=== PATIENT | female | born 1965 | race African-American/Black ===

== ENCOUNTER → 2016-11-07 | Outpatient (CLI) | payer MEDICARE, MEDICAID ==
--- NOTE | 2016-11-11 10:19 | WOMENS IMAGING REPORT ---
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 Left breast tomosynthesis was performed. Bilateral breast ultrasound was also performed. LIMITATIONS: None. FINDINGS: RIGHT BREAST MASSES: No suspicious masses. CALCIFICATIONS: No new or suspicious calcifications. ARCHITECTURAL DISTORTION: None. DEVELOPING DENSITY: None. ASYMMETRY: None noted. OTHER: There is a stereotactic clip in the lower inner quadrant right breast. I have no pathology re port for correlation. LEFT BREAST MASSES: No suspicious masses. CALCIFICATIONS: No new or suspicious calcifications. ARCHITECTURAL DISTORTION: None. DEVELOPING DENSITY: None. ASYMMETRY: None noted. OTHER: No other significant finding. Read with the assistance of CAD: .[facility] - R2 It Audit Manager Version 9.2 Patient presents today with bilateral nipple discharge. Bilateral breast ultrasound was performed. No worrisome findings. No cysts. No solid nodules. No dilated retroareolar ducts. No focal findin gs. BREAST DENSITY: c. The breasts are heterogeneously dense, which may obscure small masses. BIRAD: 2 Benign findings. RECOMMENDATION: RECOMMENDED FOLLOW UP: Clinical follow-up for nipple discharge. Please correlate wi th the patient's medication list for medications which could cause elevated prolactin. If there is b loody nipple discharge, consider follow up ductogram or MRI. Findings discussed with Dr Palomares SPECIFIC INTERVENTION/IMAGING/CONSULTATION RECOMMENDED:No additional intervention/ imaging/consultati on needed at this time. COMMUNICATION:Patient notified by letter. COMMENT: PATIENT NOTIFIED BY LETTER. The [employer] (ACR) has developed recommendations for screening MRI of the breast s in certain patient populations, to be used in conjunction with mammography. Breast MRI surveillanc e may be appropriate for women with more than 20% lifetime risk of developing breast cancer as deter mined by genetic testing, significant family history of the disease, or history of mantle radiation f or Hodgkins Disease. ACR Practice Guidelines 2008. TECHNICAL DOCUMENTATION: FINDING NUMBER: (1) ASSESSMENT: (1) JOB ID: [id number] [employer]- All Rights Reserved
--- NOTE | 2016-11-11 10:20 | WOMENS IMAGING REPORT ---
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 Left breast tomosynthesis was performed. Bilateral breast ultrasound was also performed. LIMITATIONS: None. FINDINGS: RIGHT BREAST MASSES: No suspicious masses. CALCIFICATIONS: No new or suspicious calcifications. ARCHITECTURAL DISTORTION: None. DEVELOPING DENSITY: None. ASYMMETRY: None noted. OTHER: There is a stereotactic clip in the lower inner quadrant right breast. I have no pathology re port for correlation. LEFT BREAST MASSES: No suspicious masses. CALCIFICATIONS: No new or suspicious calcifications. ARCHITECTURAL DISTORTION: None. DEVELOPING DENSITY: None. ASYMMETRY: None noted. OTHER: No other significant finding. Read with the assistance of CAD: .[facility] - R2 Lens Inspector Version 9.2 Patient presents today with bilateral nipple discharge. Bilateral breast ultrasound was performed. No worrisome findings. No cysts. No solid nodules. No dilated retroareolar ducts. No focal findin gs. BREAST DENSITY: c. The breasts are heterogeneously dense, which may obscure small masses. BIRAD: 2 Benign findings. RECOMMENDATION: RECOMMENDED FOLLOW UP: Clinical follow-up for nipple discharge. Please correlate wi th the patient's medication list for medications which could cause elevated prolactin. If there is b loody nipple discharge, consider follow up ductogram or MRI. Findings discussed with Dr Palomares SPECIFIC INTERVENTION/IMAGING/CONSULTATION RECOMMENDED:No additional intervention/ imaging/consultati on needed at this time. COMMUNICATION:Patient notified by letter. COMMENT: PATIENT NOTIFIED BY LETTER. The [employer] (ACR) has developed recommendations for screening MRI of the breast s in certain patient populations, to be used in conjunction with mammography. Breast MRI surveillanc e may be appropriate for women with more than 20% lifetime risk of developing breast cancer as deter mined by genetic testing, significant family history of the disease, or history of mantle radiation f or Hodgkins Disease. ACR Practice Guidelines 2008. TECHNICAL DOCUMENTATION: FINDING NUMBER: (1) ASSESSMENT: (1) JOB ID: [id number] [employer]- All Rights Reserved
--- NOTE | 2016-11-11 10:20 | WOMENS IMAGING REPORT ---
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 Left breast tomosynthesis was performed. Bilateral breast ultrasound was also performed. LIMITATIONS: None. FINDINGS: RIGHT BREAST MASSES: No suspicious masses. CALCIFICATIONS: No new or suspicious calcifications. ARCHITECTURAL DISTORTION: None. DEVELOPING DENSITY: None. ASYMMETRY: None noted. OTHER: There is a stereotactic clip in the lower inner quadrant right breast. I have no pathology re port for correlation. LEFT BREAST MASSES: No suspicious masses. CALCIFICATIONS: No new or suspicious calcifications. ARCHITECTURAL DISTORTION: None. DEVELOPING DENSITY: None. ASYMMETRY: None noted. OTHER: No other significant finding. Read with the assistance of CAD: .[facility] - R2 Hybrid Tester Version 9.2 Patient presents today with bilateral nipple discharge. Bilateral breast ultrasound was performed. No worrisome findings. No cysts. No solid nodules. No dilated retroareolar ducts. No focal findin gs. BREAST DENSITY: c. The breasts are heterogeneously dense, which may obscure small masses. BIRAD: 2 Benign findings. RECOMMENDATION: RECOMMENDED FOLLOW UP: Clinical follow-up for nipple discharge. Please correlate wi th the patient's medication list for medications which could cause elevated prolactin. If there is b loody nipple discharge, consider follow up ductogram or MRI. Findings discussed with Dr Palomares SPECIFIC INTERVENTION/IMAGING/CONSULTATION RECOMMENDED:No additional intervention/ imaging/consultati on needed at this time. COMMUNICATION:Patient notified by letter. COMMENT: PATIENT NOTIFIED BY LETTER. The [employer] (ACR) has developed recommendations for screening MRI of the breast s in certain patient populations, to be used in conjunction with mammography. Breast MRI surveillanc e may be appropriate for women with more than 20% lifetime risk of developing breast cancer as deter mined by genetic testing, significant family history of the disease, or history of mantle radiation f or Hodgkins Disease. ACR Practice Guidelines 2008. TECHNICAL DOCUMENTATION: FINDING NUMBER: (1) ASSESSMENT: (1) JOB ID: [id number] [employer]- All Rights Reserved
== END ==
LOC: WI 10:44
PROVIDERS: ATTEND Specialist
DX: C50.411 Malignant neoplasm of upper-outer quadrant of right female breast (principal); N64.52 Nipple discharge
CPT/HCPCS: 76642; G0204; 77066

== ENCOUNTER → 2016-11-13 | Outpatient (CLI) | payer MEDICARE, MEDICAID | LOC: RAD 10:06 | PROVIDERS: ATTEND Specialist | DX: C50.411 Malignant neoplasm of upper-outer quadrant of right female breast (principal) | CPT/HCPCS: 70460; 72132; 82565 ==

== ENCOUNTER 2017-01-18 18:53 | Emergency (ER) | payer MEDICARE ==
[2017-01-18] MEDS ORDERED: ONDANSETRON HCL INJ/PF 4 MG/2 ML SDV IV ONE (19:29)
[2017-01-18] MEDS ORDERED: PROCHLORPERAZINE EDISYLATE INJ 10 MG/2 ML VIAL IV ONE (19:29)
[2017-01-18] MEDS ORDERED: NORMAL SALINE 1000 ML 1,000 ML IV ONE (19:30)
[2017-01-18] MEDS ORDERED: LIDOCAINE 5% (700 MG) TRANSDERMAL ADH..PATCH TP ONE (19:30)
--- NOTE | 2017-01-18 19:31 | ER Document Report ---
ED Medical Screen (RME) - General Chief Complaint: Headache Stated Complaint: VOMITING/HEADACHE TRAVEL OUTSIDE OF THE [place] IN LAST 30 DAYS: No - HPI Notes: 01/18/17 19:30 Patient with a migraine headache similar to migraine headaches in the past. No history of head trauma. Patient also has a insect bite marc on her abdomen - Related Data Allergies/Adverse Reactions: aspirin [Aspirin] Allergy (Verified 01/18/17 19:00) ciprofloxacin [From Cipro] Allergy (Verified 01/18/17 19:00) ciprofloxacin HCl [From Cipro] Allergy (Verified 01/18/17 19:00) NSAIDS (Non-Steroidal Anti-Inflamma [Nsaids] Allergy (Verified 01/18/17 19:00) Past Medical History - Past Medical History Cardiac Medical History: Reports: Hx Heart Murmur Pulmonary Medical History: Reports: Hx Asthma, Hx Pneumonia Neurological Medical History: Reports: Hx Seizures Renal/ Medical History: Denies: Hx Peritoneal Dialysis Malignancy Medical History: 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 GI Medical History: Reports: Hx Gastroesophageal Reflux Disease, Hx Irritable Bowel Musculoskeltal Medical History: Reports Hx Fibromyalgia, Reports Hx Musculoskeletal Deformity, Reports Hx Musculoskeletal Trauma Psychiatric Medical History: Reports: Hx Depression Traumatic Medical History: Reports: Hx Fractures - left arm wrist hand, Hx Traumatic Brain Injury Past Surgical History: Reports: Hx Hysterectomy, Hx Neurologic Surgery - tbi, spinal fusion in 2005, spinal nerve stimulator early 2015, Hx Orthopedic Surgery - left arm ulnar nerve, wrist and left knee - Immunizations Immunizations up to date: Yes Hx Diphtheria, Pertussis, Tetanus Vaccination: Yes Review of Systems - Review of Systems Constitutional: Other - Headache insect bite Physical Exam - Vital signs Vitals: Temp Pulse Resp BP Pulse Ox 98.2 F 85 20 183/86 H 99 01/18/17 19:00 01/18/17 19:00 01/18/17 19:00 01/18/17 19:00 01/18/17 19:00 - General General appearance: Appears well In distress: None Course - Vital Signs Vital signs: Temp Pulse Resp BP Pulse Ox 98.2 F 85 20 183/86 H 99 01/18/17 19:00 01/18/17 19:00 01/18/17 19:00 01/18/17 19:00 01/18/17 19:00
--- NOTE | 2017-01-18 20:11 | ER Document Report ---
ED General - General Chief Complaint: Headache Stated Complaint: VOMITING/HEADACHE Mode of Arrival: Ambulatory Information source: Patient Notes: She presents to the emergency department with complaints of a migraine headache typical of her usual migraine headaches for the past 2 days with vomiting. She reports the left side of her head and behind her left eye aches. Patient also reports an insect bite on her stomach that occurred two days ago. Reports a brown spider bit her. She has been taking benadryl because the area itches and also placed some cream on it.. Patient reports 102. fever this AM and yesterday. Took tylenol at 1700 this afternoon but vomited up. Denies diarrhea. Reports history of migraines but this is only her second migraine in 2017. Reports light and smells bother her. She reports she took Zofran without relief of the vomiting. TRAVEL OUTSIDE OF THE [place] IN LAST 30 DAYS: No - HPI Onset: Other - 2 days Quality of pain: Achy, Pressure Severity: Severe Pain Level: 4 Associated symptoms: Fever, Vomiting Exacerbated by: Denies Relieved by: Denies Similar symptoms previously: Yes Recently seen / treated by doctor: No - Related Data Allergies/Adverse Reactions: aspirin [Aspirin] Allergy (Verified 01/18/17 19:00) ciprofloxacin [From Cipro] Allergy (Verified 01/18/17 19:00) ciprofloxacin HCl [From Cipro] Allergy (Verified 01/18/17 19:00) NSAIDS (Non-Steroidal Anti-Inflamma [Nsaids] Allergy (Verified 01/18/17 19:00) Past Medical History - General Information source: Patient Last Menstrual Period: hyst - Social History Smoking Status: Unknown if Ever Smoked Cigarette use (# per day): No Chew tobacco use (# tins/day): No Frequency of alcohol use: None Drug Abuse: None Family History: Arthritis, DM, Hypertension, Malignancy, Thyroid Disfunction Patient has suicidal ideation: No Patient has homicidal ideation: No - Past Medical History Cardiac Medical History: Reports: Hx Heart Murmur Pulmonary Medical History: Reports: Hx Asthma, Hx Pneumonia Neurological Medical History: Reports: Hx Migraine, Hx Seizures - last seizure 4 years ago Renal/ Medical History: Denies: Hx Peritoneal Dialysis Malignancy Medical History: 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 GI Medical History: Reports: Hx Gastroesophageal Reflux Disease, Hx Irritable Bowel Musculoskeltal Medical History: Reports Hx Fibromyalgia, Reports Hx Musculoskeletal Deformity, Reports Hx Musculoskeletal Trauma Psychiatric Medical History: Reports: Hx Depression Traumatic Medical History: Reports: Hx Fractures - left arm wrist hand, Hx Traumatic Brain Injury Past Surgical History: Reports: Hx Hysterectomy, Hx Neurologic Surgery - tbi, spinal fusion in 2005, spinal nerve stimulator early 2015, Hx Orthopedic Surgery - left arm ulnar nerve, wrist and left knee - Immunizations Immunizations up to date: Yes Hx Diphtheria, Pertussis, Tetanus Vaccination: Yes Review of Systems - Review of Systems Notes: Review HPI for review of systems., All other systems negative Physical Exam - Vital signs Vitals: Temp Pulse Resp BP Pulse Ox 98.2 F 85 20 183/86 H 99 01/18/17 19:00 01/18/17 19:00 01/18/17 19:00 01/18/17 19:00 01/18/17 19:00 - Notes Notes: PHYSICAL EXAMINATION: GENERAL: sunglasses on, looks uncomfortable HEAD: Atraumatic, normocephalic. EYES: Pupils equal round and reactive to light, extraocular movements intact, sclera anicteric, conjunctiva are normal. ENT: nares patent, oropharynx clear without exudates. Moist mucous membranes. NECK: Normal range of motion, supple without lymphadenopathy LUNGS: CTAB and equal. No wheezes rales or rhonchi. HEART: Regular rate and rhythm without murmurs ABDOMEN: Soft, no tenderness. No guarding, no rebound EXTREMITIES: Normal range of motion, no pitting edema. No cyanosis. NEUROLOGICAL: Cranial nerves grossly intact. Normal sensory/motor exams. no obvious neuro deficits, speaks in a clear voice, no weakness. PSYCH: Normal mood, normal affect. SKIN: Warm, Dry, normal turgor,small area of erythema to the right mid right quad, no induration, no warmth/drainage or pustule. Course - Re-evaluation Re-evalutation: 01/18/17 20:27 Patient was instructed on pending medication. She verbalized understanding. 01/18/17 21:34 She reports her headache is completely gone. She denies nausea, is eating crackers and water - Vital Signs Vital signs: Temp Pulse Resp BP Pulse Ox 98.0 F 78 16 151/88 H 98 01/18/17 22:24 01/18/17 22:24 01/18/17 22:24 01/18/17 22:24 01/18/17 22:24 Discharge - Discharge Clinical Impression: Elevated blood pressure reading Headache Qualifiers: Headache type: unspecified Headache chronicity pattern: acute headache Insect bite Qualifiers: Encounter type: initial encounter Qualified Code(s): W57.XXXA - Bitten or stung by nonvenomous insect and other nonvenomous arthropods, initial encounter Condition: Stable Disposition: HOME, SELF-CARE Instructions: Intravenous Compazine for Headaches ([facility]), Headache ([facility]), Use of Diphenhydramine Additional Instructions: *You have been evaluated for headache, insect bite, elevated blood pressure reading *Take your medication as prescribed *Take benadryl as indicated *Follow up with your primary care provider within one week for recheck *Monitor the insect bite for signs of infection such as redness swelling and warmth increased pain *Return to ED for worsening condition, changes, needs, concerns Forms: Elevated Blood Pressure Referrals: AMIRAH ESCALANTE MD [Primary Care Provider] - Follow up in 3-5 days
[2017-01-18 22:26] VITALS: BP 151/88
== END 2017-01-18 22:25 | disposition home or self-care (01) ==
LOC: ER 18:53
DX: S30.861A Insect bite (nonvenomous) of abdominal wall, initial encounter (principal); R03.0 Elevated blood-pressure reading, without diagnosis of hypertension; R51 Headache; R11.10 Vomiting, unspecified; W57.XXXA Bitten or stung by nonvenomous insect and other nonvenomous arthropods, initial encounter
CPT/HCPCS: 99283; 96361; 96374; 96375; J0780; J2405; J7030

== ENCOUNTER → 2017-03-24 | Outpatient (CLI) | payer MEDICARE, MEDICAID ==
--- NOTE | 2017-03-24 09:38 | RADIOLOGY REPORT (SQ) ---
EXAM DESCRIPTION: CT HEAD WITHOUT COMPLETED DATE/TIME: 03/24/2017 8:33 am REASON FOR STUDY: HEADACHE R51 HEADACHE COMPARISON: November 2016 TECHNIQUE: Axial images acquired through the brain without intravenous contrast. Images reviewed wi th bone, brain and subdural windows. Images stored on PACS. All CT scanners at this facility use dose modulation, iterative reconstruction, and/or weight based d osing when appropriate to reduce radiation dose to as low as reasonably achievable (ALARA). [facility]: Dose Right [facility]: CareDose [facility]: Dose Right [facility]: Teradose 4D [facility]: [employer] RADIATION DOSE: 48.95 mGy. LIMITATIONS: None. FINDINGS: VENTRICLES: Normal size and contour. CEREBRUM: No masses. No hemorrhage. No midline shift. Normal hodge/white matter differentiation. N o evidence for acute infarction. CEREBELLUM: No masses. No hemorrhage. No alteration of density. No evidence for acute infarction. EXTRAAXIAL SPACES: No fluid collections. No masses. ORBITS AND GLOBE: No intra- or extraconal masses. Normal contour of globe without masses. CALVARIUM: No fracture. PARANASAL SINUSES: No fluid or mucosal thickening. SOFT TISSUES: No mass or hematoma. OTHER: No other significant finding. IMPRESSION: NORMAL BRAIN CT WITHOUT CONTRAST. TECHNICAL DOCUMENTATION: JOB ID: [id number] Quality ID # [id number]: Final reports with documentation of one or more dose reduction techniques (e.g., Au tomated exposure control, adjustment of the mA and/or kV according to patient size, use of iterative reconstruction technique) 2010 [employer]- All Rights Reserved
== END ==
LOC: RAD 08:22
PROVIDERS: ATTEND Physician Assistant
DX: R51 Headache (principal)
CPT/HCPCS: 70450

== ENCOUNTER → 2017-06-20 | Outpatient (CLI) | payer MEDICARE, MEDICAID ==
--- NOTE | 2017-06-20 10:29 | RADIOLOGY REPORT (SQ) ---
EXAM DESCRIPTION: LUMBAR SPINE COMPLETE COMPLETED DATE/TIME: 06/20/2017 8:41 am REASON FOR STUDY: PAIN IN THORACIC SPINE,LOW BACK PAIN M54.6 PAIN IN THORACIC SPINE M54.5 LOW BACK PAIN COMPARISON: CT 11/13/2016 NUMBER OF VIEWS: Five views including obliques. TECHNIQUE: AP, lateral, oblique, and sacral radiographic images acquired of the lumbar spine. LIMITATIONS: None. FINDINGS: MINERALIZATION: Normal. SEGMENTATION: Normal. No transitional anatomy. ALIGNMENT: Normal. VERTEBRAE: Maintained height. No fracture or worrisome bone lesion. DISCS: Preserved height. No significant osteophytes or end plate irregularity. POSTERIOR ELEMENTS: Pedicles and facets are intact. No pars defect or posterior arch defects. HARDWARE: A neural stimulator overlies lumbar spine on the lateral views. PARASPINAL SOFT TISSUES: Normal. PELVIS: Intact as visualized. No fractures or worrisome bone lesions. SI joints intact. OTHER: No other significant finding. IMPRESSION: NORMAL 5 VIEW LUMBAR SPINE. TECHNICAL DOCUMENTATION: JOB ID: [id number] [employer]- All Rights Reserved
--- NOTE | 2017-06-20 10:31 | RADIOLOGY REPORT (SQ) ---
EXAM DESCRIPTION: T SPINE AP/LAT COMPLETED DATE/TIME: 06/20/2017 8:42 am REASON FOR STUDY: PAIN IN THORACIC SPINE,LOW BACK PAIN M54.6 PAIN IN THORACIC SPINE M54.5 LOW BACK PAIN COMPARISON: CT 07/04/2016 NUMBER OF VIEWS: Two views. TECHNIQUE: AP and lateral radiographic images acquired of the thoracic spine. LIMITATIONS: None. FINDINGS: MINERALIZATION: Normal. ALIGNMENT: Normal. No scoliosis. VERTEBRAE: No fracture or bone lesion. Maintained height, normal segmentation. DISCS: No significant loss of height or significant narrowing. No large osteophytes. HARDWARE: The neurostimulator electrodes extend from T7-T9. MEDIASTINUM AND SOFT TISSUES: Normal heart size and aortic contour. No soft tissue abnormality. VISUALIZED LUNG DENTON: Clear. OTHER: No other significant finding. IMPRESSION: NO SIGNIFICANT RADIOGRAPHIC FINDING IN THE THORACIC SPINE. TECHNICAL DOCUMENTATION: JOB ID: [id number] [employer]- All Rights Reserved
== END ==
LOC: OD 08:19
PROVIDERS: ATTEND Physician Assistant
DX: M54.6 Pain in thoracic spine (principal); M54.5 Low back pain
CPT/HCPCS: 72070; 72110

== ENCOUNTER → 2017-06-20 | Outpatient (CLI) | payer MEDICARE, MEDICAID ==
--- NOTE | 2017-06-20 12:08 | RADIOLOGY REPORT (SQ) ---
EXAM DESCRIPTION: CT HEAD WITHOUT COMPLETED DATE/TIME: 06/20/2017 11:08 am REASON FOR STUDY: OTHER VISUAL DISTURBANCES (H53.8), FALL (W19.XXXA), DIZZINESS AND GIDDINESS W19.XX XA UNSPECIFIED FALL, INITIAL ENCOUNTER H53.8 OTHER VISUAL DISTURBANCES R42 DIZZINESS AND GIDDINESS COMPARISON: CT brain 03/24/2017, 11/13/2016 TECHNIQUE: Axial images acquired through the brain without intravenous contrast. Images reviewed wi th bone, brain and subdural windows. Images stored on PACS. All CT scanners at this facility use dose modulation, iterative reconstruction, and/or weight based d osing when appropriate to reduce radiation dose to as low as reasonably achievable (ALARA). [facility]: Dose Right [facility]: CareDose [facility]: Dose Right [facility]: Teradose 4D [facility]: [employer] RADIATION DOSE: Up-to-date CT equipment and radiation dose reduction techniques were employed. CTDIv ol: 48.2 mGy. DLP: 783 mGy-cm. mGy. LIMITATIONS: None. FINDINGS: VENTRICLES: Normal size and contour. CEREBRUM: No masses. No hemorrhage. No midline shift. No evidence for acute infarction. Normal gra y/white matter differentiation. No areas of low density in the white matter. CEREBELLUM: No masses. No hemorrhage. No alteration of density. No evidence for acute infarction. EXTRAAXIAL SPACES: No fluid collections. No masses. ORBITS AND GLOBE: No intra- or extraconal masses. Normal contour of globe without masses. CALVARIUM: No fracture. PARANASAL SINUSES: No fluid or mucosal thickening. SOFT TISSUES: No mass or hematoma. OTHER: No other significant finding. IMPRESSION: NORMAL BRAIN CT WITHOUT CONTRAST. COMMENT: Quality ID # 436: Final reports with documentation of one or more dose reduction techniques (e.g., Automated exposure control, adjustment of the mA and/or kV according to patient size, use of iterative reconstruction technique) TECHNICAL DOCUMENTATION: JOB ID: [id number] [employer]- All Rights Reserved
== END ==
LOC: RAD 10:57
PROVIDERS: ATTEND Physician Assistant
DX: H53.8 Other visual disturbances (principal); R42 Dizziness and giddiness; W19.XXXA Unspecified fall, initial encounter
CPT/HCPCS: 70450

== ENCOUNTER 2017-07-15 15:18 | Emergency (ER) | payer MEDICARE, MEDICAID ==
[2017-07-15] MEDS ORDERED: IPRATROPIUM/ALBUTEROL 0.5-2.5 MG/3 ML AMPUL NEB ONE (15:33)
[2017-07-15] MEDS ORDERED: PREDNISONE 20 MG TABLET PO ONE (15:34)
--- NOTE | 2017-07-15 15:57 | ER Document Report ---
ED General - General Chief Complaint: Nonproductive Cough Stated Complaint: COUGH Time Seen by Provider: 07/15/17 15:25 Mode of Arrival: Ambulatory Information source: Patient Notes: 55-year-old female history of asthma presents with complaints of shortness of breath. Patient notes she has had nonproductive cough denies any fevers or chills notes she has had shortness of breath. Patient took 2 breathing treatments at home and noted continued difficulty breathing presented to the ED for evaluation and care TRAVEL OUTSIDE OF THE [place] IN LAST 30 DAYS: No - HPI Onset: Just prior to arrival Onset/Duration: Sudden Quality of pain: Achy Severity: Mild Pain Level: 1 Associated symptoms: Nonproductive cough, Headache, Shortness of breath Exacerbated by: Coughing Relieved by: Denies Similar symptoms previously: Yes Recently seen / treated by doctor: No - Related Data Allergies/Adverse Reactions: aspirin [Aspirin] Allergy (Verified 01/18/17 19:00) ciprofloxacin [From Cipro] Allergy (Verified 01/18/17 19:00) ciprofloxacin HCl [From Cipro] Allergy (Verified 01/18/17 19:00) NSAIDS (Non-Steroidal Anti-Inflamma [Nsaids] Allergy (Verified 01/18/17 19:00) Past Medical History - Social History Smoking Status: Never Smoker Cigarette use (# per day): No Chew tobacco use (# tins/day): No Smoking Education Provided: No Family History: Arthritis, DM, Hypertension, Malignancy, Thyroid Disfunction Patient has suicidal ideation: No Patient has homicidal ideation: No - Past Medical History Cardiac Medical History: Reports: Hx Heart Murmur Pulmonary Medical History: Reports: Hx Asthma, Hx Pneumonia Neurological Medical History: Reports: Hx Migraine, Hx Seizures - last seizure 4 years ago Endocrine Medical History: Reports: 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 Renal/ Medical History: Denies: Hx Peritoneal Dialysis Malignancy Medical History: 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 GI Medical History: Reports: Hx Gastroesophageal Reflux Disease, Hx Irritable Bowel Musculoskeltal Medical History: Reports Hx Fibromyalgia, Reports Hx Musculoskeletal Deformity, Reports Hx Musculoskeletal Trauma Psychiatric Medical History: Reports: Hx Depression Traumatic Medical History: Reports: Hx Fractures - left arm wrist hand, Hx Traumatic Brain Injury Past Surgical History: Reports: Hx Breast Surgery - lumpectomy R breast; ducts removed from bilateral breasts, Hx Hysterectomy, Hx Neurologic Surgery - tbi, spinal fusion in 2005, spinal nerve stimulator early 2016, Hx Orthopedic Surgery - left arm ulnar nerve, wrist and left knee - Immunizations Immunizations up to date: Yes Hx Diphtheria, Pertussis, Tetanus Vaccination: Yes Review of Systems - Review of Systems Notes: REVIEW OF SYSTEMS: CONSTITUTIONAL : Denies fever, chills, or sweats. Denies recent illness. EENT: Denies eye, ear, throat, or mouth pain or symptoms. Denies nasal or sinus congestion or discharge. Denies throat, tongue, or mouth swelling or difficulty swallowing. CARDIOVASCULAR: Denies chest pain. Denies palpitations or racing or irregular heart beat. Denies ankle edema. RESPIRATORY: Admits to shortness of breath difficulty breathing GASTROINTESTINAL: Denies abdominal pain or distention. Denies nausea, vomiting , or diarrhea. Denies blood in vomitus, stools, or per rectum. Denies black, tarry stools. Denies constipation. GENITOURINARY: Denies difficulty urinating, painful urination, burning, frequency, blood in urine, or discharge. FEMALE GENITOURINARY: Denies vaginal bleeding, heavy or abnormal periods, irregular periods. Denies vaginal discharge or odor. MUSCULOSKELETAL: Denies back or neck pain or stiffness. Denies joint pain or swelling. SKIN: Denies rash, lesions or sores. HEMATOLOGIC : Denies easy bruising or bleeding. LYMPHATIC: Denies swollen, enlarged glands. NEUROLOGICAL: Admits to headache with the cough PSYCHIATRIC: Denies anxiety or stress. Denies depression, suicidal ideation, or homicidal ideation. ALL OTHER SYSTEMS REVIEWED AND NEGATIVE. PHYSICAL EXAMINATION: GENERAL: Well-appearing, well-nourished and in no acute distress. HEAD: Atraumatic, normocephalic. EYES: Pupils equal round and reactive to light, extraocular movements intact, conjunctiva are normal. ENT: Nares patent, oropharynx clear without exudates. Moist mucous membranes. NECK: Normal range of motion, supple without lymphadenopathy LUNGS: Coarse inspiratory expiratory wheezing all throughout HEART: Regular rate and rhythm without murmurs ABDOMEN: Soft, nontender, nondistended abdomen. No guarding, no rebound. No masses appreciated. Female : deferred Musculoskeletal: Normal range of motion, no pitting or edema. No cyanosis. NEUROLOGICAL: Cranial nerves grossly intact. Normal speech, normal gait. Normal sensory, motor exams PSYCH: Normal mood, normal affect. SKIN: Warm, Dry, normal turgor, no rashes or lesions noted. Dictation was performed using [employer] voice recognition software Physical Exam - Vital signs Vitals: Temp Pulse Resp BP Pulse Ox 98.7 F 92 20 158/104 H 97 07/15/17 15:29 07/15/17 15:29 07/15/17 15:29 07/15/17 15:29 07/15/17 15:29 Course - Re-evaluation Re-evalutation: 07/15/17 15:58 Bharath'south prednisone will be given chest x-rays pending overall she looks well Patient denies any DVT PE risk factors 07/15/17 17:05 Patient notes breathing has improved significantly 07/15/17 17:10 After performing a Medical Screening Examination, I estimate there is LOW risk for ACUTE CORONARY SYNDROME, RESPIRATORY FAILURE, SEPSIS OR MENINGITIS, thus I consider the discharge disposition reasonable. I have reevaluated this patient multiple times and no significant life threatening changes are noted. The patient and I have discussed the diagnosis and risks, and we agree with discharging home with close follow-up. We also discussed returning to the Emergency Department immediately if new or worsening symptoms occur. We have discussed the symptoms which are most concerning (e.g., changing or worsening pain, trouble swallowing or breathing, neck stiffness, fever) that necessitate immediate return. - Vital Signs Vital signs: Temp Pulse Resp BP Pulse Ox 98.7 F 92 20 158/104 H 97 07/15/17 15:29 07/15/17 15:29 07/15/17 15:29 07/15/17 15:29 07/15/17 15:29 - Diagnostic Test Radiology reviewed: Image reviewed, Reports reviewed Discharge - Discharge Clinical Impression: Migraine Qualifiers: Migraine type: unspecified Status migrainosus presence: without status migrainosus Intractability: not intractable Qualified Code(s): G43.909 - Migraine, unspecified, not intractable, without status migrainosus Asthma exacerbation Qualifiers: Asthma severity: mild Asthma persistence: intermittent Qualified Code(s): J45.21 - Mild intermittent asthma with (acute) exacerbation Condition: Stable Disposition: HOME, SELF-CARE Instructions: Asthma ([facility]) Prescriptions: Prednisone [Deltasone 20 mg Tablet] 3 tab PO DAILY 5 Days tablet Referrals: DENYS MCGRAW PA [Primary Care Provider] - Follow up as needed
--- NOTE | 2017-07-15 16:34 | RADIOLOGY REPORT (SQ) ---
EXAM DESCRIPTION: CHEST PA/LAT COMPLETED DATE/TIME: 07/15/2017 4:24 pm REASON FOR STUDY: asthma exacerbation COMPARISON: 01/15/2015 EXAM PARAMETERS: NUMBER OF VIEWS: two views TECHNIQUE: Digital Frontal and Lateral radiographic views of the chest acquired. RADIATION DOSE: NA LIMITATIONS: none FINDINGS: LUNGS AND PLEURA: No opacities, masses or pneumothorax. No pleural effusion. MEDIASTINUM AND HILAR STRUCTURES: No masses or contour abnormalities. HEART AND VASCULAR STRUCTURES: Heart normal size. No evidence for failure. BONES: No acute findings. HARDWARE: Neurostimulator electrodes are present. OTHER: No other significant finding. IMPRESSION: NO SIGNIFICANT RADIOGRAPHIC FINDING IN THE CHEST. TECHNICAL DOCUMENTATION: JOB ID: [id number] [employer]- All Rights Reserved
[2017-07-15] MEDS ORDERED: DIPHENHYDRAMINE HCL 50 MG CAPSULE PO ONE (17:04)
[2017-07-15] MEDS ORDERED: PROMETHAZINE HCL 25 MG TABLET PO ONE (17:04)
[2017-07-15 17:27] VITALS: BP 127/80
== END 2017-07-15 17:27 | disposition home or self-care (01) ==
LOC: ER 15:18
DX: J45.21 Mild intermittent asthma with (acute) exacerbation (principal); G43.909 Migraine, unspecified, not intractable, without status migrainosus; R05 Cough; R06.02 Shortness of breath; Z88.6 Allergy status to analgesic agent; Z88.1 Allergy status to other antibiotic agents; Z88.8 Allergy status to other drugs, medicaments and biological substances; Z85.3 Personal history of malignant neoplasm of breast
CPT/HCPCS: 94640; 99283; 71020; A9270 ×4; J7512; J7620

== ENCOUNTER → 2017-07-21 | Outpatient (CLI) | payer MEDICARE, MEDICAID ==
--- NOTE | 2017-07-21 14:56 | RADIOLOGY REPORT (SQ) ---
EXAM DESCRIPTION: CHEST PA/LATERAL COMPLETED DATE/TIME: 07/21/2017 1:07 pm REASON FOR STUDY: COUGH COMPARISON: Two-view chest 07/15/2017, 01/15/2015 EXAM PARAMETERS: NUMBER OF VIEWS: two views TECHNIQUE: Digital Frontal and Lateral radiographic views of the chest acquired. RADIATION DOSE: NA LIMITATIONS: none FINDINGS: LUNGS AND PLEURA: No opacities, masses or pneumothorax. No pleural effusion. MEDIASTINUM AND HILAR STRUCTURES: No masses or contour abnormalities. HEART AND VASCULAR STRUCTURES: Heart normal size. No evidence for failure. BONES: No acute findings. HARDWARE: Neurostimulator electrodes over the mid thoracic spine. Clips right upper quadrant post ch olecystectomy OTHER: No other significant finding. IMPRESSION: NO SIGNIFICANT RADIOGRAPHIC FINDING IN THE CHEST. TECHNICAL DOCUMENTATION: JOB ID: [id number] [employer]- All Rights Reserved
== END ==
LOC: OD 12:55
PROVIDERS: ATTEND Physician Assistant
DX: R05 Cough (principal)
CPT/HCPCS: 71020

== ENCOUNTER → 2017-07-31 | Outpatient (CLI) | payer MEDICARE, MEDICAID ==
--- NOTE | 2017-07-31 11:58 | RADIOLOGY REPORT (SQ) ---
EXAM DESCRIPTION: CAROTID DOPPLER COMPLETED DATE/TIME: 07/31/2017 11:20 am REASON FOR STUDY: DIZZINESS AND GIDDINESS R42 DIZZINESS AND GIDDINESS COMPARISON: CT brain 11/13/2016, 03/24/2017, 06/20/2017 TECHNIQUE: Grayscale ultrasound, Doppler velocity and spectra, and color Doppler images acquired of the extra-cranial carotid and vertebral arteries. Images stored on PACS. LIMITATIONS: None. FINDINGS: RIGHT CAROTID CCA Velocities: Within normal limits. ICA Velocities Peak systolic 0.51 m/s. End diastolic 0.19 m/s. Proximal ICA/CCA peak systolic ratio 0.8. Spectra normal. No significant plaque. LEFT CAROTID CCA Velocities: Within normal limits. ICA Velocities Peak systolic 0.79 m/s. End diastolic 0.26 m/s. Proximal ICA/CCA peak systolic ratio 0.8. Spectra normal. No significant plaque. VERTEBRAL ARTERIES: Antegrade flow. Normal waveforms. SUBCLAVIAN ARTERIES: Not evaluated OTHER: No other significant finding. IMPRESSION: NO HEMODYNAMICALLY SIGNIFICANT STENOSIS. COMMENT: Quality ID #[id number]: Velocity criteria are extrapolated from the diameter data as defined by t he Society of Radiologists in Ultrasound Consensus Conference. Radiology 2003: 229; 340-346. TECHNICAL DOCUMENTATION: JOB ID: [id number] [employer]- All Rights Reserved
== END ==
LOC: SP 10:13
PROVIDERS: ATTEND Physician Assistant
DX: R42 Dizziness and giddiness (principal)
CPT/HCPCS: 93880

== ENCOUNTER → 2017-11-03 | Outpatient (CLI) | payer MEDICARE, MEDICAID ==
--- NOTE | 2017-11-04 19:35 | WOMENS IMAGING REPORT ---
EXAM DESCRIPTION: 3D SCREENING MAMMO BILAT COMPLETED DATE/TIME: 11/03/2017 8:55 am REASON FOR STUDY: ROUTINE SCREENING; Z12.31 Z12.31 ENCNTR SCREEN MAMMOGRAM FOR MALIGNANT NEOPLASM O F BEN COMPARISON: 2015, 2016 TECHNIQUE: Standard craniocaudal and mediolateral oblique views of each breast recorded using digita l acquisition and breast tomosynthesis. LIMITATIONS: None. FINDINGS: Findings present which are benign by mammographic criteria. No suspicious masses, calcifi cations or architectural distortion. Pertinent benign findings: Right breast biopsy clip. Benign bilateral breast parenchymal calcificati ons Read with the assistance of CAD. .[facility] - R2 [employer]ova Version 1.3 .[facility] - R2 Cenova Version 1.3 .[facility] - R2 Cenova Version 2.4 [place] [place] Cenova Version 2.4 .[facility] - R2 [employer] Version 9.2 Benign mammographic findings may include one or more of the following: Smooth masses, popcorn/rim/co arse calcifications, asymmetries, post-procedure changes, and lesions with long-standing stability. IMPRESSION: BENIGN MAMMOGRAPHIC FINDINGS. BIRADS 2 BREAST DENSITY: c. The breasts are heterogeneously dense, which may obscure small masses. BIRAD: 2 BENIGN FINDING(S) RECOMMENDATION: RECOMMENDATION: ROUTINE SCREENING PLEASE CONTINUE YEARLY BILATERAL SCREENING TOMOSYNTHESIS IN OCTOBER 2018 COMMENT: The patient has been notified of the results by letter per SA requirements. Additional no tification policies are in place for contacting patient with suspicious or incomplete findings. Quality ID #225: The [employer] recommends an annual screening mammogram for women aged 40 years or over. This facility utilizes a reminder system to ensure that all patients receive reminder letters, and/or direct phone calls for appointments. This includes reminders for routine scr eening mammograms, diagnostic mammograms, or other Breast Imaging Interventions when appropriate. Th is patient will be placed in the appropriate reminder system. The [employer] (ACR) has developed recommendations for screening MRI of the breast s in certain patient populations, to be used in conjunction with mammography. Breast MRI surveillanc e may be appropriate for women with more than 20% lifetime risk of developing breast cancer as deter mined by genetic testing, significant family history of the disease, or history of mantle radiation f or Hodgkins Disease. ACR Practice Guidelines 2008. DBT Technology DBT is a type of tomographic mammography. With conventional mammography, overlapping breast tissue ma y make lesions difficult to detect, even with good compression. DBT uses an x-ray tube that rotates a round the breast, taking images at different angles. These images are then combined to create thin sl ices of the breast that the radiologist can view as a 3D reconstruction. The Hologic unit can perform full-field digital mammograms (2D imaging); or DBT (3D imaging); or both, in a combination mode that quickly performs both the mammogram and the tomosynthesis scan while the breast is still compressed. PQRS 6045F: Fluoroscopic imaging is not utilized for breast tomosynthesis. TECHNICAL DOCUMENTATION: FINDING NUMBER: (1) ASSESSMENT: (1) JOB ID: [id number] [employer]- All Rights Reserved
== END ==
LOC: WI 08:13
PROVIDERS: ATTEND Internal Medicine Hematology & Oncology
DX: Z12.31 Encounter for screening mammogram for malignant neoplasm of breast (principal)
CPT/HCPCS: 77063; 77067

== ENCOUNTER → 2017-11-03 | Outpatient (CLI) | payer MEDICARE, MEDICAID ==
[2017-11-03 15:51] LABS: HEMOGLOBIN 11.4 g/dL (12.0-15.5); MEAN CORPUSCULAR HEMOGLOBIN 28.5 pg (27.0-33.4); MEAN CORPUSCULAR HGB CONC 33.5 g/dL (32.0-36.0); MEAN CORPUSCULAR VOLUME 85 fl (80-97); PLATELET COUNT 336 10^3/uL (150-450); RED BLOOD COUNT 3.99 10^6/uL (3.72-5.28); RED CELL DISTRIBUTION WIDTH 13.8 % (11.5-14.0); WHITE BLOOD COUNT 7.2 10^3/uL (4.0-10.5)
[2017-11-03 16:22] LABS: ALANINE AMINOTRANSFERASE 90 U/L (9-52); ALBUMIN 4.5 g/dL (3.5-5.0); ALKALINE PHOSPHATASE 92 U/L (38-126); AMYLASE 112 U/L (30-110); ANION GAP 11 (5-19); ASPARTATE AMINO TRANSFERASE 59 U/L (14-36); BILIRUBIN,DIRECT 0.2 mg/dL (0.0-0.4); BILIRUBIN,TOTAL 0.2 mg/dL (0.2-1.3); BLOOD UREA NITROGEN 12 mg/dL (7-20); CALCIUM 10.4 mg/dL (8.4-10.2); CARBON DIOXIDE 29 mmol/L (22-30); CHLORIDE 100 mmol/L (98-107); GLUCOSE 93 mg/dL (75-110); POTASSIUM 4.6 mmol/L (3.6-5.0); SODIUM 140.1 mmol/L (137-145); TOTAL PROTEIN 7.8 g/dL (6.3-8.2)
== END ==
LOC: LAB 15:18
PROVIDERS: ATTEND Physician Assistant Surgical
DX: K92.0 Hematemesis (principal); R11.2 Nausea with vomiting, unspecified; R10.13 Epigastric pain; R10.11 Right upper quadrant pain
CPT/HCPCS: 36415; 80053; 82150; 83690; 85027

== ENCOUNTER → 2017-11-07 | Outpatient (CLI) | payer MEDICARE, MEDICAID ==
--- NOTE | 2017-11-07 14:26 | RADIOLOGY REPORT (SQ) ---
EXAM DESCRIPTION: UPPER GI/SM BOWEL COMPLETED DATE/TIME: 11/07/2017 12:53 pm REASON FOR STUDY: N/V (R11.2), EPIGASTRIC PAIN (R10.13) R11.2 NAUSEA WITH VOMITING, UNSPECIFIED R10 .13 EPIGASTRIC PAIN COMPARISON: Recent upper endoscopy report was reviewed. TECHNIQUE: Under fluoroscopic guidance, patient ingested effervescent granules followed by thick an d thin barium. Fluoroscopic spot images and routine radiographic images acquired and stored on PACS . Following evaluation of esophagus and stomach, additional barium administered with serial delayed ab dominal radiographs until colonic identification. Fluoroscopic images recorded of the terminal ileu m. 12 MM BARIUM TABLET GIVEN: Yes. No significant delay in passage. FLUOROSCOPY TIME: 2.5 minutes 21 fluoroscopy images saved to PACS. LIMITATIONS: None. FINDINGS: NEUROMUSCULAR COORDINATION OF SWALLOW: Normal. No aspiration. ESOPHAGEAL MOTILITY: Normal primary peristalsis. Mild tertiary contractions are noted throughout the mid and distal esophagus suggesting mild dysmotility. No esophageal spasm. ESOPHAGEAL MUCOSA: Normal mucosa without masses or ulceration. GASTRO-ESOPHAGEAL JUNCTION: No hiatal hernia. Mild gastroesophageal reflux is noted extending into t he distal 1/3 esophagus. STOMACH: Normal without masses or ulcerations. GASTRIC OUTLET: There is narrowing of the pylorus without significant delay in gastric emptying. DUODENAL BULB: Surgery DUODENUM: There is mild delay in transit of contrast through the duodenum with prominent mucosal fold s and moderate dilatation. Surgical clips are identified in the region of the duodenum which is cons istent with the patient's history of prior surgery. PROXIMAL SMALL BOWEL: The remainder of the small bowel is normal as visualized. JEJUNUM: Normal mucosal pattern. No dilatation, segmentation, strictures or masses. ILEUM: Normal mucosal pattern. No dilatation, segmentation, strictures or masses. TERMINAL ILEUM AND ILEO-CECAL VALVE: Normal mucosal pattern without cobble-stoning or stricture. Nor mal compression. TRANSIT TIME: Within normal limits. 2 hours and 30 minutes. PROXIMAL COLON: Incompletely imaged. No abnormality. NON-GI TRACT STRUCTURES: No significant finding. OTHER: No other significant finding. IMPRESSION: 1. MILD ESOPHAGEAL DYSMOTILITY. NO DELAY IN PASSAGE OF TABLET. 2. MODERATE GASTROESOPHAGEAL REFLUX. 3. SURGICAL CHANGES RELATED TO THE DUODENUM WITH MILD DELAY IN PASSAGE OF CONTRAST, PROMINENT MUCOSA L FOLDS, AND MODERATE DILATATION. 4. THE REMAINDER OF THE SMALL BOWEL IS UNREMARKABLE. COMMENT: Quality ID 145: Final reports for procedures using fluoroscopy that document radiation exp osure indices, or exposure time and number of fluorographic images (if radiation exposure indices are not available) TECHNICAL DOCUMENTATION: JOB ID: [id number] [employer]- All Rights Reserved
== END ==
LOC: RAD 08:16
PROVIDERS: ATTEND Internal Medicine Gastroenterology
DX: R11.2 Nausea with vomiting, unspecified (principal); R10.13 Epigastric pain
CPT/HCPCS: 74249

== ENCOUNTER → 2017-11-11 | Outpatient (CLI) | payer MEDICARE, MEDICAID ==
--- NOTE | 2017-11-11 12:11 | RADIOLOGY REPORT (SQ) ---
EXAM DESCRIPTION: KNEE LEFT 2 VIEWS COMPLETED DATE/TIME: 11/11/2017 10:42 am REASON FOR STUDY: PAIN IN LEFT KNEE M25.562 PAIN IN LEFT KNEE COMPARISON: None. NUMBER OF VIEWS: Two views. TECHNIQUE: AP and lateral radiographic images acquired of the left knee. LIMITATIONS: None. FINDINGS: MINERALIZATION: Normal. BONES: No acute fracture or dislocation. No worrisome bone lesions. JOINT: No effusion. SOFT TISSUES: No soft tissue swelling. No radio-opaque foreign body. OTHER: No other significant finding. IMPRESSION: NEGATIVE STUDY OF THE LEFT KNEE. NO RADIOGRAPHIC EVIDENCE OF ACUTE INJURY. TECHNICAL DOCUMENTATION: JOB ID: [id number] [employer]- All Rights Reserved
== END ==
LOC: RAD 10:23
PROVIDERS: ATTEND Physician Assistant
DX: M25.562 Pain in left knee (principal)

== ENCOUNTER → 2017-11-12 | Outpatient (CLI) | payer MEDICARE, MEDICAID ==
--- NOTE | 2017-11-12 12:49 | RADIOLOGY REPORT (SQ) ---
EXAM DESCRIPTION: VENOUS UNILATERAL LOWER COMPLETED DATE/TIME: 11/12/2017 12:36 pm REASON FOR STUDY: LLE EDEMA R60.0 LOCALIZED EDEMA COMPARISON: None. TECHNIQUE: Dynamic and static hodge scale and color images acquired of the left leg venous system. Se lected spectral images acquired with additional compression and augmentation maneuvers. The contralat eral common femoral vein and saphenofemoral junction were also imaged. Images stored on PACS. LIMITATIONS: None. FINDINGS: COMMON FEMORAL: Normal phasicity, compression and augmentation. No visualized echogenic ma terial on hodge scale. No defects on color images. FEMORAL: Normal compression and augmentation. No visualized echogenic material on hodge scale. No defe cts on color images. POPLITEAL: Normal compression, augmentation. No visualized echogenic material on hodge scale. No defec ts on color images. CALF VESSELS: Normal compression, augmentation. No visualized echogenic material on hodge scale. No de fects on color images. GSV and SSV: Normal compression, augmentation. No visualized echogenic material on hodge scale. No def ects on color images. ANY DEEP VENOUS INSUFFICIENCY: Not evaluated. ANY EVIDENCE OF POPLITEAL CYST: No. OTHER: No other significant finding. CONTRALATERAL COMMON FEMORAL VEIN AND SAPHENOFEMORAL JUNCTION: Normal phasicity, compression and augmentation. No visualized echogenic material on hodge scale. No de fects on color images. IMPRESSION: NO EVIDENCE DVT OR SVT IN THE LEFT LEG. TECHNICAL DOCUMENTATION: JOB ID: [id number] [employer]- All Rights Reserved
== END ==
LOC: SP 12:07
PROVIDERS: ATTEND Physician Assistant
DX: R60.0 Localized edema (principal)
CPT/HCPCS: 93971

== ENCOUNTER 2017-11-17 17:49 | Emergency (ER) | payer MEDICARE, MEDICAID ==
[2017-11-17] MEDS ORDERED: ACETAMINOPHEN 325 MG TABLET PO ONE (19:19)
--- NOTE | 2017-11-17 19:25 | ER Document Report ---
ED Fall - General Chief Complaint: Fall, Leg pain Stated Complaint: FALL/LEG PAIN Time Seen by Provider: 11/17/17 19:18 Mode of Arrival: Wheelchair Information source: Patient Notes: 52 yo female presents to ed for fall landing on knee and pain to left knee and lower leg.a TRAVEL OUTSIDE OF THE [place] IN LAST 30 DAYS: No - HPI Occurred: This afternoon Where: Home Context: Tripped Associated symptoms: None Location of injury/pain: Knee, Lower extremity Quality of pain: Burning, Sharp, Stabbing Severity: Severe Pain Level: 5 - Related data Allergies/Adverse Reactions: aspirin [Aspirin] Allergy (Verified 01/18/17 19:00) ciprofloxacin [From Cipro] Allergy (Verified 01/18/17 19:00) ciprofloxacin HCl [From Cipro] Allergy (Verified 01/18/17 19:00) NSAIDS (Non-Steroidal Anti-Inflamma [Nsaids] Allergy (Verified 01/18/17 19:00) Past Medical History - General Information source: Patient - Social History Smoking Status: Never Smoker Chew tobacco use (# tins/day): No Frequency of alcohol use: None Drug Abuse: None Lives with: Family Family History: Arthritis, DM, Hypertension, Malignancy, Thyroid Disfunction Patient has suicidal ideation: No Patient has homicidal ideation: No - Past Medical History Cardiac Medical History: Reports: Hx Heart Murmur Pulmonary Medical History: Reports: Hx Asthma, Hx Pneumonia EENT Medical History: Reports: None Neurological Medical History: Reports: Hx Migraine, Hx Seizures - last seizure 4 years ago Endocrine Medical History: Reports: 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 Renal/ Medical History: Reports: None Malignancy Medical History: 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 GI Medical History: Reports: Hx Gastroesophageal Reflux Disease, Hx Irritable Bowel Musculoskeltal Medical History: Reports Hx Fibromyalgia, Reports Hx Musculoskeletal Deformity, Reports Hx Musculoskeletal Trauma Skin Medical History: Reports None Psychiatric Medical History: Reports: Hx Depression Traumatic Medical History: Reports: Hx Fractures - left arm wrist hand, Hx Traumatic Brain Injury Infectious Medical History: Reports: None Past Surgical History: Reports: Hx Breast Surgery - lumpectomy R breast; ducts removed from bilateral breasts, Hx Hysterectomy, Hx Neurologic Surgery - tbi, spinal fusion in 2005, spinal nerve stimulator early 2015, Hx Orthopedic Surgery - left arm ulnar nerve, wrist and left knee - Immunizations Immunizations up to date: Yes Hx Diphtheria, Pertussis, Tetanus Vaccination: Yes Review of Systems - Review of Systems Constitutional: No symptoms reported EENT: No symptoms reported Cardiovascular: No symptoms reported Respiratory: No symptoms reported Gastrointestinal: No symptoms reported Genitourinary: No symptoms reported Female Genitourinary: No symptoms reported Musculoskeletal: Joint pain, Muscle pain, Muscle stiffness Skin: No symptoms reported Hematologic/Lymphatic: No symptoms reported Neurological/Psychological: No symptoms reported -: Yes All other systems reviewed and negative Physical Exam - Vital signs Vitals: Temp Pulse Resp BP Pulse Ox 99 F 111 H 18 177/93 H 99 11/17/17 19:25 11/17/17 19:25 11/17/17 19:25 11/17/17 19:25 11/17/17 19:25 Interpretation: Normal - General General appearance: Appears well, Alert - HEENT Head: Normocephalic, Atraumatic Eyes: Normal Pupils: PERRL - Respiratory Respiratory status: No respiratory distress Chest status: Nontender Breath sounds: Normal Chest palpation: Normal - Cardiovascular Rhythm: Regular Heart sounds: Normal auscultation Murmur: No - Abdominal Inspection: Normal Distension: No distension Bowel sounds: Normal Tenderness: Nontender Organomegaly: No organomegaly - Back Back: Normal, Nontender - Extremities General upper extremity: Normal inspection, Nontender, Normal color, Normal ROM , Normal temperature General lower extremity: Normal color, Normal temperature. No: Los's sign - Neurological Neuro grossly intact: Yes Cognition: Normal Orientation: AAOx4 [place] Coma Scale Eye Opening: Spontaneous [place] Coma Scale Verbal: Oriented [place] Coma Scale Motor: Obeys Commands Madison Coma Scale Total: 15 Speech: Normal Motor strength normal: LUE, RUE, LLE, RLE Sensory: Normal - Psychological Associated symptoms: Normal affect, Normal mood - Skin Skin Temperature: Warm Skin Moisture: Dry Skin Color: Normal Course - Re-evaluation Re-evalutation: 11/18/17 07:36 X-rays discussed with patient report given to patient to follow-up with her primary doctor. Patient was treated with her knee immobilizer and crutches for her pain to her knee and leg. Patient was instructed to follow-up with her primary doctor. She was also given the name and number of orthopedic doctor. - Vital Signs Vital signs: Temp Pulse Resp BP Pulse Ox 97.6 F 101 H 18 146/101 H 97 11/17/17 20:51 11/17/17 20:51 11/17/17 20:51 11/17/17 20:51 11/17/17 20:51 - Diagnostic Test Radiology reviewed: Image reviewed, Reports reviewed Procedures - Immobilization Left Knee Time completed: 21:00 Immobilizer type: Crutches, Knee immobilizer Performed by: SHORTY Post-Proc Neuro Vasc Exam: Normal Alignment checked and good: Yes Discharge - Discharge Clinical Impression: Fall Qualifiers: Encounter type: initial encounter Qualified Code(s): W19.XXXA - Unspecified fall, initial encounter Knee contusion Qualifiers: Encounter type: initial encounter Laterality: left Qualified Code(s): S80.02XA - Contusion of left knee, initial encounter Condition: Stable Disposition: HOME, SELF-CARE Instructions: Family Physicians / Practices Additional Instructions: CONTUSION: Your injury has resulted in a contusion -- a crushing of the deep tissues. No injury to important structures was detected during the physician's exam. Contusions vary in the amount of pain they cause, and in the length of time required for healing. Typically, the area will become bruised, and will remain painful to touch for two or three weeks. However, most patients are back to working and playing within a few days. After the initial period of rest and cold-packs, your symptoms (together with the doctor's recommendations) will determine how rapidly you can get back to full activity. Usually this means "do what feels okay, but don't do things that hurt." If re-examination was recommended, it's important to follow up as instructed. Call the doctor or return any time if pain increases, if swelling becomes severe, if you develop numbness or weakness in an injured extremity, or if any other alarming symptoms occur. USE OF TYLENOL (ACETAMINOPHEN): Acetaminophen may be taken for pain relief or fever control. It's much safer than aspirin, offering a wider range of "safe" dosages. It is safe during . Some brand names are Tylenol, Panadol, Datril, Anacin 3, Tempra, and Liquiprin. Acetaminophen can be repeated every four hours. The following are maximum recommended dosages: WEIGHT Dose Drops Elixir Chewable( 80mg) (LBS.) drprs=droppers tsp=teaspoon 6 40 mg 0.4 ml (1/2) 6-11 80 mg 0.8 ml (full) tsp 1 tab 12-16 120 mg 1 1/2 drprs 3/4 tsp 1 1/2 tabs 17-23 160 mg 2 drprs 1 tsp 2 tabs 24-30 240 mg 3 drprs 1 1/2 tsp 3 tabs 30-35 320 mg 2 tsp 4 tabs 36-41 360 mg 2 1/4 tsp 4 1/2 tabs 42-47 400 mg 2 1/2 tsp 5 tabs 48-53 480 mg 3 tsp 6 tabs 54-59 520 mg 3 1/4 tsp 6 1/2 tabs 60-64 560 mg 3 1/2 tsp 7 tabs 65-70 600 mg 3 3/4 tsp 7 1/2 tabs 71-76 640 mg 4 tsp 8 tabs 77-82 720 mg 4 1/2 tsp 9 tabs 83-88 800 mg 5 tsp 10 tabs >89 pounds or adults 650 mg to 900 mg Acetaminophen can be repeated every four hours. Maximum dose not to exceed 4000 mg a day. These maximum recommended dosages are slightly higher than the dosages written on the product container, but these dosages are very safe and below the toxic dosage for acetaminophen. KNEE IMMOBILIZING SPLINT: The knee immobilizing splint will protect the injury while healing begins. This type of splint does not allow the knee to bend at all. No running or sports will be possible. If the splint allows painfree walking, it's giving adequate protection. If there is still significant pain, crutches may be needed as well. Don't do anything that hurts. Adjusted the splint, if necessary. The stiffeners on the sides are attached with Velcro, so they can be easily moved to adjust for thigh and calf size. If you need help with these adjustments, come back. You will lose muscle strength in the thigh while using this splint. The doctor will advise you if it's safe to do isometric knee exercises while you use it. USE OF CRUTCHES: The doctor has recommended that you not bear weight at this time. You will need to use crutches. Adjust the crutches so the tops come to about two inches under the armpit while you are standing upright. Use your hands -- not your armpits -- to support your weight. To get into a chair, support yourself with one crutch on the injured side. Hold the chair with the other hand, then lower yourself while putting all your weight on the good leg. Going up stairs is `good leg up, step up, then bring up crutches and bad leg.' Down stairs is `bad leg and crutches down, then bring good leg down.' If you develop numbness or swelling in an arm or hand, you are using the crutches incorrectly. Return if you are having any problems with the crutches. ICE & ELEVATION: Apply ice packs frequently against the painful area. Many different schedules are recommended, such as "20 minutes on, 20 minutes off" or "one hour ice, two hours rest." If you need to work, you may need to go longer between ice treatments. You should plan to have the area ice packed AT LEAST one- fourth of the time. The ice should be applied over the wrap, tape, or splint, or over a layer of cloth -- not directly against the skin. Some ice bags have a built-in cloth and can be put directly on the skin. Your injured part should be elevated as much as possible over the next 48 hours. Try to keep the injury above the level of the heart. Avoid use of the injured area. Elevation and rest will decrease the swelling. USE OF YNIE-ZBG-WFRMEDZ IBUPROFEN: Ibuprofen (Advil, Nuprin, Medipren, Motrin IB) is a medication for fever and pain control. In addition, it has anti- inflammatory effects which may be beneficial, especially in the treatment of injuries. It's best to take ibuprofen with food. Persons with ulcer disease or allergy to aspirin should notify their physician of this before taking ibuprofen. Ibuprofen can be given every four to six hours, for a total of four doses daily. Age Pain or fever dose Antiinflammatory dose 6-8 yr 200 mg (1 tab) 200 mg (1 tab) 9-11 yr 200 mg (1 tab) 200-400 mg (1-2 tab) 11-14 yr 200-400 mg (1-2 tab) 400 mg (2 tab) 15-adult 400 mg (2 tab) 600 mg (3 tab) FOLLOW-UP CARE: If you have been referred to a physician for follow-up care, call the physician s office for an appointment as you were instructed or within the next two days. If you experience worsening or a significant change in your symptoms, notify the physician immediately or return to the Emergency Department at any time for re-evaluation. Forms: Elevated Blood Pressure Referrals: STUART ALAN MD [ACTIVE STAFF] - Follow up as needed
--- NOTE | 2017-11-17 19:56 | RADIOLOGY REPORT (SQ) ---
EXAM DESCRIPTION: TIBIA FIBULA LEFT COMPLETED DATE/TIME: 11/17/2017 7:37 pm REASON FOR STUDY: fall and pain COMPARISON: None. NUMBER OF VIEWS: Two views left tibia and fibula. LIMITATIONS: None. FINDINGS: There is no acute or significant bone, joint or soft tissue abnormality. OTHER: No other significant finding. IMPRESSION: NORMAL STUDY. TECHNICAL DOCUMENTATION: JOB ID: [id number]
--- NOTE | 2017-11-17 19:56 | RADIOLOGY REPORT (SQ) ---
EXAM DESCRIPTION: KNEE LEFT 4 VIEW COMPLETED DATE/TIME: 11/17/2017 7:37 pm REASON FOR STUDY: fall and pain COMPARISON: None. NUMBER OF VIEWS: Four views left knee. LIMITATIONS: None. FINDINGS: There is no acute or significant bone, joint or soft tissue abnormality. OTHER: No other significant finding. IMPRESSION: NORMAL STUDY. TECHNICAL DOCUMENTATION: JOB ID: [id number]
[2017-11-17 20:52] VITALS: BP 146/101
== END 2017-11-17 21:03 | disposition home or self-care (01) ==
LOC: ER 17:49
DX: S80.02XA Contusion of left knee, initial encounter (principal); W19.XXXA Unspecified fall, initial encounter; Z88.3 Allergy status to other anti-infective agents; Z88.6 Allergy status to analgesic agent; Z90.710 Acquired absence of both cervix and uterus; Z98.1 Arthrodesis status
CPT/HCPCS: 99283; 73562; 73590; L1830; A9270

== ENCOUNTER 2017-11-30 13:08 | Emergency (ER) | payer MEDICARE, MEDICAID ==
[2017-11-30] MEDS ORDERED: HYDROCODONE/ACETAMINOPHEN 5-325 MG TABLET PO ONE (13:53)
--- NOTE | 2017-11-30 13:54 | ER Document Report ---
ED General - General Chief Complaint: Knee Pain Stated Complaint: KNEE PAIN Time Seen by Provider: 11/30/17 13:47 Mode of Arrival: Ambulatory Information source: Patient Notes: 52-year-old female who has had a knee immobilizer for knee injury and possible ligamentous injury for the past 3 weeks presents with complaints of left foot swelling. Patient notes she has had 2 DVTs and was on Coumadin, she notes that it is painful in her calf now and swelling in her foot. She denies any chest pain shortness of breath difficulty breathing Patient does note bruising just medial to her knee TRAVEL OUTSIDE OF THE [place] IN LAST 30 DAYS: No - HPI Onset: Other Onset/Duration: Persistent Quality of pain: Achy Severity: Mild Pain Level: 1 Associated symptoms: Leg swelling Exacerbated by: Movement, Walking Relieved by: Denies Similar symptoms previously: No Recently seen / treated by doctor: Yes - Related Data Allergies/Adverse Reactions: aspirin [Aspirin] Allergy (Verified 01/18/17 19:00) ciprofloxacin [From Cipro] Allergy (Verified 01/18/17 19:00) ciprofloxacin HCl [From Cipro] Allergy (Verified 01/18/17 19:00) doxycycline Allergy (Verified 11/30/17 13:10) NSAIDS (Non-Steroidal Anti-Inflamma [Nsaids] Allergy (Verified 01/18/17 19:00) Past Medical History - Social History Smoking Status: Never Smoker Cigarette use (# per day): No Chew tobacco use (# tins/day): No Smoking Education Provided: No Frequency of alcohol use: None Drug Abuse: None Family History: Arthritis, DM, Hypertension, Malignancy, Thyroid Disfunction Patient has suicidal ideation: No Patient has homicidal ideation: No - Past Medical History Cardiac Medical History: Reports: Hx Heart Murmur Pulmonary Medical History: Reports: Hx Asthma, Hx Pneumonia Neurological Medical History: Reports: Hx Migraine, Hx Seizures - last seizure 4 years ago Endocrine Medical History: Reports: 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 Renal/ Medical History: Denies: Hx Peritoneal Dialysis Malignancy Medical History: 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 GI Medical History: Reports: Hx Gastroesophageal Reflux Disease, Hx Irritable Bowel Musculoskeltal Medical History: Reports Hx Fibromyalgia, Reports Hx Musculoskeletal Deformity, Reports Hx Musculoskeletal Trauma Psychiatric Medical History: Reports: Hx Depression Traumatic Medical History: Reports: Hx Fractures - left arm wrist hand, Hx Traumatic Brain Injury Past Surgical History: Reports: Hx Breast Surgery - lumpectomy R breast; ducts removed from bilateral breasts, Hx Hysterectomy, Hx Neurologic Surgery - tbi, spinal fusion in 2005, spinal nerve stimulator early 2015, Hx Orthopedic Surgery - left arm ulnar nerve, wrist and left knee - Immunizations Immunizations up to date: Yes Hx Diphtheria, Pertussis, Tetanus Vaccination: Yes Review of Systems - Review of Systems Notes: REVIEW OF SYSTEMS: CONSTITUTIONAL : Denies fever, chills, or sweats. Denies recent illness. EENT: Denies eye, ear, throat, or mouth pain or symptoms. Denies nasal or sinus congestion or discharge. Denies throat, tongue, or mouth swelling or difficulty swallowing. CARDIOVASCULAR: Denies chest pain. Denies palpitations or racing or irregular heart beat. Denies ankle edema. RESPIRATORY: Denies cough, cold, or chest congestion. Denies shortness of breath, difficulty breathing, or wheezing. GASTROINTESTINAL: Denies abdominal pain or distention. Denies nausea, vomiting , or diarrhea. Denies blood in vomitus, stools, or per rectum. Denies black, tarry stools. Denies constipation. GENITOURINARY: Denies difficulty urinating, painful urination, burning, frequency, blood in urine, or discharge. FEMALE GENITOURINARY: Denies vaginal bleeding, heavy or abnormal periods, irregular periods. Denies vaginal discharge or odor. MUSCULOSKELETAL: Admits to left leg swelling left foot swelling SKIN: Denies rash, lesions or sores. HEMATOLOGIC : Denies easy bruising or bleeding. LYMPHATIC: Denies swollen, enlarged glands. NEUROLOGICAL: Denies confusion or altered mental status. Denies passing out or loss of consciousness. Denies dizziness or lightheadedness. Denies headache. Denies weakness or paralysis or loss of use of either side. Denies problems with gait or speech. Denies sensory loss, numbness, or tingling. Denies seizures. PSYCHIATRIC: Denies anxiety or stress. Denies depression, suicidal ideation, or homicidal ideation. ALL OTHER SYSTEMS REVIEWED AND NEGATIVE. PHYSICAL EXAMINATION: GENERAL: Well-appearing, well-nourished and in no acute distress. HEAD: Atraumatic, normocephalic. EYES: Pupils equal round and reactive to light, extraocular movements intact, conjunctiva are normal. ENT: Nares patent, oropharynx clear without exudates. Moist mucous membranes. NECK: Normal range of motion, supple without lymphadenopathy LUNGS: Breath sounds clear to auscultation bilaterally and equal. No wheezes rales or rhonchi. HEART: Regular rate and rhythm without murmurs ABDOMEN: Soft, nontender, nondistended abdomen. No guarding, no rebound. No masses appreciated. Female : deferred Musculoskeletal: left leg in knee immobilzer , left foot swollen NEUROLOGICAL: Cranial nerves grossly intact. Normal speech, normal gait. Normal sensory, motor exams PSYCH: Normal mood, normal affect. SKIN: Warm, Dry, normal turgor, no rashes or lesions noted. Dictation was performed using [email or web address] voice recognition software Physical Exam - Vital signs Vitals: Temp Pulse Resp BP Pulse Ox 98.6 F 104 H 18 168/85 H 96 11/30/17 13:15 11/30/17 13:15 11/30/17 13:15 11/30/17 13:15 11/30/17 13:15 Course - Re-evaluation Re-evalutation: 11/30/17 13:54 doppler has been called 11/30/17 15:02 doppler negative , pt otherwise stable for dc with follow up. After performing a Medical Screening Examination, I estimate there is LOW risk for CENTRAL CORD SYNDROME, CAUDA EQUINA, THORACIC AORTIC DISSECTION, PNEUMOTHORAX, DVT, ACUTE TENDON RUPTURE, COMPARTMENT SYNDROME, or OPEN FRACTURE , thus I consider the discharge disposition reasonable. Also, there is no evidence or peritonitis, sepsis, or toxicity. I have reevaluated this patient multiple times and no significant life threatening changes are noted. The patient and I have discussed the diagnosis and risks, and we agree with discharging home to follow-up with their primary doctor with the understanding that symptoms and presentations can change. We also discussed returning to the Emergency Department immediately if new or worsening symptoms occur. We have discussed the symptoms which are most concerning (e.g., bloody stool, fever, changing or worsening pain, vomiting) that necessitate immediate return. - Vital Signs Vital signs: Temp Pulse Resp BP Pulse Ox 98.6 F 104 H 20 168/85 H 96 11/30/17 13:15 11/30/17 13:15 11/30/17 13:33 11/30/17 13:15 11/30/17 13:15 - Diagnostic Test Radiology reviewed: Image reviewed, Reports reviewed Discharge - Discharge Clinical Impression: Left leg pain, Left leg swelling Condition: Stable Disposition: HOME, SELF-CARE Instructions: Leg Pain Nonspecific ([facility]) Additional Instructions: Follow up with your physician tomorrow for further care or return to the ED IMMEDIATELY if symptoms worsen or new concerns occur. If you cannot afford to follow up with your primary care physician a list of low cost clinics have been provided at the end of your discharge papers as well.
[2017-11-30 15:20] VITALS: BP 142/76
--- NOTE | 2017-12-01 08:14 | XCELERA REPORT ---
[address] [address] Lower Extremity Venous Evaluation Name: NATHAN BOJORQUEZ Age: 52 yrs Gender: Female : 1965 Patient Status: Preadmit Patient Location: ER Study Date: 11/30/2017 02:45 PM Procedure: Color flow and duplex imaging of the veins of the left lower extremity as well as the right Common Femoral vein. Reason For Study: left leg pain swelling Ordering Physician: ANA ROWLAND Performed By: Amrita Brower Right Sided Venous Evaluation The right common femoral vein is fully compressible. Spontaneous and phasic flow is present in the right common femoral vein. Left Sided Venous Evaluation Normal vessel filling wall to wall, compression and augmentation as well as Colour flow down to the infrageniculate veins. Interpretation Summary No duplex evidence of DVT or obstruction in the left lower extremity nor in the right Common Femoral vein. : ANA ROWLAND > Filippo Shook
== END 2017-11-30 15:20 | disposition home or self-care (01) ==
LOC: ER 13:08
DX: S80.10XA Contusion of unspecified lower leg, initial encounter (principal); X58.XXXA Exposure to other specified factors, initial encounter; M79.662 Pain in left lower leg; M79.89 Other specified soft tissue disorders; J45.909 Unspecified asthma, uncomplicated; Z86.718 Personal history of other venous thrombosis and embolism; Z88.6 Allergy status to analgesic agent; Z88.1 Allergy status to other antibiotic agents; Z88.8 Allergy status to other drugs, medicaments and biological substances; Z85.3 Personal history of malignant neoplasm of breast
CPT/HCPCS: 99283; 93971 ×2; A9270

== ENCOUNTER 2017-12-11 10:09 | Emergency (ER) | payer MEDICARE, MEDICAID ==
[2017-12-11] MEDS ORDERED: OXYCODONE-ACETAMINOPHEN 5-325 MG TABLET PO ONE (10:41)
--- NOTE | 2017-12-11 12:35 | RADIOLOGY REPORT (SQ) ---
EXAM DESCRIPTION: KNEE LEFT 3 VIEWS COMPLETED DATE/TIME: 12/11/2017 11:56 am REASON FOR STUDY: knee pain COMPARISON: None. NUMBER OF VIEWS: Four views. TECHNIQUE: AP, lateral, and both oblique radiographic images acquired of the left knee. LIMITATIONS: None. FINDINGS: MINERALIZATION: Normal. BONES: No acute fracture or dislocation. No worrisome bone lesions. JOINT: Joint spaces well-maintained. SOFT TISSUES: No obvious joint fluid. OTHER: No other significant finding. IMPRESSION: NEGATIVE STUDY OF THE LEFT KNEE. NO RADIOGRAPHIC EVIDENCE OF ACUTE INJURY. TECHNICAL DOCUMENTATION: JOB ID: [id number] [employer]- All Rights Reserved Reading location - IP[facility]workstation name: [email or web address]
[2017-12-11 12:45] VITALS: BP 137/98
--- NOTE | 2017-12-11 12:46 | ER Document Report ---
ED General - General Chief Complaint: Knee Injury Stated Complaint: NECK/KNEE PAIN Time Seen by Provider: 12/11/17 10:33 Mode of Arrival: Ambulatory Information source: Patient Notes: 52-year-old female presents with complaints of left knee injury, patient notes she fell struck the side. She was recently seen by myself Doppler was performed and was negative. Patient overall looks well, patient denies any fevers or chills denies any chest pain shortness of breath TRAVEL OUTSIDE OF THE [place] IN LAST 30 DAYS: No - HPI Onset: Just prior to arrival Onset/Duration: Sudden Quality of pain: Achy Severity: Mild Pain Level: 1 Associated symptoms: Body/muscle aches Exacerbated by: Movement, Walking Relieved by: Denies Similar symptoms previously: Yes Recently seen / treated by doctor: Yes - Related Data Allergies/Adverse Reactions: aspirin [Aspirin] Allergy (Verified 12/11/17 10:29) ciprofloxacin [From Cipro] Allergy (Verified 12/11/17 10:29) ciprofloxacin HCl [From Cipro] Allergy (Verified 12/11/17 10:29) doxycycline Allergy (Verified 12/11/17 10:29) NSAIDS (Non-Steroidal Anti-Inflamma [Nsaids] Allergy (Verified 12/11/17 10:29) Past Medical History - Social History Smoking Status: Never Smoker Cigarette use (# per day): No Chew tobacco use (# tins/day): No Smoking Education Provided: No Frequency of alcohol use: None Drug Abuse: None Family History: Arthritis, DM, Hypertension, Malignancy, Thyroid Disfunction Patient has suicidal ideation: No Patient has homicidal ideation: No - Past Medical History Cardiac Medical History: Reports: Hx Heart Murmur Pulmonary Medical History: Reports: Hx Asthma, Hx Pneumonia Neurological Medical History: Reports: Hx Migraine, Hx Seizures - last seizure 4 years ago Endocrine Medical History: Reports: 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 Renal/ Medical History: Denies: Hx Peritoneal Dialysis Malignancy Medical History: 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 GI Medical History: Reports: Hx Gastroesophageal Reflux Disease, Hx Irritable Bowel Musculoskeltal Medical History: Reports Hx Fibromyalgia, Reports Hx Musculoskeletal Deformity, Reports Hx Musculoskeletal Trauma Psychiatric Medical History: Reports: Hx Depression Traumatic Medical History: Reports: Hx Fractures - left arm wrist hand, Hx Traumatic Brain Injury Past Surgical History: Reports: Hx Breast Surgery - lumpectomy R breast; ducts removed from bilateral breasts, Hx Hysterectomy, Hx Neurologic Surgery - tbi, spinal fusion in 2005, spinal nerve stimulator early 2016, Hx Orthopedic Surgery - left arm ulnar nerve, wrist and left knee - Immunizations Immunizations up to date: Yes Hx Diphtheria, Pertussis, Tetanus Vaccination: Yes Review of Systems - Review of Systems Notes: REVIEW OF SYSTEMS: CONSTITUTIONAL : Denies fever, chills, or sweats. Denies recent illness. EENT: Denies eye, ear, throat, or mouth pain or symptoms. Denies nasal or sinus congestion or discharge. Denies throat, tongue, or mouth swelling or difficulty swallowing. CARDIOVASCULAR: Denies chest pain. Denies palpitations or racing or irregular heart beat. Denies ankle edema. RESPIRATORY: Denies cough, cold, or chest congestion. Denies shortness of breath, difficulty breathing, or wheezing. GASTROINTESTINAL: Denies abdominal pain or distention. Denies nausea, vomiting , or diarrhea. Denies blood in vomitus, stools, or per rectum. Denies black, tarry stools. Denies constipation. GENITOURINARY: Denies difficulty urinating, painful urination, burning, frequency, blood in urine, or discharge. FEMALE GENITOURINARY: Denies vaginal bleeding, heavy or abnormal periods, irregular periods. Denies vaginal discharge or odor. MUSCULOSKELETAL: Admits to left knee pain SKIN: Denies rash, lesions or sores. HEMATOLOGIC : Denies easy bruising or bleeding. LYMPHATIC: Denies swollen, enlarged glands. NEUROLOGICAL: Denies confusion or altered mental status. Denies passing out or loss of consciousness. Denies dizziness or lightheadedness. Denies headache. Denies weakness or paralysis or loss of use of either side. Denies problems with gait or speech. Denies sensory loss, numbness, or tingling. Denies seizures. PSYCHIATRIC: Denies anxiety or stress. Denies depression, suicidal ideation, or homicidal ideation. ALL OTHER SYSTEMS REVIEWED AND NEGATIVE. PHYSICAL EXAMINATION: GENERAL: Well-appearing, well-nourished and in no acute distress. HEAD: Atraumatic, normocephalic. EYES: Pupils equal round and reactive to light, extraocular movements intact, conjunctiva are normal. ENT: Nares patent, oropharynx clear without exudates. Moist mucous membranes. NECK: Normal range of motion, supple without lymphadenopathy LUNGS: Breath sounds clear to auscultation bilaterally and equal. No wheezes rales or rhonchi. HEART: Regular rate and rhythm without murmurs ABDOMEN: Soft, nontender, nondistended abdomen. No guarding, no rebound. No masses appreciated. Female : deferred Musculoskeletal: Limited range of motion of the left knee secondary to pain, there is mild erythema on the medial aspect of the leg NEUROLOGICAL: Cranial nerves grossly intact. Normal speech, normal gait. Normal sensory, motor exams PSYCH: Normal mood, normal affect. SKIN: Warm, Dry, normal turgor, no rashes or lesions noted. Dictation was performed using [email or web address] voice recognition software Physical Exam - Vital signs Vitals: Temp Pulse Resp BP Pulse Ox 99.0 F 131 H 18 144/81 H 96 12/11/17 10:17 12/11/17 10:17 12/11/17 10:17 12/11/17 10:17 12/11/17 10:17 Course - Re-evaluation Re-evalutation: 12/11/17 12:42 Patient already had an MRI planned for tomorrow, I attempted to order it today but patient has nerve stimulator and is unable to turn it off or have the information for it, therefore x-ray was performed no acute abnormality was needed patient will be discharged home with pain medication and close follow-up I have very low suspicion for a blood clot 12/11/17 12:45 After performing a Medical Screening Examination, I estimate there is LOW risk for INTRACRANIAL HEMORRHAGE, UNSTABLE SPINE FRACTURE, CENTRAL CORD SYNDROME, CAUDA EQUINA, THORACIC AORTIC DISSECTION, PNEUMOTHORAX, PERFORATED BOWEL, RUPTURED ABDOMINAL AORTIC ANEURYSM, ACUTE TENDON RUPTURE, COMPARTMENT SYNDROME, or OPEN FRACTURE, thus I consider the discharge disposition reasonable. Also, there is no evidence or peritonitis, sepsis, or toxicity. I have reevaluated this patient multiple times and no significant life threatening changes are noted. The patient and I have discussed the diagnosis and risks, and we agree with discharging home to follow-up with their primary doctor with the understanding that symptoms and presentations can change. We also discussed returning to the Emergency Department immediately if new or worsening symptoms occur. We have discussed the symptoms which are most concerning (e.g., bloody stool, fever, changing or worsening pain, vomiting) that necessitate immediate return. 12/11/17 12:47 Patient was noted to be tachycardic upon arrival secondary to pain after pain control heart rate is improved significantly - Vital Signs Vital signs: Temp Pulse Resp BP Pulse Ox 99.0 F 131 H 18 144/81 H 96 12/11/17 10:17 12/11/17 10:17 12/11/17 10:17 12/11/17 10:17 12/11/17 10:17 - Diagnostic Test Radiology reviewed: Image reviewed, Reports reviewed - No acute abnormality Discharge - Discharge Clinical Impression: Left knee pain Qualifiers: Chronicity: acute Qualified Code(s): M25.562 - Pain in left knee Condition: Stable Disposition: HOME, SELF-CARE Instructions: Knee Effusion ([facility]), Sprained Knee ([facility]), Suspected Internal Knee Injury ([facility]) Additional Instructions: Please follow-up with your primary care physician for the MRI, return immediately if there are any other concerns Prescriptions: Oxycodone HCl/Acetaminophen [Percocet 5-325 mg Tablet] 1 - 2 tab PO Q4H PRN #15 tablet PRN Reason:
== END 2017-12-11 12:54 | disposition home or self-care (01) ==
LOC: ER 10:09
DX: M25.562 Pain in left knee (principal); M54.2 Cervicalgia; M79.1 Myalgia; Z88.3 Allergy status to other anti-infective agents; Z88.6 Allergy status to analgesic agent; Z90.710 Acquired absence of both cervix and uterus; Z98.1 Arthrodesis status
CPT/HCPCS: 99283; 73562; A9270

== ENCOUNTER 2017-12-13 03:56 | Emergency (ER) | payer MEDICARE, MEDICAID ==
[2017-12-13] MEDS ORDERED: OXYCODONE-ACETAMINOPHEN 5-325 MG TABLET PO ONE (04:27)
--- NOTE | 2017-12-13 04:31 | ER Document Report ---
ED General - General Chief Complaint: Knee Pain Stated Complaint: ABSCESS ON KNEE/SWELLING Time Seen by Provider: 12/13/17 04:12 Notes: Patient is a 52-year-old female presents with complaints of pain to the medial aspect of left knee. Patient says she has an area of swelling over this. She hurt her knee a few weeks ago. She was seen here and then referred to orthopedist. Orthopedist has arranged for an MRI to be performed a week from this Friday. She says that she reinjured her knee when she fell. She says felt a pop in her knee. She now has some swelling to the medial aspect of her knee. She also mentions that she had a fever of 102 today. She says she took Tylenol for the pain and fever. She does have Percocet at home but says she is not taking the Percocet for home despite being a lot of pain tonight. She denies any injuries to her ankle or foot. She denies any other sources of fever she denies any cough, congestion, vomiting, or any other complaints at this time. TRAVEL OUTSIDE OF THE [place] IN LAST 30 DAYS: No - Related Data Allergies/Adverse Reactions: aspirin [Aspirin] Allergy (Verified 12/11/17 10:29) ciprofloxacin [From Cipro] Allergy (Verified 12/11/17 10:29) ciprofloxacin HCl [From Cipro] Allergy (Verified 12/11/17 10:29) doxycycline Allergy (Verified 12/11/17 10:29) NSAIDS (Non-Steroidal Anti-Inflamma [Nsaids] Allergy (Verified 12/11/17 10:29) Past Medical History - Social History Smoking Status: Unknown if Ever Smoked Frequency of alcohol use: None Drug Abuse: None Family History: Arthritis, DM, Hypertension, Malignancy, Thyroid Disfunction Patient has suicidal ideation: No Patient has homicidal ideation: No - Past Medical History Cardiac Medical History: Reports: Hx Heart Murmur Pulmonary Medical History: Reports: Hx Asthma, Hx Pneumonia Neurological Medical History: Reports: Hx Migraine, Hx Seizures - last seizure 4 years ago Endocrine Medical History: Reports: 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 Renal/ Medical History: Denies: Hx Peritoneal Dialysis Malignancy Medical History: 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 GI Medical History: Reports: Hx Gastroesophageal Reflux Disease, Hx Irritable Bowel Musculoskeltal Medical History: Reports Hx Fibromyalgia, Reports Hx Musculoskeletal Deformity, Reports Hx Musculoskeletal Trauma Psychiatric Medical History: Reports: Hx Depression Traumatic Medical History: Reports: Hx Fractures - left arm wrist hand, Hx Traumatic Brain Injury Past Surgical History: Reports: Hx Breast Surgery - lumpectomy R breast; ducts removed from bilateral breasts, Hx Hysterectomy, Hx Neurologic Surgery - tbi, spinal fusion in 2005, spinal nerve stimulator early 2016, Hx Orthopedic Surgery - left arm ulnar nerve, wrist and left knee - Immunizations Immunizations up to date: Yes Hx Diphtheria, Pertussis, Tetanus Vaccination: Yes Review of Systems - Review of Systems Notes: My Normal Review Basic REVIEW OF SYSTEMS: CONSTITUTIONAL : Fever EENT: Denies eye, ear, throat, or mouth pain or symptoms. Denies nasal or sinus congestion. CARDIOVASCULAR: Denies chest pain. RESPIRATORY: Denies cough, cold, or chest congestion. Denies shortness of breath, difficulty breathing, or wheezing. GASTROINTESTINAL: Denies abdominal pain. Denies nausea, vomiting, or diarrhea MUSCULOSKELETAL: Knee pain SKIN: Denies rash or skin lesions. NEUROLOGICAL: Denies sensory or motor loss. ALL OTHER SYSTEMS REVIEWED AND NEGATIVE. Physical Exam - Vital signs Vitals: Temp Pulse Resp BP Pulse Ox 98.7 F 120 H 18 163/95 H 98 12/13/17 04:02 12/13/17 04:02 12/13/17 04:02 12/13/17 04:02 12/13/17 04:02 - Notes Notes: General Appearance: Well nourished, alert, cooperative, no acute distress, mild obvious discomfort. Vitals: reviewed, See vital signs table. Eyes: PERRL, EOMI, Conjuctiva clear Extremities: good pulses in all extremities, patient has a area of what appears to be induration of the subcutaneous tissue overlying the medial aspect of the knee. It appears to be very superficial only in the subcutaneous tissue and is about 2-3 cm in diameter. The remainder of the knee is not swollen and not red and not hot to touch. The knee is not stiff. She does have some pain with movement of the knee, but is bale to move the knee without much difficulty. Skin: warm, dry, appropriate color, no rash Neuro: speech clear, oriented x 3, normal affect, responds appropriately to questions. Course - Re-evaluation Re-evalutation: 12/13/17 04:30 Performed a quick bedside ultrasound which showed may be just a very very small amount of subcutaneous fluid or edema. I did use an 18-gauge needle with 5 cc syringe to aspirate this area. Also cleaned the area initially with chlorhexidine to help sterilize area. I did not have any purulent discharge or fluid upon aspiration. Needle only went into the subcutaneous area where the where the induration was. I did not push the needle past the subcutaneous area of the tissues. We will send the patient for x-ray being she does have the recent reinjury. We will treat the patient's pain. 12/13/17 05:55 She denies any evidence of acute fracture. There is possibility of a previous avulsion fracture of the fibula. Patient's pains on medial aspect of the knee and nowhere near the area indicated on x-ray. Patient does not have evidence of septic joint. She has full range of motion of knee. She does have some pain with movement of the knee as expected however is not stiff. She does not have large amount of swelling. No area concerning for infection as a small area of induration on the medial aspect of the knee. There is no pus in this area on aspiration. The area seems very localized just the superficial subcutaneous tissues is only about 2-3 cm in diameter. She does say that she has had a recent fever 102. I therefore placed on antibiotics. Initially patient continued to deny any trauma to the area such as abrasions or scratches however when I was re-discussing the case the patient she does now mention that she needs a new knee immobilizer because the wires in her old knee immobilizer work coming out of the knee immobilizer and scratching her knee over the area that is now indurated. Therefore place her on antibiotics. I talked her about the signs and symptoms of worsening infection such as spreading redness and swelling, stiffness of the knee, recurrent fevers. Informed to return to ER immediately if she has any signs or symptoms. I will have her follow-up with her primary care doctor on Friday for reevaluation. Patient agrees with plan will be discharged home. Dictation of this chart was performed using voice recognition software; therefore, there may be some unintended grammatical errors. - Vital Signs Vital signs: Temp Pulse Resp BP Pulse Ox 98.7 F 120 H 18 163/95 H 98 12/13/17 04:02 12/13/17 04:02 12/13/17 04:02 12/13/17 04:02 12/13/17 04:02 Discharge - Discharge Clinical Impression: Knee pain, left Qualifiers: Chronicity: unspecified Qualified Code(s): M25.562 - Pain in left knee Cellulitis Qualifiers: Site of cellulitis: extremity Site of cellulitis of extremity: lower extremity Laterality: left Qualified Code(s): L03.116 - Cellulitis of left lower limb Condition: Good Disposition: HOME, SELF-CARE Instructions: Oral Narcotic Medication ([facility]) Additional Instructions: Please take the antibiotics as prescribed. please return to the ER if you have spreading redness around the knee, knee stiffness, recurrent fevers, or if you feel unwell. Please follow up with your doctor this friday for reevaluation and continue with the plan to obtain the MRI. Please wear the immobilizer when up and moving around. Please keep the knee covered with a sterile dressing Prescriptions: Clindamycin HCl 300 mg PO ASDIR #56 capsule Oxycodone HCl/Acetaminophen [Percocet 5-325 mg Tablet] 1 tab PO Q4H PRN #15 tablet PRN Reason: Referrals: DENYS MCGRAW PA [Primary Care Provider] - 12/15/17
--- NOTE | 2017-12-13 04:59 | RADIOLOGY REPORT (SQ) ---
EXAM DESCRIPTION: KNEE LEFT 4 VIEW CLINICAL HISTORY: 52 years, Female, trauma COMPARISON: 3.1.18 NUMBER OF VIEWS: 4 Findings: 0.7 cm ossicular calcification associated with the left fibular head may indicate prior avulsive injury. Bones, joints, and soft tissues of the left knee appear otherwise intact. IMPRESSION: No acute findings.
[2017-12-13] MEDS ORDERED: HYDROMORPHONE HCL INJ/PF 2 MG/ML AMPULE IM ONE (05:46)
[2017-12-13] MEDS ORDERED: CLINDAMYCIN HCL 150 MG CAPSULE PO ONE (05:47)
[2017-12-13 06:37] VITALS: BP 144/81
== END 2017-12-13 06:54 | disposition home or self-care (01) ==
LOC: ER 03:56
DX: L03.116 Cellulitis of left lower limb (principal); M25.562 Pain in left knee; R50.9 Fever, unspecified; J45.909 Unspecified asthma, uncomplicated; Z88.6 Allergy status to analgesic agent; Z88.1 Allergy status to other antibiotic agents; Z88.8 Allergy status to other drugs, medicaments and biological substances
CPT/HCPCS: 99283; 96372; 73562; L1830; A9270 ×2; J1170

== ENCOUNTER 2018-09-23 09:05 | Emergency (ER) | payer MEDICARE, MEDICAID ==
[2018-09-23] MEDS ORDERED: NORMAL SALINE 1000 ML 1,000 ML IV ONE (09:44)
--- NOTE | 2018-09-23 09:46 | ER Document Report ---
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 The pain is been constant and worse with inspiration, she did have an episode of vomiting as well. ROS: Other than noted above, the 12 point review of systems was reviewed with the patient and were negative, all pertinent findings are included in the HPI. PHYSICAL EXAMINATION: Vital signs reviewed. GENERAL: Patient appears uncomfortable, but no acute respiratory distress HEAD: Atraumatic, normocephalic. EYES: Pupils equal round extraocular movements intact, conjunctiva are normal. ENT: Nares patent NECK: Normal range of motion CV: Heart rate tachycardic, regular rhythm LUNGS: No respiratory distress Musculoskeletal: Normal range of motion NEUROLOGICAL: Normal speech PSYCH: Normal mood, normal affect. MDM: Patient seen and examined for rapid initial assessment. Vital signs reviewed. A comprehensive ED assessment and evaluation of the patient, analysis of test results and completion of the medical decision making process will be conducted by additional ED providers. *Note is created using voice recognition software and may contain spelling, syntax or grammatical errors. TRAVEL OUTSIDE OF THE [place] IN LAST 30 DAYS: No - Related Data Allergies/Adverse Reactions: aspirin [Aspirin] Allergy (Verified 12/11/17 10:29) ciprofloxacin [From Cipro] Allergy (Verified 12/11/17 10:29) ciprofloxacin HCl [From Cipro] Allergy (Verified 12/11/17 10:29) doxycycline Allergy (Verified 12/11/17 10:29) NSAIDS (Non-Steroidal Anti-Inflamma [Nsaids] Allergy (Verified 12/11/17 10:29) Past Medical History - Social History Chew tobacco use (# tins/day): No Frequency of alcohol use: None Drug Abuse: None - Past Medical History Cardiac Medical History: Reports: Hx Heart Murmur Pulmonary Medical History: Reports: Hx Asthma, Hx Pneumonia Neurological Medical History: Reports: Hx Migraine, Hx Seizures - last seizure 4 years ago Endocrine Medical History: Reports: 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 Renal/ Medical History: Denies: Hx Peritoneal Dialysis Malignancy Medical History: 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 GI Medical History: Reports: Hx Gastroesophageal Reflux Disease, Hx Irritable Bowel Musculoskeltal Medical History: Reports Hx Fibromyalgia, Reports Hx Musculoskeletal Deformity, Reports Hx Musculoskeletal Trauma Psychiatric Medical History: Reports: Hx Depression Traumatic Medical History: Reports: Hx Fractures - left arm wrist hand, Hx Traumatic Brain Injury Past Surgical History: Reports: Hx Breast Surgery - lumpectomy R breast; ducts removed from bilateral breasts, Hx Hysterectomy, Hx Neurologic Surgery - tbi, spinal fusion in 2005, spinal nerve stimulator early 2015, Hx Orthopedic Surgery - left arm ulnar nerve, wrist and left knee - Immunizations Immunizations up to date: Yes Hx Diphtheria, Pertussis, Tetanus Vaccination: Yes Physical Exam - Vital signs Vitals: Temp Pulse Resp BP Pulse Ox 98.3 F 104 H 20 148/64 H 97 09/23/18 09:26 09/23/18 09:26 09/23/18 09:26 09/23/18 09:26 09/23/18 09:26 Course - Vital Signs Vital signs: Temp Pulse Resp BP Pulse Ox 98.3 F 104 H 20 148/64 H 97 09/23/18 09:26 09/23/18 09:26 09/23/18 09:26 09/23/18 09:26 09/23/18 09:26 Doctor's Discharge - Discharge Referrals: DENYS MCGRAW PA [Primary Care Provider] - Follow up as needed
[2018-09-23 10:21] LABS: ABSOLUTE BASOPHILS # (AUTO) 0.1 10^3/uL (0.0-0.2); ABSOLUTE EOSINOPHILS # (AUTO) 0.2 10^3/uL (0.0-0.6); ABSOLUTE LYMPHOCYTES (AUTO) 2.8 10^3/uL (0.5-4.7); ABSOLUTE MONOCYTES (AUTO) 0.5 10^3/uL (0.1-1.4); ABSOLUTE NEUT (AUTO) 1.7 10^3/uL (1.7-8.2); BASOPHILS % (AUTO) 1.4 % (0-2); EOSINOPHILS % (AUTO) 3.9 % (0-6); HEMATOCRIT 34.6 % (36.0-47.0); HEMOGLOBIN 11.5 g/dL (12.0-15.5); LYMPHOCYTES % (AUTO) 52.8 % (13-45); MEAN CORPUSCULAR HEMOGLOBIN 27.9 pg (27.0-33.4); MEAN CORPUSCULAR HGB CONC 33.1 g/dL (32.0-36.0); MEAN CORPUSCULAR VOLUME 84 fl (80-97); MONOCYTES % (AUTO) 10.1 % (3-13); PLATELET COUNT 375 10^3/uL (150-450); RED BLOOD COUNT 4.11 10^6/uL (3.72-5.28); RED CELL DISTRIBUTION WIDTH 13.2 % (11.5-14.0); SEGMENTED NEUTROPHILS % (AUTO) 31.8 % (42-78); TOTAL CELLS COUNTED % (AUTO) 100 %; WHITE BLOOD COUNT 5.3 10^3/uL (4.0-10.5)
[2018-09-23] MEDS ORDERED: ONDANSETRON HCL INJ/PF 4 MG/2 ML SDV IV ONE (10:40)
[2018-09-23] MEDS ORDERED: OXYCODONE-ACETAMINOPHEN 5-325 MG TABLET PO ONE ×2 (10:46→12:47)
--- NOTE | 2018-09-23 10:59 | ER Document Report ---
ED General - General Chief Complaint: Chest Pain Stated Complaint: CHEST PAIN Time Seen by Provider: 09/23/18 09:39 Notes: Patient says that she drove her child to school and got out of the car and was standing there and about 8 AM, she suddenly had a sharp pain in her left lower chest, under the left breast. Pain has been there ever since, worsened by movement and goes into the left back region. Has never had a pain like this before. She is nauseated but has not vomited. Patient has fibromyalgia and suffers from whole body pain from that condition. Patient has no history of heart disease other than a heart murmur. Has fibro-, IBS, and restless leg syndrome. She was started on metformin a couple of weeks ago for borderline diabetes. Has a history of breast cancer for which she had a lumpectomy. TRAVEL OUTSIDE OF THE [place] IN LAST 30 DAYS: No - Related Data Allergies/Adverse Reactions: aspirin [Aspirin] Allergy (Verified 12/11/17 10:29) ciprofloxacin [From Cipro] Allergy (Verified 12/11/17 10:29) ciprofloxacin HCl [From Cipro] Allergy (Verified 12/11/17 10:29) doxycycline Allergy (Verified 12/11/17 10:29) NSAIDS (Non-Steroidal Anti-Inflamma [Nsaids] Allergy (Verified 12/11/17 10:29) Past Medical History - Social History Smoking Status: Never Smoker Chew tobacco use (# tins/day): No Frequency of alcohol use: None Drug Abuse: None Family History: Reviewed & Not Pertinent, Arthritis, DM, Hypertension, Malignancy, Thyroid Disfunction Patient has suicidal ideation: No Patient has homicidal ideation: No - Past Medical History Cardiac Medical History: Reports: Hx Heart Murmur Pulmonary Medical History: Reports: Hx Asthma, Hx Pneumonia Neurological Medical History: Reports: Hx Migraine, Hx Seizures - last seizure 4 years ago Endocrine Medical History: Reports: 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 Malignancy Medical History: 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, lumpectomy GI Medical History: Reports: Hx Gastroesophageal Reflux Disease, Hx Irritable Bowel Musculoskeletal Medical History: Reports Hx Fibromyalgia, Reports Hx Musculoskeletal Deformity, Reports Hx Musculoskeletal Trauma, Reports Hx Restless Leg Syndrome Psychiatric Medical History: Reports: Hx Depression Traumatic Medical History: Reports: Hx Fractures - left arm wrist hand, Hx Traumatic Brain Injury Past Surgical History: Reports: Hx Breast Surgery - lumpectomy R breast; ducts removed from bilateral breasts, Hx Hysterectomy, Hx Neurologic Surgery - tbi, spinal fusion in 2005, spinal nerve stimulator early 2015, Hx Orthopedic Surgery - left arm ulnar nerve, wrist and left knee - Immunizations Immunizations up to date: Yes Hx Diphtheria, Pertussis, Tetanus Vaccination: Yes Review of Systems - Review of Systems Notes: REVIEW OF SYSTEMS: CONSTITUTIONAL : Denies fever. EENT: Denies eye, ear, nose or mouth or throat pain or other symptoms. CARDIOVASCULAR: See HPI. RESPIRATORY: Denies cough, chest congestion, or shortness of breath. GASTROINTESTINAL: Has chronic nausea. No vomiting today and no diarrhea. GENITOURINARY: Denies difficulty or painful urinating, urinary frequency, blood in urine. MUSCULOSKELETAL: Denies back or neck pain. Denies joint pain or swelling. SKIN: Denies rash or skin lesions. NEUROLOGICAL: Denies LOC or altered mental status. Denies headache. Denies sensory loss or motor deficits. ALL OTHER SYSTEMS REVIEWED AND NEGATIVE. Physical Exam - Vital signs Vitals: Temp Pulse Resp BP Pulse Ox 98.3 F 104 H 20 148/64 H 97 09/23/18 09:26 09/23/18 09:26 09/23/18 09:26 09/23/18 09:26 09/23/18 09:26 Interpretation: Normal Notes: PHYSICAL EXAMINATION: GENERAL: Well-appearing, in no acute distress. Frowns frequently as if uncomfortable. HEAD: Atraumatic, normocephalic. EYES: Pupils equal round and reactive to light, extraocular movements intact. ENT: oropharynx clear without exudates. Moist mucous membranes. NECK: Normal range of motion, supple. Tender right-side of neck. LUNGS: Breath sounds clear and equal bilaterally. Tender to press the lower left anterior ribs, under the breast. HEART: Regular rate and rhythm without murmurs. ABDOMEN: Soft, nontender exception of some very mild tenderness in the epigastrium. No guarding or rebound. No masses. BACK: No tenderness throughout entire back. EXTREMITIES: Normal range of motion without pain. NEUROLOGICAL: Normal speech, normal gait. Normal sensory, motor, and reflex exams. Awake, alert, and oriented x3. Cranial nerves normal. PSYCH: Normal mood, normal affect. SKIN: Warm, dry, no rashes. Course - Vital Signs Vital signs: Temp Pulse Resp BP Pulse Ox 98 F 104 H 18 142/93 H 97 09/23/18 13:58 09/23/18 09:26 09/23/18 13:58 09/23/18 13:58 09/23/18 13:58 - Laboratory Result Diagrams: 09/23/18 09:53 09/23/18 11:26 Laboratory results interpreted by me: 09/23/18 09/23/18 09:53 11:26 Hgb 11.5 L Hct 34.6 L Seg Neutrophils % 31.8 L Lymphocytes % 52.8 H Sodium 145.2 H Chloride 109 H - Diagnostic Test Radiology reviewed: Image reviewed, Reports reviewed - CTA of the chest was negative. - EKG Interpretation by Me EKG shows normal: Sinus rhythm Rate: Normal Rhythm: NSR Additional EKG results interpreted by me: 09/23/18 20:28 EKG was normal. Discharge - Discharge Clinical Impression: Chest pain, non-cardiac, Fibromyalgia Condition: Stable Disposition: HOME, SELF-CARE Additional Instructions: CHEST PAIN OF UNCLEAR CAUSE: The exact cause of your chest pain isn't clear. Fortunately, there is no evidence of a dangerous medical condition. Further testing may be required to find the source of the pain. Most often, we find that this pain is coming from the chest wall -- the muscles or rib joints in the chest. But chest pain can come from the lung and lung lining, the esophagus, the heart valves or heart lining, and even the stomach or gallbladder. Rest. Eat lightly until the pain is gone. We may prescribe medicine for pain and inflammation. You should call the physician immediately if the pain radiates to the shoulder, jaw or arms; if you start to run a fever or develop a cough; or if you develop shortness of breath, or other new or alarming symptoms. NORMAL EXAM AND WORKUP: At this time, your examination and workup show no significant abnormality. No significant abnormal physical findings were noted. All laboratory, EKG, and imaging (x-ray, CT scans, ultrasound) studies that were ordered show no significant abnormality. Although your examination and all studies that were ordered showed no significant abnormal finding, there are no examinations and no studies that are 100% accurate. There is always the possibility that some abnormality could exist and not be detected with physical examination or within the limits and capabilities of laboratory and other studies. You should return or follow up as you were instructed on your visit today for further evaluation if your symptoms do not resolve. CHEST WALL PAIN: Your chest pain may be coming from the chest wall. This is often caused by straining the muscles or joints in the chest during physical activity, direct trauma, coughing, or vigorous vomiting. Persons with arthritis are especially prone to this type of pain, due to inflammation of the cartilage joints near the breast bone. Occasionally, no cause can be found. Rest from strenuous physical activity. This kind of chest pain is usually made worse by movement of the chest. Depending on the symptoms, we may prescribe medicine for pain, muscle relaxation, and antiinflammatory effects. If the pain is new, and seems to be due to muscle strain, cold packs can help. Otherwise, apply gentle warmth to the painful area for 15 minutes every hour or two. You should call contact the doctor immediately if things change. Further evaluation is needed if you develop a fever or cough, if the nature of the pain changes, or if you become short of breath. Follow-up with your pain management providers at [facility] for further evaluation if you develop new or worsening symptoms. FOLLOW-UP CARE: If you have been referred to a physician for follow-up care, call the physician s office for an appointment as you were instructed or within the next two days. If you experience worsening or a significant change in your symptoms, notify the physician immediately or return to the Emergency Department at any time for re-evaluation. Referrals: DENYS MCGRAW PA [Primary Care Provider] - Follow up as needed
[2018-09-23 12:00] LABS: ALANINE AMINOTRANSFERASE 32 U/L (9-52); ALBUMIN 4.1 g/dL (3.5-5.0); ALKALINE PHOSPHATASE 73 U/L (38-126); ANION GAP 10 (5-19); ASPARTATE AMINO TRANSFERASE 29 U/L (14-36); BILIRUBIN,DIRECT 0.3 mg/dL (0.0-0.4); BILIRUBIN,TOTAL 0.3 mg/dL (0.2-1.3); BLOOD UREA NITROGEN 9 mg/dL (7-20); CALCIUM 8.7 mg/dL (8.4-10.2); CARBON DIOXIDE 26 mmol/L (22-30); CHLORIDE 109 mmol/L (98-107); GLUCOSE 92 mg/dL (75-110); POTASSIUM 4.2 mmol/L (3.6-5.0); SODIUM 145.2 mmol/L (137-145); TOTAL PROTEIN 7.3 g/dL (6.3-8.2)
--- NOTE | 2018-09-23 13:12 | RADIOLOGY REPORT (SQ) ---
EXAM DESCRIPTION: CTA CHEST COMPLETED DATE/TIME: 09/23/2018 12:53 pm REASON FOR STUDY: left sided pleuritic pain, hx dvt COMPARISON: None. TECHNIQUE: CT scan of the chest performed using helical scanning technique with dynamic intravenous contrast injection. Images reviewed with lung, soft tissue and bone windows. Reconstructed coronal and sagittal MPR images reviewed. Additional 3 dimensional post-processing performed to develop Maximal Intensity Projection images (NM P). All images stored on PACS. All CT scanners at this facility use dose modulation, iterative reconstruction, and/or weight based d osing when appropriate to reduce radiation dose to as low as reasonably achievable (ALARA). [facility]: Dose Right [facility]: CareDose [facility]: Dose Right [facility]: Teradose 4D [facility]: [email or web address] CONTRAST TYPE AND DOSE: contrast/concentration: Isovue 350.00 mg/ml; Total Contrast Delivered: 65.0 ml; Total Saline Delivered: 90.0 ml Contrast bolus optimized for the pulmonary arteries. Not diagnostic for the aorta. RENAL FUNCTION: Creatinine 0.73 RADIATION DOSE: CT Rad equipment meets quality standard of care and radiation dose reduction techniq ues were employed. CTDIvol: 11.2 - 11.3 mGy. DLP: 368 mGy-cm. . LIMITATIONS: None. FINDINGS: LUNGS AND PLEURA: No masses, infiltrates, or pneumothorax. No pleural effusions or pleura l calcifications. AORTA AND GREAT VESSELS: No aneurysm. Contrast bolus not optimized for the aorta. HEART: No pericardial effusion. No significant coronary artery calcifications. PULMONARY ARTERIES: No emboli visualized in the main pulmonary arteries or the segmental branches. HILAR AND MEDIASTINAL STRUCTURES: No identified masses or abnormal nodes. HARDWARE: Stimulator device is identified at the level of midthoracic spine UPPER ABDOMEN: No significant findings. Limited exam. THYROID AND OTHER SOFT TISSUES: No masses. No adenopathy. BONES: No acute or significant finding. 3D MIPS: Confirm above findings. OTHER: No other significant finding. IMPRESSION: NORMAL CTA OF THE CHEST. NO PULMONARY EMBOLI. COMMENT: Quality ID # [id number]: Final reports with documentation of one or more dose reduction techniques (e.g., Automated exposure control, adjustment of the mA and/or kV according to patient size, use of iterative reconstruction technique) TECHNICAL DOCUMENTATION: JOB ID: [id number] [employer]- All Rights Reserved Reading location - IP/workstation name: [facility]
[2018-09-23 14:06] VITALS: BP 142/93
--- NOTE | 2018-09-23 21:03 | EKG REPORT ---
SEVERITY:- ABNORMAL ECG - SINUS TACHYCARDIA PROBABLE LEFT VENTRICULAR HYPERTROPHY : Confirmed by: Dona Weber MD 23-Sep-2018 21:01:49
--- NOTE | 2018-09-23 21:03 | EKG REPORT ---
SEVERITY:- ABNORMAL ECG - SINUS RHYTHM CONSIDER LEFT VENTRICULAR HYPERTROPHY PROLONGED QT INTERVAL : Confirmed by: Dona Weber MD 23-Sep-2018 21:01:43
== END 2018-09-23 14:14 | disposition home or self-care (01) ==
LOC: ER 09:05
DX: R07.89 Other chest pain (principal); M79.7 Fibromyalgia; R11.0 Nausea; R73.03 Prediabetes; J45.909 Unspecified asthma, uncomplicated
CPT/HCPCS: 93005; 99285; 96361; 96374; 36415; 85025; 80053; 84484; 71275; 93010; A9270; J2405; J7030

== ENCOUNTER → 2018-09-25 | Outpatient (CLI) | payer MEDICARE, MEDICAID ==
--- NOTE | 2018-09-25 12:39 | RADIOLOGY REPORT (SQ) ---
EXAM DESCRIPTION: ANKLE LEFT COMPLETE; FOOT LEFT COMPLETE COMPLETED DATE/TIME: 09/25/2018 12:30 pm REASON FOR STUDY: PAIN IN LEFT ANKLE AND JOINTS OF LEFT FOOT COMPARISON: None. NUMBER OF VIEWS: Three views left foot. Three views left ankle. LIMITATIONS: None. FINDINGS: There is no acute or significant bone, joint or soft tissue abnormality. OTHER: No other significant finding. IMPRESSION: 1 normal radiographs of the left foot. 2. Normal radiographs of the left ankle. TECHNICAL DOCUMENTATION: JOB ID: [id number] Reading location - IP/workstation name: [email or web address]
--- NOTE | 2018-09-25 12:39 | RADIOLOGY REPORT (SQ) ---
EXAM DESCRIPTION: ANKLE LEFT COMPLETE; FOOT LEFT COMPLETE COMPLETED DATE/TIME: 09/25/2018 12:30 pm REASON FOR STUDY: PAIN IN LEFT ANKLE AND JOINTS OF LEFT FOOT COMPARISON: None. NUMBER OF VIEWS: Three views left foot. Three views left ankle. LIMITATIONS: None. FINDINGS: There is no acute or significant bone, joint or soft tissue abnormality. OTHER: No other significant finding. IMPRESSION: 1 normal radiographs of the left foot. 2. Normal radiographs of the left ankle. TECHNICAL DOCUMENTATION: JOB ID: [id number] Reading location - IP/workstation name: [email or web address]
== END ==
LOC: RAD 11:55
PROVIDERS: ATTEND Physician Assistant
DX: M25.572 Pain in left ankle and joints of left foot (principal)

== ENCOUNTER 2018-12-13 13:48 | Inpatient (IN) | payer MEDICARE, MEDICAID ==
[2018-12-13] MEDS ORDERED: LORAZEPAM INJ 2 MG/1 ML VIAL IV ONE ×2 (14:46→18:54)
[2018-12-13] MEDS ORDERED: DIPHENHYDRAMINE HCL 50 MG/ML VIAL IV ONE ×2 (16:29→19:00)
[2018-12-13] MEDS ORDERED: FAMOTIDINE INJ/PF 20 MG/2 ML SDV IV ONE (16:29)
[2018-12-13] MEDS ORDERED: METHYLPREDNISOLONE INJ 125 MG/2 ML SDV IV ONE (16:39)
[2018-12-13] MEDS ORDERED: ALBUTEROL SULFATE 0.083% NEB 2.5 MG/3 ML AMPUL NEB ONE (16:40)
[2018-12-13] MEDS ORDERED: DEXAMETHASONE SOD PHOS INJ 10 MG/1 ML VIAL IV ONE (16:52)
--- NOTE | 2018-12-13 17:14 | RADIOLOGY REPORT (SQ) ---
EXAM DESCRIPTION: SOFT TISSUE NECK COMPLETED DATE/TIME: 12/13/2018 5:03 pm REASON FOR STUDY: Allergic reaction to wasp sting,? Laryngospasm COMPARISON: None. NUMBER OF VIEWS: Two views. TECHNIQUE: AP and lateral radiographic image of the soft tissues of the neck. LIMITATIONS: None. FINDINGS: EPIGLOTTIS: Normal. Contour normal. Aryepiglottic folds normal. PREVERTEBRAL SOFT TISSUES: Normal. No soft tissue swelling. SUBGLOTTIC AREA: Normal. No narrowing. RETROPHARYNGEAL SPACE: Normal. No soft tissue masses. BONES: No significant findings. LUNG APICES: Normal. OTHER: No radiopaque foreign body. No other significant finding. IMPRESSION: NEGATIVE STUDY OF THE SOFT TISSUES OF THE NECK. TECHNICAL DOCUMENTATION: JOB ID: [id number] [employer]- All Rights Reserved Reading location - IP/workstation name: [email or web address]
--- NOTE | 2018-12-13 17:53 | RADIOLOGY REPORT (SQ) ---
EXAM DESCRIPTION: CT SOFT TISSUE NECK WITHOUT COMPLETED DATE/TIME: 12/13/2018 5:37 pm REASON FOR STUDY: Allergic reaction to wasp sting., Croup-like coug COMPARISON: None. TECHNIQUE: Noncontrast scanning from skull base through lung apices with review of bone, soft tissue and lung windows. Reconstructed coronal and sagittal MPR images reviewed. All images stored on PAC S. All CT scanners at this facility use dose modulation, iterative reconstruction, and/or weight based d osing when appropriate to reduce radiation dose to as low as reasonably achievable (ALARA). [facility]: Dose Right [facility]: CareDose [facility]: Dose Right [facility]: Teradose 4D [facility]: Smart [employer] RADIATION DOSE: CT Rad equipment meets quality standard of care and radiation dose reduction techniq ues were employed. CTDIvol: 15.4 mGy. DLP: 473 mGy-cm. mGy. LIMITATIONS: None. FINDINGS: SKULL BASE: Intact. MAJOR SALIVARY GLANDS: No solid or cystic masses. No inflammatory changes. LYMPHADENOPATHY: No adenopathy. MUCOSAL MASSES OR ASYMMETRY: Mild mucosal thickening in the hypopharynx and laryngeal soft tissues, l eft greater than right. Epiglottis is normal. Airway is preserved. LARYNX/CORDS: No abnormal findings. LUNG APICES: Clear. BONES: Intact. THYROID: Normal size. No masses. PARANASAL SINUSES: Clear. OTHER: No other significant finding. IMPRESSION: Mild mucosal thickening in the hypopharynx and laryngeal soft tissues, left greater than right. Epiglottis is normal. Airway is preserved. TECHNICAL DOCUMENTATION: JOB ID: [id number] [place]-72 Quality ID # [id number]: Final reports with documentation of one or more dose reduction techniques (e.g., Au tomated exposure control, adjustment of the mA and/or kV according to patient size, use of iterative reconstruction technique) 2010 [employer]- All Rights Reserved Reading location - IP/workstation name: [email or web address]
[2018-12-13] MEDS ORDERED: LIDOCAINE 1% INJ-PF (10 MG/ML) 30 ML SDV ONE (17:55)
[2018-12-13] MEDS: MAGNESIUM SULFATE/D5W 1 GM/100 ML RTUPB IV SCH ×2 (18:02→18:03)
[2018-12-13] MEDS ORDERED: LIDOCAINE 1% INJ-PF (10 MG/ML) 30 ML SDV NEB ONE (18:07)
--- NOTE | 2018-12-13 18:13 | ER Document Report ---
ED Allergic Reaction - General Chief Complaint: Allergic Reaction Stated Complaint: POSSIBLE ALLERGIC REACTION Time Seen by Provider: 12/13/18 14:46 Notes: Patient was stung this afternoon by a wasp. The sting occurred on the medial aspect of the right breast. May have been to stings. Patient used her own EpiPen while EMS was in transit. Transported to the emergency department, receiving 2 albuterol Atrovent nebulizers in route. She also got 2 doses of epinephrine 0.3 mg IM and 25 mg of Benadryl IV. Finally, the patient received 125 mg of Solu-Medrol IV by EMS before arrival here. Patient says she feels short of breath and some itching but it is better. Very anxious and shivering. History of asthma. Patient says that she has been intubated for her asthma in the past. She is never had a cough like this from her asthma. TRAVEL OUTSIDE OF THE [place] IN LAST 30 DAYS: No - Related Data Allergies/Adverse Reactions: bee venom protein (honey bee) Allergy (Severe, Verified 12/13/18 20:03) Anaphylaxis cephalexin Allergy (Severe, Verified 12/14/18 00:39) aspirin [Aspirin] Allergy (Verified 12/13/18 14:01) ciprofloxacin [From Cipro] Allergy (Verified 12/13/18 14:01) diclofenac Allergy (Verified 12/14/18 00:39) doxycycline Allergy (Verified 12/13/18 14:01) fluoxetine Allergy (Verified 12/14/18 00:39) meloxicam [From Mobic] Allergy (Verified 12/13/18 16:39) NSAIDS (Non-Steroidal Anti-Inflamma [Nsaids] Allergy (Verified 12/13/18 14:01) Penicillins Allergy (Verified 12/14/18 00:39) Sulfa (Sulfonamide Antibiotics) Allergy (Verified 12/14/18 00:39) tramadol Adverse Reaction (Unverified 12/14/18 09:35) wasp Allergy (Severe, Uncoded 12/13/18 20:03) Anaphylaxis Past Medical History - Social History Smoking Status: Never Smoker Family History: Reviewed & Not Pertinent, Arthritis, DM, Hypertension, Malignancy, Thyroid Disfunction Patient has suicidal ideation: No Patient has homicidal ideation: No - Past Medical History Cardiac Medical History: Reports: Hx Heart Murmur Pulmonary Medical History: Reports: Hx Asthma, Hx Pneumonia Neurological Medical History: Reports: Hx Migraine, Hx Seizures - last seizure 4 years ago Endocrine Medical History: Reports: 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 Malignancy Medical History: 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, lumpectomy GI Medical History: Reports: Hx Gastroesophageal Reflux Disease, Hx Irritable Bowel Musculoskeletal Medical History: Reports Hx Fibromyalgia, Reports Hx Musculoskeletal Deformity, Reports Hx Musculoskeletal Trauma Psychiatric Medical History: Reports: Hx Depression Traumatic Medical History: Reports: Hx Fractures - left arm wrist hand, Hx Traumatic Brain Injury Past Surgical History: Reports: Hx Breast Surgery - lumpectomy R breast; ducts removed from bilateral breasts, Hx Hysterectomy, Hx Neurologic Surgery - tbi, spinal fusion in 2005, spinal nerve stimulator early 2015, Hx Orthopedic Surgery - left arm ulnar nerve, wrist and left knee - Immunizations Immunizations up to date: Yes Hx Diphtheria, Pertussis, Tetanus Vaccination: Yes Review of Systems - Review of Systems Notes: REVIEW OF SYSTEMS: CONSTITUTIONAL : Denies fever. EENT: Denies eye, ear, nose or mouth or throat pain or other symptoms. CARDIOVASCULAR: Denies chest pain, but feels some tightness in the front of her chest. RESPIRATORY: Has a very deep cough that sounds somewhat like the croup. GASTROINTESTINAL: Denies abdominal pain or nausea, vomiting, or diarrhea. GENITOURINARY: Denies difficulty or painful urinating, urinary frequency, blood in urine. MUSCULOSKELETAL: Denies back or neck pain. Denies joint pain or swelling. SKIN: Denies rash or skin lesions. A few hives are noted on the anterior chest. NEUROLOGICAL: Denies LOC or altered mental status. Denies headache. Denies sensory loss or motor deficits. ALL OTHER SYSTEMS REVIEWED AND NEGATIVE. Physical Exam - Vital signs Vitals: Resp BP Pulse Ox 19 183/101 H 100 12/13/18 13:53 12/13/18 13:53 12/13/18 13:53 Interpretation: Hypertensive, Tachycardic Notes: PHYSICAL EXAMINATION: GENERAL: Very anxious, shaky and shivering. Coughing frequently, sounds like croup. HEAD: Atraumatic, normocephalic. EYES: Pupils equal round and reactive to light, extraocular movements intact. ENT: oropharynx clear without exudates. Moist mucous membranes. Patient does not feel any swelling in the neck or throat irritation. I attempted to visualize the posterior oropharynx and seems as if I have exacerbated her coughi ng. Unable to actually see the posterior oropharynx.Voice sounds normal except when she is coughing and it sounds like croup. NECK: Normal range of motion, supple. LUNGS: Breath sounds clear and equal bilaterally. No wheezes. Good airflow and exchange. HEART: Regular rate and rhythm without murmurs. Tachycardic at 130 by the bedside by me. ABDOMEN: Soft, nontender. No guarding or rebound. No masses. BACK: No tenderness throughout entire back. EXTREMITIES: Normal range of motion without pain. NEUROLOGICAL: Normal speech, normal gait. Normal sensory, motor, and reflex exams. Awake, alert, and oriented x3. Cranial nerves normal. PSYCH: Normal mood, normal affect. SKIN: Warm, dry, no rashes. Course - Re-evaluation Re-evalutation: 12/13/18 18:22 Patient's condition improved with exception of the cough which persisted. After I attempted to visualize the posterior oropharynx, there seem to be some worsening of her coughing. Altogether, after the patient arrived by EMS, in the emergency department, she received nebulized Decadron, nebulized Xylocaine, nebulized racemic epinephrine and nebulized albuterol. She also got a second dose of Solu-Medrol 125 mg IV. Patient had a soft tissue neck x-ray and the epiglottis looked normal. Some narrowing of the upper airway possibly. Patient was sent back for a noncontrasted CT scan of the soft tissue of the neck and it showed some very mild swelling but no impingement on the airway. - Vital Signs Vital signs: Temp Pulse Resp BP Pulse Ox 98.7 F 117 H 18 138/59 H 97 12/14/18 11:28 12/14/18 11:57 12/14/18 11:57 12/14/18 11:28 12/14/18 11:57 - Laboratory Result Diagrams: 12/13/18 18:10 12/13/18 18:10 Laboratory results interpreted by me: 12/13/18 12/13/18 18:10 18:10 WBC 10.9 H Hgb 11.9 L Hct 35.8 L RDW 15.7 H Seg Neutrophils % 82.1 H Monocytes % 1.5 L Absolute Neutrophils 9.0 H Est GFR (Non-Af Amer) 53 L Glucose 212 H Calcium 10.8 H Total Protein 9.3 H Albumin 5.2 H Critical Care Note - Critical Care Note Total time excluding time spent on procedures (mins): 60 Discharge - Discharge Clinical Impression: Allergic reaction to bee sting, Laryngospasm, Anaphylaxis Condition: Serious Disposition: ADMITTED INPATIENT Admitting Provider: Hospitalist Unit Admitted: ICU
[2018-12-13 18:19] LABS: ABSOLUTE BASOPHILS # (AUTO) 0.1 10^3/uL (0.0-0.2); ABSOLUTE LYMPHOCYTES (AUTO) 1.7 10^3/uL (0.5-4.7); ABSOLUTE MONOCYTES (AUTO) 0.2 10^3/uL (0.1-1.4); BASOPHILS % (AUTO) 0.7 % (0-2); HEMATOCRIT 35.8 % (36.0-47.0); HEMOGLOBIN 11.9 g/dL (12.0-15.5); LYMPHOCYTES % (AUTO) 15.7 % (13-45); MEAN CORPUSCULAR HEMOGLOBIN 28.3 pg (27.0-33.4); MEAN CORPUSCULAR HGB CONC 33.2 g/dL (32.0-36.0); MEAN CORPUSCULAR VOLUME 85 fl (80-97); MONOCYTES % (AUTO) 1.5 % (3-13); PLATELET COUNT 387 10^3/uL (150-450); RED CELL DISTRIBUTION WIDTH 15.7 % (11.5-14.0); SEGMENTED NEUTROPHILS % (AUTO) 82.1 % (42-78); TOTAL CELLS COUNTED % (AUTO) 100 %; WHITE BLOOD COUNT 10.9 10^3/uL (4.0-10.5)
[2018-12-13] MEDS ORDERED: RACEPINEPHRINE HCL 2.25% NEB 0.5 ML AMPUL NEB ONE ×2 (18:34→18:49)
[2018-12-13 18:35] LABS: ALANINE AMINOTRANSFERASE 19 U/L (9-52); ALBUMIN 5.2 g/dL (3.5-5.0); ALKALINE PHOSPHATASE 109 U/L (38-126); ANION GAP 19 (5-19); ASPARTATE AMINO TRANSFERASE 36 U/L (14-36); BILIRUBIN,DIRECT 0.3 mg/dL (0.0-0.4); BILIRUBIN,TOTAL 0.4 mg/dL (0.2-1.3); BLOOD UREA NITROGEN 15 mg/dL (7-20); CALCIUM 10.8 mg/dL (8.4-10.2); CARBON DIOXIDE 23 mmol/L (22-30); CHLORIDE 98 mmol/L (98-107); GLUCOSE 212 mg/dL (75-110); TOTAL PROTEIN 9.3 g/dL (6.3-8.2)
[2018-12-13] MEDS ORDERED: DEXTROSE 5%-WATER 250 ML with EPINEPHRINE/PF 1 MG IV PRN ×2 (18:53)
[2018-12-13] MEDS ORDERED: METHYLPREDNISOLONE INJ 40 MG/1 ML SDV IV ONE (19:00)
--- NOTE | 2018-12-13 19:03 | RADIOLOGY REPORT (SQ) ---
EXAM DESCRIPTION: CHEST SINGLE VIEW COMPLETED DATE/TIME: 12/13/2018 6:50 pm REASON FOR STUDY: cough, sob COMPARISON: 07/15/2017 TECHNIQUE: Single frontal radiographic view of the chest acquired. NUMBER OF VIEWS: One view. LIMITATIONS: None. FINDINGS: LUNGS AND PLEURA: No pneumothorax. No consolidation or pleural effusion. MEDIASTINUM AND HILAR STRUCTURES: Stable. HEART AND VASCULAR STRUCTURES: Stable. BONES: No acute findings. HARDWARE: Intraspinal thoracic stimulator device. OTHER: No other significant finding. IMPRESSION: NO ACUTE FINDINGS. TECHNICAL DOCUMENTATION: JOB ID: [id number] [place]-72 2010 [employer]- All Rights Reserved Reading location - IP/workstation name: [email or web address]
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
[2018-12-13] MEDS: ALBUTEROL SULFATE 0.083% NEB 2.5 MG/3 ML AMPUL NEB SCH (21:35)
[2018-12-13] MEDS ORDERED: EPINEPHRINE INJ/PF 1 MG/1 ML AMPULE ONE (21:55)
[2018-12-13] MEDS: FENTANYL CITRATE INJ/PF 100 MCG/2 ML AMPUL IV PRN (22:08)
[2018-12-13] MEDS ORDERED: FENTANYL CITRATE INJ/PF 100 MCG/2 ML AMPUL IV PRN (22:33)
--- NOTE | 2018-12-13 22:54 | EKG REPORT ---
SEVERITY:- ABNORMAL ECG - SINUS TACHYCARDIA LEFT VENTRICULAR HYPERTROPHY : Confirmed by: Felix La 13-Dec-2018 22:52:45
[2018-12-14] MEDS: DIPHENHYDRAMINE HCL 50 MG/ML VIAL IV SCH ×4 (02:11→22:02)
[2018-12-14] MEDS: METHYLPREDNISOLONE INJ 40 MG/1 ML SDV IV SCH ×4 (02:11→22:02)
[2018-12-14] MEDS: ALBUTEROL SULFATE 0.083% NEB 2.5 MG/3 ML AMPUL NEB SCH ×6 (02:13→19:31)
[2018-12-14] MEDS: FONDAPARINUX SODIUM INJ 2.5 MG/0.5 ML DISP.SYRIN SUBCUT SCH (08:04)
[2018-12-14] MEDS: FENTANYL CITRATE INJ/PF 100 MCG/2 ML AMPUL IV PRN ×4 (08:34→22:10)
[2018-12-14] MEDS: LIDOCAINE 5% (700 MG) TRANSDERMAL ADH..PATCH TP SCH (09:38)
[2018-12-14] MEDS ORDERED: DEXTROSE 50%-WATER 25 GM/50 ML DISP.SYRIN IV PRN ×2 (10:46)
[2018-12-14] MEDS ORDERED: GLUCAGON,HUMAN RECOMB 1 MG INJ SUBCUT PRN (10:46)
[2018-12-14] MEDS ORDERED: DEXTROSE 40% GEL 15 GM TUBE PO PRN ×2 (10:46)
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
[2018-12-14] MEDS ORDERED: EPINEPHRINE INJ/PF 1 MG/1 ML AMPULE ONE (18:38)
[2018-12-14] MEDS ORDERED: RACEPINEPHRINE HCL 2.25% NEB 0.5 ML AMPUL NEB ONE ×2 (18:39→18:50)
[2018-12-14] MEDS ORDERED: ALBUTEROL SULFATE 0.083% NEB 2.5 MG/3 ML AMPUL NEB PRN (18:50)
[2018-12-15] MEDS: ALBUTEROL SULFATE 0.083% NEB 2.5 MG/3 ML AMPUL NEB SCH ×7 (00:27→23:58)
[2018-12-15] MEDS: DIPHENHYDRAMINE HCL 50 MG/ML VIAL IV SCH ×4 (02:14→21:53)
[2018-12-15] MEDS: METHYLPREDNISOLONE INJ 40 MG/1 ML SDV IV SCH ×4 (02:14→21:53)
[2018-12-15] MEDS: FONDAPARINUX SODIUM INJ 2.5 MG/0.5 ML DISP.SYRIN SUBCUT SCH (08:23)
[2018-12-15] MEDS: FENTANYL CITRATE INJ/PF 100 MCG/2 ML AMPUL IV PRN ×3 (08:24→21:52)
[2018-12-15] MEDS: LIDOCAINE 5% (700 MG) TRANSDERMAL ADH..PATCH TP SCH (09:07)
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
[2018-12-15] MEDS: CLONAZEPAM 1 MG TABLET PO PRN ×2 (14:09→23:10)
[2018-12-15] MEDS: BUDESONIDE/FORMOTEROL 160-4.5 MCG 60 PUFF/6 GM MDI IH SCH (23:10)
[2018-12-16] MEDS: FENTANYL CITRATE INJ/PF 100 MCG/2 ML AMPUL IV PRN ×3 (02:00→16:05)
[2018-12-16] MEDS: METHYLPREDNISOLONE INJ 40 MG/1 ML SDV IV SCH ×4 (04:00→22:43)
[2018-12-16] MEDS: DIPHENHYDRAMINE HCL 50 MG/ML VIAL IV SCH ×4 (04:00→22:42)
[2018-12-16] MEDS: ALBUTEROL SULFATE 0.083% NEB 2.5 MG/3 ML AMPUL NEB SCH ×5 (05:09→20:43)
[2018-12-16] MEDS: BUDESONIDE/FORMOTEROL 160-4.5 MCG 60 PUFF/6 GM MDI IH SCH ×2 (09:43→22:58)
[2018-12-16] MEDS: LIDOCAINE 5% (700 MG) TRANSDERMAL ADH..PATCH TP SCH (09:43)
[2018-12-16] MEDS: HYDROCHLOROTHIAZIDE 25 MG TABLET PO SCH (09:43)
[2018-12-16] MEDS: FONDAPARINUX SODIUM INJ 2.5 MG/0.5 ML DISP.SYRIN SUBCUT SCH (09:44)
[2018-12-16] MEDS: CLONAZEPAM 1 MG TABLET PO PRN (09:50)
[2018-12-16 11:19] LABS: BLOOD UREA NITROGEN 24 mg/dL (7-20); CALCIUM 10.7 mg/dL (8.4-10.2); CARBON DIOXIDE 27 mmol/L (22-30); CHLORIDE 91 mmol/L (98-107); CREATINE KINASE 175 U/L (30-135); GLUCOSE 297 mg/dL (75-110); POTASSIUM 4.5 mmol/L (3.6-5.0)
[2018-12-16 11:25] LABS: ANION GAP 19 (5-19); SODIUM 137.4 mmol/L (137-145)
[2018-12-16 11:31] LABS: CREATINE KINASE MB 2.32 ng/mL (<4.55)
[2018-12-16 11:33] LABS: TROPONIN I < 0.012 ng/mL
[2018-12-16] MEDS ORDERED: NITROGLYCERIN 0.4 MG/TAB 25 TAB/BOTTLE SL PRN (11:46)
[2018-12-16] MEDS ORDERED: LORAZEPAM 0.5 MG TABLET PO PRN (11:47)
[2018-12-16] MEDS ORDERED: GUAIFENESIN/D-METHORPHAN (200-20 MG) SYRUP 10 ML PO PRN (11:49)
[2018-12-16] MEDS ORDERED: FAMOTIDINE 20 MG TABLET PO ONE (13:00)
[2018-12-16] MEDS ORDERED: GUAIFENESIN/D-METHORPHAN (200-20 MG) SYRUP 10 ML PO ONE (13:00)
[2018-12-16] MEDS ORDERED: LORAZEPAM INJ 2 MG/1 ML VIAL IV ONE (13:00)
[2018-12-16] MEDS ORDERED: MORPHINE SULFATE 10 MG/ML INJ IV ONE (13:30)
--- NOTE | 2018-12-16 14:24 | RADIOLOGY REPORT (SQ) ---
EXAM DESCRIPTION: CHEST SINGLE VIEW COMPLETED DATE/TIME: 12/16/2018 2:16 pm REASON FOR STUDY: Cough with shortness of breath COMPARISON: AP chest 12/13/2018 CT angio chest 09/23/2018 EXAM PARAMETERS: NUMBER OF VIEWS: One view. TECHNIQUE: Single frontal radiographic view of the chest acquired. RADIATION DOSE: NA LIMITATIONS: None. FINDINGS: LUNGS AND PLEURA: Bandlike airspace disease at the left lung base atelectasis versus pneum onia. Lungs are otherwise well inflated and clear. No pleural effusions. No pneumothorax. MEDIASTINUM AND HILAR STRUCTURES: No masses. Contour normal. HEART AND VASCULAR STRUCTURES: Heart normal in size. Normal vasculature. BONES: No acute findings. HARDWARE: Neurostimulator electrodes over the midthoracic spine OTHER: No other significant finding. IMPRESSION: Bandlike airspace disease left lateral costophrenic sulcus, atelectasis versus pneumonia TECHNICAL DOCUMENTATION: JOB ID: [id number] [email or web address]- All Rights Reserved Reading location - IP/workstation name: [email or web address]
[2018-12-16] MEDS ORDERED: METOPROLOL TARTRATE PF/INJ 5 MG/5 ML SDV IV ONE (15:30)
[2018-12-16] MEDS ORDERED: METOCLOPRAMIDE HCL ORAL SOLN 10 MG/10 ML UDCUP PO ONE (15:30)
[2018-12-16] MEDS ORDERED: MAG HYDROX/AL HYDROX/SIMETH SUSP 30 ML UDCUP PO ONE (15:30)
[2018-12-16] MEDS ORDERED: LIDOCAINE 2% VISCOUS SOLN 20 ML UDCUP PO ONE (15:30)
[2018-12-16] MEDS ORDERED: DEXTROSE 50%-WATER SYRINGE 12.5 GM/25 ML DOSE IV PRN (17:30)
[2018-12-16] MEDS ORDERED: DEXTROSE 40% GEL 15 GM TUBE X 2 PO PRN (17:30)
[2018-12-16] MEDS ORDERED: GLUCAGON,HUMAN RECOMB 1 MG INJ IM PRN (17:30)
[2018-12-16] MEDS ORDERED: DEXTROSE 50%-WATER SYRINGE 25 GM/50 ML DOSE IV PRN (17:30)
[2018-12-16] MEDS ORDERED: DEXTROSE 40% GEL 15 GM TUBE PO PRN (17:30)
[2018-12-16] MEDS ORDERED: INSULIN LISPRO 100 UNIT/ML 3 ML VIAL ONE (17:47)
[2018-12-16] MEDS ORDERED: LURASIDONE HCL 60 MG TABLET PO SCH (18:00)
[2018-12-16] MEDS ORDERED: ACETAMINOPHEN 325 MG TABLET PO PRN (18:25)
--- NOTE | 2018-12-16 18:32 | PDOC PROGRESS REPORT ---
Subjective Progress Note for:: 12/16/18 Subjective:: Patient admitted with allergic reaction to wasp stings. Patient tells me that she was recently evaluated in my office and was diagnosed to have sleep apnea syndrome. She was also scheduled to have a stress test. Patient currently having some chest pain. The chest pain is worse with coughing and taking a deep breath. So far EKGs and cardiac enzymes have been negative. Reason For Visit: SEVERE ALLERGIC REACTION TO WASP STING Physical Exam Vital Signs: Temp Pulse Resp BP Pulse Ox 98.3 F 114 H 16 149/76 H 92 12/16/18 15:02 12/16/18 15:51 12/16/18 15:51 12/16/18 15:02 12/16/18 15:51 Intake & Output 12/15/18 12/16/18 12/17/18 06:59 06:59 06:59 Intake Total 236 1162 350 Output Total 1000 600 0 Balance -764 562 350 Weight 73.5 kg 69.2 kg Exam: GENERAL: well-nourished and in no acute distress. Alert and oriented x3 HEAD: Atraumatic, normocephalic. EYES: AGA, sclera anicteric, conjunctiva are normal. ENT: Moist mucous membranes. No oral ulcerations or bleeding gums noted. No obvious ear, nose or throat abnormalities noted. NECK: supple without lymphadenopathy. Trachea is central. No cervical or axillary lymphadenopathy noted. Carotids are 2+, JVD WNL LUNGS: Breath sounds clear bilaterally. No wheezes rales or rhonchi noted. No significant dullness noted on percussion. CHEST: Palpation of the chest wall shows positive for significant chest wall tenderness. 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 ABDOMEN: Soft, no significant tenderness appreciated, normoactive bowel sounds. No guarding, no rebound. No rigidity noted . No masses appreciated. EXTREMITIES: Pedal pulses are 1-2+, no calf tenderness noted. No clubbing or cyanosis. negative pedal edema noted NEUROLOGICAL: Focused neurological exam showed no significant neurologic deficit. Normal speech, no focal weakness appreciated. PSYCH: Normal mood, normal affect. Judgment and insight within normal limits. SKIN: No significant ecchymosis, skin is noted to be warm. MUSCULOSKELETAL EXAM: No significant acute joint swelling noted. Results Laboratory Results: 12/13/18 18:10 12/16/18 10:53 12/16/18 10:53 Sodium 137.4 Potassium 4.5 Chloride 91 L Carbon Dioxide 27 Anion Gap 19 BUN 24 H Creatinine 1.11 Est GFR ( Amer) > 60 Est GFR (Non-Af Amer) 51 L Glucose 297 H Calcium 10.7 H Magnesium 2.7 H 12/16/18 12/16/18 10:53 10:53 Creatine Kinase 175 H CK-MB (CK-2) 2.32 Troponin I < 0.012 EKG Comments: Sinus rhythm, no acute ST-T wave changes are noted. Impressions: Soft Tissue Neck X-Ray 12/13/18 16:42 IMPRESSION: NEGATIVE STUDY OF THE SOFT TISSUES OF THE NECK. Soft Tissue Neck CT 12/13/18 17:24 IMPRESSION: Mild mucosal thickening in the hypopharynx and laryngeal soft tissues, left greater than right. Epiglottis is normal. Airway is preserved. Chest X-Ray 12/16/18 00:00 IMPRESSION: Bandlike airspace disease left lateral costophrenic sulcus, atelectasis versus pneumonia Assessment & Plan - Diagnosis (1) Chest pain Qualifiers: Chest pain type: unspecified Qualified Code(s): R07.9 - Chest pain, unspecified Is this a current diagnosis for this admission?: Yes (2) Allergic reaction to bee sting Is this a current diagnosis for this admission?: Yes (3) Hypertension Qualifiers: Hypertension type: essential hypertension Qualified Code(s): I10 - Essential (primary) hypertension Is this a current diagnosis for this admission?: Yes (4) Diabetes Qualifiers: Diabetes mellitus type: type 2 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 Patient was scheduled to have a stress test as an outpatient. However she now prefers to done have it done as an inpatient. Therefore will schedule patient for a nuclear stress test. Have also scheduled patient for a 2D echocardiogram. Allergic reaction to bee sting: Patient currently improved. Continue current management plans. Hypertension: Patient has fluctuating blood pressure. We will be happy to handle this as an outpatient. Diabetes: Currently stable. Blood sugars are somewhat elevated. Being managed expertly by hospitalist. Dyslipidemia: Continue atorvastatin therapy. - Time Time with patient: Greater than 35 minutes - More than 50% of the time spent coordinating care, discussing management plans with involved caregivers. Management plans discussed with involved personnels. Medical decision making was of moderate to high complexity, patient's has multiple comorbidities. Medications reviewed and adjusted accordingly: Yes
--- NOTE | 2018-12-16 19:16 | EKG REPORT ---
SEVERITY:- ABNORMAL ECG - SINUS TACHYCARDIA PROBABLE LEFT ATRIAL ABNORMALITY LEFT VENTRICULAR HYPERTROPHY : Confirmed by: Dona Weber MD 16-Dec-2018 19:15:54
--- NOTE | 2018-12-16 22:15 | PDOC PROGRESS REPORT ---
Subjective Progress Note for:: 12/16/18 Subjective:: Called to see patient for chest pain. The patient appears quite uncomfortable and is clutching her chest. The patient states that she has sharp epigastric pain and a sensation of someone squeezing her chest. It radiates to her left arm. She reports diaphoresis and nausea. She feels palpitations as well. Reason For Visit: Chest pain Diabetes mellitus type 2 Physical Exam Vital Signs: Temp Pulse Resp BP Pulse Ox 98.1 F 117 H 16 132/85 H 97 12/16/18 07:35 12/16/18 09:24 12/16/18 09:24 12/16/18 07:35 12/16/18 09:24 Intake & Output 12/15/18 12/16/18 12/17/18 06:59 06:59 06:59 Intake Total 236 1162 Output Total 1000 600 Balance -764 562 Weight 73.5 kg 69.2 kg General appearance: PRESENT: cooperative, well-developed, other - Moderate distress Head exam: PRESENT: normocephalic Eye exam: PRESENT: conjunctiva pink. ABSENT: scleral icterus Mouth exam: PRESENT: moist, neck supple, tongue midline Respiratory exam: PRESENT: clear to auscultation gail, symmetrical, other - Extremely congested cough. ABSENT: accessory muscle use, rales, rhonchi, wheezes Cardiovascular exam: PRESENT: +S1, +S2, tachycardia GI/Abdominal exam: PRESENT: normal bowel sounds, soft. ABSENT: distended, tenderness Rectal exam: PRESENT: deferred Extremities exam: ABSENT: calf tenderness, joint swelling, pedal edema Musculoskeletal exam: PRESENT: normal inspection Neurological exam: PRESENT: alert, awake, oriented to person, oriented to place, oriented to situation, CN II-XII grossly intact Psychiatric exam: PRESENT: anxious. ABSENT: agitated, depressed Focused psych exam: ABSENT: delusional, restlessness Results Laboratory Results: 12/13/18 18:10 12/16/18 10:53 12/16/18 10:53 Sodium 137.4 Potassium 4.5 Chloride 91 L Carbon Dioxide 27 Anion Gap 19 BUN 24 H Creatinine 1.11 Est GFR ( Amer) > 60 Est GFR (Non-Af Amer) 51 L Glucose 297 H Calcium 10.7 H Magnesium 2.7 H 03/06/19 03/06/19 10:53 10:53 Creatine Kinase 175 H CK-MB (CK-2) 2.32 Troponin I < 0.012 Impressions: Chest X-Ray 12/13/18 00:00 IMPRESSION: NO ACUTE FINDINGS. Soft Tissue Neck X-Ray 12/13/18 16:42 IMPRESSION: NEGATIVE STUDY OF THE SOFT TISSUES OF THE NECK. Soft Tissue Neck CT 12/13/18 17:24 IMPRESSION: Mild mucosal thickening in the hypopharynx and laryngeal soft tissues, left greater than right. Epiglottis is normal. Airway is preserved. Assessment & Plan - Diagnosis (1) Chest pain Qualifiers: Chest pain type: unspecified Qualified Code(s): R07.9 - Chest pain, unspecified Is this a current diagnosis for this admission?: Yes Plan: The patient did get some relief with sublingual nitroglycerin. She was also given morphine and lorazepam. I have asked her ep tech, Dr. La, to see the patient as well. Troponin studies were ordered. (2) Allergic reaction to bee sting Is this a current diagnosis for this admission?: Yes Plan: Weaning her steroids. (3) Diabetes Qualifiers: Diabetes mellitus type: type 2 Diabetes mellitus half-way insulin use: unspecified half-way insulin use status Diabetes mellitus complication status: without complication Qualified Code(s): E11.9 - Type 2 diabetes mellitus without complications Is this a current diagnosis for this admission?: Yes Plan: Exacerbated by the steroids. We will add a sliding scale and check fingersticks. (4) Gastroesophageal reflux disease Qualifiers: Esophagitis presence: esophagitis presence not specified Qualified Code(s): K21.9 - Gastro-esophageal reflux disease without esophagitis Is this a current diagnosis for this admission?: Yes Plan: It is certainly possible that the patient has reflux. This would contribute to her cough as well as epigastric and substernal chest discomfort. She was given a GI cocktail and started on H2 lenny therapy. (5) Hypertension Qualifiers: Hypertension type: essential hypertension Qualified Code(s): I10 - Essential (primary) hypertension Is this a current diagnosis for this admission?: Yes Plan: She was started on metoprolol for her tachycardia. She is also on hydrochlorothiazide. Continue to monitor pulse and pressure. (6) PTSD (post-traumatic stress disorder) Is this a current diagnosis for this admission?: Yes Plan: Continue current medication regimen. I did add lorazepam for anxiety. - Time Time Spent with patient: 35 or more minutes Medications reviewed and adjusted accordingly: Yes Anticipated discharge: Home
[2018-12-16] MEDS: FAMOTIDINE 20 MG TABLET PO SCH (22:43)
[2018-12-16] MEDS: METOPROLOL TARTRATE 25 MG TABLET PO SCH (22:43)
[2018-12-16] MEDS: INSULIN LISPRO 100 UNIT/ML 3 ML VIAL SUBCUT SCH (22:44)
[2018-12-17] MEDS: ALBUTEROL SULFATE 0.083% NEB 2.5 MG/3 ML AMPUL NEB SCH ×4 (00:22→12:22)
[2018-12-17] MEDS: DIPHENHYDRAMINE HCL 50 MG/ML VIAL IV SCH ×2 (03:53→08:56)
[2018-12-17] MEDS: METHYLPREDNISOLONE INJ 40 MG/1 ML SDV IV SCH ×2 (03:53→08:56)
[2018-12-17] MEDS: HYDROCHLOROTHIAZIDE 25 MG TABLET PO SCH (08:56)
[2018-12-17] MEDS: FONDAPARINUX SODIUM INJ 2.5 MG/0.5 ML DISP.SYRIN SUBCUT SCH (08:56)
[2018-12-17] MEDS: INSULIN LISPRO 100 UNIT/ML 3 ML VIAL SUBCUT SCH ×2 (08:56→12:18)
[2018-12-17] MEDS: METOPROLOL TARTRATE 25 MG TABLET PO SCH (10:15)
[2018-12-17] MEDS: LIDOCAINE 5% (700 MG) TRANSDERMAL ADH..PATCH TP SCH (10:15)
[2018-12-17] MEDS: BUDESONIDE/FORMOTEROL 160-4.5 MCG 60 PUFF/6 GM MDI IH SCH (10:15)
[2018-12-17] MEDS: FAMOTIDINE 20 MG TABLET PO SCH (10:15)
[2018-12-17] MEDS: FENTANYL CITRATE INJ/PF 100 MCG/2 ML AMPUL IV PRN (10:31)
[2018-12-17 13:44] VITALS: BP 150/78
--- NOTE | 2018-12-17 22:32 | PDOC DISCHARGE SUMMARY ---
General - Admit/Disc Date/PCP Admission Date/Primary Care Provider: 12/13/18 19:12 RILEY MENDEZ Discharge Date: 12/17/18 - Discharge Diagnosis (1) Chest pain Is this a current diagnosis for this admission?: Yes Summary: Yesterday the patient developed significant chest discomfort. Her cardiac enzymes are negative. She has a history of gastroesophageal reflux disease and has been on steroids for her anaphylactic reaction. Her serial troponins were negative. She was seen by Dr. La. She will have a stress test as an outpatient. It was more likely anxiety and reflux. (2) Allergic reaction to bee sting Is this a current diagnosis for this admission?: Yes Summary: Complete steroid taper as an outpatient. Prescription for replacement EpiPen was given. (3) Diabetes Is this a current diagnosis for this admission?: Yes Summary: Return to metformin therapy (4) Gastroesophageal reflux disease Is this a current diagnosis for this admission?: Yes Summary: Continue proton pump inhibitor and follow-up with gastroenterology. She may benefit from a swallow study and/or gastroscopy. (5) Hypertension Is this a current diagnosis for this admission?: Yes Summary: Metoprolol added to the hydrochlorothiazide. (6) PTSD (post-traumatic stress disorder) Is this a current diagnosis for this admission?: Yes Summary: Continue previous medications. - Additional Information Resuscitation Status: Full Code Discharge Diet: Cardiac Discharge Activity: Activity As Tolerated Prescriptions: Epinephrine 0.3 mg IJ ONCE PRN 30 Days #2 auto.injct PRN Reason: For Wheezing Lidocaine [Lidoderm 5% (700 mg) Transdermal Patch] 1 patch TP DAILY 30 Days #30 adh..patch Methylprednisolone [Medrol Dosepack (4 mg/Tab) 21 Tab/Dosepak] 4 mg PO ASDIR PRN #21 tab.ds.pk PRN Reason: Metoprolol Tartrate [Lopressor 25 mg Tablet] 25 mg PO Q12 30 Days #60 tablet Nitroglycerin [Nitrostat 0.4 mg (1/150 Gr) Tabs 25/Bottle] 1 tab SL Q5MP PRN 30 Days #1 bottle PRN Reason: Home Medications: Fluticasone Propionate [Flonase Nasal [place] 50 Mcg/[place] 16 gm] 1 spray NASL Q12 01/15/15 Albuterol Sulfate [Proair Respiclick] 1 puff IH Q6HP PRN 12/14/18 Amitriptyline HCl [Elavil 150 mg Tablet] 150 mg PO QHS 12/14/18 Atorvastatin Calcium [Lipitor 10 mg Tablet] 10 mg PO QHS 12/14/18 Budesonide/Formoterol Fumarate [Symbicort HFA 160-4.5 mcg Inhaler 6 gm] 1 puff IH Q12 12/14/18 Bupropion HCl [Bupropion Xl] 450 mg PO QAM 12/14/18 Buspirone HCl [Buspar 15 mg Tablet] 15 mg PO TID 12/14/18 Cetirizine HCl [Zyrtec] 10 mg PO DAILYP PRN 12/14/18 Clonazepam [Klonopin 1 mg Tablet] 0.5 mg PO TIDP PRN 12/14/18 Fremanezumab-Vfrm [Ajovy] 225 mg SQ [id number] 12/14/18 Gabapentin [Neurontin] 600 mg PO TID 12/14/18 Hydrochlorothiazide [Hydrodiuril 25 mg Tablet] 25 mg PO QAM 12/14/18 Hydroxyzine Pamoate [Vistaril 25 mg Capsule] 50 mg PO HSP PRN 12/14/18 Ipratropium/Albuterol Sulfate [Duoneb 3 ml Ampul] 3 ml NEB RTQ6HP PRN 12/14/18 Lurasidone HCl [Latuda 60 mg Tablet] 60 mg PO QPM 12/14/18 Metformin HCl [Metformin HCl ER] 500 mg PO DAILY 12/14/18 [place]-3/Dha/Epa/Fish Oil [Fish Oil 1,000 mg Softgel] 1 each PO DAILY 12/14/18 Pantoprazole Sodium [Protonix] 20 mg PO BID 12/14/18 Polyethylene Glycol 3350 [Miralax Powder 17 gm/Packet] 1 packet PO BID 12/14/18 Pramipexole Di-HCl [Pramipexole Dihydrochloride] 0.375 mg PO QHS 12/14/18 Promethazine HCl 10 ml PO Q12HP PRN 12/14/18 Sucralfate [Carafate Susp 1 gm/10 ml Udcup] 1 gm PO ACHS 12/14/18 Acetaminophen [Tylenol 325 mg Tablet] 975 mg PO Q8HP PRN tablet 12/17/18 Epinephrine 0.3 mg IJ ONCE PRN 30 Days #2 auto.injct 12/17/18 Lidocaine [Lidoderm 5% (700 mg) Transdermal Patch] 1 patch TP DAILY 30 Days #30 adh..patch 12/17/18 Methylprednisolone [Medrol Dosepack (4 mg/Tab) 21 Tab/Dosepak] 4 mg PO ASDIR PRN #21 tab.ds.pk 12/17/18 Metoprolol Tartrate [Lopressor 25 mg Tablet] 25 mg PO Q12 30 Days #60 tablet 12/17/18 Nitroglycerin [Nitrostat 0.4 mg (1/150 Gr) Tabs 25/Bottle] 1 tab SL Q5MP PRN 30 Days #1 bottle 12/17/18 History of Present Illness Patient complains of: Acute onset difficulty breathing after multiple bee stings History of Present Illness: NATHAN BOJORQUEZ is a 53 year old female who received several bee stings on the chest. She immediately began to have shortness of breath and stridor. Her 8-year-old son called 911. She injected herself with the EpiPen. She presented to the hospital for ongoing treatment her breathing was still not normal but there was wheezing. Hospital Course Hospital Course: The patient was given high-dose steroids. It was hoped that with high-dose steroids as well as antihistamines or anaphylaxis would reverse. She still had some wheezing. There was enough concern to transfer her to the ICU for closer monitoring she in fact was stable enough to transfer back up to the floor. Yesterday she reported significant chest pain and a workup was initiated. She had negative troponins. She actually improved with a GI cocktail and benzodiazepines. She has a history of PTSD with anxiety in addition to severe reflux. Her sales and customer relations rep is Dr. La. We did ask him to consult. He reviewed the patient (please see his note) and ordered a stress test. This morning the patient was still having chest discomfort and so the stress test was abandoned. Being that the patient is low risk for acute cardiac issues she will follow-up with Dr. La in the office for a stress test and assessment. Physical Exam Vital Signs: Temp Pulse Resp BP Pulse Ox 97.8 F 84 14 143/75 H 94 12/17/18 11:31 12/17/18 12:22 12/17/18 12:22 12/17/18 11:31 12/17/18 12:22 Intake & Output 12/16/18 12/17/18 12/18/18 06:59 06:59 06:59 Intake Total 1162 350 336 Output Total 600 0 Balance 562 350 336 Weight 69.2 kg 69.6 kg General appearance: PRESENT: no acute distress, cooperative, well-developed Head exam: PRESENT: normocephalic Eye exam: PRESENT: conjunctiva pink. ABSENT: scleral icterus Ear exam: PRESENT: normal external ear exam Mouth exam: PRESENT: moist, tongue midline Neck exam: PRESENT: full ROM. ABSENT: carotid bruit, lymphadenopathy Respiratory exam: PRESENT: clear to auscultation gail, symmetrical, unlabored. ABSENT: accessory muscle use, rales, stridor, wheezes Cardiovascular exam: PRESENT: RRR, +S1, +S2 GI/Abdominal exam: PRESENT: normal bowel sounds, soft. ABSENT: distended, tenderness Rectal exam: PRESENT: deferred Gentrourinary exam: ABSENT: indwelling catheter Extremities exam: ABSENT: pedal edema Musculoskeletal exam: PRESENT: ambulatory Neurological exam: PRESENT: alert, awake, oriented to person, oriented to place, oriented to time, oriented to situation, CN II-XII grossly intact Psychiatric exam: PRESENT: appropriate affect, normal mood. ABSENT: agitated, anxious Focused psych exam: ABSENT: delusional, restlessness Results Laboratory Results: 12/13/18 18:10 12/16/18 10:53 12/16/18 12/16/18 10:53 10:53 Creatine Kinase 175 H CK-MB (CK-2) 2.32 Troponin I < 0.012 Impressions: Soft Tissue Neck X-Ray 12/13/18 16:42 IMPRESSION: NEGATIVE STUDY OF THE SOFT TISSUES OF THE NECK. Soft Tissue Neck CT 12/13/18 17:24 IMPRESSION: Mild mucosal thickening in the hypopharynx and laryngeal soft tissues, left greater than right. Epiglottis is normal. Airway is preserved. Chest X-Ray 12/16/18 00:00 IMPRESSION: Bandlike airspace disease left lateral costophrenic sulcus, atelectasis versus pneumonia Qualifiers - * PATIENT BEING DISCHARGED WITH ANY OF THE FOLLOWING DIAGNOSIS: No Plan Time Spent: Greater than 30 Minutes
== END 2018-12-17 14:11 | disposition home or self-care (01) | DRG 917 ==
LOC: ER 13:48 → EH 19:12 → ICU 21:15 → 3N 12-14 10:07 → ICU 12-14 21:00 → 3W 12-15 19:46
PROVIDERS: ADMIT Internal Medicine; ATTEND Internal Medicine
PROC: 5A09357 Assistance with Respiratory Ventilation, Less than 24 Consecutive Hours, Continuous Positive Airway Pressure (ICD-10-PCS; principal; 2018-12-13)
PROC: 3E0F3GC Introduction of Other Therapeutic Substance into Respiratory Tract, Percutaneous Approach (ICD-10-PCS; 2018-12-13)
PROC: 3E02340 Introduction of Influenza Vaccine into Muscle, Percutaneous Approach (ICD-10-PCS; 2018-12-17)
DX: T63.461A Toxic effect of venom of wasps, accidental (unintentional), initial encounter (principal); J96.01 Acute respiratory failure with hypoxia; T78.2XXA Anaphylactic shock, unspecified, initial encounter; X58.XXXA Exposure to other specified factors, initial encounter; J45.909 Unspecified asthma, uncomplicated; F43.10 Post-traumatic stress disorder, unspecified; F41.9 Anxiety disorder, unspecified; M79.7 Fibromyalgia; E66.9 Obesity, unspecified; J38.5 Laryngeal spasm; R07.89 Other chest pain; I10 Essential (primary) hypertension; E11.9 Type 2 diabetes mellitus without complications; E78.5 Hyperlipidemia, unspecified; F32.9 Major depressive disorder, single episode, unspecified; K21.9 Gastro-esophageal reflux disease without esophagitis; K58.9 Irritable bowel syndrome, unspecified; Z68.29 Body mass index [BMI] 29.0-29.9, adult; Z91.030 Bee allergy status; Z23 Encounter for immunization; Z88.6 Allergy status to analgesic agent; Z88.1 Allergy status to other antibiotic agents; Z88.3 Allergy status to other anti-infective agents; Z88.8 Allergy status to other drugs, medicaments and biological substances; Z88.0 Allergy status to penicillin; Z88.2 Allergy status to sulfonamides; Z85.3 Personal history of malignant neoplasm of breast; Z83.3 Family history of diabetes mellitus; Z82.49 Family history of ischemic heart disease and other diseases of the circulatory system; Z80.9 Family history of malignant neoplasm, unspecified; Z87.820 Personal history of traumatic brain injury; Z98.1 Arthrodesis status; Z79.51 Long term (current) use of inhaled steroids
CPT/HCPCS: 36415; 70360; 70490; 71045; 80048; 80053; 82550; 82553; 82962; 83735; 84484; 85025; 90686; 93005; 93010; 93306; 94640; 94660; 96365; 96375; 99291; J0171; J1100; J1200; J1652; J1815; J2060; J2270; J2920; J2930; J3010; J3475; J3490; J7060; S0028

== ENCOUNTER 2019-04-05 22:40 | Emergency (ER) | payer MEDICARE, MEDICAID ==
[2019-04-05 23:12] LABS: APPEARANCE,URINE CLEAR; BILIRUBIN,URINE NEGATIVE (NEGATIVE); COLOR,URINE YELLOW; GLUCOSE, URINE NEGATIVE (NEGATIVE); KETONES,URINE NEGATIVE (NEGATIVE); LEUKOCYTE ESTERASE,URINE NEGATIVE (NEGATIVE); NITRITE,URINE NEGATIVE (NEGATIVE); PROTEIN,URINE NEGATIVE (NEGATIVE); URINE SPECIFIC GRAVITY 1.015; UROBILINOGEN,URINE NEGATIVE mg/dL (<2.0)
[2019-04-05] MEDS ORDERED: FAMOTIDINE INJ/PF 20 MG/2 ML SDV IV ONE (23:18)
[2019-04-05] MEDS ORDERED: EPINEPHRINE INJ/PF 1 MG/1 ML AMPULE IM ONE (23:18)
[2019-04-05] MEDS ORDERED: DIPHENHYDRAMINE HCL 50 MG/ML VIAL IV ONE (23:18)
[2019-04-05] MEDS ORDERED: METHYLPREDNISOLONE INJ 125 MG/2 ML SDV IV ONE (23:18)
--- NOTE | 2019-04-05 23:19 | ER Document Report ---
ED General - General Stated Complaint: SHORTNESS OF BREATH Time Seen by Provider: 04/05/19 22:56 Primary Care Provider: DENYS MCGRAW PA [Primary Care Provider] - Follow up in 3-5 days Notes: Patient is a 53-year-old female with asthma that presents to the emergency department for chief complaint of shortness of breath and possible allergic reaction. Patient states she had a dental procedure earlier today, and had a tooth extraction, she states that she was sent home on Tylenol with codeine to take for pain, she states she took a dose of it, feel worse later, felt more short of breath, was coughing incessantly, and felt like she could not catch her breath. She felt she was wheezing more as well, denies rash, but does complain of some abdominal discomfort, and has sore throat. She has had codeine in the past without any issue. She does state she was recently treated for "bronchitis" with azithromycin, and placed on a quick steroid taper which she finished on Friday. She is typically on Symbicort, and uses pro-air. She describes the pain she is having in her throat, as a 3 out of 10 describes as more uncomfortable with coughing. Past Medical History: Ductal carcinoma, asthma Past Surgical History: Spinal cord stimulator Social History: Denies current tobacco, alcohol or drug use. Family History: Reviewed and noncontributory for presenting illness Allergies: Reviewed, see documented allergy list. REVIEW OF SYSTEMS: Other than noted above, the 12 point review of systems was reviewed with the patient and were negative, all pertinent findings are included in the HPI. PHYSICAL EXAMINATION: Vital signs reviewed, nursing noted reviewed. GENERAL: Patient appears somewhat uncomfortable, but in no acute or immediate distress. HEAD: Atraumatic, normocephalic. EYES: Eyes appear normal, extraocular movements intact, sclera anicteric, conjunctiva are normal. ENT: nares patent, oropharynx clear without exudates. Moist mucous membranes. Uvula midline, and nonedematous NECK: Normal range of motion, supple without lymphadenopathy LUNGS: Coarse lung sounds, with inspiratory and expiratory wheezing noted, dry cough noted on exam as well. But no acute respiratory distress. HEART: Heart rate tachycardic, regular rhythm, no audible murmur. ABDOMEN: Soft, nontender, normoactive bowel sounds. No rebound, guarding, or rigidity. No masses appreciated. EXTREMITIES: Nontender, good range of motion, no pitting or edema. NEUROLOGICAL: No focal neurological deficits. Moves all extremities spontaneous ly Motor and sensory grossly intact on exam. PSYCH: Normal mood, normal affect. SKIN: Warm, Dry, normal turgor, no rashes or lesions noted on exposed skin TRAVEL OUTSIDE OF THE [place] IN LAST 30 DAYS: No - Related Data Allergies/Adverse Reactions: bee venom protein (honey bee) Allergy (Severe, Verified 12/14/18 16:23) Anaphylaxis cephalexin Allergy (Severe, Verified 12/14/18 16:23) codeine Allergy (Severe, Verified 04/05/19 23:49) Bronchospasm aspirin [Aspirin] Allergy (Verified 12/14/18 16:23) ciprofloxacin [From Cipro] Allergy (Verified 12/14/18 16:23) diclofenac Allergy (Verified 12/14/18 16:23) doxycycline Allergy (Verified 12/14/18 16:23) fluoxetine Allergy (Verified 12/14/18 16:23) meloxicam [From Mobic] Allergy (Verified 12/14/18 16:23) NSAIDS (Non-Steroidal Anti-Inflamma [Nsaids] Allergy (Verified 12/14/18 16:23) Penicillins Allergy (Verified 12/14/18 16:23) Sulfa (Sulfonamide Antibiotics) Allergy (Verified 12/14/18 16:23) tramadol Adverse Reaction (Unverified 12/14/18 16:23) wasp Allergy (Severe, Uncoded 12/14/18 16:23) Anaphylaxis Past Medical History - Social History Smoking Status: Never Smoker Family History: Reviewed & Not Pertinent, Arthritis, DM, Hypertension, Malignancy, Thyroid Disfunction - Past Medical History Cardiac Medical History: Reports: Hx Heart Murmur Pulmonary Medical History: Reports: Hx Asthma, Hx Pneumonia Neurological Medical History: Reports: Hx Migraine, Hx Seizures - last seizure 4 years ago Endocrine Medical History: Reports: 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 Renal/ Medical History: Denies: Hx Peritoneal Dialysis Malignancy Medical History: 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, lumpectomy GI Medical History: Reports: Hx Gastroesophageal Reflux Disease, Hx Irritable Bowel Musculoskeletal Medical History: Reports Hx Fibromyalgia, Reports Hx Musculoskeletal Deformity, Reports Hx Musculoskeletal Trauma Psychiatric Medical History: Reports: Hx Depression Traumatic Medical History: Reports: Hx Fractures - left arm wrist hand, Hx Traumatic Brain Injury Past Surgical History: Reports: Hx Breast Surgery - lumpectomy R breast; ducts removed from bilateral breasts, Hx Hysterectomy, Hx Neurologic Surgery - tbi, spinal fusion in 2005, spinal nerve stimulator early 2015, Hx Orthopedic Surgery - left arm ulnar nerve, wrist and left knee - Immunizations Immunizations up to date: Yes Hx Diphtheria, Pertussis, Tetanus Vaccination: Yes Physical Exam - Vital signs Vitals: Temp BP 99.2 F 143/110 H 04/05/19 22:43 04/05/19 22:43 Course - Re-evaluation Re-evalutation: Patient seen and examined vital signs reviewed. Laboratory data and/or imaging were ordered as appropriate for the patient's presenting symptoms and complaint, with consideration of any critical or life threatening conditions that may be associated with their obtained history and exam as noted above. Patient was treated with IM epinephrine 0.3 mg, IV Solu-Medrol, Pepcid, and Benadryl, as initially this did seem to be a possible allergic reaction to codeine, however after monitoring the patient, and re-examining, she was improved after the epinephrine, but continued to have wheezing, she was given DuoNeb breathing treatments, which did seem to help, she is also given IV magnesium. Results were reviewed when available and demonstrated mild leukocytosis, likely due to recent steroid use, chest x-ray was negative for evidence of pneumonia The patient was re-evaluated and was improved, lung sounds much improved after treatments, I do believe this is more of an acute asthma exacerbation as opposed to allergic reaction, and we will treat the patient with a longer steroid taper, advised using her albuterol inhaler and dispensed a spacer for the patient to have at home to help better deliver her medications.. Evaluation was most consistent with acute exacerbation of asthma. Results were discussed with the patient at this point, after careful considerati on I feel that that patient can be discharged from the emergency department, the patient was educated treatments and reasons to return to the emergency department based on their presumed diagnosis as noted above, they were advised to followup with a primary care physician in 2-3 days. Patient was agreeable to plan of care. *Note is created using voice recognition software and may contain spelling, syntax or grammatical errors. Laboratory 04/05/19 04/05/19 04/05/19 22:45 22:45 22:45 WBC 12.5 H RBC 4.08 Hgb 11.7 L Hct 35.6 L MCV 87 MCH 28.6 MCHC 32.8 RDW 13.4 Plt Count 383 Seg Neutrophils % 56.3 Lymphocytes % 33.5 Monocytes % 7.0 Eosinophils % 2.3 Basophils % 0.9 Absolute Neutrophils 7.1 Absolute Lymphocytes 4.2 Absolute Monocytes 0.9 Absolute Eosinophils 0.3 Absolute Basophils 0.1 Sodium 137.5 Potassium 4.1 Chloride 95 L Carbon Dioxide 26 Anion Gap 17 BUN 12 Creatinine 0.94 Est GFR ( Amer) > 60 Est GFR (Non-Af Amer) > 60 Glucose 185 H Calcium 10.1 Total Bilirubin 0.4 Direct Bilirubin 0.2 Neonat Total Bilirubin Not Reportable Neonat Direct Bilirubin Not Reportable Neonat Indirect Bili Not Reportable AST 36 ALT 32 Alkaline Phosphatase 77 NT-Pro-B Natriuret Pep 20 Total Protein 8.3 H Albumin 4.8 Urine Color Urine Appearance Urine pH Ur Specific [place] Urine Protein Urine Glucose (UA) Urine Ketones Urine Blood Urine Nitrite Urine Bilirubin Urine Urobilinogen Ur Leukocyte Esterase Urine WBC (Auto) Urine RBC (Auto) Urine Bacteria (Auto) Squamous Epi Cells Auto Urine Mucus (Auto) Urine Ascorbic Acid 04/05/19 23:00 WBC RBC Hgb Hct MCV MCH MCHC RDW Plt Count Seg Neutrophils % Lymphocytes % Monocytes % Eosinophils % Basophils % Absolute Neutrophils Absolute Lymphocytes Absolute Monocytes Absolute Eosinophils Absolute Basophils Sodium Potassium Chloride Carbon Dioxide Anion Gap BUN Creatinine Est GFR ( Amer) Est GFR (Non-Af Amer) Glucose Calcium Total Bilirubin Direct Bilirubin Neonat Total Bilirubin Neonat Direct Bilirubin Neonat Indirect Bili AST ALT Alkaline Phosphatase NT-Pro-B Natriuret Pep Total Protein Albumin Urine Color YELLOW Urine Appearance CLEAR Urine pH 5.0 Ur Specific [place] 1.015 Urine Protein NEGATIVE Urine Glucose (UA) NEGATIVE Urine Ketones NEGATIVE Urine Blood NEGATIVE Urine Nitrite NEGATIVE Urine Bilirubin NEGATIVE Urine Urobilinogen NEGATIVE Ur Leukocyte Esterase NEGATIVE Urine WBC (Auto) 1 Urine RBC (Auto) 0 Urine Bacteria (Auto) 2+ Squamous Epi Cells Auto 2 Urine Mucus (Auto) RARE Urine Ascorbic Acid 40 H Chest X-Ray 04/05/19 22:44 IMPRESSION: Cardiomegaly. Postsurgical change. copyright 2011 [employer] All Rights Reserved - Vital Signs Vital signs: Temp Pulse Resp BP Pulse Ox 99.2 F 21 H 122/70 96 04/05/19 22:43 04/06/19 02:03 04/06/19 02:03 04/06/19 02:03 - Laboratory Result Diagrams: 04/05/19 22:45 04/05/19 22:45 Laboratory results interpreted by me: 04/05/19 04/05/19 04/05/19 22:45 22:45 23:00 WBC 12.5 H Hgb 11.7 L Hct 35.6 L Chloride 95 L Glucose 185 H Total Protein 8.3 H Urine Ascorbic Acid 40 H - EKG Interpretation by Me Additional EKG results interpreted by me: EKG demonstrates sinus tachycardia with a ventricular rate of 119 bpm, normal axis, QTC 460 ms, no evidence of acute ischemia in this EKG, there is baseline artifact noted, no prior for comparison. Discharge - Discharge Clinical Impression: Acute asthma exacerbation Qualifiers: Asthma severity: unspecified severity Asthma persistence: unspecified Qualified Code(s): J45.901 - Unspecified asthma with (acute) exacerbation Condition: Stable Disposition: HOME, SELF-CARE Instructions: Asthma ([facility]) Additional Instructions: Please use your albuterol/pro-air inhaler, 2 puffs 4 times daily and use the spacer with it, please pickle maker the prescription for the prednisone and take it as directed, continue all of your other home medications as directed. Please follow-up with your primary care physician, call for an appointment tomorrow. Prescriptions: Prednisone [Deltasone 10 mg Tablet] 10 mg PO ASDIR #45 tablet Referrals: DENYS MCGRAW PA [Primary Care Provider] - Follow up in 3-5 days
[2019-04-05 23:21] LABS: ALANINE AMINOTRANSFERASE 32 U/L (9-52); ALBUMIN 4.8 g/dL (3.5-5.0); ALKALINE PHOSPHATASE 77 U/L (38-126); ASPARTATE AMINO TRANSFERASE 36 U/L (14-36); BILIRUBIN,DIRECT 0.2 mg/dL (0.0-0.4); BILIRUBIN,TOTAL 0.4 mg/dL (0.2-1.3); BLOOD UREA NITROGEN 12 mg/dL (7-20); CALCIUM 10.1 mg/dL (8.4-10.2); CARBON DIOXIDE 26 mmol/L (22-30); CHLORIDE 95 mmol/L (98-107); GLUCOSE 185 mg/dL (75-110); POTASSIUM 4.1 mmol/L (3.6-5.0); TOTAL PROTEIN 8.3 g/dL (6.3-8.2)
[2019-04-05 23:22] LABS: ABSOLUTE BASOPHILS # (AUTO) 0.1 10^3/uL (0.0-0.2); ABSOLUTE EOSINOPHILS # (AUTO) 0.3 10^3/uL (0.0-0.6); ABSOLUTE LYMPHOCYTES (AUTO) 4.2 10^3/uL (0.5-4.7); ABSOLUTE MONOCYTES (AUTO) 0.9 10^3/uL (0.1-1.4); ABSOLUTE NEUT (AUTO) 7.1 10^3/uL (1.7-8.2); BASOPHILS % (AUTO) 0.9 % (0-2); EOSINOPHILS % (AUTO) 2.3 % (0-6); HEMATOCRIT 35.6 % (36.0-47.0); HEMOGLOBIN 11.7 g/dL (12.0-15.5); LYMPHOCYTES % (AUTO) 33.5 % (13-45); MEAN CORPUSCULAR HEMOGLOBIN 28.6 pg (27.0-33.4); MEAN CORPUSCULAR HGB CONC 32.8 g/dL (32.0-36.0); MEAN CORPUSCULAR VOLUME 87 fl (80-97); PLATELET COUNT 383 10^3/uL (150-450); RED BLOOD COUNT 4.08 10^6/uL (3.72-5.28); RED CELL DISTRIBUTION WIDTH 13.4 % (11.5-14.0); SEGMENTED NEUTROPHILS % (AUTO) 56.3 % (42-78); TOTAL CELLS COUNTED % (AUTO) 100 %; WHITE BLOOD COUNT 12.5 10^3/uL (4.0-10.5)
[2019-04-05 23:23] LABS: ANION GAP 17 (5-19); SODIUM 137.5 mmol/L (137-145)
[2019-04-06] MEDS ORDERED: FENTANYL CITRATE INJ/PF 100 MCG/2 ML AMPUL IV ONE (01:12)
[2019-04-06] MEDS ORDERED: IPRATROPIUM/ALBUTEROL 0.5-2.5 MG/3 ML AMPUL NEB ONE (01:50)
[2019-04-06] MEDS ORDERED: MAGNESIUM SULFATE/D5W 1 GM/100 ML RTUPB IV ONE (01:51)
[2019-04-06] MEDS ORDERED: BENZONATATE 100 MG CAPSULE PO ONE (01:51)
--- NOTE | 2019-04-06 02:04 | RADIOLOGY REPORT (SQ) ---
EXAM DESCRIPTION: XR CHEST 1 VIEW COMPLETED DATE/TME: 04/05/2019 22:44 CLINICAL HISTORY: 53 years, Female, shortness of breath COMPARISON: 12/16/2018 chest NUMBER OF VIEWS: 1 TECHNIQUE: Portable chest LIMITATIONS: None. FINDINGS: Cardiomegaly. Subsegmental atelectasis left lung base. Stimulating wires project over the thoracic spine. No pneumothorax IMPRESSION: Cardiomegaly. Postsurgical change. copyright 2010 [employer]- All Rights Reserved
[2019-04-06 03:59] VITALS: BP 122/74
--- NOTE | 2019-04-06 23:16 | EKG REPORT ---
SEVERITY:- BORDERLINE ECG - SINUS TACHYCARDIA BORDERLINE T WAVE ABNORMALITIES : Confirmed by: Felix La 06-Apr-2019 23:15:26
== END 2019-04-06 03:28 | disposition home or self-care (01) ==
LOC: ER 22:40
DX: J45.901 Unspecified asthma with (acute) exacerbation (principal); Z79.51 Long term (current) use of inhaled steroids; Z79.899 Other long term (current) drug therapy; J02.9 Acute pharyngitis, unspecified; D72.829 Elevated white blood cell count, unspecified; R19.8 Other specified symptoms and signs involving the digestive system and abdomen; R05 Cough; R00.0 Tachycardia, unspecified; Z98.890 Other specified postprocedural states; Z87.01 Personal history of pneumonia (recurrent); Z85.3 Personal history of malignant neoplasm of breast; Z87.892 Personal history of anaphylaxis; Z91.030 Bee allergy status; Z91.038 Other insect allergy status; Z88.1 Allergy status to other antibiotic agents; Z88.5 Allergy status to narcotic agent; Z88.8 Allergy status to other drugs, medicaments and biological substances; Z88.3 Allergy status to other anti-infective agents; Z88.0 Allergy status to penicillin; Z88.2 Allergy status to sulfonamides
CPT/HCPCS: 93005; 36415; 85025; 80053; 81001; 83880; 71045; 93010; A9270 ×2; J1200; J0171; J3010; J2930; J3475; S0028; 94640; 96365; 96372; 96375; 99285; J7620

== ENCOUNTER 2019-04-09 17:00 | Inpatient (IN) | payer MEDICARE, MEDICAID ==
[2019-04-09 17:22] LABS: ABSOLUTE BASOPHILS # (AUTO) 0.1 10^3/uL (0.0-0.2); ABSOLUTE MONOCYTES (AUTO) 0.9 10^3/uL (0.1-1.4); ABSOLUTE NEUT (AUTO) 11.9 10^3/uL (1.7-8.2); BASOPHILS % (AUTO) 0.6 % (0-2); EOSINOPHILS % (AUTO) 0.3 % (0-6); HEMATOCRIT 40.3 % (36.0-47.0); HEMOGLOBIN 13.3 g/dL (12.0-15.5); LYMPHOCYTES % (AUTO) 18.9 % (13-45); MEAN CORPUSCULAR HEMOGLOBIN 28.4 pg (27.0-33.4); MEAN CORPUSCULAR HGB CONC 33.1 g/dL (32.0-36.0); MEAN CORPUSCULAR VOLUME 86 fl (80-97); MONOCYTES % (AUTO) 5.7 % (3-13); PLATELET COUNT 412 10^3/uL (150-450); RED BLOOD COUNT 4.69 10^6/uL (3.72-5.28); SEGMENTED NEUTROPHILS % (AUTO) 74.5 % (42-78); TOTAL CELLS COUNTED % (AUTO) 100 %
[2019-04-09 17:45] LABS: ALANINE AMINOTRANSFERASE 26 U/L (9-52); ALBUMIN 5.5 g/dL (3.5-5.0); ALKALINE PHOSPHATASE 103 U/L (38-126); ANION GAP 18 (5-19); ASPARTATE AMINO TRANSFERASE 27 U/L (14-36); BILIRUBIN,DIRECT 0.3 mg/dL (0.0-0.4); BILIRUBIN,TOTAL 0.6 mg/dL (0.2-1.3); BLOOD UREA NITROGEN 20 mg/dL (7-20); CALCIUM 10.7 mg/dL (8.4-10.2); CARBON DIOXIDE 25 mmol/L (22-30); CHLORIDE 93 mmol/L (98-107); CREATINE KINASE 83 U/L (30-135); GLUCOSE 202 mg/dL (75-110); POTASSIUM 4.9 mmol/L (3.6-5.0); SODIUM 136.4 mmol/L (137-145); TOTAL PROTEIN 9.4 g/dL (6.3-8.2)
--- NOTE | 2019-04-09 17:45 | RADIOLOGY REPORT (SQ) ---
EXAM DESCRIPTION: CHEST SINGLE VIEW COMPLETED DATE/TIME: 04/09/2019 5:31 pm REASON FOR STUDY: SOB COMPARISON: None. EXAM PARAMETERS: NUMBER OF VIEWS: One view. TECHNIQUE: Single frontal radiographic view of the chest acquired. RADIATION DOSE: NA LIMITATIONS: None. FINDINGS: LUNGS AND PLEURA: No opacities, masses or pneumothorax. No pleural effusion. MEDIASTINUM AND HILAR STRUCTURES: No masses. Contour normal. HEART AND VASCULAR STRUCTURES: Heart normal in size. Normal vasculature. BONES: No acute findings. HARDWARE: Neurostimulator electrodes in the thoracic spine. OTHER: No other significant finding. IMPRESSION: NO ACUTE RADIOGRAPHIC FINDING IN THE CHEST. TECHNICAL DOCUMENTATION: JOB ID: [id number] [employer]- All Rights Reserved Reading location - IP/workstation name: [email or web address]
[2019-04-09 18:10] LABS: CREATINE KINASE MB 0.34 ng/mL (<4.55)
[2019-04-09 18:14] LABS: NT PRO BNP < 11 pg/mL (5-900); TROPONIN I < 0.012 ng/mL
[2019-04-09] MEDS ORDERED: IPRATROPIUM/ALBUTEROL 0.5-2.5 MG/3 ML AMPUL NEB ONE (18:14)
[2019-04-09] MEDS ORDERED: ALBUTEROL SULFATE 0.083% NEB 2.5 MG/3 ML AMPUL NEB ONE (18:14)
--- NOTE | 2019-04-09 18:19 | ER Document Report ---
ED General - General Chief Complaint: Shortness Of Breath Stated Complaint: DIFFICULTY BREATHING Time Seen by Provider: 04/09/19 18:01 Primary Care Provider: DENYS MCGRAW PA [Primary Care Provider] - Follow up as needed TRAVEL OUTSIDE OF THE [place] IN LAST 30 DAYS: No - HPI Notes: Patient is a 53-year-old female that presents to the emergency department for chief complaint of shortness of breath and chest pain. Patient states she started having shortness of breath about 2 weeks ago. She was initially seen at an urgent care facility and placed on Z-Branden and prednisone burst. She states she continued to be symptomatic and was seen in this emergency room. She was then started on Tessalon Perles and a longer taper of inhalers. She has been compliant with her medications and reports no improvement. Last night she started to have a sharp pain on the left side of her chest that radiates under her left breast and into her back. Pain is been constant since it started yesterday and is worse when she lies flat on her back or takes any deep breaths or talks. She reports history of jugular clot after a surgery in the past. She is not currently on any estrogen medications and denies recent hospitalization or surgery. She does state that her left lower extremity has seemed more swollen on the right over the past 2 days. Patient did take an albuterol inhaler at 6 AM this morning and 3 PM this afternoon. She does report improvement of her symptoms after the inhaler but states it does not last long. Past Medical History: Asthma, fibromyalgia Past Surgical History: Spinal stimulator Social History: Denies tobacco, drug, and alcohol use Family History: Reviewed and noncontributory for presenting illness Allergies: Reviewed, see documented allergy list. REVIEW OF SYSTEMS: CONSTITUTIONAL : No fever No chills No diaphoresis No recent illness EENT: No vision changes No congestion No sore throat CARDIOVASCULAR: chest pain No palpitations RESPIRATORY: shortness of breath cough difficulty breathing GASTROINTESTINAL: No abdominal pain No nausea No vomiting No diarrhea GENITOURINARY: No dysuria No hematuria No difficulty urinating MUSCULOSKELETAL: No back pain No leg pain No arm pain SKIN: No rashes No lesions LYMPHATIC: No swollen, enlarged glands. NEUROLOGICAL: No lightheadedness No headache No weakness No paresthesias PSYCHIATRIC: No anxiety No depression PHYSICAL EXAMINATION: Vital signs reviewed, nursing noted reviewed. GENERAL: Well-appearing, well-nourished and in no acute distress. HEAD: Atraumatic, normocephalic. EYES: Eyes appear normal, extraocular movements intact, sclera anicteric, conjunctiva are normal. ENT: nares patent, oropharynx clear without exudates. Moist mucous membranes. NECK: Normal range of motion, supple without lymphadenopathy LUNGS: Minimal chest wall tenderness on the left breath sounds diminished to auscultation bilaterally and equal. Trace end expiratory wheezing HEART: Tachycardic rate and regular rhythm without murmurs ABDOMEN: Soft, nontender, normoactive bowel sounds. No rebound, guarding, or rigidity. No masses appreciated. EXTREMITIES: Nontender, good range of motion, no appreciable lower extremity edema or calf tenderness bilaterally NEUROLOGICAL: No focal neurological deficits. Moves all extremities spontaneously Motor and sensory grossly intact on exam. PSYCH: Anxious mood, normal affect. SKIN: Warm, Dry, normal turgor, no rashes or lesions noted on exposed skin - Related Data Allergies/Adverse Reactions: bee venom protein (honey bee) Allergy (Severe, Verified 12/14/18 16:23) Anaphylaxis cephalexin Allergy (Severe, Verified 12/14/18 16:23) codeine Allergy (Severe, Verified 04/05/19 23:49) Bronchospasm aspirin [Aspirin] Allergy (Verified 12/14/18 16:23) ciprofloxacin [From Cipro] Allergy (Verified 12/14/18 16:23) diclofenac Allergy (Verified 12/14/18 16:23) doxycycline Allergy (Verified 12/14/18 16:23) fluoxetine Allergy (Verified 12/14/18 16:23) meloxicam [From Mobic] Allergy (Verified 12/14/18 16:23) NSAIDS (Non-Steroidal Anti-Inflamma [Nsaids] Allergy (Verified 12/14/18 16:23) Penicillins Allergy (Verified 12/14/18 16:23) Sulfa (Sulfonamide Antibiotics) Allergy (Verified 12/14/18 16:23) tramadol Adverse Reaction (Unverified 12/14/18 16:23) wasp Allergy (Severe, Uncoded 12/14/18 16:23) Anaphylaxis Past Medical History - Social History Smoking Status: Unknown if Ever Smoked Family History: Reviewed & Not Pertinent, Arthritis, DM, Hypertension, Malignancy, Thyroid Disfunction Patient has suicidal ideation: No Patient has homicidal ideation: No - Past Medical History Cardiac Medical History: Reports: Hx Heart Murmur Pulmonary Medical History: Reports: Hx Asthma, Hx Pneumonia Neurological Medical History: Reports: Hx Migraine, Hx Seizures - last seizure 4 years ago Endocrine Medical History: Reports: 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 Renal/ Medical History: Denies: Hx Peritoneal Dialysis Malignancy Medical History: 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, lumpectomy GI Medical History: Reports: Hx Gastroesophageal Reflux Disease, Hx Irritable Bowel Musculoskeletal Medical History: Reports Hx Fibromyalgia, Reports Hx Musculoskeletal Deformity, Reports Hx Musculoskeletal Trauma Psychiatric Medical History: Reports: Hx Depression Traumatic Medical History: Reports: Hx Fractures - left arm wrist hand, Hx Traumatic Brain Injury Past Surgical History: Reports: Hx Breast Surgery - lumpectomy R breast; ducts removed from bilateral breasts, Hx Hysterectomy, Hx Neurologic Surgery - tbi, spinal fusion in 2005, spinal nerve stimulator early 2015, Hx Orthopedic Surgery - left arm ulnar nerve, wrist and left knee - Immunizations Immunizations up to date: Yes Hx Diphtheria, Pertussis, Tetanus Vaccination: Yes Physical Exam - Vital signs Vitals: Resp Pulse Ox 21 H 94 04/09/19 17:07 04/09/19 17:07 Course - Re-evaluation Re-evalutation: 04/09/19 18:17 Vitals reviewed. Nursing notes reviewed. Patient is tachycardic at presentation. Her chest x-ray again shows no acute cardiopulmonary process. She does have a leukocytosis but has been on steroids for the last few days. Patient will be given DuoNeb and albuterol for symptomatic management. She has taken steroids already today. CTA will be ordered to evaluate for underlying pulmonary embolism. EKG shows tachycardia with no significant changes from 04/05/2019 04/09/19 21:16 Patient has required repeat dosing of medication for her chest pain. Her troponin is negative. Patient is allergic to aspirin therefore it was not given. CTA shows no pulmonary embolism or other acute process. On reevaluation patient is still uncomfortable and has a heart rate of 140. The tachycardia may be related to the albuterol but cannot be completely explained by this since she was tachycardic at presentation prior to receiving the inhalers. Laboratory 04/09/19 04/09/19 04/09/19 17:12 17:12 17:12 WBC 16.0 H RBC 4.69 Hgb 13.3 Hct 40.3 MCV 86 MCH 28.4 MCHC 33.1 RDW 14.0 Plt Count 412 Seg Neutrophils % 74.5 Lymphocytes % 18.9 Monocytes % 5.7 Eosinophils % 0.3 Basophils % 0.6 Absolute Neutrophils 11.9 H Absolute Lymphocytes 3.0 Absolute Monocytes 0.9 Absolute Eosinophils 0.0 Absolute Basophils 0.1 Sodium 136.4 L Potassium 4.9 Chloride 93 L Carbon Dioxide 25 Anion Gap 18 BUN 20 Creatinine 0.86 Est GFR ( Amer) > 60 Est GFR (Non-Af Amer) > 60 Glucose 202 H Calcium 10.7 H Total Bilirubin 0.6 Direct Bilirubin 0.3 Neonat Total Bilirubin Not Reportable Neonat Direct Bilirubin Not Reportable Neonat Indirect Bili Not Reportable AST 27 ALT 26 Alkaline Phosphatase 103 Creatine Kinase 83 CK-MB (CK-2) 0.34 Troponin I < 0.012 NT-Pro-B Natriuret Pep < 11 Total Protein 9.4 H Albumin 5.5 H Chest X-Ray 04/09/19 17:04 IMPRESSION: NO ACUTE RADIOGRAPHIC FINDING IN THE CHEST. Chest/Abdomen CTA 04/09/19 18:03 IMPRESSION: No evidence of pulmonary embolus. Given patient's failed outpatient management and continued progression of symptoms she will be admitted to the hospital for further evaluation. Have considered pericarditis as a possible cause of her complaints however she is allergic to NSAIDs and is currently on steroids. Her care was discussed with Dr. Barrow who will continue care. She is in agreement with this plan and stable at admission. - Vital Signs Vital signs: Temp Pulse Resp BP Pulse Ox 98 F 17 156/115 H 96 04/09/19 17:16 04/09/19 19:19 04/09/19 19:19 04/09/19 19:19 - Laboratory Result Diagrams: 04/09/19 17:12 04/09/19 17:12 Laboratory results interpreted by me: 04/09/19 04/09/19 17:12 17:12 WBC 16.0 H Absolute Neutrophils 11.9 H Sodium 136.4 L Chloride 93 L Glucose 202 H Calcium 10.7 H Total Protein 9.4 H Albumin 5.5 H - EKG Interpretation by Me Additional EKG results interpreted by me: 04/09/19 21:16 Interpreted by myself 1713: Sinus tachycardia, rate 131, normal axis, LVH, no ectopy, no STEMI Discharge - Discharge Clinical Impression: Tachycardia, Shortness of breath Chest pain Qualifiers: Chest pain type: unspecified Qualified Code(s): R07.9 - Chest pain, unspecified Condition: Stable Disposition: ADMITTED OBSERVATION Admitting Provider: Danial (Hospitalist) Unit Admitted: Telemetry Referrals: DENYS MCGRAW PA [Primary Care Provider] - Follow up as needed
[2019-04-09] MEDS ORDERED: OXYCODONE-ACETAMINOPHEN 5-325 MG TABLET PO ONE (18:25)
[2019-04-09] MEDS ORDERED: MORPHINE SULFATE 10 MG/ML INJ IV ONE (20:03)
--- NOTE | 2019-04-09 20:15 | RADIOLOGY REPORT (SQ) ---
EXAM DESCRIPTION: CT CHEST ANGIOGRAPHY WITHOUT THEN WITH IV CONTRAST COMPLETED DATE/TME: 04/09/2019 18:03 CLINICAL HISTORY: 53 years, Female, PE PROCEDURE: CLINICAL HISTORY: 53 years Female PE COMPARISON: None. TECHNIQUE: Contiguous axial images were obtained through the chest during the infusion of IV contrast. Reformatted images obtained. MIP reformatted images obtained. This exam was performed according to our department optimization program which includes automated exposure control, adjustment of the mA and/or kv according to patient size and/or use of iterative reconstruction technique. FINDINGS: Surgical device is in the spinal canal dorsal aspect in the mid thoracic levels. No acute complication is seen. The lungs are clear. No pneumothorax is seen. Heart size is normal. No pleural effusions. No lymphadenopathy. No PE is seen. No evidence of aortic aneurysm. No other significant abnormality. IMPRESSION: No evidence of pulmonary embolus.
[2019-04-09] MEDS ORDERED: NORMAL SALINE 1000 ML 1,000 ML IV ONE (21:01)
[2019-04-09] MEDS ORDERED: MAG HYDROX/AL HYDROX/SIMETH SUSP 30 ML UDCUP PO PRN (21:59)
[2019-04-09] MEDS ORDERED: ONDANSETRON HCL INJ/PF 4 MG/2 ML SDV IV PRN (21:59)
[2019-04-09] MEDS ORDERED: TEMAZEPAM 15 MG CAPSULE PO PRN (21:59)
[2019-04-09] MEDS ORDERED: MAGNESIUM HYDROXIDE SUSP 30 ML UDCUP PO PRN (21:59)
[2019-04-09] MEDS ORDERED: MORPHINE SULFATE 10 MG/ML INJ IV PRN (22:05)
[2019-04-09] MEDS ORDERED: LEVALBUTEROL HCL NEB 0.63 MG/3 ML AMPUL NEB PRN (22:05)
[2019-04-09] MEDS ORDERED: DEXTROSE 40% GEL 15 GM TUBE PO PRN ×2 (22:06)
[2019-04-09] MEDS ORDERED: GLUCAGON,HUMAN RECOMB 1 MG INJ IM PRN (22:06)
[2019-04-09] MEDS ORDERED: DEXTROSE 50%-WATER 25 GM/50 ML DISP.SYRIN IV PRN ×2 (22:06)
[2019-04-09] MEDS ORDERED: CLONAZEPAM 1 MG TABLET PO ONE (22:30)
[2019-04-09] MEDS ORDERED: ATORVASTATIN CALCIUM 20 MG TABLET PO ONE (22:30)
[2019-04-09 23:14] LABS: CREATINE KINASE MB 0.31 ng/mL (<4.55); TROPONIN I < 0.012 ng/mL
[2019-04-09] MEDS: INSULIN REG, HUMAN 100 UNIT/ML 3 ML VIAL (PYX) SUBCUT PRN (23:16)
[2019-04-09] MEDS: HEPARIN SOD (PORCINE) 5,000 UNIT/ML 1 ML SYRINGE SUBCUT SCH (23:18)
[2019-04-09] MEDS: METOPROLOL TARTRATE PF/INJ 5 MG/5 ML SDV IV SCH (23:22)
[2019-04-10] MEDS: LEVALBUTEROL HCL NEB 1.25 MG/3 ML AMPUL NEB SCH ×3 (00:17→16:33)
[2019-04-10] MEDS ORDERED: MORPHINE SULFATE 10 MG/ML INJ IV PRN (00:37)
[2019-04-10] MEDS: METOPROLOL TARTRATE PF/INJ 5 MG/5 ML SDV IV SCH ×2 (00:48→02:25)
[2019-04-10] MEDS: MORPHINE SULFATE 10 MG/ML INJ IV PRN ×3 (00:48→15:59)
--- NOTE | 2019-04-10 01:22 | ADVANCED CARE ---
- Diagnosis (1) Chest pain Diagnosis Current: Yes (2) Tachycardia with heart rate 121-140 beats per minute Diagnosis Current: Yes (3) Hypertension Diagnosis Current: Yes (4) Acute asthma exacerbation Diagnosis Current: Yes (5) Diabetes Diagnosis Current: Yes (6) Hyperlipidemia Diagnosis Current: Yes (7) Gastroesophageal reflux disease Diagnosis Current: Yes Attendance: Patient, Jessica Rosas and myself Resuscitation Status: Full Code Discussion: After discussion the patient is determined that she wishes to remain on full code resuscitation status, with a full CODE STATUS for any cardiac or re spiratory arrest that may occur during hospital course. Additionally she wishes to name her daughter Jessica Rosas as her designated surrogate medical decision maker Care Planning Goals: 1. Patient will be full CODE STATUS for resuscitation during this hospital stay. 2. Jessica Rosas is designated as the patient's surrogate medical decision maker. Document(s) Completed: The following entries will be made in the patient's permanent medical record and current medical orders via EMR entry: 1. Patient will be full CODE STATUS for resuscitation during this hospital stay. 2. Jessica Rosas is designated as the patient's surrogate medical decision maker. Time Spent: 9 minutes
--- NOTE | 2019-04-10 01:26 | PDOC H&P ---
History of Present Illness Admission Date/PCP: 04/09/2019 21:16 RILEY MENDEZ Patient complains of: Chest pain History of Present Illness: NATHAN BOJORQUEZ is a 53 year old female who presents the emergency room with a 1 day history of chest pain. She admits her chest pain began abruptly yesterday evening. She describes the pain as a constant sharp pain in her anterior left parasternal chest radiating under her left breast around her left side and into her back and down her arm on the left. The pain is made worse by lying flat, deep inspiration and conversational speech. She associates the pain with dyspnea and a nonproductive cough that has been present for 2 weeks as well as swelling of her lower extremities that is been present for 2 days. She has recently been treated with azithromycin, 2 courses of prednisone, Tessalon Perles and an albuterol inhaler. She reports mild transient relief of her dyspnea following use of the albuterol inhaler. She denies prior similar episodes of chest pain and has not identified any additional aggravating or ameliorating factors for her chest pain. In the emergency room she was found to have a negative CTA of the chest, and unremarkable chest x-ray, a white blood cell count of 16,000, and elevated blood sugar and a sinus tachycardia in the 140's. Initial cardiac enzymes were in the normal range and her EKG showed no evidence of myocardial ischemia or injury. She was subsequently admitted to the hospital for further evaluation and treatment. Past Medical History Cardiac Medical History: Reports: Hyperlipidema, Hypertension, Heart Murmur Denies: Atrial Fibrillation, Congestive Heart Failure, Coronary Artery Disease, DVT, Myocardial Infarction, Peripheral Vascular Disease, Pulmonary Embolism Pulmonary Medical History: Reports: Asthma, Pneumonia Denies: Chronic Obstructive Pulmonary Disease (COPD), Sleep Apnea EENT Medical History: Denies: Cataracts, Ears - Hearing aids Neurological Medical History: Reports: Migraine, Seizures - last seizure more than 4 years ago Denies: Hemorrhagic CVA, Ischemic CVA, Multiple Sclerosis Endocrine Medical History: Reports: Diabetes Mellitus Type 2 - On metformin Denies: Diabetes Mellitus Type 1, Hyperthyroidism, Hypothyroidism Renal/ Medical History: Denies: Chronic Kidney Disease, Nephrolithiasis Malignancy Medical History: Reports: 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 GI Medical History: Reports: Gastroesophageal Reflux Disease Denies: Cirrhosis, Crohn's Disease, Hepatitis, Ulcerative Colitis Musculoskeltal Medical History: Reports: Fibromyalgia Skin Medical History: Denies: Eczema, Psoriasis Psychiatric Medical History: Reports: Depression Denies: Alcohol Dependency, Substance Abuse, Tobacco Dependency Traumatic Medical History: Reports: Traumatic Brain Injury Hematology: Denies: Anemia, Bleeding Tendencies Infectious Medical History: Reports: None Past Surgical History Past Surgical History: Reports: Hysterectomy, Orthopedic Surgery - left arm ulnar nerve, wrist and left knee, Other - Breast lumpectomy for ductal carcinoma Social History Information Source: Patient Lives with: Homeless Smoking Status: Never Smoker Frequency of Alcohol Use: None Hx Recreational Drug Use: No Drugs: None Hx Prescription Drug Abuse: No - Advance Directive Resuscitation Status: Full Code Surrogate healthcare decision maker:: Jessica Rosas her daughter Family History Family History: Arthritis, DM, Hypertension, Malignancy, Thyroid Disfunction Parental Family History Reviewed: Yes Children Family History Reviewed: No Sibling(s) Family History Reviewed.: Yes Medication/Allergy Home Medications: Fluticasone Propionate [Flonase Nasal [place]alse[place] 50 Mcg/[place] 16 gm] 1 spray NASL Q12 01/15/15 Albuterol Sulfate [Proair Respiclick] 1 puff IH Q6HP PRN 12/14/18 Amitriptyline HCl [Elavil 150 mg Tablet] 150 mg PO QHS 12/14/18 Atorvastatin Calcium [Lipitor 10 mg Tablet] 10 mg PO QHS 12/14/18 Budesonide/Formoterol Fumarate [Symbicort HFA 160-4.5 mcg Inhaler 6 gm] 1 puff IH Q12 12/14/18 Bupropion HCl [Bupropion Xl] 450 mg PO QAM 12/14/18 Buspirone HCl [Buspar 15 mg Tablet] 15 mg PO TID 12/14/18 Cetirizine HCl [Zyrtec] 10 mg PO DAILYP PRN 12/14/18 Clonazepam [Klonopin 1 mg Tablet] 0.5 mg PO TIDP PRN 12/14/18 Fremanezumab-Vfrm [Ajovy] 225 mg SQ [id number] 12/14/18 Gabapentin [Neurontin] 600 mg PO TID 12/14/18 Hydrochlorothiazide [Hydrodiuril 25 mg Tablet] 25 mg PO QAM 12/14/18 Hydroxyzine Pamoate [Vistaril 25 mg Capsule] 50 mg PO HSP PRN 12/14/18 Ipratropium/Albuterol Sulfate [Duoneb 3 ml Ampul] 3 ml NEB RTQ6HP PRN 12/14/18 Lurasidone HCl [Latuda 60 mg Tablet] 60 mg PO QPM 12/14/18 Metformin HCl [Metformin HCl ER] 500 mg PO DAILY 12/14/18 [place]-3/Dha/Epa/Fish Oil [Fish Oil 1,000 mg Softgel] 1 each PO DAILY 12/14/18 Pantoprazole Sodium [Protonix] 20 mg PO BID 12/14/18 Polyethylene Glycol 3350 [Miralax Powder 17 gm/Packet] 1 packet PO BID 12/14/18 Pramipexole Di-HCl [Pramipexole Dihydrochloride] 0.375 mg PO QHS 12/14/18 Promethazine HCl 10 ml PO Q12HP PRN 12/14/18 Sucralfate [Carafate Susp 1 gm/10 ml Udcup] 1 gm PO ACHS 12/14/18 Acetaminophen [Tylenol 325 mg Tablet] 975 mg PO Q8HP PRN tablet 12/17/18 Epinephrine 0.3 mg IJ ONCE PRN 30 Days #2 auto.injct 12/17/18 Lidocaine [Lidoderm 5% (700 mg) Transdermal Patch] 1 patch TP DAILY 30 Days #30 adh..patch 12/17/18 Methylprednisolone [Medrol Dosepack (4 mg/Tab) 21 Tab/Dosepak] 4 mg PO ASDIR PRN #21 tab.ds.pk 12/17/18 Metoprolol Tartrate [Lopressor 25 mg Tablet] 25 mg PO Q12 30 Days #60 tablet 12/17/18 Nitroglycerin [Nitrostat 0.4 mg (1/150 Gr) Tabs 25/Bottle] 1 tab SL Q5MP PRN 30 Days #1 bottle 12/17/18 Benzonatate [Tessalon Perle 100 mg Capsule] 100 mg PO Q8HP PRN #30 cap 04/06/19 Prednisone [Deltasone 10 mg Tablet] 10 mg PO ASDIR #45 tablet 04/06/19 Allergies/Adverse Reactions: bee venom protein (honey bee) Allergy (Severe, Verified 12/14/18 16:23) Anaphylaxis cephalexin Allergy (Severe, Verified 12/14/18 16:23) NSAIDS (Non-Steroidal Anti-Inflamma [Nsaids] Allergy (Intermediate, Verified 04/10/19 00:29) Shortness of Breath tramadol Allergy (Intermediate, Verified 04/10/19 00:30) Shortness of Breath aspirin [Aspirin] Allergy (Verified 12/14/18 16:23) ciprofloxacin [From Cipro] Allergy (Verified 12/14/18 16:23) diclofenac Allergy (Verified 12/14/18 16:23) doxycycline Allergy (Verified 12/14/18 16:23) fluoxetine Allergy (Verified 12/14/18 16:23) meloxicam [From Mobic] Allergy (Verified 12/14/18 16:23) Penicillins Allergy (Verified 12/14/18 16:23) Sulfa (Sulfonamide Antibiotics) Allergy (Verified 12/14/18 16:23) wasp Allergy (Severe, Uncoded 12/14/18 16:23) Anaphylaxis Review of Systems Constitutional: ABSENT: anorexia, fever(s) Eyes: ABSENT: visual disturbances, other - Eye pain Ears: ABSENT: hearing changes, other - Ear pain Nose, Mouth, and Throat: ABSENT: mouth pain, sore throat Cardiovascular: PRESENT: as per HPI, chest pain, dyspnea on exertion, edema. ABSENT: orthropnea, palpitations Respiratory: PRESENT: as per HPI, cough, dyspnea Gastrointestinal: ABSENT: abdominal pain, constipation, diarrhea, dysphagia, nausea, vomiting Genitourinary: ABSENT: dysuria, hematuria Musculoskeletal: PRESENT: as per HPI, back pain. ABSENT: joint swelling, muscle weakness Integumentary: ABSENT: pruritus, rash Neurological: ABSENT: confusion, convulsions, focal weakness, memory loss, syncope Psychiatric: ABSENT: anxiety, depression Endocrine: ABSENT: cold intolerance, heat intolerance Hematologic/Lymphatic: ABSENT: easy bleeding, easy bruising Physical Exam Vital Signs: Temp Pulse Resp BP Pulse Ox 98 F 17 156/115 H 96 04/09/19 17:16 04/09/19 19:19 04/09/19 19:19 04/09/19 19:19 General appearance: PRESENT: no acute distress, cooperative Head exam: PRESENT: atraumatic, normocephalic Eye exam: ABSENT: conjunctival injection, scleral icterus Ear exam: PRESENT: normal external ear exam. ABSENT: bleeding, drainage Mouth exam: PRESENT: dry mucosa, neck supple Neck exam: ABSENT: JVD, thyromegaly, tracheal deviation Respiratory exam: PRESENT: clear to auscultation gail, prolonged expiratory phas - Minimally prolonged expiratory phase, symmetrical, tachypnea, unlabored, wheezes - Minimal expiratory wheezes Cardiovascular exam: PRESENT: RRR, tachycardia. ABSENT: clicks, gallop, rubs Pulses: PRESENT: normal radial pulses, normal dorsalis pedis pul Vascular exam: PRESENT: normal capillary refill. ABSENT: pallor GI/Abdominal exam: PRESENT: normal bowel sounds, soft Rectal exam: PRESENT: deferred Extremities exam: ABSENT: joint swelling, pedal edema, tenderness Musculoskeletal exam: PRESENT: full ROM, normal inspection Neurological exam: PRESENT: alert, oriented to person, oriented to place, oriented to time, oriented to situation, CN II-XII grossly intact. ABSENT: motor sensory deficit Psychiatric exam: PRESENT: appropriate affect, normal mood Skin exam: PRESENT: dry, intact, warm. ABSENT: jaundice, rash, urticaria Results Laboratory Results: 04/09/19 17:12 04/09/19 17:12 04/09/19 04/09/19 17:12 17:12 WBC 16.0 H RBC 4.69 Hgb 13.3 Hct 40.3 MCV 86 MCH 28.4 MCHC 33.1 RDW 14.0 Plt Count 412 Seg Neutrophils % 74.5 Lymphocytes % 18.9 Monocytes % 5.7 Eosinophils % 0.3 Basophils % 0.6 Absolute Neutrophils 11.9 H Absolute Lymphocytes 3.0 Absolute Monocytes 0.9 Absolute Eosinophils 0.0 Absolute Basophils 0.1 Sodium 136.4 L Potassium 4.9 Chloride 93 L Carbon Dioxide 25 Anion Gap 18 BUN 20 Creatinine 0.86 Est GFR ( Amer) > 60 Est GFR (Non-Af Amer) > 60 Glucose 202 H Calcium 10.7 H Total Bilirubin 0.6 AST 27 ALT 26 Alkaline Phosphatase 103 Total Protein 9.4 H Albumin 5.5 H 04/09/19 04/09/19 17:12 17:12 Creatine Kinase 83 CK-MB (CK-2) 0.34 Troponin I < 0.012 NT-Pro-B Natriuret Pep < 11 EKG Comments: I have personally reviewed the patient's EKG and the findings include: Sinus tachycardia with a rate of 131, left ventricular hypertrophy with a strain pattern in the lateral leads, nonspecific intraventricular conduction defect noted Impressions: Chest X-Ray 04/09/19 17:04 IMPRESSION: NO ACUTE RADIOGRAPHIC FINDING IN THE CHEST. Chest/Abdomen CTA 04/09/19 18:03 IMPRESSION: No evidence of pulmonary embolus. Status: Image reviewed by me - Single view chest x-ray has been reviewed by me: No acute cardiovascular or pulmonary pathologies are identified. Assessment and Plan - Diagnosis (1) Chest pain Qualifiers: Chest pain type: unspecified Qualified Code(s): R07.9 - Chest pain, unspec ified Is this a current diagnosis for this admission?: Yes Plan: Patient will receive supportive and symptomatic care for her chest pain. Serial cardiac enzymes and EKGs will be obtained. A cardiac consultation with Dr. Weber will be obtained. Her pain will be treated with morphine sulfate 3 to 7.5 mg IV every 2 hours as needed on a sliding scale basis. Daily CBCs, metabolic profiles and magnesium levels will be obtained as part of the ongoing evaluation of this problem. (2) Tachycardia with heart rate 121-140 beats per minute Is this a current diagnosis for this admission?: Yes Plan: The patient's tachycardia and hypertension have been sustained throughout her ER course and will be treated with metoprolol heart rate 5 mg IV every 5 minutes x3 doses. Based on the results of the initial treatment with metoprolol she will then be started on oral metoprolol for further control of her tachycardia and hypertension. (3) Hypertension Qualifiers: Hypertension type: essential hypertension Qualified Code(s): I10 - Essential (primary) hypertension Is this a current diagnosis for this admission?: Yes Plan: The patient's tachycardia and hypertension have been sustained throughout her ER course and will be treated with metoprolol heart rate 5 mg IV every 5 minutes x3 doses. Based on the results of the initial treatment with metoprolol she will then be started on oral metoprolol for further control of her tachycardia and hypertension. (4) Acute asthma exacerbation Qualifiers: Asthma severity: unspecified severity Asthma persistence: unspecified Qualified Code(s): J45.901 - Unspecified asthma with (acute) exacerbation Is this a current diagnosis for this admission?: Yes Plan: Patient be treated with an aggressive pulmonary toilet utilizing nebulized Xopenex, Pulmicort and Atrovent. She will receive supplemental oxygen as needed to support her O2 sat at greater than 93%. Patient is already been on 2 courses of steroids so no further steroids will be added to the therapy at this time. (5) Diabetes Qualifiers: Diabetes mellitus type: type 2 Diabetes mellitus correction insulin use: without correction use Diabetes mellitus complication status: without complication Qualified Code(s): E11.9 - Type 2 diabetes mellitus without complications Is this a current diagnosis for this admission?: Yes Plan: Hemoglobin A1c will be obtained to assess the efficacy of her current therapy. Patient will be continued on a diabetic diet and on her usual diabetic therapeutic regiment. Before meals and at bedtime blood sugars will be obtained and a sliding scale insulin regiment will be used to control hyperglycemia. Hypoglycemic protocol will be in place. (6) Hyperlipidemia Qualifiers: Hyperlipidemia type: unspecified Qualified Code(s): E78.5 - Hyperlipidemia, unspecified Is this a current diagnosis for this admission?: Yes Plan: A lipid profile will be obtained to assess the efficacy of her current therapy. Patient will be continued on her current therapy. (7) Gastroesophageal reflux disease Qualifiers: Esophagitis presence: esophagitis presence not specified Qualified Code(s): K21.9 - Gastro-esophageal reflux disease without esophagitis Is this a current diagnosis for this admission?: Yes Plan: Patient will be treated with Protonix 40 mg p.o. twice daily as GI prophylaxis and treatment of her gastroesophageal reflux. - Time Time Spent with patient: 25-34 minutes Medications reviewed and adjusted accordingly: Yes Anticipated discharge: Home - Inpatient Certification Based on my medical assessment, after consideration of the patient's comorbidities, presenting symptoms, or acuity I expect that the services needed warrant INPATIENT care.: Yes I certify that my determination is in accordance with my understanding of Medicare's requirements for reasonable and necessary INPATIENT services [42 CFR 412.3e].: Yes Medical Necessity: Failure to Improve With Outpatient Therapy, Significant Comorbidiites Make Outpatient Treatment Too Risky, Need Close Monitoring Due to Risk of Patient Decompensation, Need For Continuous Telemetry Monitoring, Need for Nebulizer Therapy and Monitoring of Response, Need for Pain Control, Risk of Complication if Not Cared For in Hospital
[2019-04-10 04:50] LABS: HEMATOCRIT 35.2 % (36.0-47.0); HEMOGLOBIN 11.5 g/dL (12.0-15.5); MEAN CORPUSCULAR HEMOGLOBIN 28.2 pg (27.0-33.4); MEAN CORPUSCULAR HGB CONC 32.5 g/dL (32.0-36.0); MEAN CORPUSCULAR VOLUME 87 fl (80-97); PLATELET COUNT 322 10^3/uL (150-450); RED BLOOD COUNT 4.07 10^6/uL (3.72-5.28); RED CELL DISTRIBUTION WIDTH 14.1 % (11.5-14.0); WHITE BLOOD COUNT 16.2 10^3/uL (4.0-10.5)
[2019-04-10 05:11] LABS: ANION GAP 15 (5-19); BLOOD UREA NITROGEN 18 mg/dL (7-20); CALCIUM 9.8 mg/dL (8.4-10.2); CARBON DIOXIDE 26 mmol/L (22-30); CHLORIDE 96 mmol/L (98-107); CHOLESTEROL 217.52 mg/dL (0-200); CREATINE KINASE 56 U/L (30-135); GLUCOSE 176 mg/dL (75-110); POTASSIUM 4.3 mmol/L (3.6-5.0); SODIUM 137.1 mmol/L (137-145); TRIGLYCERIDES 345 mg/dL (<150)
[2019-04-10 05:23] LABS: DIRECT LDL 122 mg/dL (<100)
[2019-04-10 05:24] LABS: CREATINE KINASE MB 0.43 ng/mL (<4.55)
[2019-04-10 05:25] LABS: TROPONIN I < 0.012 ng/mL
[2019-04-10 05:30] LABS: FREE T3 3.38 pg/mL (2.77-5.27); FREE T4 (FREE THYROXINE) 0.8 ng/dL (0.78-2.19)
[2019-04-10 05:43] LABS: THYROID STIMULATING HORMONE 0.48 uIU/mL (0.47-4.68)
[2019-04-10] MEDS: PANTOPRAZOLE SODIUM 40 MG TABLET.DR PO SCH ×2 (06:46→16:35)
[2019-04-10] MEDS: CLONAZEPAM 1 MG TABLET PO SCH ×3 (06:46→23:05)
[2019-04-10] MEDS: HEPARIN SOD (PORCINE) 5,000 UNIT/ML 1 ML SYRINGE SUBCUT SCH ×3 (06:47→23:05)
[2019-04-10] MEDS ORDERED: METFORMIN HCL 500 MG TABLET PO SCH (08:00)
[2019-04-10] MEDS: INSULIN REG, HUMAN 100 UNIT/ML 3 ML VIAL (PYX) SUBCUT PRN ×3 (08:00→16:35)
[2019-04-10] MEDS: BUDESONIDE NEB 0.5 MG/2 ML AMPUL NEB SCH ×2 (09:29→19:28)
[2019-04-10] MEDS ORDERED: METOPROLOL TARTRATE 100 MG TABLET PO SCH (10:00)
[2019-04-10] MEDS: DOCUSATE SODIUM 100 MG CAPSULE PO SCH ×2 (10:10→17:28)
[2019-04-10 11:45] LABS: CREATINE KINASE MB 0.46 ng/mL (<4.55)
[2019-04-10 11:50] LABS: TROPONIN I < 0.012 ng/mL
[2019-04-10] MEDS ORDERED: CLONAZEPAM 1 MG TABLET PO PRN (11:54)
[2019-04-10] MEDS ORDERED: ONDANSETRON 4 MG TAB.RAPDIS PO PRN (11:54)
[2019-04-10] MEDS ORDERED: (PENDING PHARMACY ID) (Esomeprazole Magnesium [Esomeprazole Magnesium] 40 MG) PO SCH (12:00)
[2019-04-10] MEDS: METOPROLOL SUCCINATE 50 MG TAB.SR.24H PO SCH (12:58)
[2019-04-10] MEDS: CYCLOBENZAPRINE HCL 10 MG TABLET PO PRN (13:08)
[2019-04-10] MEDS: HYDROCHLOROTHIAZIDE 25 MG TABLET PO SCH (13:08)
[2019-04-10] MEDS: BUSPIRONE HCL 10 MG TABLET PO SCH ×2 (13:09→23:05)
[2019-04-10] MEDS: FLUTICASONE/VILANTEROL 200-25 MCG/DOSE IH SCH (14:13)
--- NOTE | 2019-04-10 15:14 | RADIOLOGY REPORT (SQ) ---
EXAM DESCRIPTION: CT LUMBAR SPINE WITHOUT COMPLETED DATE/TIME: 04/10/2019 2:17 pm REASON FOR STUDY: acute back pain COMPARISON: 11/13/2016 TECHNIQUE: Axial images acquired through the lumbar spine without intravenous contrast. Images revi ewed with lung, soft tissue and bone windows. Reconstructed coronal and sagittal MPR images reviewed . All images stored on PACS. All CT scanners at this facility use dose modulation, iterative reconstruction, and/or weight based d osing when appropriate to reduce radiation dose to as low as reasonably achievable (ALARA). [facility]: Dose Right [facility]: CareDose [facility]: Dose Right [facility]: Teradose 4D [facility]: Credible RADIATION DOSE: 478 mGy cm LIMITATIONS: None. FINDINGS: SEGMENTATION: Normal. No transitional anatomy. ALIGNMENT: Normal. VERTEBRAL BODIES: No fractures. No dislocation. No acute findings. Unchanged hemangioma of the rig ht aspect of L2. DISCS: Small broad-based central posterior disc bulges at L4-L5 and L5-S1, with very limited evaluati on on noncontrast CT. PEDICLES, TRANSVERSE PROCESSES: No fractures. No dislocation. No acute findings. FACETS, POSTERIOR ELEMENTS: Generally mild multilevel facet degenerative disease. No fractures. No dislocation. No spinal stenosis. HARDWARE: None in the spine. VISUALIZED RIBS: No fractures. SOFT TISSUES: No significant or acute finding in adjacent soft tissues. OTHER: No other significant finding. IMPRESSION: No fracture or dislocation of the lumbar spine. Small broad-based central posterior disc bulges at L4-L5 and L5-S1, with otherwise very limited evaluation on noncontrast CT. Lumbar disc an d neural foraminal pathology may be further evaluated by MRI if indicated by localizing signs and sym ptoms. TECHNICAL DOCUMENTATION: JOB ID: [id number] Quality ID # [id number]: Final reports with documentation of one or more dose reduction techniques (e.g., Au tomated exposure control, adjustment of the mA and/or kV according to patient size, use of iterative reconstruction technique) 2010 [employer]- All Rights Reserved Reading location - IP/workstation name: [email or web address]
[2019-04-10] MEDS: ACETAMINOPHEN 325 MG TABLET PO PRN (15:22)
[2019-04-10] MEDS ORDERED: NORMAL SALINE 1000 ML 500 ML IV ONE (15:45)
--- NOTE | 2019-04-10 16:27 | PDOC PROGRESS REPORT ---
Subjective Progress Note for:: 04/10/19 Subjective:: 53-year-old female with a PMH of HLD, HTN, "heart murmur," asthma, migraines, diabetes type 2, breast cancer (ductal carcinoma s/p lumpectomy), GERD, depression. She presents to [facility] with a 1 day history of sharp left-sided chest pain radiating around to the left axilla and to the left scapula. Pain is reproducible with palpation. Cardiac work-up thus far has been negative. EKG shows sinus tachycardia. Cardiac enzymes have all been negative. CTA chest unremarkable. The patient was seen this morning on rounds, she still endorses left-sided chest pain wrapping around to the axilla and her scapula. Pain is easily reproduced with palpation area. Point tenderness noted in the thoracic and lumbar spine. Cardiac chest pain is not very likely. Lumbar CT essentially negative, but buldging disks L4-5 and L5-S1. Waiting for evaluation by Dr. Kolb. If no further work-up is warranted, will discharge home early tomorrow morning. Reason For Visit: CHEST PAIN,TACHYCARDIA,DYSPNEA Physical Exam Vital Signs: Temp Pulse Resp BP Pulse Ox 99.1 F 91 18 139/85 H 92 04/10/19 10:49 04/10/19 14:00 04/10/19 10:49 04/10/19 10:49 04/10/19 10:49 Intake & Output 04/09/19 04/10/19 04/11/19 06:59 06:59 06:59 Intake Total 0 Balance 0 Weight 73.8 kg General appearance: PRESENT: no acute distress, well-developed, well-nourished Head exam: PRESENT: atraumatic, normocephalic Eye exam: PRESENT: conjunctiva pink, EOMI, PERRLA. ABSENT: scleral icterus Ear exam: PRESENT: normal external ear exam Mouth exam: PRESENT: moist, tongue midline Neck exam: ABSENT: carotid bruit, JVD, lymphadenopathy, thyromegaly Respiratory exam: PRESENT: clear to auscultation gail, symmetrical, unlabored. ABSENT: rales, rhonchi, wheezes Cardiovascular exam: PRESENT: RRR, other - ANTERIOR CHEST IS TTP. ABSENT: diastolic murmur, rubs, systolic murmur Pulses: PRESENT: normal radial pulses, normal dorsalis pedis pul Vascular exam: PRESENT: normal capillary refill GI/Abdominal exam: PRESENT: normal bowel sounds, soft. ABSENT: distended, guarding, mass, organolmegaly, rebound, tenderness Rectal exam: PRESENT: deferred Extremities exam: PRESENT: full ROM. ABSENT: calf tenderness, clubbing, pedal edema Neurological exam: PRESENT: alert, awake, oriented to person, oriented to place, oriented to time, oriented to situation Psychiatric exam: PRESENT: appropriate affect, normal mood Skin exam: PRESENT: dry, intact, warm. ABSENT: cyanosis, rash Results Laboratory Results: 04/10/19 04:28 04/10/19 04:28 04/09/19 04/09/19 04/10/19 17:12 17:12 04:28 WBC 16.0 H RBC 4.69 Hgb 13.3 Hct 40.3 MCV 86 MCH 28.4 MCHC 33.1 RDW 14.0 Plt Count 412 Seg Neutrophils % 74.5 Lymphocytes % 18.9 Monocytes % 5.7 Eosinophils % 0.3 Basophils % 0.6 Absolute Neutrophils 11.9 H Absolute Lymphocytes 3.0 Absolute Monocytes 0.9 Absolute Eosinophils 0.0 Absolute Basophils 0.1 Sodium 136.4 L 137.1 Potassium 4.9 4.3 Chloride 93 L 96 L Carbon Dioxide 25 26 Anion Gap 18 15 BUN 20 18 Creatinine 0.86 0.85 Est GFR ( Amer) > 60 > 60 Est GFR (Non-Af Amer) > 60 > 60 Glucose 202 H 176 H Calcium 10.7 H 9.8 Magnesium 2.4 H Total Bilirubin 0.6 AST 27 ALT 26 Alkaline Phosphatase 103 Total Protein 9.4 H Albumin 5.5 H Triglycerides 345 H Cholesterol 217.52 H LDL Cholesterol Direct 122 H VLDL Cholesterol 69.0 H HDL Cholesterol 54 TSH Free T4 Free T3 pg/mL 04/10/19 04/10/19 04:28 04:28 WBC 16.2 H RBC 4.07 Hgb 11.5 L Hct 35.2 L MCV 87 MCH 28.2 MCHC 32.5 RDW 14.1 H Plt Count 322 Seg Neutrophils % Lymphocytes % Monocytes % Eosinophils % Basophils % Absolute Neutrophils Absolute Lymphocytes Absolute Monocytes Absolute Eosinophils Absolute Basophils Sodium Potassium Chloride Carbon Dioxide Anion Gap BUN Creatinine Est GFR ( Amer) Est GFR (Non-Af Amer) Glucose Calcium Magnesium Total Bilirubin AST ALT Alkaline Phosphatase Total Protein Albumin Triglycerides Cholesterol LDL Cholesterol Direct VLDL Cholesterol HDL Cholesterol TSH 0.48 Free T4 0.80 Free T3 pg/mL 3.38 04/09/19 04/09/19 04/09/19 17:12 17:12 22:30 Creatine Kinase 83 66 CK-MB (CK-2) 0.34 Troponin I < 0.012 NT-Pro-B Natriuret Pep < 11 04/09/19 04/10/19 04/10/19 22:30 04:28 04:28 Creatine Kinase 56 CK-MB (CK-2) 0.31 0.43 Troponin I < 0.012 < 0.012 NT-Pro-B Natriuret Pep 04/10/19 04/10/19 10:44 10:44 Creatine Kinase 50 CK-MB (CK-2) 0.46 Troponin I < 0.012 NT-Pro-B Natriuret Pep Impressions: Chest X-Ray 04/09/19 17:04 IMPRESSION: NO ACUTE RADIOGRAPHIC FINDING IN THE CHEST. Chest/Abdomen CTA 04/09/19 18:03 IMPRESSION: No evidence of pulmonary embolus. Lumbar Spine CT 04/10/19 12:28 IMPRESSION: No fracture or dislocation of the lumbar spine. Small broad-based central posterior disc bulges at L4-L5 and L5-S1, with otherwise very limited evaluation on noncontrast CT. Lumbar disc and neural foraminal pathology may be further evaluated by MRI if indicated by localizing signs and symptoms. Status: Imported from PACS Assessment and Plan - Diagnosis (1) Chest pain Qualifiers: Chest pain type: unspecified Qualified Code(s): R07.9 - Chest pain, unspecified Is this a current diagnosis for this admission?: Yes Plan: Atypical chest pain EKG shows NSR, no infarction or ischemia Serial troponins all WNL, no longer trending PRN IV morphine for pain Patient refusing Tylenol. Allergic to NSAIDs ("it makes me stop breathing ") Pain is reproducible with palpation, worse when supine, seems to be out of proportion to objective findings (labs, radiology, EKG) (2) Hypertension Qualifiers: Hypertension type: essential hypertension Qualified Code(s): I10 - Essentia l (primary) hypertension Is this a current diagnosis for this admission?: Yes Plan: PMH HTN Well-controlled with p.o. metoprolol (3) Acute asthma exacerbation Qualifiers: Asthma severity: unspecified severity Asthma persistence: unspecified Qualified Code(s): J45.901 - Unspecified asthma with (acute) exacerbation Is this a current diagnosis for this admission?: Yes Plan: PMH asthma No evidence of dyspnea or shortness of breath on exam Previously treated with azithromycin and 2 courses of prednisone for suspected URI Continue PRN and scheduled nebulizer treatments Does not require steroids at this time Does not appear infected, no need for antibiotics - Time Time Spent with patient: 15-24 minutes Medications reviewed and adjusted accordingly: Yes Anticipated discharge: Home Within: within 24 hours - Inpatient Certification Based on my medical assessment, after consideration of the patient's comorbidities, presenting symptoms, or acuity I expect that the services needed warrant INPATIENT care.: Yes I certify that my determination is in accordance with my understanding of Medicare's requirements for reasonable and necessary INPATIENT services [42 CFR 412.3e].: Yes Medical Necessity: Need for Pain Control, Risk of Complication if Not Cared For in Hospital
--- NOTE | 2019-04-10 16:28 | Progress Note Acknowledgement ---
Progress Note Acknowledgement Progess Note Acknowledgement: I, the undersigned member of the medical staff with appropriate privileges and with supervisory authority over [Shell Patel], a [facility] practice allied health professional, acknowledge that I have reviewed the progress notes entered on this patient, and in my professional judgment believe that the assessment made and/or any care evidenced was appropriate
[2019-04-10] MEDS ORDERED: LURASIDONE HCL 60 MG TABLET PO SCH (18:00)
[2019-04-10] MEDS ORDERED: ATORVASTATIN CALCIUM 20 MG TABLET PO SCH (22:00)
[2019-04-10] MEDS: GABAPENTIN 300 MG CAPSULE PO SCH (23:04)
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
[2019-04-11] MEDS: LEVALBUTEROL HCL NEB 1.25 MG/3 ML AMPUL NEB SCH ×2 (00:03→08:33)
--- NOTE | 2019-04-11 00:12 | EKG REPORT ---
SEVERITY:- ABNORMAL ECG - SINUS TACHYCARDIA NONSPECIFIC INTRAVENTRICULAR CONDUCTION DELAY LVH WITH SECONDARY REPOLARIZATION ABNORMALITY : Confirmed by: Felix La 11-Apr-2019 00:12:23
--- NOTE | 2019-04-11 00:12 | EKG REPORT ---
SEVERITY:- ABNORMAL ECG - SINUS TACHYCARDIA LEFT VENTRICULAR HYPERTROPHY BORDERLINE PROLONGED QT INTERVAL : Confirmed by: Felix La 11-Apr-2019 00:12:03
[2019-04-11] MEDS: ACETAMINOPHEN 325 MG TABLET PO PRN (04:28)
[2019-04-11] MEDS: BUSPIRONE HCL 10 MG TABLET PO SCH (05:31)
[2019-04-11] MEDS: HEPARIN SOD (PORCINE) 5,000 UNIT/ML 1 ML SYRINGE SUBCUT SCH (05:32)
[2019-04-11] MEDS: CLONAZEPAM 1 MG TABLET PO SCH (05:32)
[2019-04-11] MEDS: PANTOPRAZOLE SODIUM 40 MG TABLET.DR PO SCH (05:32)
[2019-04-11] MEDS: CYCLOBENZAPRINE HCL 10 MG TABLET PO PRN (05:36)
[2019-04-11 06:16] LABS: HEMATOCRIT 33.3 % (36.0-47.0); MEAN CORPUSCULAR HEMOGLOBIN 28.6 pg (27.0-33.4); MEAN CORPUSCULAR HGB CONC 32.9 g/dL (32.0-36.0); MEAN CORPUSCULAR VOLUME 87 fl (80-97); PLATELET COUNT 293 10^3/uL (150-450); RED BLOOD COUNT 3.83 10^6/uL (3.72-5.28); WHITE BLOOD COUNT 10.1 10^3/uL (4.0-10.5)
[2019-04-11 06:41] LABS: ANION GAP 10 (5-19); BLOOD UREA NITROGEN 18 mg/dL (7-20); CALCIUM 9.5 mg/dL (8.4-10.2); CARBON DIOXIDE 29 mmol/L (22-30); CHLORIDE 98 mmol/L (98-107); GLUCOSE 198 mg/dL (75-110); POTASSIUM 3.7 mmol/L (3.6-5.0); SODIUM 137.4 mmol/L (137-145)
[2019-04-11] MEDS: MORPHINE SULFATE 10 MG/ML INJ IV PRN (08:23)
[2019-04-11] MEDS: BUDESONIDE NEB 0.5 MG/2 ML AMPUL NEB SCH (08:33)
[2019-04-11] MEDS: GABAPENTIN 300 MG CAPSULE PO SCH (09:56)
[2019-04-11] MEDS: DOCUSATE SODIUM 100 MG CAPSULE PO SCH (09:57)
[2019-04-11] MEDS: METOPROLOL SUCCINATE 50 MG TAB.SR.24H PO SCH (09:57)
[2019-04-11] MEDS: HYDROCHLOROTHIAZIDE 25 MG TABLET PO SCH (09:57)
[2019-04-11] MEDS ORDERED: PANTOPRAZOLE SODIUM 40 MG TABLET.DR PO SCH (10:00)
[2019-04-11] MEDS: FLUTICASONE/VILANTEROL 200-25 MCG/DOSE IH SCH (10:00)
[2019-04-11 11:25] VITALS: BP 104/59
--- NOTE | 2019-04-18 22:30 | PDOC DISCHARGE SUMMARY ---
General - Admit/Disc Date/PCP Admission Date/Primary Care Provider: 04/09/19 21:36 RILEY MENDEZ Discharge Date: 04/11/19 - Discharge Diagnosis (1) Chest pain Is this a current diagnosis for this admission?: Yes Summary: Atypical chest pain EKG shows NSR, no infarction or ischemia Serial troponins all WNL CTA chest WNL PRN IV morphine for pain Patient refusing Tylenol. Allergic to NSAIDs ("it makes me stop breathing ") Pain is reproducible with palpation, worse when supine, seemed to be out of proportion to objective findings (labs, radiology, EKG) Patient seen by side door man who agrees this is not cardiac chest pain. Patient reported she started new workout program. I instructed her that her chest pain was likely muscular. She was instructed to take Tylenol at home, provided a prescription for a muscle relaxer (Flexeril), apply heat (or hot shower) to affected area and stretch after heat therapy. (2) Hypertension Is this a current diagnosis for this admission?: Yes Summary: PMH HTN Well-controlled with p.o. metoprolol (3) Bronchitis Is this a current diagnosis for this admission?: Yes Summary: Previously treated with azithromycin and 2 courses of prednisone for suspected URI Does not require steroids at this time Does not appear infected, no need for antibiotics PMH asthma No evidence of dyspnea or shortness of breath on exam - Additional Information Resuscitation Status: Full Code Discharge Diet: As Tolerated Discharge Activity: Activity As Tolerated Prescriptions: Atorvastatin Calcium [Lipitor 40 mg Tablet] 40 mg PO QHS #30 tablet Cyclobenzaprine HCl [Flexeril 10 mg Tablet] 10 mg PO Q8HP PRN #5 tablet PRN Reason: Home Medications: Albuterol Sulfate [Proair Respiclick] 1 puff IH Q6HP PRN 04/10/19 Amitriptyline HCl [Elavil 100 mg Tablet] 100 mg PO QHS 04/10/19 Benzonatate [Tessalon Perles 100 mg Capsule] 100 mg PO Q8HP PRN 04/10/19 Budesonide/Formoterol Fumarate [Symbicort HFA 160-4.5 mcg Inhaler 6 gm] 2 puff IH Q12 04/10/19 Bupropion HCl [Bupropion Xl] 450 mg PO DAILY 04/10/19 Buspirone HCl [Buspar 15 mg Tablet] 15 mg PO Q8 04/10/19 Clonazepam [Klonopin 1 mg Tablet] 1 mg PO TIDP PRN 04/10/19 Esomeprazole Magnesium 40 mg PO DAILY 04/10/19 Fremanezumab-Vfrm [Ajovy] 225 mg SQ .QMONTHLY 04/10/19 Gabapentin [Neurontin] 600 mg PO Q12 04/10/19 Hydrochlorothiazide [Hydrodiuril 25 mg Tablet] 25 mg PO DAILY 04/10/19 Lurasidone HCl [Latuda 60 mg Tablet] 60 mg PO QPM 04/10/19 Metformin HCl [Metformin HCl ER] 500 mg PO DAILY 04/10/19 Metoprolol Succinate [Toprol Xl] 50 mg PO DAILY 04/10/19 Ondansetron [Zofran Odt 4 mg Tablet] 8 mg PO Q12 04/10/19 Pramipexole Di-HCl [Pramipexole Dihydrochloride] 0.375 mg PO QHS 04/10/19 Atorvastatin Calcium [Lipitor 40 mg Tablet] 40 mg PO QHS #30 tablet 04/11/19 Cyclobenzaprine HCl [Flexeril 10 mg Tablet] 10 mg PO Q8HP PRN #5 tablet 04/11/19 History of Present Illness History of Present Illness: NATHAN BJOORQUEZ is a 53 year old female who presents the emergency room with a 1 day history of chest pain. She admits her chest pain began abruptly yesterday evening. She describes the pain as a constant sharp pain in her anterior left parasternal chest radiating under her left breast around her left side and into her back and down her arm on the left. The pain is made worse by lying flat, deep inspiration and conversational speech. She associates the pain with dyspnea and a nonproductive cough that has been present for 2 weeks as well as swelling of her lower extremities that is been present for 2 days. She has recently been treated with azithromycin, 2 courses of prednisone, Tessalon Perles and an albuterol inhaler. She reports mild transient relief of her dyspnea following use of the albuterol inhaler. She denies prior similar episod es of chest pain and has not identified any additional aggravating or ameliorating factors for her chest pain. In the emergency room she was found to have a negative CTA of the chest, and unremarkable chest x-ray, a white blood cell count of 16,000, and elevated blood sugar and a sinus tachycardia in the 140's. Initial cardiac enzymes were in the normal range and her EKG showed no evidence of myocardial ischemia or injury. She was subsequently admitted to the hospital for further evaluation and treatment. Hospital Course Hospital Course: 53-year-old female with a PMH of HLD, HTN, "heart murmur," asthma, migraines, diabetes type 2, breast cancer (ductal carcinoma s/p lumpectomy), GERD, depression. She presents to [facility] with a 1 day history of sharp left-sided chest pain radiating around to the left axilla and to the left scapula. The patient wa s admitted to hospitalist service for atypical chest pain. Detailed treatment plan listed above. Physical Exam Vital Signs: Temp Pulse Resp BP Pulse Ox 98.5 F 95 16 104/59 L 94 04/11/19 11:23 04/11/19 11:23 04/11/19 11:23 04/11/19 11:23 04/11/19 11:23 General appearance: PRESENT: no acute distress, well-developed, well-nourished Head exam: PRESENT: atraumatic, normocephalic Eye exam: PRESENT: conjunctiva pink, EOMI, PERRLA. ABSENT: scleral icterus Ear exam: PRESENT: normal external ear exam Mouth exam: PRESENT: moist, tongue midline Neck exam: ABSENT: carotid bruit, JVD, lymphadenopathy, thyromegaly Respiratory exam: PRESENT: clear to auscultation gail. ABSENT: rales, rhonchi, wheezes Cardiovascular exam: PRESENT: RRR, tachycardia - chronic, according to the patient. ABSENT: diastolic murmur, rubs, systolic murmur Pulses: PRESENT: normal radial pulses, normal dorsalis pedis pul Vascular exam: PRESENT: normal capillary refill GI/Abdominal exam: PRESENT: normal bowel sounds, soft. ABSENT: distended, guarding, mass, organolmegaly, rebound, tenderness Rectal exam: PRESENT: deferred Extremities exam: PRESENT: full ROM. ABSENT: calf tenderness, clubbing, pedal edema Musculoskeletal exam: PRESENT: tenderness - left chest wall, thorasic and lumbar spinal point tenderness Neurological exam: PRESENT: alert, awake, oriented to person, oriented to place, oriented to time, oriented to situation Psychiatric exam: PRESENT: appropriate affect, normal mood Skin exam: PRESENT: dry, intact, warm. ABSENT: cyanosis, rash Results Laboratory Results: 04/11/19 05:52 04/11/19 05:52 04/09/19 04/09/19 04/09/19 17:12 17:12 22:30 Creatine Kinase 83 66 CK-MB (CK-2) 0.34 Troponin I < 0.012 NT-Pro-B Natriuret Pep < 11 04/09/19 04/10/19 04/10/19 22:30 04:28 04:28 Creatine Kinase 56 CK-MB (CK-2) 0.31 0.43 Troponin I < 0.012 < 0.012 NT-Pro-B Natriuret Pep 04/10/19 04/10/19 10:44 10:44 Creatine Kinase 50 CK-MB (CK-2) 0.46 Troponin I < 0.012 NT-Pro-B Natriuret Pep Impressions: Chest X-Ray 04/09/19 17:04 IMPRESSION: NO ACUTE RADIOGRAPHIC FINDING IN THE CHEST. Chest/Abdomen CTA 04/09/19 18:03 IMPRESSION: No evidence of pulmonary embolus. Lumbar Spine CT 04/10/19 12:28 IMPRESSION: No fracture or dislocation of the lumbar spine. Small broad-based central posterior disc bulges at L4-L5 and L5-S1, with otherwise very limited evaluation on noncontrast CT. Lumbar disc and neural foraminal pathology may be further evaluated by MRI if indicated by localizing signs and symptoms. Status: Imported from PACS Qualifiers - * PATIENT BEING DISCHARGED WITH ANY OF THE FOLLOWING DIAGNOSIS: No Acute Heart Failure - Is this a Heart Failure Patient?: No Plan Time Spent: Greater than 30 Minutes
== END 2019-04-11 11:40 | disposition home or self-care (01) | DRG 313 ==
LOC: ER 17:00 → EH 21:36 → OBSVTOIN 21:36 → 4S 23:40
PROVIDERS: ADMIT Emergency Medicine; ATTEND Emergency Medicine
DX: R07.89 Other chest pain (principal); I10 Essential (primary) hypertension; J40 Bronchitis, not specified as acute or chronic; E78.5 Hyperlipidemia, unspecified; E11.8 Type 2 diabetes mellitus with unspecified complications; K21.9 Gastro-esophageal reflux disease without esophagitis; M79.7 Fibromyalgia; Z87.820 Personal history of traumatic brain injury; Z85.3 Personal history of malignant neoplasm of breast; Z79.84 Long term (current) use of oral hypoglycemic drugs; Z79.51 Long term (current) use of inhaled steroids; Z79.52 Long term (current) use of systemic steroids; Z79.899 Other long term (current) drug therapy
CPT/HCPCS: 36415; 71045; 71275; 72131; 80048; 80053; 80061; 82550; 82553; 82962; 83036; 83735; 83880; 84439; 84443; 84481; 84484; 85025; 85027; 85652; 86140; 93005; 93010; 94640; 99285; J1644; J1815; J2270; J3490; J7030; J7614; J7620

== ENCOUNTER → 2019-04-29 | Outpatient (CLI) | payer MEDICARE, MEDICAID ==
--- NOTE | 2019-04-29 11:52 | RADIOLOGY REPORT (SQ) ---
EXAM DESCRIPTION: HIP BILATERAL COMPLETED DATE/TIME: 04/29/2019 11:24 am REASON FOR STUDY: M25.559 PAIN IN UNSPECIFIED HIP M25.559 PAIN IN UNSPECIFIED HIP COMPARISON: None. NUMBER OF VIEWS: Two views. TECHNIQUE: AP pelvis and additional frog-leg view of the right and left hip. LIMITATIONS: None. FINDINGS: MINERALIZATION: Normal. RIGHT HIP: No fracture or dislocation. No worrisome bone lesions. LEFT HIP: No fracture or dislocation. No worrisome bone lesions. PUBIS AND ISCHIUM: No fracture. PELVIS: No fracture. SACRUM: No fracture or dislocation. No worrisome bone lesions. LOWER LUMBAR SPINE: No fracture or dislocation. No worrisome bone lesions. No significant disc disea se. SOFT TISSUES: No findings. OTHER: No other significant finding. IMPRESSION: NO ACUTE FRACTURE TECHNICAL DOCUMENTATION: JOB ID: [id number]- All Rights Reserved Reading location - IP/workstation name: [email or web address]
== END ==
LOC: RAD 10:48
PROVIDERS: ATTEND Physician Assistant
DX: M25.559 Pain in unspecified hip (principal)
CPT/HCPCS: 73522

== ENCOUNTER 2019-05-09 08:28 | Emergency (ER) | payer MEDICARE, MEDICAID ==
[2019-05-09 09:22] LABS: ALANINE AMINOTRANSFERASE 24 U/L (9-52); ALKALINE PHOSPHATASE 78 U/L (38-126); ANION GAP 13 (5-19); ASPARTATE AMINO TRANSFERASE 27 U/L (14-36); BILIRUBIN,DIRECT 0.3 mg/dL (0.0-0.4); BILIRUBIN,TOTAL 0.5 mg/dL (0.2-1.3); BLOOD UREA NITROGEN 15 mg/dL (7-20); CALCIUM 9.8 mg/dL (8.4-10.2); CARBON DIOXIDE 32 mmol/L (22-30); CHLORIDE 96 mmol/L (98-107); CREATINE KINASE 141 U/L (30-135); GLUCOSE 143 mg/dL (75-110); POTASSIUM 4.1 mmol/L (3.6-5.0); TOTAL PROTEIN 8.4 g/dL (6.3-8.2)
--- NOTE | 2019-05-09 09:27 | ER Document Report ---
ED General - General Chief Complaint: Chest Pain Stated Complaint: CHEST PAIN Time Seen by Provider: 05/09/19 08:56 Primary Care Provider: DENYS MCGRAW PA [Primary Care Provider] - Follow up as needed TRAVEL OUTSIDE OF THE [place] IN LAST 30 DAYS: No - HPI Notes: Patient is a 54-year-old female who presents to the emergency department for evaluation of chest pain. She describes it as sharp and have a pain. It is in her left inferior chest. She states it radiates up into her left neck as well as her upper back. She states she feels nauseated. She was driving when this started. Patient also notes that she was very dizzy and had a near syncopal episode this morning. She sat down to have a bowel movement. She strained, but was unable to have one. She states upon standing she was dizzy and fell to the ground. She nearly passed out but did not. - Related Data Allergies/Adverse Reactions: bee venom protein (honey bee) Allergy (Severe, Verified 05/09/19 08:29) Anaphylaxis cephalexin Allergy (Severe, Verified 05/09/19 08:29) NSAIDS (Non-Steroidal Anti-Inflamma [Nsaids] Allergy (Intermediate, Verified 05/09/19 08:29) Shortness of Breath tramadol Allergy (Intermediate, Verified 05/09/19 08:29) Shortness of Breath aspirin [Aspirin] Allergy (Verified 05/09/19 08:29) ciprofloxacin [From Cipro] Allergy (Verified 05/09/19 08:29) diclofenac Allergy (Verified 05/09/19 08:29) doxycycline Allergy (Verified 05/09/19 08:29) fluoxetine Allergy (Verified 05/09/19 08:29) meloxicam [From Mobic] Allergy (Verified 05/09/19 08:29) Penicillins Allergy (Verified 05/09/19 08:29) Sulfa (Sulfonamide Antibiotics) Allergy (Verified 05/09/19 08:29) wasp Allergy (Severe, Uncoded 05/09/19 08:29) Anaphylaxis Past Medical History - General Information source: Patient - Social History Smoking Status: Former Smoker Family History: Arthritis, DM, Hypertension, Malignancy, Thyroid Disfunction Patient has suicidal ideation: No Patient has homicidal ideation: No - Past Medical History Cardiac Medical History: Reports: Hx Hypercholesterolemia, Hx Hypertension, Hx Heart Murmur, Other - Tachycardia, currently undergoing work-up Denies: Hx Atrial Fibrillation, Hx Congestive Heart Failure, Hx Coronary Artery Disease, Hx DVT, Hx Heart Attack, Hx Peripheral Vascular Disease, Hx Pulmonary Embolism Pulmonary Medical History: Reports: Hx Asthma, Hx Pneumonia Denies: Hx COPD, Hx Sleep Apnea Neurological Medical History: Reports: Hx Migraine, Hx Seizures - last seizure more than 4 years ago Endocrine Medical History: Reports: Hx Diabetes Mellitus Type 2 - On metformin. 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 Denies: Hx Cirrhosis, Hx Crohn's Disease, Hx Hepatitis, Hx Ulcerative Colitis Musculoskeletal Medical History: Reports Hx Fibromyalgia, Reports Hx Musculoskeletal Deformity, Reports Hx Musculoskeletal Trauma Skin Medical History: Denies Hx Eczema, Denies Hx Psoriasis Psychiatric Medical History: Reports: Hx Depression Traumatic Medical History: Reports: Hx Fractures - left arm wrist hand, Hx Traumatic Brain Injury Infectious Medical History: Denies: Hx Hepatitis Past Surgical History: Reports: Hx Breast Surgery - lumpectomy R breast; ducts removed from bilateral breasts, Hx Hysterectomy, Hx Neurologic Surgery - tbi, spinal fusion in 2005, spinal nerve stimulator early 2015, Hx Orthopedic Surgery - left arm ulnar nerve, wrist and left knee, Other - Breast lumpectomy for ductal carcinoma - Immunizations Immunizations up to date: Yes Hx Diphtheria, Pertussis, Tetanus Vaccination: Yes Review of Systems - Review of Systems Constitutional: No symptoms reported EENT: No symptoms reported Cardiovascular: See HPI Respiratory: No symptoms reported Gastrointestinal: No symptoms reported Genitourinary: No symptoms reported Musculoskeletal: No symptoms reported Skin: No symptoms reported Neurological/Psychological: No symptoms reported Physical Exam - Vital signs Vitals: Resp BP Pulse Ox 14 119/71 99 05/09/19 08:49 05/09/19 08:49 05/09/19 08:49 - Notes Notes: Vital signs reviewed, please refer to chart. Head is normocephalic, atraumatic. Pupils equal round, reactive to light. Neck is supple without meningismus. Heart is regular rate and rhythm. Lungs are clear to auscultation bilaterally. Abdomen is soft, nontender, normoactive bowel sounds throughout. Extremities without cyanosis, clubbing. Posterior calves are nontender. Peripheral pulses are equal. Skin is warm and dry. Patient is awake, alert, neurological exam is nonfocal. Course - Re-evaluation Re-evalutation: 05/09/19 09:26 Patient presents emergency department for evaluation. This is not the first time she has had chest pain similar to this. She is just concerned because it seems to be spreading to more areas. It is certainly atypical. It is not related to exertion. EKG is unremarkable. Patient was placed on a night monitor, laboratory investigations were obtained. She was not given aspirin as she is allergic. In regards to her near syncopal episode, I certainly strongly suspect vasovagal syncope in light of her Valsalva in attempting to have a bowel movement. At any rate, she will continue to be on the monitor we will look for other electrolyte abnormalities or medical etiologies for this near syncope. Awaiting laboratory results, we will continue to monitor. 05/09/19 13:28 Patient monitored here in the emergency department for some time. No significant acute abnormality was noted. I did review this patient's history. She was actually admitted in the last few months with similar pain. Her pain was deemed not to be cardiac. She had a negative work-up at that time. I explained to the patient I do not have a clear etiology for her pain at this time. She needs to follow-up with primary care. She is encouraged to follow-up with cardiology as well, as they are pursuing her potential tachycardia/arrhythmia issue. She is to return to the ED with worsening or new concerning symptoms of any sort. - Vital Signs Vital signs: Temp Pulse Resp BP Pulse Ox 98.5 F 15 113/59 L 98 05/09/19 08:57 05/09/19 12:00 05/09/19 12:00 05/09/19 12:00 - Laboratory Result Diagrams: 05/09/19 08:48 05/09/19 08:48 Laboratory results interpreted by me: 05/09/19 05/09/19 08:48 08:48 Hct 35.9 L RDW 14.6 H Chloride 96 L Carbon Dioxide 32 H Est GFR (Non-Af Amer) 58 L Glucose 143 H Creatine Kinase 141 H Total Protein 8.4 H - Diagnostic Test Radiology reviewed: Reports reviewed Radiology results interpreted by me: 05/09/19 13:29 Chest X-Ray 05/09/19 08:52 IMPRESSION: NO ACUTE RADIOGRAPHIC FINDING IN THE CHEST. - EKG Interpretation by Me Additional EKG results interpreted by me: 05/09/19 09:27 Sinus tachycardia with a rate of 104 bpm. Low voltage. Normal axis and intervals, no acute ST changes concerning for ischemia or infarction. No significant change in compared to prior study. Discharge - Discharge Clinical Impression: Chest pain Qualifiers: Chest pain type: unspecified Qualified Code(s): R07.9 - Chest pain, unspecified Condition: Stable Disposition: HOME, SELF-CARE Instructions: Chest Pain of Unclear Cause ([facility]) Additional Instructions: No clear cause was found for your chest pain today. You need to follow-up with primary care as well as cardiology next week. Return to the emergency department with worsening or new concerning symptoms of any sort. Referrals: DENYS MCGRAW PA [Primary Care Provider] - Follow up as needed
[2019-05-09 09:30] LABS: ABSOLUTE BASOPHILS # (AUTO) 0.1 10^3/uL (0.0-0.2); ABSOLUTE EOSINOPHILS # (AUTO) 0.2 10^3/uL (0.0-0.6); ABSOLUTE LYMPHOCYTES (AUTO) 3.3 10^3/uL (0.5-4.7); ABSOLUTE MONOCYTES (AUTO) 0.8 10^3/uL (0.1-1.4); ABSOLUTE NEUT (AUTO) 3.6 10^3/uL (1.7-8.2); HEMATOCRIT 35.9 % (36.0-47.0); LYMPHOCYTES % (AUTO) 40.7 % (13-45); MEAN CORPUSCULAR HEMOGLOBIN 28.7 pg (27.0-33.4); MEAN CORPUSCULAR HGB CONC 33.3 g/dL (32.0-36.0); MEAN CORPUSCULAR VOLUME 86 fl (80-97); MONOCYTES % (AUTO) 10.4 % (3-13); PLATELET COUNT 351 10^3/uL (150-450); RED BLOOD COUNT 4.16 10^6/uL (3.72-5.28); RED CELL DISTRIBUTION WIDTH 14.6 % (11.5-14.0); SEGMENTED NEUTROPHILS % (AUTO) 44.9 % (42-78); TOTAL CELLS COUNTED % (AUTO) 100 %
--- NOTE | 2019-05-09 09:32 | RADIOLOGY REPORT (SQ) ---
EXAM DESCRIPTION: CHEST SINGLE VIEW COMPLETED DATE/TIME: 05/09/2019 9:13 am REASON FOR STUDY: chest pain COMPARISON: 04/09/2019 EXAM PARAMETERS: NUMBER OF VIEWS: One view. TECHNIQUE: Single frontal radiographic view of the chest acquired. RADIATION DOSE: NA LIMITATIONS: None. FINDINGS: LUNGS AND PLEURA: No opacities, masses or pneumothorax. No pleural effusion. MEDIASTINUM AND HILAR STRUCTURES: No masses. Contour normal. HEART AND VASCULAR STRUCTURES: Heart normal in size. Normal vasculature. BONES: No acute findings. HARDWARE: Neurostimulator. OTHER: No other significant finding. IMPRESSION: NO ACUTE RADIOGRAPHIC FINDING IN THE CHEST. TECHNICAL DOCUMENTATION: JOB ID: [id number] [employer]- All Rights Reserved Reading location - IP/workstation name: [email or web address]
[2019-05-09 09:33] LABS: CREATINE KINASE MB 0.77 ng/mL (<4.55)
[2019-05-09 09:34] LABS: TROPONIN I < 0.012 ng/mL
--- NOTE | 2019-05-09 10:37 | EKG REPORT ---
SEVERITY:- BORDERLINE ECG - SINUS TACHYCARDIA BORDERLINE T ABNORMALITIES, ANTERIOR LEADS : Confirmed by: Felix La 09-May-2019 10:36:46
[2019-05-09] MEDS ORDERED: ACETAMINOPHEN 325 MG TABLET PO ONE (11:09)
[2019-05-09 13:35] VITALS: BP 109/63
== END 2019-05-09 13:35 | disposition home or self-care (01) ==
LOC: ER 08:28
DX: R07.9 Chest pain, unspecified (principal); E78.00 Pure hypercholesterolemia, unspecified; I10 Essential (primary) hypertension; E11.9 Type 2 diabetes mellitus without complications; Z90.710 Acquired absence of both cervix and uterus; Z79.84 Long term (current) use of oral hypoglycemic drugs; Z88.6 Allergy status to analgesic agent; Z88.3 Allergy status to other anti-infective agents
CPT/HCPCS: 93005; 99285; 36415; 82553; 82550; 85025; 80053; 84484; 71045; 93010; A9270

== ENCOUNTER → 2019-05-31 | Outpatient (CLI) | payer MEDICARE, MEDICAID | LOC: OD 10:38 | PROVIDERS: ATTEND Otolaryngology | DX: J30.9 Allergic rhinitis, unspecified (principal) | CPT/HCPCS: 36415; 82785; 86003 ==

== ENCOUNTER 2019-07-31 17:17 | Emergency (ER) | payer MEDICARE, MEDICAID ==
--- NOTE | 2019-07-31 17:30 | ER Document Report ---
ED Medical Screen (RME) - General Chief Complaint: Altered Mental Status Stated Complaint: DIZZINESS,SYNCOPE Time Seen by Provider: 07/31/19 17:26 Primary Care Provider: GEOFF ZAMORA MD [Primary Care Provider] - Follow up as needed Mode of Arrival: Ambulatory Information source: Patient Notes: 54-year-old female drove herself to the ED. She could not remember her date does not really know what is going on. She states since yesterday she is fallen multiple times and she cannot remember things. She does not understand what is going on. She does answer some questions but not others. She states this is been going on since yesterday. She states when she got to the parking lot she can figure out how to park the car but he did get it in a parking spot. I have greeted and performed a rapid initial assessment of this patient. A comprehensive ED assessment and evaluation of the patient, analysis of test results and completion of medical decision making process will be conducted by an additional ED providers. TRAVEL OUTSIDE OF THE [place] IN LAST 30 DAYS: No - Related Data Allergies/Adverse Reactions: bee venom protein (honey bee) Allergy (Severe, Verified 05/09/19 08:29) Anaphylaxis cephalexin Allergy (Severe, Verified 05/09/19 08:29) NSAIDS (Non-Steroidal Anti-Inflamma [Nsaids] Allergy (Intermediate, Verified 05/09/19 08:29) Shortness of Breath tramadol Allergy (Intermediate, Verified 05/09/19 08:29) Shortness of Breath aspirin [Aspirin] Allergy (Verified 05/09/19 08:29) ciprofloxacin [From Cipro] Allergy (Verified 05/09/19 08:29) diclofenac Allergy (Verified 05/09/19 08:29) doxycycline Allergy (Verified 05/09/19 08:29) fluoxetine Allergy (Verified 05/09/19 08:29) meloxicam [From Mobic] Allergy (Verified 05/09/19 08:29) Penicillins Allergy (Verified 05/09/19 08:29) Sulfa (Sulfonamide Antibiotics) Allergy (Verified 05/09/19 08:29) wasp Allergy (Severe, Uncoded 05/09/19 08:29) Anaphylaxis Past Medical History - Past Medical History Cardiac Medical History: Reports: Hx Hypercholesterolemia, Hx Hypertension, Hx Heart Murmur Denies: Hx Atrial Fibrillation, Hx Congestive Heart Failure, Hx Coronary Artery Disease, Hx DVT, Hx Heart Attack, Hx Peripheral Vascular Disease, Hx Pulmonary Embolism Pulmonary Medical History: Reports: Hx Asthma, Hx Pneumonia Denies: Hx COPD, Hx Sleep Apnea Neurological Medical History: Reports: Hx Migraine, Hx Seizures - last seizure more than 4 years ago Endocrine Medical History: Reports: Hx Diabetes Mellitus Type 2 - On metformin. 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 Denies: Hx Cirrhosis, Hx Crohn's Disease, Hx Hepatitis, Hx Ulcerative Colitis Musculoskeltal Medical History: Reports Hx Fibromyalgia, Reports Hx Musculoskeletal Deformity, Reports Hx Musculoskeletal Trauma Skin Medical History: Denies Hx Eczema, Denies Hx Psoriasis Psychiatric Medical History: Reports: Hx Depression Traumatic Medical History: Reports: Hx Fractures - left arm wrist hand, Hx Traumatic Brain Injury Infectious Medical History: Denies: Hx Hepatitis Past Surgical History: Reports: Hx Breast Surgery - lumpectomy R breast; ducts removed from bilateral breasts, Hx Hysterectomy, Hx Neurologic Surgery - tbi, spinal fusion in 2005, spinal nerve stimulator early 2015, Hx Orthopedic Surgery - left arm ulnar nerve, wrist and left knee, Other - Breast lumpectomy for ductal carcinoma - Immunizations Immunizations up to date: Yes Hx Diphtheria, Pertussis, Tetanus Vaccination: Yes Doctor's Discharge - Discharge Referrals: GEOFF ZAMORA MD [Primary Care Provider] - Follow up as needed
[2019-07-31 17:56] LABS: ABSOLUTE EOSINOPHILS # (AUTO) 0.2 10^3/uL (0.0-0.6); ABSOLUTE LYMPHOCYTES (AUTO) 2.7 10^3/uL (0.5-4.7); ABSOLUTE MONOCYTES (AUTO) 0.8 10^3/uL (0.1-1.4); TOTAL CELLS COUNTED % (AUTO) 100 %
[2019-07-31 18:00] LABS: ABSOLUTE BASOPHILS # (AUTO) 0.1 10^3/uL (0.0-0.2); ABSOLUTE NEUT (AUTO) 2.4 10^3/uL (1.7-8.2); BASOPHILS % (AUTO) 1.8 % (0-2); EOSINOPHILS % (AUTO) 3.4 % (0-6); HEMATOCRIT 35.9 % (36.0-47.0); HEMOGLOBIN 11.8 g/dL (12.0-15.5); LYMPHOCYTES % (AUTO) 43.6 % (13-45); MEAN CORPUSCULAR HEMOGLOBIN 28.7 pg (27.0-33.4); MEAN CORPUSCULAR HGB CONC 32.8 g/dL (32.0-36.0); MEAN CORPUSCULAR VOLUME 88 fl (80-97); MONOCYTES % (AUTO) 12.6 % (3-13); PLATELET COUNT 318 10^3/uL (150-450); RED BLOOD COUNT 4.11 10^6/uL (3.72-5.28); RED CELL DISTRIBUTION WIDTH 13.2 % (11.5-14.0); SEGMENTED NEUTROPHILS % (AUTO) 38.6 % (42-78); WHITE BLOOD COUNT 6.3 10^3/uL (4.0-10.5)
[2019-07-31 18:06] LABS: INTERNATIONAL RATION (INR) 0.89; PARTIAL THROMBOPLASTIN TIME 27.4 SEC (23.5-35.8)
[2019-07-31 18:13] LABS: ALBUMIN 4.5 g/dL (3.5-5.0); ALKALINE PHOSPHATASE 90 U/L (38-126); ANION GAP 15 (5-19); ASPARTATE AMINO TRANSFERASE 42 U/L (14-36); BILIRUBIN,DIRECT 0.2 mg/dL (0.0-0.4); BILIRUBIN,TOTAL 0.2 mg/dL (0.2-1.3); BLOOD UREA NITROGEN 27 mg/dL (7-20); CALCIUM 10.1 mg/dL (8.4-10.2); CARBON DIOXIDE 32 mmol/L (22-30); CHLORIDE 94 mmol/L (98-107); CREATINE KINASE 217 U/L (30-135); GLUCOSE 182 mg/dL (75-110); POTASSIUM 3.5 mmol/L (3.6-5.0); TOTAL PROTEIN 7.8 g/dL (6.3-8.2)
[2019-07-31 18:14] LABS: ALCOHOL < 10 mg/dL (NONE DETECTED)
--- NOTE | 2019-07-31 18:19 | RADIOLOGY REPORT (SQ) ---
EXAM DESCRIPTION: CT HEAD WITHOUT COMPLETED DATE/TIME: 07/31/2019 6:09 pm REASON FOR STUDY: altered mental status COMPARISON: 06/20/2017. TECHNIQUE: Axial images acquired through the brain without intravenous contrast. Images reviewed wi th bone, brain and subdural windows. Additional sagittal and coronal reconstructions were generated. Images stored on PACS. All CT scanners at this facility use dose modulation, iterative reconstruction, and/or weight based d osing when appropriate to reduce radiation dose to as low as reasonably achievable (ALARA). [facility]: Dose Right [facility]: CareDose [facility]: Dose Right [facility]: Teradose 4D [facility]: Smart Nativo RADIATION DOSE: CT Rad equipment meets quality standard of care and radiation dose reduction techniq ues were employed. CTDIvol: 53.2 mGy. DLP: 937 mGy-cm. mGy. LIMITATIONS: None. FINDINGS: VENTRICLES: Normal size and contour. CEREBRUM: No masses. No hemorrhage. No midline shift. No evidence for acute infarction. Normal gra y/white matter differentiation. No areas of low density in the white matter. CEREBELLUM: No masses. No hemorrhage. No alteration of density. No evidence for acute infarction. EXTRAAXIAL SPACES: No fluid collections. No masses. ORBITS AND GLOBE: No intra- or extraconal masses. Normal contour of globe without masses. CALVARIUM: No fracture. PARANASAL SINUSES: No fluid or mucosal thickening. SOFT TISSUES: No mass or hematoma. OTHER: No other significant finding. IMPRESSION: NORMAL BRAIN CT WITHOUT CONTRAST. EVIDENCE OF ACUTE STROKE: NO. COMMENT: Quality ID # [id number]: Final reports with documentation of one or more dose reduction techniques (e.g., Automated exposure control, adjustment of the mA and/or kV according to patient size, use of iterative reconstruction technique) TECHNICAL DOCUMENTATION: JOB ID: [id number] [employer]- All Rights Reserved Reading location - IP/workstation name: [email or web address]
[2019-07-31 18:24] LABS: CREATINE KINASE MB 2.03 ng/mL (<4.55)
[2019-07-31 18:25] LABS: TROPONIN I < 0.012 ng/mL
--- NOTE | 2019-07-31 18:25 | RADIOLOGY REPORT (SQ) ---
EXAM DESCRIPTION: CHEST 2 VIEWS COMPLETED DATE/TIME: 07/31/2019 6:16 pm REASON FOR STUDY: altered mental status COMPARISON: 05/09/2019. EXAM PARAMETERS: NUMBER OF VIEWS: two views TECHNIQUE: Digital Frontal and Lateral radiographic views of the chest acquired. RADIATION DOSE: NA LIMITATIONS: none FINDINGS: LUNGS AND PLEURA: No opacities, masses or pneumothorax. No pleural effusion. MEDIASTINUM AND HILAR STRUCTURES: No masses or contour abnormalities. HEART AND VASCULAR STRUCTURES: Heart normal size. No evidence for failure. BONES: No acute findings. HARDWARE: Spinal stimulator hardware. OTHER: No other significant finding. IMPRESSION: NO ACUTE RADIOGRAPHIC FINDING IN THE CHEST. TECHNICAL DOCUMENTATION: JOB ID: [id number] [employer]- All Rights Reserved Reading location - IP/workstation name: [email or web address]
[2019-07-31] MEDS ORDERED: NORMAL SALINE 1000 ML 1,000 ML IV ONE ×2 (18:29→18:35)
[2019-07-31] MEDS ORDERED: CEFTRIAXONE 1 GM/D5W RTU 1 GM/50 ML RTUPB IV ONE (18:37)
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
[2019-07-31] MEDS: MAGNESIUM SULFATE/D5W 1 GM/100 ML RTUPB IV SCH ×2 (18:48→19:47)
[2019-07-31 19:08] LABS: APPEARANCE,URINE CLEAR; BILIRUBIN,URINE NEGATIVE (NEGATIVE); COLOR,URINE YELLOW; GLUCOSE, URINE NEGATIVE (NEGATIVE); KETONES,URINE NEGATIVE (NEGATIVE); LEUKOCYTE ESTERASE,URINE NEGATIVE (NEGATIVE); NITRITE,URINE NEGATIVE (NEGATIVE); PROTEIN,URINE NEGATIVE (NEGATIVE); URINE AMPHETAMINES SCREEN NEGATIVE; URINE BARBITURATES SCREEN NEGATIVE; URINE BENZODIAZEPINES SCREEN NEGATIVE; URINE COCAINE SCREEN NEGATIVE; URINE MARIJUANA (THC) SCREEN NEGATIVE; URINE METHADONE SCREEN NEGATIVE; URINE PHENCYCLIDINE SCREEN NEGATIVE; URINE SPECIFIC GRAVITY 1.009; UROBILINOGEN,URINE NEGATIVE mg/dL (<2.0)
[2019-07-31 19:39] LABS: VENOUS BLOOD BASE EXCESS 9.2 mmol/L; VENOUS BLOOD HCO3 35.5 mmol/L (20-32); VENOUS BLOOD PCO2 57.3 mmHg (35-63); VENOUS BLOOD PH 7.41 (7.30-7.42)
[2019-07-31 19:44] LABS: ACETAMINOPHEN < 10 ug/mL (10-30); SALICYLATE < 1.0 mg/dL (2.0-20.0)
--- NOTE | 2019-07-31 21:12 | RADIOLOGY REPORT (SQ) ---
EXAM DESCRIPTION: RadLex: CT ABDOMEN PELVIS WITH IV CONTRAST CLINICAL HISTORY: 54 years Female; 8; lower abdominal pain TECHNIQUE: CT of the abdomen and pelvis using intravenous contrast. All CT scans at this facility use dose modulation, iterative reconstruction, and/or weight based dosing when appropriate to reduce radiation dose to as low as reasonably achievable. COMPARISON: None. FINDINGS: Abdomen: Liver: Diffusely hypodense. No ductal distention or focal lesion. Gallbladder:Nondistended Pancreas: No peripancreatic edema. No focal lesion. Spleen:Within normal limits Right kidney:No hydronephrosis. No focal lesion. Left kidney:No hydronephrosis. No focal lesion. Adrenal glands:Within normal limits Vascular structures: Superior mesenteric vein branches are prominent, although there are no filling defects. Aorta and major branches are patent. No retropharyngeal adenopathy. Pelvis: Small bowel: SMA-SMV relationship suggests possible malrotation, although there is no bowel distention or mesenteric edema. Configuration of the duodenum and proximal jejunum is as expected, without evidence for malrotation. Appendix:Within normal limits Colon:No distention or acute pericolonic edema. No free intraperitoneal fluid or air. Bones: Thoracic spinal electrode is partially visualized. Unit is in the right flank subcutaneous tissues. No associated acute edema. Bladder: Distended. No calculi. No surrounding edema. There are multiple pelvic phleboliths. Cannot entirely exclude a nonobstructing distal ureteral calculus. No pelvic mass or adenopathy. IMPRESSION: 1. No acute findings 2. Distended bladder 3. Hepatic steatosis 4. Thoracic spinal electrode, and other chronic findings as described.
[2019-07-31] MEDS ORDERED: MECLIZINE HCL 25 MG TABLET PO ONE (21:32)
[2019-07-31] MEDS ORDERED: LORAZEPAM 0.5 MG TABLET PO ONE (22:37)
--- NOTE | 2019-08-01 00:26 | EKG REPORT ---
SEVERITY:- BORDERLINE ECG - SINUS TACHYCARDIA BORDERLINE T WAVE ABNORMALITIES : Confirmed by: Felix La 01-Aug-2019 00:25:58
[2019-08-01 00:56] VITALS: BP 120/96
== END 2019-08-01 00:56 | disposition home or self-care (01) ==
LOC: ER 17:17
DX: S06.0X0A Concussion without loss of consciousness, initial encounter (principal); R42 Dizziness and giddiness; R41.82 Altered mental status, unspecified; R55 Syncope and collapse; R10.30 Lower abdominal pain, unspecified; R00.0 Tachycardia, unspecified; W19.XXXA Unspecified fall, initial encounter; Y92.000 Kitchen of unspecified non-institutional (private) residence as the place of occurrence of the external cause; I10 Essential (primary) hypertension; J45.909 Unspecified asthma, uncomplicated; E11.9 Type 2 diabetes mellitus without complications; Z79.84 Long term (current) use of oral hypoglycemic drugs
CPT/HCPCS: 93005; 36415; 87040; 82553; 82962; 80307 ×4; 82550; 83605 ×2; 83735; 84443; 85025; 85610; 85730; 80053; 81001; 84484; 82803; 71046; 70450; 74177; 93010; A9270 ×2; J3475; J7030; J0696; 51701; 96365; 96366; 96375; 99285

== ENCOUNTER 2019-08-31 09:17 | Day surgery (SDC) | payer MEDICARE, MEDICAID ==
[2019-08-31] MEDS ORDERED: LIDOCAINE 2% INJ-PF (20 MG/ML) 10 ML AMPUL ONE (09:38)
[2019-08-31] MEDS ORDERED: MIDAZOLAM 2 MG/2 ML INJ ONE (09:38)
[2019-08-31] MEDS ORDERED: ONDANSETRON HCL INJ/PF 4 MG/2 ML SDV ONE (09:38)
[2019-08-31] MEDS ORDERED: FENTANYL CITRATE INJ/PF 100 MCG/2 ML AMPUL ONE ×2 (09:38→09:40)
[2019-08-31] MEDS ORDERED: DEXAMETHASONE SOD PHOS INJ 10 MG/1 ML VIAL ONE (09:39)
[2019-08-31] MEDS ORDERED: SUCCINYLCHOLINE CHLORIDE INJ 200 MG/10 ML VIAL ONE (09:39)
[2019-08-31] MEDS ORDERED: ROCURONIUM BROMIDE INJ 50 MG/5 ML VIAL IV ONE (09:39)
[2019-08-31] MEDS ORDERED: LIDOCAINE 2%/EPINEPHRINE INJ 1.7 ML CARTRIDGE ONE (09:41)
[2019-08-31] MEDS ORDERED: COCAINE HCL 4% TOPICAL SOLN 4 ML ONE (09:41)
[2019-08-31] MEDS ORDERED: OXYMETAZOLINE HCL 0.05% NASAL SPRAY 15 ML BOTTLE ONE (09:41)
[2019-08-31] MEDS ORDERED: ALBUTEROL SULFATE 0.083% NEB 2.5 MG/3 ML AMPUL NEB ONE (10:56)
--- NOTE | 2019-08-31 10:59 | Operative Report ---
Operative Report-[facility] Operative Report: Date: 31 August 2019 History: Patient with history of left sided eustachian tube dysfunction. Pr esents today for a left myringotomy with tympanostomy tube placement and balloon dilation left eustachian tube. Informed consent was obtained from the patient Preoperative Diagnosis: 1. Eustachian tube dysfunction Postoperative diagnosis: Same as above Procedure: 1. Eustachian tube balloon dilation/reconstruction nasopharynx [CPT = 43283], left 2. Myringotomy with insertion tympanostomy tube, left 3. Rigid nasal endoscopy, left Surgeon: Freeman Flores MD, FACS, [facility] Anesthesia: GETA Description of procedure: After receiving informed consent from the patient, the patient was transported to the operating room and placed supine on the operating room table. After successful induction and intubation by anesthesia cottonoids saturated with 4% cocaine were placed into left for approximately 5 minutes. They were then removed. Nasal septum and inferior turbinate were injected with 2% Xylocaine with 100,000 epinephrine. The cottonoids were placed back into the nasal cavity. The operating microscope was brought into the field and under binocular microscopy a properly sized ear speculum was placed into the left ear. The tympanic membrane was visualized and a radial incision was made in the anterior inferior quadrant. Middle ear space was dry. A Paparella PE tube was then placed into this incision and otic drops placed into the external auditory canal. Attention was then directed to the eustachian tube balloon dilation portion of the procedure. The cottonoids were removed from the nasal cavity. A rigid nasal endoscope along with the AREA eustachian tube balloon dilation system was inserted in the left nasal cavity. The torus tubarius was visualized. Under endoscopic guidance the balloon was inserted into the left eustachian tube lumen until the yellow marking was at the edge of the lumen indicating that the balloon was completely inserted. The balloon was then insufflated to 12 atmospheric pressure for 2 minutes. The balloon was then let down and removed from the eustachian tube lumen the endoscope and balloon system was then removed from the nasal cavity. The patient tolerated the procedure well without any complications. Patient was then given back to anesthesia who successfully extubated the patient without any complications. Estimated blood loss: Minimal Fluids: 500 mL The patient was transferred to the postanesthesia care unit in stable condition with spontaneous respirations.
[2019-08-31] MEDS ORDERED: HYDROCODONE/ACETAMINOPHEN 5-325 MG TABLET ONE (11:14)
[2019-08-31] MEDS ORDERED: NORMAL SALINE FOR INHALATION 5 ML VIAL.NEB ONE (11:38)
[2019-08-31] MEDS ORDERED: RACEPINEPHRINE HCL 2.25% NEB 0.5 ML AMPUL NEB ONE (11:38)
== END 2019-08-31 12:19 ==
LOC: SC 09:17
PROVIDERS: ATTEND Otolaryngology
DX: H69.82 Other specified disorders of Eustachian tube, left ear (principal); Z45.82 Encounter for adjustment or removal of myringotomy device (stent) (tube); J45.909 Unspecified asthma, uncomplicated; I11.9 Hypertensive heart disease without heart failure; Z79.899 Other long term (current) drug therapy; Z79.84 Long term (current) use of oral hypoglycemic drugs; Z79.51 Long term (current) use of inhaled steroids; Z85.3 Personal history of malignant neoplasm of breast
CPT/HCPCS: 82962; 42950; 69436; J2250; J3490 ×5; J3010; A9270 ×4; J0330; J2405; J1100

== ENCOUNTER → 2019-09-21 | Outpatient (CLI) | payer MEDICARE, MEDICAID ==
--- NOTE | 2019-09-21 10:19 | RADIOLOGY REPORT (SQ) ---
EXAM DESCRIPTION: CT HEAD WITHOUT COMPLETED DATE/TIME: 09/21/2019 9:54 am REASON FOR STUDY: VERTIGO (H81.312) R22.1 LOCALIZED SWELLING, MASS AND LUMP, NECK H81.312 AURAL VE RTIGO, LEFT EAR COMPARISON: 07/31/2019 TECHNIQUE: Axial images acquired through the brain without intravenous contrast. Images reviewed wi th bone, brain and subdural windows. Additional sagittal and coronal reconstructions were generated. Images stored on PACS. All CT scanners at this facility use dose modulation, iterative reconstruction, and/or weight based d osing when appropriate to reduce radiation dose to as low as reasonably achievable (ALARA). [facility]: Dose Right [facility]: CareDose [facility]: Dose Right [facility]: Teradose 4D [facility]: [employer] RADIATION DOSE: CT Rad equipment meets quality standard of care and radiation dose reduction techniq ues were employed. CTDIvol: 48.6 mGy. DLP: 930 mGy-cm. mGy. LIMITATIONS: None. FINDINGS: VENTRICLES: Normal size and contour. CEREBRUM: No masses. No hemorrhage. No midline shift. No evidence for acute infarction. Normal gra y/white matter differentiation. No areas of low density in the white matter. CEREBELLUM: No masses. No hemorrhage. No alteration of density. No evidence for acute infarction. EXTRAAXIAL SPACES: No fluid collections. No masses. ORBITS AND GLOBE: No intra- or extraconal masses. Normal contour of globe without masses. CALVARIUM: No fracture. PARANASAL SINUSES: No fluid or mucosal thickening. SOFT TISSUES: No mass or hematoma. OTHER: No other significant finding. IMPRESSION: NO ACUTE INTRACRANIAL IMAGING FINDINGS. EVIDENCE OF ACUTE STROKE: NO. COMMENT: Quality ID # [id number]: Final reports with documentation of one or more dose reduction techniques (e.g., Automated exposure control, adjustment of the mA and/or kV according to patient size, use of iterative reconstruction technique) TECHNICAL DOCUMENTATION: JOB ID: [id number] [employer]- All Rights Reserved Reading location - IP/workstation name: [email or web address]
--- NOTE | 2019-09-21 10:51 | RADIOLOGY REPORT (SQ) ---
EXAM DESCRIPTION: CT SOFT TISSUE NECK WITH COMPLETED DATE/TIME: 09/21/2019 9:54 am REASON FOR STUDY: VERTIGO (H81.312), NECK SWELLING (R22.1) R22.1 LOCALIZED SWELLING, MASS AND LUMP, NECK H81.312 AURAL VERTIGO, LEFT EAR COMPARISON: 12/13/2018 TECHNIQUE: Post IV contrasted scanning from skull base through lung apices with review of bone, soft tissue and lung windows. Reconstructed coronal and sagittal MPR images reviewed. All images stored on PACS. All CT scanners at this facility use dose modulation, iterative reconstruction, and/or weight based d osing when appropriate to reduce radiation dose to as low as reasonably achievable (ALARA). [facility]: Dose Right [facility]: CareDose [facility]: Dose Right [facility]: Teradose 4D [facility]: [employer] CONTRAST TYPE AND DOSE: 75mL Omnipaque 350 RENAL FUNCTION: Creatinine 1.0 RADIATION DOSE: mGy. LIMITATIONS: None. FINDINGS: SKULL BASE: Intact. MAJOR SALIVARY GLANDS: No solid or cystic masses. No inflammatory changes. LYMPHADENOPATHY: No adenopathy. Shotty left supraclavicular lymph nodes without pathologically enlar ged nodes, largest measuring 7 mm in short axis. MUCOSAL MASSES OR ASYMMETRY: No mucosal masses or asymmetry. LARYNX/CORDS: No abnormal findings. VASCULAR STRUCTURES: There is retropharyngeal course of the bilateral internal carotid arteries. No significant atherosclerotic plaque. No evidence of high-grade stenosis on the limited evaluation. V ertebral arteries are opacified. No aneurysm. LUNG APICES: Clear. BONES: No acute bony abnormality. Reversal of the normal cervical lordosis, likely positional. Mult ilevel cervical disc height loss and degenerative change greatest at C5 through C7. No discrete lyti c or blastic osseous lesions. THYROID: Normal size. No masses. PARANASAL SINUSES: Clear. OTHER: No other significant finding. IMPRESSION: 1. No evidence of acute finding in the neck. No findings to explain patient's symptoms . 2. Incidentally noted retropharyngeal course of the bilateral internal carotid arteries. Of note, patient has had 8 high dose scans within the past 12 months. TECHNICAL DOCUMENTATION: JOB ID: [id number] [facility] [id number]: Final reports with documentation of one or more dose reduction techniques (e.g., Automate d exposure control, adjustment of the mA and/or kV according to patient size, use of iterative recons truction technique) 2010 [employer]- All Rights Reserved Reading location - IP/workstation name: [email or web address]
== END ==
LOC: RAD 09:30
PROVIDERS: ATTEND Physician Assistant
DX: R22.1 Localized swelling, mass and lump, neck (principal); H81.312 Aural vertigo, left ear
CPT/HCPCS: 70450; 70491; 82565

== ENCOUNTER → 2020-01-17 | Outpatient (CLI) | payer MEDICARE, MEDICAID ==
--- NOTE | 2020-01-17 13:41 | WOMENS IMAGING REPORT ---
EXAM DESCRIPTION: 3D DX MAMMO BILAT; U/S BREAST UNILAT LIMITED IMAGES COMPLETED DATE/TIME: 01/17/2020 12:38 pm; 01/17/2020 1:02 pm REASON FOR STUDY: N63.0 BILAT DX; RT BREAST N63.0, N64.52 N63.0 UNSPECIFIED LUMP IN UNSPECIFIED BEN AST COMPARISON: 11/03/2017 and 11/07/2016. EXAM PARAMETERS: Standard craniocaudal and mediolateral oblique views of each breast recorded using digital acquisition and breast tomosynthesis. True lateral images of the right breast acquired with tomosynthesis. Read with the assistance of CAD: .[employer] Senior Portfolio Analyst Version 9.2 LIMITATIONS: None. FINDINGS: RIGHT BREAST MASSES: No suspicious masses. CALCIFICATIONS: No new or suspicious calcifications. ARCHITECTURAL DISTORTION: None. ASYMMETRY: None noted. OTHER: On the lateral image, there does appear to be a focal nodule in the subcutaneous tissues of th e upper abdominal wall, inferior and separate from the right breast. LEFT BREAST MASSES: No suspicious masses. CALCIFICATIONS: No new or suspicious calcifications. ARCHITECTURAL DISTORTION: None. ASYMMETRY: None noted. OTHER: No other significant finding. BREAST ULTRASOUND: TECHNIQUE: Static and dynamic grayscale images acquired of the right breast in the specific areas of clinical/mammographic concern, retroareolar breast and palpable area in the 6 o'clock location. Selec ghulam color Doppler images recorded. ELASTOGRAPHY PERFORMED: No. LIMITATIONS: None. FINDINGS: MASS: No mass identified. Normal glandular tissue. ELASTOGRAPHY CHARACTERISTICS: Not applicable. OTHER: No other significant finding. IMPRESSION: Negative bilateral mammogram and right breast ultrasound. No worrisome findings. BREAST DENSITY: c. The breasts are heterogeneously dense, which may obscure small masses. BIRAD: ASSESSMENT: 1 Negative. RECOMMENDATION: RECOMMENDED FOLLOW UP: Birads 1 or 2: No breast imaging finding to explain the patie nt's presenting complaint. Further intervention should be based on the degree of clinical suspicion. SPECIFIC INTERVENTION/IMAGING/CONSULTATION RECOMMENDED:No additional intervention/ imaging/consultati on needed at this time. COMMUNICATION:The imaging findings were not discussed with the patient. Her referring provider has be en notified of the findings. COMMENT: The patient has been notified of the results by letter per MQSA requirements. Additional no tification policies are in place for contacting patient with suspicious or incomplete findings. Quality ID #225: The [employer] recommends an annual screening mammogram for women aged 40 years or over. This facility utilizes a reminder system to ensure that all patients receive reminder letters, and/or direct phone calls for appointments. This includes reminders for routine scr eening mammograms, diagnostic mammograms, or other Breast Imaging Interventions when appropriate. Th is patient will be placed in the appropriate reminder system. TECHNICAL DOCUMENTATION: FINDING NUMBER: (1) ASSESSMENT: (1) JOB ID: [id number] 2010 [employer]- All Rights Reserved Reading location - IP/workstation name: [email or web address]
--- NOTE | 2020-01-17 13:41 | WOMENS IMAGING REPORT ---
EXAM DESCRIPTION: 3D DX MAMMO BILAT; U/S BREAST UNILAT LIMITED IMAGES COMPLETED DATE/TIME: 01/17/2020 12:38 pm; 01/17/2020 1:02 pm REASON FOR STUDY: N63.0 BILAT DX; RT BREAST N63.0, N64.52 N63.0 UNSPECIFIED LUMP IN UNSPECIFIED BEN AST COMPARISON: 11/03/2017 and 11/07/2016. EXAM PARAMETERS: Standard craniocaudal and mediolateral oblique views of each breast recorded using digital acquisition and breast tomosynthesis. True lateral images of the right breast acquired with tomosynthesis. Read with the assistance of CAD: .[employer] Program Checker Version 9.2 LIMITATIONS: None. FINDINGS: RIGHT BREAST MASSES: No suspicious masses. CALCIFICATIONS: No new or suspicious calcifications. ARCHITECTURAL DISTORTION: None. ASYMMETRY: None noted. OTHER: On the lateral image, there does appear to be a focal nodule in the subcutaneous tissues of th e upper abdominal wall, inferior and separate from the right breast. LEFT BREAST MASSES: No suspicious masses. CALCIFICATIONS: No new or suspicious calcifications. ARCHITECTURAL DISTORTION: None. ASYMMETRY: None noted. OTHER: No other significant finding. BREAST ULTRASOUND: TECHNIQUE: Static and dynamic grayscale images acquired of the right breast in the specific areas of clinical/mammographic concern, retroareolar breast and palpable area in the 6 o'clock location. Selec ghulam color Doppler images recorded. ELASTOGRAPHY PERFORMED: No. LIMITATIONS: None. FINDINGS: MASS: No mass identified. Normal glandular tissue. ELASTOGRAPHY CHARACTERISTICS: Not applicable. OTHER: No other significant finding. IMPRESSION: Negative bilateral mammogram and right breast ultrasound. No worrisome findings. BREAST DENSITY: c. The breasts are heterogeneously dense, which may obscure small masses. BIRAD: ASSESSMENT: 1 Negative. RECOMMENDATION: RECOMMENDED FOLLOW UP: Birads 1 or 2: No breast imaging finding to explain the patie nt's presenting complaint. Further intervention should be based on the degree of clinical suspicion. SPECIFIC INTERVENTION/IMAGING/CONSULTATION RECOMMENDED:No additional intervention/ imaging/consultati on needed at this time. COMMUNICATION:The imaging findings were not discussed with the patient. Her referring provider has be en notified of the findings. COMMENT: The patient has been notified of the results by letter per MQSA requirements. Additional no tification policies are in place for contacting patient with suspicious or incomplete findings. Quality ID #225: The [employer] recommends an annual screening mammogram for women aged 40 years or over. This facility utilizes a reminder system to ensure that all patients receive reminder letters, and/or direct phone calls for appointments. This includes reminders for routine scr eening mammograms, diagnostic mammograms, or other Breast Imaging Interventions when appropriate. Th is patient will be placed in the appropriate reminder system. TECHNICAL DOCUMENTATION: FINDING NUMBER: (1) ASSESSMENT: (1) JOB ID: [id number] 2010 [employer]- All Rights Reserved Reading location - IP/workstation name: [email or web address]
== END ==
LOC: WI 12:10
PROVIDERS: ATTEND Physician Assistant
DX: N63.41 Unspecified lump in right breast, subareolar (principal); N64.52 Nipple discharge
CPT/HCPCS: 76642; 77066; G0279; 77062

== ENCOUNTER 2020-02-13 13:36 | Emergency (ER) | payer MEDICARE, MEDICAID ==
[2020-02-13] MEDS ORDERED: LIDOCAINE 2% VISCOUS SOLN 15 ML UDCUP PO ONE (14:20)
--- NOTE | 2020-02-13 14:22 | RADIOLOGY REPORT (SQ) ---
EXAM DESCRIPTION: CHEST SINGLE VIEW IMAGES COMPLETED DATE/TIME: 02/13/2020 12:59 pm REASON FOR STUDY: bed 7 chest pain COMPARISON: 07/31/2019 EXAM PARAMETERS: NUMBER OF VIEWS: One view. TECHNIQUE: Single frontal radiographic view of the chest acquired. RADIATION DOSE: NA LIMITATIONS: None. FINDINGS: LUNGS AND PLEURA: No opacities, masses or pneumothorax. No pleural effusion. MEDIASTINUM AND HILAR STRUCTURES: No masses. Contour normal. HEART AND VASCULAR STRUCTURES: Heart normal in size. Normal vasculature. BONES: No acute findings. HARDWARE: Spinal stimulator wire with stable appearance compared with prior examination. OTHER: No other significant finding. IMPRESSION: No acute cardiopulmonary disease. TECHNICAL DOCUMENTATION: JOB ID: [id number] 2010 [employer]- All Rights Reserved Reading location - IP/workstation name: [email or web address]
[2020-02-13 14:45] LABS: ABSOLUTE BASOPHILS # (AUTO) 0.1 10^3/uL (0.0-0.2); ABSOLUTE EOSINOPHILS # (AUTO) 0.3 10^3/uL (0.0-0.6); ABSOLUTE LYMPHOCYTES (AUTO) 3.6 10^3/uL (0.5-4.7); ABSOLUTE MONOCYTES (AUTO) 0.8 10^3/uL (0.1-1.4); ABSOLUTE NEUT (AUTO) 3.2 10^3/uL (1.7-8.2); BASOPHILS % (AUTO) 1.3 % (0-2); EOSINOPHILS % (AUTO) 3.4 % (0-6); HEMATOCRIT 32.6 % (36.0-47.0); HEMOGLOBIN 11.1 g/dL (12.0-15.5); LYMPHOCYTES % (AUTO) 45.2 % (13-45); MEAN CORPUSCULAR HEMOGLOBIN 30.2 pg (27.0-33.4); MEAN CORPUSCULAR HGB CONC 34.2 g/dL (32.0-36.0); MEAN CORPUSCULAR VOLUME 88 fl (80-97); MONOCYTES % (AUTO) 10.1 % (3-13); PLATELET COUNT 370 10^3/uL (150-450); RED BLOOD COUNT 3.69 10^6/uL (3.72-5.28); RED CELL DISTRIBUTION WIDTH 13.5 % (11.5-14.0); TOTAL CELLS COUNTED % (AUTO) 100 %; WHITE BLOOD COUNT 7.9 10^3/uL (4.0-10.5)
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
[2020-02-13] MEDS ORDERED: LIDOCAINE 2% INJ-PF (20 MG/ML) 10 ML AMPUL NEB ONE (14:56)
[2020-02-13 15:03] LABS: ALBUMIN 4.4 g/dL (3.5-5.0); ALKALINE PHOSPHATASE 98 U/L (38-126); ANION GAP 12 (5-19); ASPARTATE AMINO TRANSFERASE 41 U/L (14-36); BILIRUBIN,TOTAL 0.3 mg/dL (0.2-1.3); BLOOD UREA NITROGEN 14 mg/dL (7-20); CALCIUM 9.5 mg/dL (8.4-10.2); CARBON DIOXIDE 26 mmol/L (22-30); CHLORIDE 102 mmol/L (98-107); CREATINE KINASE 79 U/L (30-135); GLUCOSE 147 mg/dL (75-110); POTASSIUM 4.1 mmol/L (3.6-5.0); TOTAL PROTEIN 7.8 g/dL (6.3-8.2)
[2020-02-13 15:14] LABS: CREATINE KINASE MB 0.39 ng/mL (<4.55)
[2020-02-13 15:16] LABS: TROPONIN I < 0.012 ng/mL
[2020-02-13] MEDS: NITROGLYCERIN 0.4 MG/TAB 25 TAB/BOTTLE SL PRN ×2 (16:17→16:22)
[2020-02-13 16:23] LABS: A TYPE INFLUENZA AG NEGATIVE (NEGATIVE); B INFLUENZA AG NEGATIVE (NEGATIVE)
[2020-02-13] MEDS ORDERED: LIDOCAINE 5% (700 MG) TRANSDERMAL ADH..PATCH TP ONE (18:36)
--- NOTE | 2020-02-13 18:41 | RADIOLOGY REPORT (SQ) ---
EXAM DESCRIPTION: CTA CHEST IMAGES COMPLETED DATE/TIME: 02/13/2020 5:18 pm REASON FOR STUDY: left sided chest pain, SOB, r/o PE COMPARISON: None. TECHNIQUE: CT scan of the chest performed using helical scanning technique with dynamic intravenous contrast injection. Images reviewed with lung, soft tissue and bone windows. Reconstructed coronal and sagittal MPR images reviewed. Additional 3 dimensional post-processing performed to develop Maximal Intensity Projection images ([place] P). All images stored on PACS. All CT scanners at this facility use dose modulation, iterative reconstruction, and/or weight based d osing when appropriate to reduce radiation dose to as low as reasonably achievable (ALARA). [facility]: Dose Right [facility]: CareDose [facility]: Dose Right [facility]: Teradose 4D [facility]: [email or web address] CONTRAST TYPE AND DOSE: contrast/concentration: Isovue 350.00 mg/ml; Total Contrast Delivered: 99.0 ml; Total Saline Delivered: 66.0 ml Contrast bolus optimized for the pulmonary arteries. Not diagnostic for the aorta. RENAL FUNCTION: GFR > 60. RADIATION DOSE: CT Rad equipment meets quality standard of care and radiation dose reduction techniq ues were employed. CTDIvol: 14.4 - 19.8 mGy. DLP: 422 mGy-cm. . LIMITATIONS: None. FINDINGS: LUNGS AND PLEURA: Trachea has normal caliber and appearance. No bronchial wall thickening or bronchiectasis. Minimal dependent atelectasis at the lung bases. No focal consolidation or pleu ral effusion. No significant ground-glass attenuation. AORTA AND GREAT VESSELS: No aneurysm. Contrast bolus not optimized for the aorta. HEART: No pericardial effusion. No significant coronary artery calcifications. PULMONARY ARTERIES: No emboli visualized in the main pulmonary arteries or the segmental branches. HILAR AND MEDIASTINAL STRUCTURES: No identified masses or abnormal nodes. HARDWARE: None in the chest. UPPER ABDOMEN: Moderate hepatic steatosis. THYROID AND OTHER SOFT TISSUES: No masses. No adenopathy. BONES: No acute or significant finding. 3D MIPS: Confirm above findings. OTHER: No other significant finding. IMPRESSION: 1. No pulmonary embolism. No acute pulmonary disease. 2. Moderate hepatic steatosis. COMMENT: Quality ID # [id number]: Final reports with documentation of one or more dose reduction techniques (e.g., Automated exposure control, adjustment of the mA and/or kV according to patient size, use of iterative reconstruction technique) TECHNICAL DOCUMENTATION: JOB ID: [id number] 2011 [employer]- All Rights Reserved Reading location - IP/workstation name: [email or web address]
[2020-02-13] MEDS ORDERED: ALBUTEROL SULFATE HFA (90 MCG/PUFF) 8 GM MDI IH ONE (19:52)
[2020-02-13 20:10] VITALS: BP 129/95
--- NOTE | 2020-02-14 07:19 | EKG REPORT ---
SEVERITY:- ABNORMAL ECG - SINUS TACHYCARDIA LVH WITH SECONDARY REPOLARIZATION ABNORMALITY : Confirmed by: Todd Zurita MD 14-Feb-2020 07:18:41
== END 2020-02-13 20:28 | disposition home or self-care (01) ==
LOC: ER 13:36
DX: R07.81 Pleurodynia (principal); M79.602 Pain in left arm; R05 Cough; J04.0 Acute laryngitis; J45.909 Unspecified asthma, uncomplicated; T48.6X6A Underdosing of antiasthmatics, initial encounter; Z91.128 Patient's intentional underdosing of medication regimen for other reason; Z91.14 Patient's other noncompliance with medication regimen; D64.9 Anemia, unspecified; R74.0 Nonspecific elevation of levels of transaminase and lactic acid dehydrogenase [LDH]; R07.0 Pain in throat; R50.9 Fever, unspecified; R53.81 Other malaise; R10.816 Epigastric abdominal tenderness; R06.02 Shortness of breath; R00.0 Tachycardia, unspecified; I11.9 Hypertensive heart disease without heart failure; E11.9 Type 2 diabetes mellitus without complications; R07.1 Chest pain on breathing; Z87.01 Personal history of pneumonia (recurrent); Z85.3 Personal history of malignant neoplasm of breast; Z87.892 Personal history of anaphylaxis; Z88.8 Allergy status to other drugs, medicaments and biological substances; Z91.030 Bee allergy status; Z88.1 Allergy status to other antibiotic agents; Z88.0 Allergy status to penicillin; Z91.038 Other insect allergy status; Z88.6 Allergy status to analgesic agent; Z88.2 Allergy status to sulfonamides; Z20.828 Contact with and (suspected) exposure to other viral communicable diseases
CPT/HCPCS: 93005; 94640; 99285; 36415; 87070; 82553; 87880; 82550; 83690; 85025; 80053; 84484; 87804; 71045; 71275; 93010; U0003; J3490 ×2; A9270 ×3; 87635

== ENCOUNTER 2020-02-18 05:17 | Emergency (ER) | payer MEDICARE, MEDICAID ==
[2020-02-18] MEDS ORDERED: NORMAL SALINE 1000 ML 1,000 ML IV ONE (05:41)
--- NOTE | 2020-02-18 05:43 | ER Document Report ---
ED Medical Screen (RME) - General Chief Complaint: Cough Stated Complaint: COUGH Primary Care Provider: DENYS MCGRAW PA [Primary Care Provider] - Follow up as needed Notes: 54-year-old female that reports sick symptoms for the past week. She states initially she had a cough, sore throat, and fever, however this resolved except for a worsening cough over the past day or so, she reports pain with cough both in her chest and in her abdomen. She also states she started vomiting over the past day, vomited 7 times, had a couple of loose stools. No recent fever. She states she was called and told she was positive for the coronavirus after being tested here and tested again at Dr. Yeager's office. She comes by EMS. She reports history of asthma, borderline diabetes, fibromyalgia, anxiety/depression. TRAVEL OUTSIDE OF THE [place] IN LAST 30 DAYS: No - Related Data Allergies/Adverse Reactions: aspirin [Aspirin] Allergy (Severe, Verified 08/30/19 16:56) Anaphylaxis bee venom protein (honey bee) Allergy (Severe, Verified 08/30/19 16:56) Anaphylaxis cephalexin Allergy (Severe, Verified 08/30/19 16:56) Anaphylaxis ciprofloxacin [From Cipro] Allergy (Severe, Verified 08/30/19 16:56) Anaphylaxis doxycycline Allergy (Severe, Verified 08/30/19 16:56) Anaphylaxis fluoxetine Allergy (Severe, Verified 08/30/19 16:56) Hallucinations meloxicam [From Mobic] Allergy (Severe, Verified 08/30/19 16:56) Anaphylaxis penicillamine Allergy (Severe, Verified 08/30/19 16:56) Anaphylaxis tramadol Allergy (Severe, Verified 08/30/19 16:56) Anaphylaxis diclofenac Allergy (Intermediate, Verified 08/30/19 16:56) Hives NSAIDS (Non-Steroidal Anti-Inflamma [Nsaids] Allergy (Intermediate, Verified 08/30/19 16:56) VOMITING Sulfa (Sulfonamide Antibiotics) Allergy (Intermediate, Verified 08/30/19 16:56) VOMITING Penicillins Allergy (Unknown, Verified 08/30/19 16:56) wasp Allergy (Severe, Uncoded 08/30/19 16:56) Anaphylaxis Past Medical History - Past Medical History Cardiac Medical History: Reports: Hx Hypercholesterolemia, Hx Hypertension, Hx Heart Murmur Denies: Hx Atrial Fibrillation, Hx Congestive Heart Failure, Hx Coronary Artery Disease, Hx DVT, Hx Heart Attack, Hx Peripheral Vascular Disease, Hx Pulmonary Embolism Pulmonary Medical History: Reports: Hx Asthma, Hx Pneumonia Denies: Hx COPD, Hx Sleep Apnea Neurological Medical History: Reports: Hx Migraine, Hx Seizures - last seizure 2005 NOT ON MEDS. Denies: Hx Cerebrovascular Accident Endocrine Medical History: Reports: Hx Diabetes Mellitus Type 2 - On metformin. 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 Denies: Hx Cirrhosis, Hx Crohn's Disease, Hx Hepatitis, Hx Hiatal Hernia, Hx Ulcer, Hx Ulcerative Colitis Musculoskeltal Medical History: Reports Hx Fibromyalgia, Reports Hx Musculoskeletal Deformity, Reports Hx Musculoskeletal Trauma Skin Medical History: Denies Hx Eczema, Denies Hx Psoriasis Psychiatric Medical History: Reports: Hx Depression Traumatic Medical History: Reports: Hx Fractures - left arm wrist hand, Hx Traumatic Brain Injury Infectious Medical History: Denies: Hx Hepatitis Past Surgical History: Reports: Hx Breast Surgery - lumpectomy R breast; ducts removed from bilateral breasts, Hx Hysterectomy, Hx Neurologic Surgery - tbi, spinal fusion in 2005, spinal nerve stimulator early 2015, Hx Orthopedic Surgery - left arm ulnar nerve, wrist and left knee, Other - Breast lumpectomy for ductal carcinoma. Denies: Hx Mastectomy, Hx Open Heart Surgery, Hx Pacemaker - Immunizations Immunizations up to date: Yes Hx Diphtheria, Pertussis, Tetanus Vaccination: Yes Physical Exam - Respiratory Respiratory status: No: Respiratory distress Breath sounds: Other - Occasional dry coarse cough, clear lungs, no tachypnea, speaks in full sentences Course - Re-evaluation Re-evalutation: Patient's recent visit reviewed and patient was actually negative for COVID-19 at that time. I have greeted and performed a rapid initial assessment of this patient. A comprehensive ED assessment and evaluation of the patient, analysis of test results and completion of the medical decision making process will be conducted by additional ED providers. Doctor's Discharge - Discharge Referrals: DENYS MCGRAW PA [Primary Care Provider] - Follow up as needed
[2020-02-18 05:55] LABS: ABSOLUTE BASOPHILS # (AUTO) 0.1 10^3/uL (0.0-0.2); ABSOLUTE LYMPHOCYTES (AUTO) 2.6 10^3/uL (0.5-4.7); ABSOLUTE MONOCYTES (AUTO) 0.7 10^3/uL (0.1-1.4); ABSOLUTE NEUT (AUTO) 6.6 10^3/uL (1.7-8.2); BASOPHILS % (AUTO) 1.2 % (0-2); EOSINOPHILS % (AUTO) 0.1 % (0-6); MEAN CORPUSCULAR HEMOGLOBIN 29.4 pg (27.0-33.4); MEAN CORPUSCULAR HGB CONC 33.4 g/dL (32.0-36.0); MEAN CORPUSCULAR VOLUME 88 fl (80-97); MONOCYTES % (AUTO) 7.2 % (3-13); PLATELET COUNT 448 10^3/uL (150-450); RED BLOOD COUNT 3.75 10^6/uL (3.72-5.28); RED CELL DISTRIBUTION WIDTH 13.8 % (11.5-14.0); SEGMENTED NEUTROPHILS % (AUTO) 65.5 % (42-78); TOTAL CELLS COUNTED % (AUTO) 100 %
[2020-02-18 06:04] LABS: ALBUMIN 4.8 g/dL (3.5-5.0); ALKALINE PHOSPHATASE 88 U/L (38-126); ANION GAP 13 (5-19); ASPARTATE AMINO TRANSFERASE 32 U/L (14-36); BILIRUBIN,TOTAL 0.3 mg/dL (0.2-1.3); BLOOD UREA NITROGEN 14 mg/dL (7-20); CALCIUM 9.8 mg/dL (8.4-10.2); CARBON DIOXIDE 26 mmol/L (22-30); CHLORIDE 99 mmol/L (98-107); GLUCOSE 207 mg/dL (75-110); POTASSIUM 4.6 mmol/L (3.6-5.0); TOTAL PROTEIN 8.5 g/dL (6.3-8.2)
[2020-02-18 06:31] LABS: APPEARANCE,URINE SLIGHTLY-CLOUDY; BILIRUBIN,URINE NEGATIVE (NEGATIVE); COLOR,URINE YELLOW; GLUCOSE, URINE 50 mg/dL (NEGATIVE); KETONES,URINE NEGATIVE (NEGATIVE); LEUKOCYTE ESTERASE,URINE NEGATIVE (NEGATIVE); NITRITE,URINE NEGATIVE (NEGATIVE); PROTEIN,URINE NEGATIVE (NEGATIVE); URINE SPECIFIC GRAVITY 1.017; UROBILINOGEN,URINE NEGATIVE mg/dL (<2.0)
--- NOTE | 2020-02-18 07:00 | RADIOLOGY REPORT (SQ) ---
EXAM DESCRIPTION: XR CHEST 1 VIEW COMPLETED DATE/TME: 02/18/2020 05:41 CLINICAL HISTORY: 54 years Female, worsening cough COMPARISON: 02/13/20 NUMBER OF VIEWS/TECHNIQUE: 1/AP FINDINGS: Minimal linear atelectasis or scar of the left midlung field.Normal cardiac silhouette size. No pneumothorax. Stable bony thorax. Midthoracic stimulation leads. IMPRESSION: No significant change.
[2020-02-18] MEDS ORDERED: RACEPINEPHRINE HCL 2.25% NEB 0.5 ML AMPUL NEB ONE (07:13)
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
[2020-02-18] MEDS ORDERED: BENZONATATE 100 MG CAPSULE PO ONE (07:19)
[2020-02-18] MEDS ORDERED: DEXAMETHASONE SOD PHOS INJ 10 MG/1 ML VIAL IV ONE (07:19)
[2020-02-18] MEDS ORDERED: FENTANYL CITRATE INJ/PF 100 MCG/2 ML AMPUL IV ONE (07:20)
[2020-02-18] MEDS ORDERED: CLONIDINE HCL 0.1 MG TABLET PO ONE (07:27)
--- NOTE | 2020-02-18 07:40 | EKG REPORT ---
SEVERITY:- BORDERLINE ECG - SINUS RHYTHM BORDERLINE PROLONGED QT INTERVAL : Confirmed by: Todd Zurita MD 18-Feb-2020 07:39:39
--- NOTE | 2020-02-18 08:48 | RADIOLOGY REPORT (SQ) ---
EXAM DESCRIPTION: CTA CHEST IMAGES COMPLETED DATE/TIME: 02/18/2020 8:37 am REASON FOR STUDY: tachypnea arreola + per pt COMPARISON: None. TECHNIQUE: CT scan of the chest performed using helical scanning technique with dynamic intravenous contrast injection. Images reviewed with lung, soft tissue and bone windows. Reconstructed coronal and sagittal MPR images reviewed. Additional 3 dimensional post-processing performed to develop Maximal Intensity Projection images (NH P). All images stored on PACS. All CT scanners at this facility use dose modulation, iterative reconstruction, and/or weight based d osing when appropriate to reduce radiation dose to as low as reasonably achievable (ALARA). [facility]: Dose Right [facility]: CareDose [facility]: Dose Right [facility]: Teradose 4D [facility]: Delectable CONTRAST TYPE AND DOSE: contrast/concentration: Isovue 350.00 mg/ml; Total Contrast Delivered: 60.0 ml; Total Saline Delivered: 70.0 ml Contrast bolus adequate for pulmonary arteries and aorta. RENAL FUNCTION: BUN 14, creatinine 1.05 RADIATION DOSE: CT Rad equipment meets quality standard of care and radiation dose reduction techniq ues were employed. CTDIvol: 13.2 - 15.5 mGy. DLP: 511 mGy-cm. . LIMITATIONS: None. FINDINGS: LUNGS AND PLEURA: Minimal atelectasis in the left base. No consolidation. No effusions. AORTA AND GREAT VESSELS: No aneurysm. Contrast bolus not optimized for the aorta. HEART: No pericardial effusion. No significant coronary artery calcifications. PULMONARY ARTERIES: No emboli visualized in the main pulmonary arteries or the segmental branches. HILAR AND MEDIASTINAL STRUCTURES: No identified masses or abnormal nodes. HARDWARE: None in the chest. UPPER ABDOMEN: Unchanged. Fatty infiltrated liver. THYROID AND OTHER SOFT TISSUES: No masses. No adenopathy. BONES: No acute or significant finding. 3D MIPS: Confirm above findings. OTHER: No other significant finding. IMPRESSION: Minimal left basilar atelectasis. No consolidation. No pulmonary emboli. COMMENT: Quality ID # [id number]: Final reports with documentation of one or more dose reduction techniques (e.g., Automated exposure control, adjustment of the mA and/or kV according to patient size, use of iterative reconstruction technique) TECHNICAL DOCUMENTATION: JOB ID: [id number] 2010 [employer]- All Rights Reserved Reading location - IP/workstation name: [email or web address]
[2020-02-18 09:35] VITALS: BP 150/74
== END 2020-02-18 10:26 | disposition home or self-care (01) ==
LOC: ER 05:17
DX: J20.9 Acute bronchitis, unspecified (principal); I10 Essential (primary) hypertension; R05 Cough; M54.5 Low back pain; R11.2 Nausea with vomiting, unspecified; R19.7 Diarrhea, unspecified; E78.00 Pure hypercholesterolemia, unspecified; E11.9 Type 2 diabetes mellitus without complications; Z88.6 Allergy status to analgesic agent; Z88.0 Allergy status to penicillin; Z88.2 Allergy status to sulfonamides; Z79.84 Long term (current) use of oral hypoglycemic drugs; Z85.3 Personal history of malignant neoplasm of breast
CPT/HCPCS: 93005; 94640; 99291; 99292; 96361; 96374; 96375; 36415; 83690; 85025; 80053; 81001; 71045; 71275; 93010; A9270 ×2; J3010; J7030; J1100; J3490

== ENCOUNTER 2020-03-01 06:11 | Inpatient (IN) | payer MEDICARE, MEDICAID ==
[2020-03-01] MEDS ORDERED: NORMAL SALINE 1000 ML 1,000 ML IV ONE ×3 (06:35→17:30)
[2020-03-01] MEDS ORDERED: DEXTROSE 5%-WATER 250 ML with NOREPINEPHRINE BITARTRATE 4 MG IV PRN ×2 (06:36)
[2020-03-01 06:55] LABS: INTERNATIONAL RATION (INR) 1.03; PROTHROMBIN TIME 13.5 SEC (11.4-15.4)
[2020-03-01 07:02] LABS: ABSOLUTE BASOPHILS # (AUTO) 0.1 10^3/uL (0.0-0.2); ABSOLUTE EOSINOPHILS # (AUTO) 0.1 10^3/uL (0.0-0.6); ABSOLUTE LYMPHOCYTES (AUTO) 2.8 10^3/uL (0.5-4.7); ABSOLUTE MONOCYTES (AUTO) 0.8 10^3/uL (0.1-1.4); ABSOLUTE NEUT (AUTO) 12.3 10^3/uL (1.7-8.2); BASOPHILS % (AUTO) 0.7 % (0-2); EOSINOPHILS % (AUTO) 0.4 % (0-6); HEMATOCRIT 30.7 % (36.0-47.0); HEMOGLOBIN 9.7 g/dL (12.0-15.5); LYMPHOCYTES % (AUTO) 17.3 % (13-45); MEAN CORPUSCULAR HEMOGLOBIN 28.7 pg (27.0-33.4); MEAN CORPUSCULAR HGB CONC 31.5 g/dL (32.0-36.0); MONOCYTES % (AUTO) 5.1 % (3-13); PLATELET COUNT 308 10^3/uL (150-450); RED BLOOD COUNT 3.38 10^6/uL (3.72-5.28); RED CELL DISTRIBUTION WIDTH 14.8 % (11.5-14.0); SEGMENTED NEUTROPHILS % (AUTO) 76.5 % (42-78); TOTAL CELLS COUNTED % (AUTO) 100 %
[2020-03-01 07:03] LABS: MEAN CORPUSCULAR VOLUME 91 fl (80-97)
[2020-03-01 07:08] LABS: ALBUMIN 3.8 g/dL (3.5-5.0); ALCOHOL < 10 mg/dL (NONE DETECTED); ALKALINE PHOSPHATASE 86 U/L (38-126); ANION GAP 14 (5-19); ASPARTATE AMINO TRANSFERASE 148 U/L (14-36); BILIRUBIN,TOTAL 0.3 mg/dL (0.2-1.3); BLOOD UREA NITROGEN 11 mg/dL (7-20); CALCIUM 8.4 mg/dL (8.4-10.2); CARBON DIOXIDE 24 mmol/L (22-30); CHLORIDE 98 mmol/L (98-107); GLUCOSE 341 mg/dL (75-110); TOTAL PROTEIN 6.5 g/dL (6.3-8.2)
[2020-03-01 07:19] LABS: TROPONIN I 0.057 ng/mL
--- NOTE | 2020-03-01 07:45 | ER Document Report ---
ED General - General Chief Complaint: Cardiac Arrest Stated Complaint: POST CARDIAC ARREST Primary Care Provider: DENYS MCGRAW PA [Primary Care Provider] - Follow up as needed Mode of Arrival: Medic Information source: Emergency Med Personnel TRAVEL OUTSIDE OF THE [place] IN LAST 30 DAYS: No - HPI Notes: Patient presents post cardiac arrest. Patient was brought in by ambulance. History per paramedics was that patient would not wake up this morning. Family moved the patient off of the bed onto the floor and began CPR. Medics state they found the patient without any spontaneous respirations or movement and in a PEA rhythm. They state that after 3 rounds of epi and ACLS she had a sinus tachycardia. They states she began to breathe on her own. They placed a gel airway and had good sats and CO2. Patient maintaining sinus tachycardia throug hout with spontaneous respirations of about 17-minute per paramedics. She had no other spontaneous movements. When patient arrives to the room she immediately transferred to the bed. She is unresponsive and unable to contribute to history. Patient's symptoms are obviously constant. They are sev ere. They were made better with ACLS and worse before it was started. - Related Data Allergies/Adverse Reactions: aspirin [Aspirin] Allergy (Severe, Verified /18/ 16:56) Anaphylaxis bee venom protein (honey bee) Allergy (Severe, Verified 08/30/19 16:56) Anaphylaxis cephalexin Allergy (Severe, Verified 08/30/19 16:56) Anaphylaxis ciprofloxacin [From Cipro] Allergy (Severe, Verified 08/30/19 16:56) Anaphylaxis doxycycline Allergy (Severe, Verified 08/30/19 16:56) Anaphylaxis fluoxetine Allergy (Severe, Verified 08/30/19 16:56) Hallucinations meloxicam [From Mobic] Allergy (Severe, Verified 08/30/19 16:56) Anaphylaxis penicillamine Allergy (Severe, Verified 08/30/19 16:56) Anaphylaxis tramadol Allergy (Severe, Verified 08/30/19 16:56) Anaphylaxis diclofenac Allergy (Intermediate, Verified 08/30/19 16:56) Hives NSAIDS (Non-Steroidal Anti-Inflamma [Nsaids] Allergy (Intermediate, Verified 08/30/19 16:56) VOMITING Sulfa (Sulfonamide Antibiotics) Allergy (Intermediate, Verified 08/30/19 16:56) VOMITING Penicillins Allergy (Unknown, Verified 08/30/19 16:56) wasp Allergy (Severe, Uncoded 08/30/19 16:56) Anaphylaxis Past Medical History - General Information source: Emergency Med Personnel - Social History Smoking Status: Never Smoker - That is known Frequency of alcohol use: None - Known Drug Abuse: None - None known Family History: Arthritis, DM, Hypertension, Malignancy, Thyroid Disfunction - Past Medical History Cardiac Medical History: Reports: Hx Hypercholesterolemia, Hx Hypertension, Hx Heart Murmur Denies: Hx Atrial Fibrillation, Hx Congestive Heart Failure, Hx Coronary Artery Disease, Hx DVT, Hx Heart Attack, Hx Peripheral Vascular Disease, Hx Pulmonary Embolism Pulmonary Medical History: Reports: Hx Asthma, Hx Pneumonia Denies: Hx COPD, Hx Sleep Apnea Neurological Medical History: Reports: Hx Migraine, Hx Seizures - last seizure 2005 NOT ON MEDS. Denies: Hx Cerebrovascular Accident Endocrine Medical History: Reports: Hx Diabetes Mellitus Type 2 - On metformin. 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 Denies: Hx Cirrhosis, Hx Crohn's Disease, Hx Hepatitis, Hx Hiatal Hernia, Hx Ulcer, Hx Ulcerative Colitis Musculoskeletal Medical History: Reports Hx Fibromyalgia, Reports Hx Musculoskeletal Deformity, Reports Hx Musculoskeletal Trauma Skin Medical History: Denies Hx Eczema, Denies Hx Psoriasis Psychiatric Medical History: Reports: Hx Depression Traumatic Medical History: Reports: Hx Fractures - left arm wrist hand, Hx Traumatic Brain Injury Infectious Medical History: Denies: Hx Hepatitis Past Surgical History: Reports: Hx Breast Surgery - lumpectomy R breast; ducts removed from bilateral breasts, Hx Hysterectomy, Hx Neurologic Surgery - tbi, spinal fusion in 2005, spinal nerve stimulator early 2015, Hx Orthopedic Surgery - left arm ulnar nerve, wrist and left knee, Other - Breast lumpectomy for ductal carcinoma. Denies: Hx Mastectomy, Hx Open Heart Surgery, Hx Pacemaker - Immunizations Immunizations up to date: Yes Hx Diphtheria, Pertussis, Tetanus Vaccination: Yes Review of Systems - Review of Systems -: Yes ROS unobtainable due to patient's medical condition - Cannot obtain review of symptoms due to being unresponsive Physical Exam - Vital signs Vitals: Resp Pulse Ox 9 L 77 L 03/01/20 06:12 03/01/20 06:12 Interpretation: Hypotensive, Tachycardic - General General appearance: Unresponsive In distress: Severe - HEENT Head: Normocephalic, Atraumatic Eyes: Normal Pupils: Fixed Mouth/Lips: Other - Face and nose were covered with vomitus and secretions Mucous membranes: Moist Pharynx: Normal - Respiratory Respiratory status: Respiratory distress Chest status: No: Chest mass, Ecchymosis Breath sounds: Decreased air movement Chest palpation: Normal - Cardiovascular Rhythm: Tachycardia Heart sounds: Normal auscultation Murmur: No - Abdominal Inspection: Obese Distension: Distended Bowel sounds: Hypoactive Organomegaly: No organomegaly - Back Back: Normal - Extremities General upper extremity: Normal inspection, Normal color, Other - Upper and lower extremities are cool to touch General lower extremity: Normal inspection, Normal color. No: Los's sign - Neurological Neuro grossly intact: No Aide Coma Scale Eye Opening: None [place] Coma Scale Verbal: None [place] Coma Scale Motor: None Aide Coma Scale Total: 3 - Psychological Associated symptoms: Depressed, Uncooperative - Skin Skin Temperature: Cool Skin Moisture: Dry Skin Color: Normal Course - Re-evaluation Re-evalutation: 03/01/20 07:51 Once patient was placed on the bed we exchange the gel airway for an oral airway. Dr. Hendricks managed the airway. She was intubated on the second attempt with a 7.5 ETT tube. She did have 1 brief desaturation to about 50% however she was able to be bagged back up to 100% readily. Otherwise there is no complications from the intubation. Initially the cords could be seen but the ETT tube could not be threaded which is why took 2 attempts. In between attempts is 1 patient was bagged. Patient was noticed to be hypotensive and was started on Levophed. She was also started on fluid resuscitation. She had no spontaneous movements. Chest x-ray showed the endotracheal tube to be in the right mainstem and was pulled back. No obvious infiltrates. EKG shows sinus tachycardia without obvious ischemia. At this time the cause of the cardiac arrest is not apparent. 03/01/20 08:22 Patient rechecked. Pupils are still fixed in about 2 to 3 mm which is what they have been since arrival. She still has no significant spontaneous movements. She is having some spontaneous respirations however. The cause of the arrest is still not apparent. Her head CT is unremarkable at this time. I have spoken with the guide dog mobility instructor. Patient's blood pressure has come up with levo fed and it is being titrated down. - Vital Signs Vital signs: Temp Pulse Resp BP Pulse Ox 25 H 132/103 H 100 03/01/20 08:10 03/01/20 08:10 03/01/20 08:10 - Laboratory Result Diagrams: 03/01/20 06:26 03/01/20 06:26 Laboratory results interpreted by me: 03/01/20 03/01/20 03/01/20 06:26 06:26 06:26 WBC 16.0 H RBC 3.38 L Hgb 9.7 L Hct 30.7 L MCHC 31.5 L RDW 14.8 H Absolute Neuts (auto) 12.3 H Sodium 136.4 L Creatinine 1.33 H Est GFR ( Amer) 50 L Est GFR (MDRD) Non-Af 41 L Glucose 341 H Lactic Acid 7.5 H AST 148 H ALT 116 H - EKG Interpretation by Me EKG shows normal: Sinus rhythm Rate: Tachycardia - 112 Rhythm: NSR [place]/QRS: No: Right axis deviation, Left axis deviation Procedures - Intubation Orotracheal Time of Intubation: 06:20 Airway evaluation: Copious secretions, Large tongue, Obese Medications: Etomidate, Succinylcholine Intubation method: Orotracheal Blade type: Palomares Blade size: 4 Equipment used: Glidescope ETT size: 7.5 ETT secured at: Teeth ETT secured at (cm): 23 Breath Sounds after Intubation: Equal End tidal CO2 confirmed: Yes Post Intubation Xray: Yes - too low, pulled back Intubation Complications: Oral-unsuccessful attempt, O2 saturation decreased Notes: 03/01/20 08:[address] Velázquez, I was assisting and helping to run other parts of code (meds, obtaining equipment, etc...) Critical Care Note - Critical Care Note Total time excluding time spent on procedures (mins): 60 Comments: Approximately 60 minutes of critical care time were spent on this post cardiac arrest patient. This was spent reviewing old records. It was spent talking wit h family. It was spent talking with datastage consultant. It was spent doing multiple rechecks as well as reviewing imaging and laboratories. Discharge - Discharge Clinical Impression: Cardiac arrest Condition: Critical Disposition: ADMITTED INPATIENT Admitting Provider: Adriano ([facility]) Unit Admitted: ICU Referrals: DENYS MCGRAW PA [Primary Care Provider] - Follow up as needed
[2020-03-01 07:49] LABS: URINE AMPHETAMINES SCREEN NEGATIVE; URINE BARBITURATES SCREEN NEGATIVE; URINE BENZODIAZEPINES SCREEN NEGATIVE; URINE COCAINE SCREEN NEGATIVE; URINE MARIJUANA (THC) SCREEN NEGATIVE; URINE METHADONE SCREEN NEGATIVE; URINE PHENCYCLIDINE SCREEN NEGATIVE
--- NOTE | 2020-03-01 07:49 | EKG REPORT ---
SEVERITY:- BORDERLINE ECG - SINUS TACHYCARDIA BORDERLINE PROLONGED QT INTERVAL : Confirmed by: Dona Weber MD 01-Mar-2020 07:48:03
--- NOTE | 2020-03-01 08:03 | RADIOLOGY REPORT (SQ) ---
Chest 2 view on 03/01/2020 at 7:02 AM CLINICAL INDICATION: ET tube and NG tube placement COMPARISON: 02/18/2020 FINDINGS: Two separate images were obtained with the earlier exam dated timed at 6:53 AM and the later exam at 7:02 AM. On the initial film the patient's ET tube extended into the right main bronchus. On the final film the ET tube has been retracted with its tip in the lower thoracic trachea approximately 2.1 cm above the level of the eric although the eric is not optimally visualized on the final exam. The initial study shows significant gastric distention and no NG tube. The final study shows an NG tube extending into the stomach and below the level of the film with resolution of the gastric distention. Heart is upper limits normal for size. There is left perihilar opacity consistent with pneumonia, atelectasis and/or asymmetric edema. IMPRESSION: Final image shows ET tube and NG tube in good position. There is left-sided opacity consistent with pneumonia, atelectasis and/or asymmetric edema.
--- NOTE | 2020-03-01 08:30 | RADIOLOGY REPORT (SQ) ---
EXAM DESCRIPTION: CT HEAD WITHOUT IMAGES COMPLETED DATE/TIME: 03/01/2020 8:11 am REASON FOR STUDY: post arrest COMPARISON: 09/21/2019 TECHNIQUE: Axial images acquired through the brain without intravenous contrast. Images reviewed wi th bone, brain and subdural windows. Additional sagittal and coronal reconstructions were generated. Images stored on PACS. All CT scanners at this facility use dose modulation, iterative reconstruction, and/or weight based d osing when appropriate to reduce radiation dose to as low as reasonably achievable (ALARA). [facility]: Dose Right [facility]: CareDose [facility]: Dose Right [facility]: Teradose 4D [facility]: UB Access RADIATION DOSE: CT Rad equipment meets quality standard of care and radiation dose reduction techniq ues were employed. CTDIvol: 53.2 mGy. DLP: 1097 mGy-cm. mGy. LIMITATIONS: None. FINDINGS: VENTRICLES: Normal size and contour. CEREBRUM: No masses. No hemorrhage. No midline shift. No evidence for acute infarction. Normal gra y/white matter differentiation. No areas of low density in the white matter. CEREBELLUM: No masses. No hemorrhage. No alteration of density. No evidence for acute infarction. EXTRAAXIAL SPACES: No fluid collections. No masses. ORBITS AND GLOBE: No intra- or extraconal masses. Normal contour of globe without masses. CALVARIUM: No fracture. PARANASAL SINUSES: Bilateral maxillary and ethmoid air cell disease. Soft tissue attenuation through out both nasal turbinates. Endotracheal tube is in place. SOFT TISSUES: No mass or hematoma. OTHER: No other significant finding. IMPRESSION: No acute intracranial event. EVIDENCE OF ACUTE STROKE: NO. COMMENT: Quality ID # [id number]: Final reports with documentation of one or more dose reduction techniques (e.g., Automated exposure control, adjustment of the mA and/or kV according to patient size, use of iterative reconstruction technique) TECHNICAL DOCUMENTATION: JOB ID: [id number] 2010 [employer]- All Rights Reserved Reading location - IP/workstation name: [email or web address]
[2020-03-01 08:48] LABS: ARTERIAL BLOOD BASE EXCESS -6.5 mmol/L; ARTERIAL BLOOD H2CO3 0.74 mmol/L (1.05-1.35); ARTERIAL BLOOD HCO3 16.2 mmol/L (20-24); ARTERIAL BLOOD O2 SATURATION 99.8 % (94-98); ARTERIAL BLOOD PCO2 24.5 mmHg (35-45); ARTERIAL BLOOD PH 7.44 (7.35-7.45); ARTERIAL BLOOD TOTAL CO2 16.9 mmol/L (21-25)
[2020-03-01 08:50] LABS: ARTERIAL BLOOD FIO2 85%
[2020-03-01] MEDS ORDERED: ETOMIDATE INJ/PF 20 MG/10 ML SDV IV ONE (09:00)
[2020-03-01] MEDS ORDERED: VECURONIUM BROMIDE INJ 10 MG VIAL IV ONE (09:00)
[2020-03-01] MEDS ORDERED: SUCCINYLCHOLINE CHLORIDE INJ 200 MG/10 ML VIAL ONE (09:00)
[2020-03-01] MEDS ORDERED: POTASSI CL 20 MEQ/NS 1L 1,000 ML IV PRN ×2 (09:18→15:58)
[2020-03-01] MEDS ORDERED: DEXTROSE 50%-WATER 25 GM/50 ML DISP.SYRIN IV PRN ×2 (09:24)
[2020-03-01] MEDS ORDERED: DEXTROSE 40% GEL 15 GM TUBE PO PRN ×2 (09:24)
[2020-03-01] MEDS ORDERED: GLUCAGON,HUMAN RECOMB 1 MG INJ IM PRN (09:24)
[2020-03-01] MEDS: PROPOFOL 1,000 MG/100 ML INFUS..BTL IV PRN ×3 (09:40→23:43)
[2020-03-01] MEDS: LEVETIRACETAM 500 MG/NACL-ISO 500 MG/100 ML RTUPB IV SCH ×2 (10:02→22:53)
[2020-03-01] MEDS: ALBUTEROL SULFATE 0.083% NEB 2.5 MG/3 ML AMPUL NEB SCH ×2 (13:02→19:50)
[2020-03-01] MEDS: INSULIN REG, HUMAN 100 UNIT/ML 3 ML VIAL (PYX) SUBCUT SCH ×3 (13:15→23:06)
[2020-03-01] MEDS: ACETAMINOPHEN SOLN 325 MG/10.15 ML UDCUP NG PRN ×2 (13:18→23:26)
[2020-03-01] MEDS ORDERED: HEPARIN SOD (PORCINE) 5,000 UNIT/ML 1 ML VIAL SUBCUT SCH (14:00)
[2020-03-01 14:03] LABS: ARTERIAL BLOOD BASE EXCESS -3.4 mmol/L; ARTERIAL BLOOD H2CO3 0.79 mmol/L (1.05-1.35); ARTERIAL BLOOD O2 SATURATION 95.3 % (94-98); ARTERIAL BLOOD PCO2 26.1 mmHg (35-45); ARTERIAL BLOOD PH 7.48 (7.35-7.45); ARTERIAL BLOOD PO2 69.5 mmHg (80-100); ARTERIAL BLOOD TOTAL CO2 19.8 mmol/L (21-25)
[2020-03-01 14:04] LABS: ARTERIAL BLOOD FIO2 30%
[2020-03-01] MEDS ORDERED: NORMAL SALINE 1000 ML 1,000 ML IV PRN (14:39)
[2020-03-01 15:21] LABS: APPEARANCE,URINE TURBID; BILIRUBIN,URINE NEGATIVE (NEGATIVE); CALCIUM OXALATE CRYSTALS,URINE FEW /HPF; GLUCOSE, URINE 50 mg/dL (NEGATIVE); KETONES,URINE NEGATIVE (NEGATIVE); PROTEIN,URINE 100 mg/dL (NEGATIVE); URINE SPECIFIC GRAVITY 1.021; UROBILINOGEN,URINE NEGATIVE mg/dL (<2.0)
[2020-03-01 15:23] LABS: COLOR,URINE YELLOW
--- NOTE | 2020-03-01 16:29 | CRITICAL CARE ADMISSION REPORT ---
HPI Date:: 03/01/20 Time:: 09:29 Reason for ICU Reason:: cardiac arrest HPI: This 54-year-old -[place] female non-smoker presented to [facility] emergency department via EMS after PEA arrest. The patient's family called 911 after the children in the house were unable to awaken the patient this morning. EMS reported that the patient was in PEA arrest. She was intubated in the field. CPR performed. Unknown downtime but included 3 rounds of epinephrine. In the emergency department, the airway was changed out for an endotracheal tube. Initially, she required norepinephrine infusion for blood pressure support, which has already been weaned off. At the time of clinical examination, the patient is showing intermittent, rhythmic shaking movements that appear to predominantly involve the abdomen. She also does less frequently demonstrate jerking motions of the extremities. Per verbal report, the children observed that the patient had "white froth" emanating from the mouth. Discussion with the patient's daughter (Jessica) reveals that the patient is a known diabetic, who takes metformin for blood sugar control. She did "eat a lot of cake last night". She was believed to have been at her baseline at the time she turned into sleep. History obtained from:: ER staff; daughter - Diagnosis/Plan (1) Endotracheally intubated Is this a current diagnosis for this admission?: Yes (2) Cardiac arrest Is this a current diagnosis for this admission?: Yes Plan: Per verbal report, PEA arrest with ROSC in the field. Unspecified downtime. (3) Lactic acidosis Is this a current diagnosis for this admission?: Yes Plan: Perhaps secondary to seizure. IV fluids. (4) Seizure Is this a current diagnosis for this admission?: Yes Plan: Possible postictal state. EEG. Record indicates history of seizures, although the patient's daughter (Jessica) begs to differ. (5) Normocytic anemia Is this a current diagnosis for this admission?: Yes (6) Leukocytosis Is this a current diagnosis for this admission?: Yes Plan: Blood cultures. Urinalysis with reflex culture. Trach aspirate for Gram stain, C/S. (7) Acute kidney injury Is this a current diagnosis for this admission?: Yes Plan: Avoid nephrotoxic drugs. IV fluid resuscitation. (8) Diabetes Qualifiers: Diabetes mellitus type: type 2 Diabetes mellitus longterm insulin use: without longterm use Diabetes mellitus complication status: without complication Qualified Code(s): E11.9 - Type 2 diabetes mellitus without complications Is this a current diagnosis for this admission?: Yes Plan: Accu-checks Sliding scale insulin. (9) High anion gap metabolic acidosis Is this a current diagnosis for this admission?: Yes Plan: Lactate elevated. Check beta hydroxybutyrate. (10) Myoclonic jerking Is this a current diagnosis for this admission?: Yes Past Medical History Cardiac Medical History: Reports: Hyperlipidema, Hypertension, Heart Murmur Denies: Atrial Fibrillation, Congestive Heart Failure, Coronary Artery Disease, DVT, Myocardial Infarction, Peripheral Vascular Disease, Pulmonary Embolism Pulmonary Medical History: Reports: Asthma, Pneumonia Denies: Chronic Obstructive Pulmonary Disease (COPD), Sleep Apnea Neurological Medical History: Reports: Migraine, Seizures - last seizure 2005 NOT ON MEDS Endocrine Medical History: Reports: Diabetes Mellitus Type 2 - On metformin Denies: Diabetes Mellitus Type 1, Hyperthyroidism, Hypothyroidism Malignancy Medical History: Reports: 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 GI Medical History: Reports: Gastroesophageal Reflux Disease Denies: Cirrhosis, Crohn's Disease, Hepatitis, Hiatal Hernia, Ulcerative Colitis Musculoskeltal Medical History: Reports: Fibromyalgia Skin Medical History: Denies: Eczema, Psoriasis Psychiatric Medical History: Reports: Depression Traumatic Medical History: Reports: Traumatic Brain Injury Hematology: Reports: Anemia Denies: Sickle Cell Disease, Bleeding Tendencies Past Surgical History Past Surgical History: Reports: Hysterectomy, Orthopedic Surgery - left arm ulnar nerve, wrist and left knee, Other - Breast lumpectomy for ductal carcinoma Denies: Amputation, Mastectomy, Pacemaker Social/Family History - Social History Smoking Status: Never Smoker - That is known Frequency of Alcohol Use: None Hx Recreational Drug Use: No Drugs: None Hx Prescription Drug Abuse: No - Medication/Allergies Home Medications: Albuterol Sulfate [Proair Respiclick] 1 puff IH Q6HP PRN 04/10/19 Amitriptyline HCl [Elavil 100 mg Tablet] 100 mg PO QHS 04/10/19 Buspirone HCl [Buspar 15 mg Tablet] 15 mg PO Q8 04/10/19 Clonazepam [Klonopin 1 mg Tablet] 1 mg PO TIDP PRN 04/10/19 Hydrochlorothiazide [Hydrodiuril 25 mg Tablet] 25 mg PO QAM 04/10/19 Metformin HCl [Metformin HCl ER] 500 mg PO DAILY 04/10/19 Metoprolol Succinate [Toprol Xl] 50 mg PO Q12 04/10/19 Pramipexole Di-HCl [Pramipexole Dihydrochloride] 0.375 mg PO QHS 04/10/19 Albuterol Sulfate [Ventolin 0.083% Neb 2.5 mg/3 ml Ampul] 1 vial NEB Q8HP PRN 08/30/19 Gabapentin Enacarbil [Horizant] 600 mg PO BID 08/30/19 Atorvastatin Calcium [Lipitor 10 mg Tablet] 10 mg PO QHS 03/01/20 Buprenorphine HCl [Belbuca] 300 mcg SL BID 03/01/20 Bupropion HCl [Bupropion Xl] 300 mg PO DAILY 03/01/20 Diclofenac Sodium 75 mg PO BIDP PRN 03/01/20 Epinephrine [Epipen] 0.3 mg IM PRN PRN 20 Furosemide [Lasix 20 mg Tablet] 20 mg PO DAILY 20 Lurasidone HCl [Latuda] 80 mg PO DAILY 03/01/20 Prazosin HCl [Minipress] 2 mg PO QHS 20 Allergies/Adverse Reactions: aspirin [Aspirin] Allergy (Severe, Verified 08/30/19 16:56) Anaphylaxis bee venom protein (honey bee) Allergy (Severe, Verified 08/30/19 16:56) Anaphylaxis cephalexin Allergy (Severe, Verified 08/30/19 16:56) Anaphylaxis ciprofloxacin [From Cipro] Allergy (Severe, Verified 08/30/19 16:56) Anaphylaxis doxycycline Allergy (Severe, Verified 08/30/19 16:56) Anaphylaxis fluoxetine Allergy (Severe, Verified 08/30/19 16:56) Hallucinations meloxicam [From Mobic] Allergy (Severe, Verified 08/30/19 16:56) Anaphylaxis penicillamine Allergy (Severe, Verified 08/30/19 16:56) Anaphylaxis tramadol Allergy (Severe, Verified 08/30/19 16:56) Anaphylaxis diclofenac Allergy (Intermediate, Verified 08/30/19 16:56) Hives NSAIDS (Non-Steroidal Anti-Inflamma [Nsaids] Allergy (Intermediate, Verified 08/30/19 16:56) VOMITING Sulfa (Sulfonamide Antibiotics) Allergy (Intermediate, Verified 08/30/19 16:56) VOMITING Penicillins Allergy (Unknown, Verified 08/30/19 16:56) wasp Allergy (Severe, Uncoded 08/30/19 16:56) Anaphylaxis Physical Exam Vital Signs: Temp Pulse Resp BP Pulse Ox 98.1 F 19 134/95 H 100 03/01/20 08:47 03/01/20 09:20 03/01/20 09:20 03/01/20 09:20 Intake & Output 02/29/20 03/01/20 03/02/20 06:59 06:59 06:59 Intake Total 2250 Balance 2250 Laboratory/Radiographs Laboratory Results: 03/01/20 06:26 03/01/20 06:26 03/01/20 03/01/20 03/01/20 06:26 06:26 06:26 WBC 16.0 H RBC 3.38 L Hgb 9.7 L Hct 30.7 L MCV 91 MCH 28.7 MCHC 31.5 L RDW 14.8 H Plt Count 308 Seg Neutrophils % 76.5 Carbonic Acid HCO3/H2CO3 Ratio ABG pH ABG pCO2 ABG pO2 ABG HCO3 ABG O2 Saturation ABG Base Excess FiO2 Sodium 136.4 L Potassium 4.0 Chloride 98 Carbon Dioxide 24 Anion Gap 14 BUN 11 Creatinine 1.33 H Est GFR ( Amer) 50 L Glucose 341 H Lactic Acid 7.5 H Calcium 8.4 Total Bilirubin 0.3 AST 148 H Alkaline Phosphatase 86 Total Protein 6.5 Albumin 3.8 03/01/20 03/01/20 07:20 08:32 WBC RBC Hgb Hct MCV MCH MCHC RDW Plt Count Seg Neutrophils % Carbonic Acid Cancelled 0.74 L HCO3/H2CO3 Ratio Cancelled 21:1 ABG pH Cancelled 7.44 ABG pCO2 Cancelled 24.5 L ABG pO2 Cancelled 381.0 H ABG HCO3 Cancelled 16.2 L ABG O2 Saturation Cancelled 99.8 H ABG Base Excess Cancelled -6.5 FiO2 Cancelled 85% Sodium Potassium Chloride Carbon Dioxide Anion Gap BUN Creatinine Est GFR ( Amer) Glucose Lactic Acid Calcium Total Bilirubin AST Alkaline Phosphatase Total Protein Albumin 03/01/20 06:26 Troponin I 0.057 NT-Pro-B Natriuret Pep 45 Impressions: Chest X-Ray 03/01/20 06:30 IMPRESSION: Final image shows ET tube and NG tube in good position. There is left-sided opacity consistent with pneumonia, atelectasis and/or asymmetric edema. Head CT 03/01/20 06:32 IMPRESSION: No acute intracranial event. EVIDENCE OF ACUTE STROKE: NO. Critical Time Critical Time (minutes): 60 -: The care of a critically ill patient is dynamic. This note represents a static moment in the admission process. Orders and treatments may be given simultaneously and urgently, and time is not account representative of the treatment process. This patient requires Critical Care secondary to life threatening organ or limb dysfunction. Without Critical Care services, the patient is at risk for increased mortality and morbidity.
[2020-03-01] MEDS ORDERED: VANCOMYCIN HCL 0 MG in DEXTROSE 5%-WATER 250 ML IV NR (17:15)
--- NOTE | 2020-03-01 17:37 | RADIOLOGY REPORT (SQ) ---
EXAM DESCRIPTION: CHEST SINGLE VIEW IMAGES COMPLETED DATE/TIME: 03/01/2020 5:21 pm REASON FOR STUDY: ETT placement COMPARISON: 03/01/2020 EXAM PARAMETERS: NUMBER OF VIEWS: One view. TECHNIQUE: Single frontal radiographic view of the chest acquired. RADIATION DOSE: NA LIMITATIONS: None. FINDINGS: LUNGS AND PLEURA: Stable opacity in the left suprahilar-- left upper lung opacity, unchan ged finding. the right lung remains clear. No pneumothorax or pleural effusion. MEDIASTINUM AND HILAR STRUCTURES: No masses. Contour normal. HEART AND VASCULAR STRUCTURES: Heart normal in size. Normal vasculature. BONES: No acute findings. HARDWARE: Endotracheal and nasogastric tubes, unchanged an appropriate in location. OTHER: No other significant finding. IMPRESSION: 1. No significant interval changes since the prior examination performed earlier on 02/11 at 06:52 hours. Support tubes are unchanged in appropriate in location. 2. Left suprahilar-left upper lung opacity, unchanged finding. TECHNICAL DOCUMENTATION: JOB ID: [id number] 2010 [employer]- All Rights Reserved Reading location - IP/workstation name: [email or web address]
[2020-03-01 17:42] LABS: ANION GAP 18 (5-19); BLOOD UREA NITROGEN 10 mg/dL (7-20); CALCIUM 8.4 mg/dL (8.4-10.2); CARBON DIOXIDE 15 mmol/L (22-30); CHLORIDE 107 mmol/L (98-107); GLUCOSE 197 mg/dL (75-110); POTASSIUM 4.3 mmol/L (3.6-5.0)
[2020-03-01 17:58] LABS: ARTERIAL BLOOD BASE EXCESS -11.4 mmol/L; ARTERIAL BLOOD H2CO3 0.96 mmol/L (1.05-1.35); ARTERIAL BLOOD HCO3 14.4 mmol/L (20-24); ARTERIAL BLOOD O2 SATURATION 87.9 % (94-98); ARTERIAL BLOOD PCO2 31.9 mmHg (35-45); ARTERIAL BLOOD PH 7.27 (7.35-7.45); ARTERIAL BLOOD PO2 59.8 mmHg (80-100); ARTERIAL BLOOD TOTAL CO2 15.3 mmol/L (21-25)
[2020-03-01 18:13] LABS: ARTERIAL BLOOD FIO2 30%
--- NOTE | 2020-03-01 19:22 | RADIOLOGY REPORT (SQ) ---
EXAM DESCRIPTION: CTA CHEST IMAGES COMPLETED DATE/TIME: 03/01/2020 6:53 pm REASON FOR STUDY: acute respiratory failure COMPARISON: 02/18/2020 TECHNIQUE: CT scan of the chest performed using helical scanning technique with dynamic intravenous contrast injection. Images reviewed with lung, soft tissue and bone windows. Reconstructed coronal and sagittal MPR images reviewed. Additional 3 dimensional post-processing performed to develop Maximal Intensity Projection images (AZ P). All images stored on PACS. All CT scanners at this facility use dose modulation, iterative reconstruction, and/or weight based d osing when appropriate to reduce radiation dose to as low as reasonably achievable (ALARA). [facility]: Dose Right [facility]: CareDose [facility]: Dose Right [facility]: Teradose 4D [facility]: Boomrat CONTRAST TYPE AND DOSE: contrast/concentration: Isovue 350.00 mg/ml; Total Contrast Delivered: 60.0 ml; Total Saline Delivered: 68.2 ml Contrast bolus optimized for the pulmonary arteries. Not diagnostic for the aorta. RENAL FUNCTION: Creatinine-1.12 BUN-10 RADIATION DOSE: CT Rad equipment meets quality standard of care and radiation dose reduction techniq ues were employed. CTDIvol: 19.8 - 33.1 mGy. DLP: 1153 mGy-cm. . LIMITATIONS: None. FINDINGS: LUNGS AND PLEURA: Interval development of bilateral multifocal opacities/airspace disease in the lungs, slightly more so in the left lung. No pneumothorax or pleural effusion. AORTA AND GREAT VESSELS: No aneurysm. Contrast bolus not optimized for the aorta. HEART: No pericardial effusion. No significant coronary artery calcifications. PULMONARY ARTERIES: There are acute filling defects identified within the distal right pulmonary art huey and the segmental and subsegmental branches bilaterally, slightly more so on the right suggesting acute pulmonary emboli. No evidence of saddle embolus. HILAR AND MEDIASTINAL STRUCTURES: No identified masses or abnormal nodes. HARDWARE: Interval placement of endotracheal and nasogastric tubes since the previous examination. The tip of the nasogastric tube lies within the distal body---antrum of the stomach. Spinal stimulat or again identified. UPPER ABDOMEN: Fatty liver and hepatomegaly. The visualized gallbladder is distended. Limited exam . THYROID AND OTHER SOFT TISSUES: No masses. No adenopathy. BONES: The osseous structures are stable in appearance. 3D MIPS: Confirm above findings. OTHER: No other significant finding. IMPRESSION: 1. New development of acute pulmonary emboli in the distal right pulmonary artery, segm ental and subsegmental branches bilaterally, slightly more so on the right, since the prior study bobbi ed 02/18/2020. No evidence for saddle pulmonary embolus. 2. Interval development of bilateral multifocal opacity/airspace disease in the lungs, slightly more extensive on the left. 3. Interval placement of endotracheal and nasogastric tubes. 4. Fatty liver and hepatomegaly. 5. The visualized gallbladder is distended. COMMENT: 1. The results of this examination were discussed with emergency department provider on at 19:07 hours. Quality ID # [id number]: Final reports with documentation of one or more dose reduction techniques (e.g., Au tomated exposure control, adjustment of the mA and/or kV according to patient size, use of iterative reconstruction technique) TECHNICAL DOCUMENTATION: JOB ID: [id number] 2010 [employer]- All Rights Reserved Reading location - IP/workstation name: [email or web address]
[2020-03-01 19:35] LABS: HEMOGLOBIN 9.3 g/dL (12.0-15.5); MEAN CORPUSCULAR HEMOGLOBIN 28.7 pg (27.0-33.4); MEAN CORPUSCULAR VOLUME 90 fl (80-97); PLATELET COUNT 247 10^3/uL (150-450); RED BLOOD COUNT 3.24 10^6/uL (3.72-5.28); RED CELL DISTRIBUTION WIDTH 14.7 % (11.5-14.0); WHITE BLOOD COUNT 25.7 10^3/uL (4.0-10.5)
[2020-03-01 19:38] LABS: INTERNATIONAL RATION (INR) 1.19; PROTHROMBIN TIME 15.2 SEC (11.4-15.4)
[2020-03-01 19:39] LABS: PARTIAL THROMBOPLASTIN TIME 35.2 SEC (23.5-35.8)
[2020-03-01 19:50] LABS: ABSOLUTE LYMPHOCYTES# (MANUAL) 2.3 10^3/uL (0.5-4.7); ABSOLUTE MONOCYTES # (MANUAL) 0.8 10^3/uL (0.1-1.4); BAND NEUTROPHILS % (MANUAL) 4 % (3-5); BASOPHILS % (MANUAL) 0 % (0-2); EOSINOPHILS % (MANUAL) 0 % (0-6); LYMPHOCYTES % (MANUAL) 9 % (13-45); MONOCYTES % (MANUAL) 3 % (3-13); SEGMENTED NEUTROPHILS % (MAN) 84 % (42-78); TOTAL CELLS COUNTED 100
[2020-03-01 19:51] LABS: ANISOCYTOSIS SLIGHT; OVALOCYTES SLIGHT; PLATELET COMMENT ADEQUATE
[2020-03-01] MEDS ORDERED: HEPARIN SOD (PORCINE) 1,000 UNIT/ML 10 ML VIAL IV ONE (20:00)
[2020-03-01] MEDS: HEPARIN SODIUM,PORCINE/D5W 25,000 UNIT/250 ML RTUINJ IV PRN (20:21)
[2020-03-01] MEDS: VANCOMYCIN HCL 1,500 MG in DEXTROSE 5%-WATER 250 ML IV SCH (20:30)
[2020-03-01] MEDS ORDERED: CEFEPIME 1 GM/D5W RTU 1 GM/50 ML RTUPB IV SCH (22:00)
[2020-03-01 22:33] LABS: APPEARANCE,URINE SLIGHTLY-CLOUDY; BILIRUBIN,URINE NEGATIVE (NEGATIVE); COLOR,URINE YELLOW; GLUCOSE, URINE 50 mg/dL (NEGATIVE); KETONES,URINE TRACE mg/dL (NEGATIVE); LEUKOCYTE ESTERASE,URINE NEGATIVE (NEGATIVE); NITRITE,URINE NEGATIVE (NEGATIVE); PROTEIN,URINE 30 mg/dL (NEGATIVE); URINE SPECIFIC GRAVITY 1.053; UROBILINOGEN,URINE NEGATIVE mg/dL (<2.0)
[2020-03-01] MEDS: MEROPENEM 500 MG in NORMAL SALINE 50 ML IV SCH (22:59)
[2020-03-02] MEDS: ALBUTEROL SULFATE 0.083% NEB 2.5 MG/3 ML AMPUL NEB SCH ×4 (02:58→20:21)
[2020-03-02] MEDS: PROPOFOL 1,000 MG/100 ML INFUS..BTL IV PRN ×2 (03:18→06:06)
[2020-03-02] MEDS ORDERED: MORPHINE SULFATE IV PRN (03:35)
[2020-03-02 05:12] LABS: ARTERIAL BLOOD BASE EXCESS -4.7 mmol/L; ARTERIAL BLOOD H2CO3 0.96 mmol/L (1.05-1.35); ARTERIAL BLOOD HCO3 19.2 mmol/L (20-24); ARTERIAL BLOOD PCO2 31.8 mmHg (35-45); ARTERIAL BLOOD PO2 64.8 mmHg (80-100); ARTERIAL BLOOD TOTAL CO2 20.1 mmol/L (21-25)
[2020-03-02 05:16] LABS: ARTERIAL BLOOD FIO2 40%
[2020-03-02] MEDS: MEROPENEM 500 MG in NORMAL SALINE 50 ML IV SCH ×3 (05:19→23:37)
[2020-03-02] MEDS: INSULIN REG, HUMAN 100 UNIT/ML 3 ML VIAL (PYX) SUBCUT SCH ×3 (05:22→18:01)
--- NOTE | 2020-03-02 08:07 | RADIOLOGY REPORT (SQ) ---
EXAM DESCRIPTION: CHEST SINGLE VIEW IMAGES COMPLETED DATE/TIME: 03/02/2020 7:49 am REASON FOR STUDY: acute resp failure COMPARISON: 03/01/2020. EXAM PARAMETERS: NUMBER OF VIEWS: One view. TECHNIQUE: Single frontal radiographic view of the chest acquired. RADIATION DOSE: NA LIMITATIONS: None. FINDINGS: LUNGS AND PLEURA: Low lung volumes. Vague airspace disease in the left lung, unchanged. MEDIASTINUM AND HILAR STRUCTURES: No masses. Contour normal. HEART AND VASCULAR STRUCTURES: Heart upper limits of normal in size. Normal vasculature. BONES: No acute findings. HARDWARE: Stable endotracheal tube and nasogastric tube. Spinal stimulator electrodes. OTHER: No other significant finding. IMPRESSION: NO SIGNIFICANT INTERVAL CHANGE. STABLE LIFE LINES. VAGUE AIRSPACE DISEASE IN THE LEFT LUNG. TECHNICAL DOCUMENTATION: JOB ID: [id number] 2010 [employer]- All Rights Reserved Reading location - IP/workstation name: [email or web address]
[2020-03-02 08:13] LABS: HEMATOCRIT 31.3 % (36.0-47.0); HEMOGLOBIN 10.4 g/dL (12.0-15.5); MEAN CORPUSCULAR HEMOGLOBIN 29.3 pg (27.0-33.4); MEAN CORPUSCULAR HGB CONC 33.1 g/dL (32.0-36.0); MEAN CORPUSCULAR VOLUME 88 fl (80-97); PLATELET COUNT 260 10^3/uL (150-450); RED BLOOD COUNT 3.54 10^6/uL (3.72-5.28); RED CELL DISTRIBUTION WIDTH 15.1 % (11.5-14.0); WHITE BLOOD COUNT 25.1 10^3/uL (4.0-10.5)
[2020-03-02 08:22] LABS: ANION GAP 13 (5-19); BLOOD UREA NITROGEN 9 mg/dL (7-20); CARBON DIOXIDE 20 mmol/L (22-30); CHLORIDE 107 mmol/L (98-107); GLUCOSE 151 mg/dL (75-110); PHOSPHORUS 3.6 mg/dL (2.5-4.5); POTASSIUM 4.6 mmol/L (3.6-5.0)
[2020-03-02] MEDS: ACETAMINOPHEN SOLN 325 MG/10.15 ML UDCUP NG PRN ×4 (08:37→23:37)
[2020-03-02 08:41] LABS: ABSOLUTE LYMPHOCYTES# (MANUAL) 1.8 10^3/uL (0.5-4.7); ABSOLUTE MONOCYTES # (MANUAL) 4.5 10^3/uL (0.1-1.4); BAND NEUTROPHILS % (MANUAL) 3 % (3-5); BASOPHILS % (MANUAL) 0 % (0-2); EOSINOPHILS % (MANUAL) 2 % (0-6); LYMPHOCYTES % (MANUAL) 7 % (13-45); MONOCYTES % (MANUAL) 18 % (3-13); SEGMENTED NEUTROPHILS % (MAN) 70 % (42-78); TOTAL CELLS COUNTED 100
[2020-03-02 08:43] LABS: ANISOCYTOSIS SLIGHT; OVALOCYTES SLIGHT; POLYCHROMASIA SLIGHT; TEAR DROP CELLS SLIGHT
[2020-03-02 08:44] LABS: PLATELET COMMENT ADEQUATE
[2020-03-02] MEDS: LEVETIRACETAM 500 MG/NACL-ISO 500 MG/100 ML RTUPB IV SCH ×2 (09:23→22:10)
[2020-03-02] MEDS ORDERED: LEVOFLOXACIN 750 MG/D5W RTU 750 MG/150 ML RTUPB IV SCH (10:00)
[2020-03-02] MEDS: MAGNESIUM SULFATE/D5W 1 GM/100 ML RTUPB IV SCH ×2 (11:21→12:40)
[2020-03-02] MEDS: PANTOPRAZOLE SODIUM 40 MG VIAL IV SCH (11:21)
[2020-03-02] MEDS ORDERED: FUROSEMIDE INJ/PF 40 MG/4 ML SDV IV ONE (15:30)
[2020-03-02] MEDS ORDERED: MIDAZOLAM 2 MG/2 ML INJ IV ONE (16:39)
[2020-03-02] MEDS ORDERED: MIDAZOLAM 2 MG/2 ML INJ ONE (16:40)
[2020-03-02 17:00] LABS: ARTERIAL BLOOD BASE EXCESS -7.1 mmol/L; ARTERIAL BLOOD H2CO3 1.16 mmol/L (1.05-1.35); ARTERIAL BLOOD HCO3 18.7 mmol/L (20-24); ARTERIAL BLOOD O2 SATURATION 97.5 % (94-98); ARTERIAL BLOOD PCO2 38.6 mmHg (35-45); ARTERIAL BLOOD PO2 107.7 mmHg (80-100); ARTERIAL BLOOD TOTAL CO2 19.8 mmol/L (21-25)
[2020-03-02 17:01] LABS: ARTERIAL BLOOD FIO2 40%
--- NOTE | 2020-03-02 17:06 | PDOC CRITICAL CARE PROG REPORT ---
General Date:: 03/02/20 ICU Day:: 2 Ventilator Day:: 2 Hospital Day:: 2 Resuscitation Status: Full Code Events in the past 12 to 24 Hours:: 03/02: Admitted after PEA arrest at home. Unknown downtime. Intubated in the field. 03/03: CTA of the chest yesterday evening revealed acute pulmonary embolism along with bilateral multifocal airspace disease. The patient remains febrile. She is on a cooling blanket and getting Tylenol with some improvement in fever curve. On propofol for sedation. Off sedation, the patient is observed to have myoclonic jerks involving abdominal muscles and all 4 extremities. rf test technician reports that recording is not feasible with persistent fever. Started on empiric meropenem/vancomycin with multiple known drug allergies (including penicillins and cephalosporins). No adverse events reported. Blood cultures are reporting 1 of 2 bottles with gram-positive cocci in chains, suspicious for contaminant. However, trach aspirate also isolated group C beta- hemolytic streptococci. Review of systems relevant to events:: Neurologic, respiratory, hematologic, endocrine Reason for ICU Addmission:: cardiac arrest - Medications: Medications reviewed and adjusted accordingly: Yes Sedation:: Propofol Physical Exam Vital Signs: Temp Pulse Resp BP Pulse Ox 102.4 F H 135 H 29 H 156/90 H 99 03/02/20 09:24 03/02/20 08:00 03/02/20 08:00 03/02/20 08:00 03/02/20 08:00 Intake & Output 03/01/20 03/02/20 03/03/20 06:59 06:59 06:59 Intake Total 4897 56 Output Total 2290 300 Balance 2607 -244 Weight 85.7 kg Weight/Height Weight 85.7 kg Height 1.57 m General appearance: PRESENT: no acute distress, well-developed, well-nourished Eye exam: PRESENT: conjunctiva pink, EOMI, PERRLA. ABSENT: scleral icterus Mouth exam: PRESENT: moist, tongue midline Neck exam: ABSENT: carotid bruit, JVD, lymphadenopathy, thyromegaly Respiratory exam: PRESENT: decreased breath sounds, prolonged expiratory phas, rhonchi, wheezes. ABSENT: rales Cardiovascular exam: PRESENT: RRR, tachycardia. ABSENT: diastolic murmur, rubs, systolic murmur Extremities exam: PRESENT: full ROM. ABSENT: calf tenderness, clubbing, pedal edema Musculoskeletal exam: PRESENT: normal inspection. ABSENT: deformity Neurological exam: PRESENT: altered, reflexes normal, CN II-XII grossly intact, other - spastic rigidity of the lower extremities Skin exam: PRESENT: dry, intact, warm. ABSENT: cyanosis, rash Tubes/Lines: PRESENT: Endotracheal Tube Laboratory/Radiographs Laboratory Results: 03/02/20 07:51 03/02/20 07:51 03/01/20 03/01/20 03/01/20 06:26 06:26 09:50 WBC RBC Hgb Hct MCV MCH MCHC RDW Plt Count Seg Neutrophils % Carbonic Acid HCO3/H2CO3 Ratio ABG pH ABG pCO2 ABG pO2 ABG HCO3 ABG O2 Saturation ABG Base Excess FiO2 Sodium Potassium Chloride Carbon Dioxide Anion Gap BUN Creatinine Est GFR ( Amer) Glucose Lactic Acid 7.8 H Calcium Phosphorus Magnesium Ferritin Lipase 134.8 TSH 3.33 Urine Color Urine Appearance Urine pH Ur Specific [place] Urine Protein Urine Glucose (UA) Urine Ketones Urine Blood Urine Nitrite Ur Leukocyte Esterase Urine WBC (Auto) Urine RBC (Auto) 03/01/20 03/01/20 03/01/20 13:48 14:30 14:33 WBC RBC Hgb Hct MCV MCH MCHC RDW Plt Count Seg Neutrophils % Carbonic Acid 0.79 L HCO3/H2CO3 Ratio 24:1 ABG pH 7.48 H ABG pCO2 26.1 L ABG pO2 69.5 L ABG HCO3 19.0 L ABG O2 Saturation 95.3 ABG Base Excess -3.4 FiO2 30% Sodium 140.4 Potassium 4.3 Chloride 107 Carbon Dioxide 15 L Anion Gap 18 BUN 10 Creatinine 1.20 Est GFR ( Amer) 56 L Glucose 197 H Lactic Acid 7.6 H Calcium 8.4 Phosphorus Magnesium Ferritin Lipase TSH Urine Color Urine Appearance Urine pH Ur Specific [place] Urine Protein Urine Glucose (UA) Urine Ketones Urine Blood Urine Nitrite Ur Leukocyte Esterase Urine WBC (Auto) Urine RBC (Auto) 03/01/20 03/01/20 03/01/20 15:00 17:45 19:23 WBC 25.7 H RBC 3.24 L Hgb 9.3 L Hct 29.0 L MCV 90 MCH 28.7 MCHC 32.0 RDW 14.7 H Plt Count 247 Seg Neutrophils % Not Reportable Carbonic Acid 0.96 L HCO3/H2CO3 Ratio 15:1 ABG pH 7.27 L ABG pCO2 31.9 L ABG pO2 59.8 L ABG HCO3 14.4 L ABG O2 Saturation 87.9 L ABG Base Excess -11.4 FiO2 30% Sodium Potassium Chloride Carbon Dioxide Anion Gap BUN Creatinine Est GFR ( Amer) Glucose Lactic Acid Calcium Phosphorus Magnesium Ferritin Lipase TSH Urine Color YELLOW Urine Appearance TURBID Urine pH 5.0 Ur Specific [place] 1.021 Urine Protein 100 H Urine Glucose (UA) 50 H Urine Ketones NEGATIVE Urine Blood SMALL H Urine Nitrite Ur Leukocyte Esterase Urine WBC (Auto) Urine RBC (Auto) 14 03/01/20 03/02/20 03/02/20 20:45 04:58 07:51 WBC RBC Hgb Hct MCV MCH MCHC RDW Plt Count Seg Neutrophils % Carbonic Acid 0.96 L HCO3/H2CO3 Ratio 20:1 ABG pH 7.40 ABG pCO2 31.8 L ABG pO2 64.8 L ABG HCO3 19.2 L ABG O2 Saturation 93.0 L ABG Base Excess -4.7 FiO2 40% Sodium Potassium Chloride Carbon Dioxide Anion Gap BUN Creatinine Est GFR ( Amer) Glucose Lactic Acid Calcium Phosphorus Magnesium Ferritin 256.00 Lipase TSH Urine Color YELLOW Urine Appearance SLIGHTLY-CLOUDY Urine pH 5.0 Ur Specific [place] 1.053 Urine Protein 30 H Urine Glucose (UA) 50 H Urine Ketones TRACE H Urine Blood MODERATE H Urine Nitrite NEGATIVE Ur Leukocyte Esterase NEGATIVE Urine WBC (Auto) 4 Urine RBC (Auto) 41 03/02/20 03/02/20 07:51 07:51 WBC 25.1 H RBC 3.54 L Hgb 10.4 L Hct 31.3 L MCV 88 MCH 29.3 MCHC 33.1 RDW 15.1 H Plt Count 260 Seg Neutrophils % Not Reportable Carbonic Acid HCO3/H2CO3 Ratio ABG pH ABG pCO2 ABG pO2 ABG HCO3 ABG O2 Saturation ABG Base Excess FiO2 Sodium 139.5 Potassium 4.6 Chloride 107 Carbon Dioxide 20 L Anion Gap 13 BUN 9 Creatinine 0.83 Est GFR ( Amer) > 60 Glucose 151 H Lactic Acid Calcium 8.0 L Phosphorus 3.6 Magnesium 1.5 L Ferritin Lipase TSH Urine Color Urine Appearance Urine pH Ur Specific [place] Urine Protein Urine Glucose (UA) Urine Ketones Urine Blood Urine Nitrite Ur Leukocyte Esterase Urine WBC (Auto) Urine RBC (Auto) 03/01/20 09:50 Blood Blood Culture (PCR) - Final Streptococcus Species 03/01/20 03/01/20 03/01/20 06:26 06:26 06:26 Creatine Kinase 72 CK-MB (CK-2) 0.50 Troponin I 0.057 NT-Pro-B Natriuret Pep 45 Impressions: Chest/Abdomen CTA 03/01/20 00:00 IMPRESSION: 1. New development of acute pulmonary emboli in the distal right pulmonary artery, segmental and subsegmental branches bilaterally, slightly more so on the right, since the prior study dated 02/18/2020. No evidence for saddle pulmonary embolus. 2. Interval development of bilateral multifocal opacity/airspace disease in the lungs, slightly more extensive on the left. 3. Interval placement of endotracheal and nasogastric tubes. 4. Fatty liver and hepatomegaly. 5. The visualized gallbladder is distended. Head CT 03/01/20 06:32 IMPRESSION: No acute intracranial event. EVIDENCE OF ACUTE STROKE: NO. Chest X-Ray 03/02/20 07:26 IMPRESSION: NO SIGNIFICANT INTERVAL CHANGE. STABLE LIFE LINES. VAGUE AIRSPACE DISEASE IN THE LEFT LUNG. All labs, radiographs, diagnostic studies and EKGs were personally reviewed: Yes In addition, reports of radiographic and diagnostic studies were read: Yes Assessment and Plan - Diagnosis (1) Acute pulmonary embolism Qualifiers: Pulmonary embolism type: other Acute cor pulmonale presence: without acute cor pulmonale Qualified Code(s): I26.99 - Other pulmonary embolism without acute cor pulmonale Is this a current diagnosis for this admission?: Yes Plan: Continue heparin infusion. (2) Endotracheally intubated Is this a current diagnosis for this admission?: Yes Plan: Titrate vent settings based on ABG results. Chest x-ray in a.m. ABG in a.m. (3) Seizure Is this a current diagnosis for this admission?: Yes Plan: Continue Keppra. (4) Lactic acidosis Is this a current diagnosis for this admission?: Yes Plan: Repeat lactate. (5) Cardiac arrest Is this a current diagnosis for this admission?: Yes Plan: Likely secondary to acute pulmonary embolism. Currently, hemodynamically stable. (6) Leukocytosis Qualifiers: Leukocytosis type: unspecified Qualified Code(s): D72.829 - Elevated white blood cell count, unspecified Is this a current diagnosis for this admission?: Yes (7) Diabetes Qualifiers: Diabetes mellitus type: type 2 Diabetes mellitus group home insulin use: without group home use Diabetes mellitus complication status: without complication Qualified Code(s): E11.9 - Type 2 diabetes mellitus without complications Is this a current diagnosis for this admission?: Yes (8) High anion gap metabolic acidosis Is this a current diagnosis for this admission?: Yes (9) Myoclonic jerking Is this a current diagnosis for this admission?: Yes (10) Pneumonia Qualifiers: Pneumonia type: due to unspecified organism Laterality: bilateral Lung location: unspecified part of lung Qualified Code(s): J18.9 - Pneumonia, unspecified organism Is this a current diagnosis for this admission?: Yes Plan: Continue meropenem/vancomycin. (11) Acute kidney injury Is this a current diagnosis for this admission?: Yes Plan: Resolved. (12) Normocytic anemia Is this a current diagnosis for this admission?: Yes (13) Fever Qualifiers: Fever type: due to other condition Qualified Code(s): R50.81 - Fever presenting with conditions classified elsewhere Is this a current diagnosis for this admission?: Yes Plan: seems to be minimally responsive to Tylenol. some modest response to IV fluid adminstration. on empiric meropenem/vancomycin. Group C beta-hemolytic strep in trach aspirate. may be related to propofol or other drug administration. will try changing to Versed gtt. Critical Time Critical Time (minutes): 60 Level of Care: ICU -: 1. The care of a critical patient is a dynamic process. This note is a territory service representative synopsis but static in nature. The timeframe for treatments given in order is not necessarily the actual time these treatments may have been done. 2. This patient requires critical care secondary to ongoing requirements for therapy not offered or safe outside the critical care environment. Transfer to a lower level of care will result in altered life or limb morbidity and mortality. 3. Multidisciplinary rounds completed. 4. ABCDE bundle addressed.
[2020-03-02] MEDS: MIDAZOLAM HCL 50 MG/100 ML RTUINJ IV PRN (18:00)
[2020-03-02] MEDS ORDERED: NORMAL SALINE 500 ML IV ONE (18:24)
[2020-03-02] MEDS: NORMAL SALINE 1000 ML 1,000 ML IV PRN (18:35)
--- NOTE | 2020-03-02 19:03 | CDI QUERY ---
CDI Query CDI Review: Dear Provider: To better reflect your patients severity of illness, morbidity, and resource utilization Please specify and document in the Progress Notes and Discharge Summary if you are monitoring / treating / evaluating any of the following conditions: Query Clinical indicators Please document the diagnosis that prompted the intubation: Respiratory Arrest Acute respiratory failure with hypoxia Acute respiratory failure with hypercapnia Acute respiratory failure with hypoxia / hypercapnia Unable to determine Other Please clarify and document if the pneumonia can be further specified: Aspiration pneumonia Possible Streptococci pneumonia Unable to determine Other Per ED Report: History per paramedics was that patient would not wake up this morning. Family moved the patient off of the bed onto the floor and began CPR. Medics state they found the patient without any spontaneous respirations or movement and in a PEA rhythm Per Critical Care Admission: She was intubated in the field. CPR performed. Unknown downtime but included 3 rounds of epinephrine. In the emergency department, the airway was changed out for an endotracheal tube Per ED Assessment: Mouth/Lips: Other - Face and nose were covered with vomitus and secretions Per Critical Care Note: trach aspirate also isolated group C beta-hemolytic streptococci (10) Pneumonia Qualifiers: Pneumonia type: due to unspecified organism Laterality: bilateral Lung location: unspecified part of lung Qualified Code(s): J18.9 - Pneumonia, unspecified organism Is this a current diagnosis for this admission?: Yes Plan: Continue meropenem/vancomycin. Thank you for your consideration, Clinical Documentation Physician Advisors ALISHA Fox RN, BSN RN Office [phone] Office [phone]
[2020-03-02] MEDS: MORPHINE SULFATE 60 MG/60 ML RTUINJ IV PRN (19:30)
[2020-03-02] MEDS: HEPARIN SODIUM,PORCINE/D5W 25,000 UNIT/250 ML RTUINJ IV PRN (20:18)
[2020-03-02] MEDS: VANCOMYCIN HCL 1,500 MG in DEXTROSE 5%-WATER 250 ML IV SCH (20:24)
[2020-03-02] MEDS ORDERED: ACETAMINOPHEN 1,000 MG/100 ML RTUPB IV ONE (23:45)
[2020-03-03] MEDS ORDERED: ACETAMINOPHEN 1,000 MG/100 ML RTUPB IV ONE ×2 (00:04→07:30)
[2020-03-03] MEDS: INSULIN REG, HUMAN 100 UNIT/ML 3 ML VIAL (PYX) SUBCUT SCH ×5 (00:20→23:52)
[2020-03-03] MEDS: NORMAL SALINE 1000 ML 1,000 ML IV PRN ×4 (00:22→19:53)
[2020-03-03] MEDS: ALBUTEROL SULFATE 0.083% NEB 2.5 MG/3 ML AMPUL NEB SCH ×4 (02:10→20:41)
[2020-03-03] MEDS: MORPHINE SULFATE 60 MG/60 ML RTUINJ IV PRN (03:46)
[2020-03-03 05:06] LABS: ARTERIAL BLOOD BASE EXCESS -7.5 mmol/L; ARTERIAL BLOOD FIO2 40%; ARTERIAL BLOOD H2CO3 1.31 mmol/L (1.05-1.35); ARTERIAL BLOOD HCO3 19.2 mmol/L (20-24); ARTERIAL BLOOD O2 SATURATION 97.9 % (94-98); ARTERIAL BLOOD PCO2 43.5 mmHg (35-45); ARTERIAL BLOOD PH 7.26 (7.35-7.45); ARTERIAL BLOOD PO2 121.7 mmHg (80-100); ARTERIAL BLOOD TOTAL CO2 20.5 mmol/L (21-25)
[2020-03-03 05:08] LABS: HEMATOCRIT 28.2 % (36.0-47.0); HEMOGLOBIN 9.1 g/dL (12.0-15.5); MEAN CORPUSCULAR HEMOGLOBIN 28.8 pg (27.0-33.4); MEAN CORPUSCULAR HGB CONC 32.3 g/dL (32.0-36.0); MEAN CORPUSCULAR VOLUME 89 fl (80-97); PLATELET COUNT 232 10^3/uL (150-450); RED BLOOD COUNT 3.16 10^6/uL (3.72-5.28); RED CELL DISTRIBUTION WIDTH 15.3 % (11.5-14.0); WHITE BLOOD COUNT 24.1 10^3/uL (4.0-10.5)
[2020-03-03 05:18] LABS: AMORPHOUS SEDIMENT,URINE TRACE /HPF; APPEARANCE,URINE TURBID; BILIRUBIN,URINE NEGATIVE (NEGATIVE); GLUCOSE, URINE 50 mg/dL (NEGATIVE); KETONES,URINE NEGATIVE (NEGATIVE); LEUKOCYTE ESTERASE,URINE TRACE (NEGATIVE); NITRITE,URINE NEGATIVE (NEGATIVE); PROTEIN,URINE 30 mg/dL (NEGATIVE); URINE SPECIFIC GRAVITY 1.016; UROBILINOGEN,URINE NEGATIVE mg/dL (<2.0)
[2020-03-03 05:19] LABS: COLOR,URINE DARK YELLOW
[2020-03-03] MEDS: MEROPENEM 500 MG in NORMAL SALINE 50 ML IV SCH ×3 (05:30→21:45)
[2020-03-03 05:35] LABS: ANION GAP 11 (5-19); BLOOD UREA NITROGEN 12 mg/dL (7-20); CALCIUM 7.9 mg/dL (8.4-10.2); CARBON DIOXIDE 19 mmol/L (22-30); CHLORIDE 109 mmol/L (98-107); GLUCOSE 161 mg/dL (75-110); PHOSPHORUS 3.6 mg/dL (2.5-4.5); POTASSIUM 4.2 mmol/L (3.6-5.0)
[2020-03-03 05:48] LABS: ABSOLUTE LYMPHOCYTES# (MANUAL) 1.7 10^3/uL (0.5-4.7); ANISOCYTOSIS SLIGHT; BAND NEUTROPHILS % (MANUAL) 2 % (3-5); BASOPHILS % (MANUAL) 0 % (0-2); EOSINOPHILS % (MANUAL) 3 % (0-6); LYMPHOCYTES % (MANUAL) 7 % (13-45); MONOCYTES % (MANUAL) 4 % (3-13); SEGMENTED NEUTROPHILS % (MAN) 84 % (42-78); TOTAL CELLS COUNTED 100
[2020-03-03 05:49] LABS: PLATELET COMMENT ADEQUATE
[2020-03-03] MEDS ORDERED: SODIUM BICARBONATE 8.4% INJ 50 MEQ/50 ML DISP.SYRIN ONE (06:01)
[2020-03-03] MEDS ORDERED: SODIUM BICARBONATE 8.4% INJ 50 MEQ/50 ML DISP.SYRIN IV ONE (06:02)
[2020-03-03 06:57] LABS: ARTERIAL BLOOD BASE EXCESS -3.6 mmol/L; ARTERIAL BLOOD H2CO3 1.15 mmol/L (1.05-1.35); ARTERIAL BLOOD HCO3 21.4 mmol/L (20-24); ARTERIAL BLOOD O2 SATURATION 97.5 % (94-98); ARTERIAL BLOOD PCO2 38.3 mmHg (35-45); ARTERIAL BLOOD PH 7.37 (7.35-7.45); ARTERIAL BLOOD PO2 100.9 mmHg (80-100); ARTERIAL BLOOD TOTAL CO2 22.6 mmol/L (21-25)
[2020-03-03 06:58] LABS: ARTERIAL BLOOD FIO2 40%
[2020-03-03] MEDS: LEVETIRACETAM 500 MG/NACL-ISO 500 MG/100 ML RTUPB IV SCH ×2 (11:46→21:25)
[2020-03-03] MEDS: PANTOPRAZOLE SODIUM 40 MG VIAL IV SCH (11:46)
[2020-03-03 12:41] LABS: ARTERIAL BLOOD BASE EXCESS -3.9 mmol/L; ARTERIAL BLOOD H2CO3 1.14 mmol/L (1.05-1.35); ARTERIAL BLOOD HCO3 21.1 mmol/L (20-24); ARTERIAL BLOOD O2 SATURATION 96.5 % (94-98); ARTERIAL BLOOD PCO2 37.9 mmHg (35-45); ARTERIAL BLOOD PH 7.36 (7.35-7.45); ARTERIAL BLOOD PO2 88.1 mmHg (80-100); ARTERIAL BLOOD TOTAL CO2 22.3 mmol/L (21-25)
[2020-03-03 12:46] LABS: ARTERIAL BLOOD FIO2 40%
[2020-03-03] MEDS: ACETAMINOPHEN SOLN 325 MG/10.15 ML UDCUP NG PRN ×2 (13:21→18:20)
[2020-03-03] MEDS: MIDAZOLAM HCL 50 MG/100 ML RTUINJ IV PRN (15:09)
--- NOTE | 2020-03-03 15:45 | PDOC CRITICAL CARE PROG REPORT ---
General Date:: 03/03/20 ICU Day:: 3 Ventilator Day:: 3 Hospital Day:: 3 Resuscitation Status: Full Code Events in the past 12 to 24 Hours:: 03/01: Admitted after PEA arrest at home. Unknown downtime. Intubated in the field. 03/02: CTA of the chest yesterday evening revealed acute pulmonary embolism along with bilateral multifocal airspace disease. The patient remains febrile. She is on a cooling blanket and getting Tylenol with some improvement in fever curve. On propofol for sedation. Off sedation, the patient is observed to have myoclonic jerks involving abdominal muscles and all 4 extremities. EEG technic roshni reports that recording is not feasible with persistent fever. Started on empiric meropenem/vancomycin with multiple known drug allergies (including penicillins and cephalosporins). No adverse events reported. Blood cultures are reporting 1 of 2 bottles with gram-positive cocci in chains, suspicious for contaminant. However, trach aspirate also isolated group C beta-hemolytic streptococci. 03/03: Fever has been much better controlled with IV Tylenol. Also, previously noted muscle rigidity has improved with changing sedation from propofol to Versed infusion. CK total 1370. Off pressors. Hemodynamically stable. No response to noxious stimuli. Spontaneous respirations intact. Daughter (Jessica) updated by phone this morning. Review of systems relevant to events:: Neurologic, respiratory, hematologic, endocrine Reason for ICU Addmission:: cardiac arrest - Medications: Medications reviewed and adjusted accordingly: Yes Sedation:: Versed, morphine Physical Exam Vital Signs: Temp Pulse Resp BP Pulse Ox 101 F H 122 H 17 155/74 H 99 03/03/20 11:19 03/03/20 10:00 03/03/20 10:12 03/03/20 10:12 03/03/20 10:12 Intake & Output 03/02/20 03/03/20 03/04/20 06:59 06:59 06:59 Intake Total 5197 2899 Output Total 2290 2395 350 Balance 2907 504 -350 Weight 85.7 kg 87.4 kg Weight/Height Weight 87.4 kg Height 1.57 m General appearance: PRESENT: no acute distress, well-developed, well-nourished Head exam: PRESENT: atraumatic, normocephalic Eye exam: PRESENT: conjunctiva pink, EOMI, PERRLA. ABSENT: scleral icterus Mouth exam: PRESENT: moist, tongue midline Respiratory exam: PRESENT: rales - Bilateral, rhonchi - Bilateral. ABSENT: wheezes Cardiovascular exam: PRESENT: RRR, tachycardia. ABSENT: diastolic murmur, rubs, systolic murmur Pulses: PRESENT: normal dorsalis pedis pul GI/Abdominal exam: PRESENT: normal bowel sounds, soft. ABSENT: distended, guarding, mass, organolmegaly, rebound, tenderness Musculoskeletal exam: PRESENT: normal inspection. ABSENT: deformity Neurological exam: PRESENT: altered, motor sensory deficit - No response to noxious stimuli Skin exam: PRESENT: dry, intact, warm. ABSENT: cyanosis, rash Tubes/Lines: PRESENT: Endotracheal Tube Laboratory/Radiographs Laboratory Results: 03/03/20 04:36 03/03/20 04:36 03/02/20 03/02/20 03/02/20 16:25 16:46 16:46 WBC RBC Hgb Hct MCV MCH MCHC RDW Plt Count Seg Neutrophils % Carbonic Acid 1.16 HCO3/H2CO3 Ratio 16:1 ABG pH 7.30 L ABG pCO2 38.6 ABG pO2 107.7 H ABG HCO3 18.7 L ABG O2 Saturation 97.5 ABG Base Excess -7.1 FiO2 40% Sodium Potassium Chloride Carbon Dioxide Anion Gap BUN Creatinine Est GFR ( Amer) Glucose Calcium Ionized Calcium Yung 1.11 L Phosphorus Magnesium 2.4 H Urine Color Urine Appearance Urine pH Ur Specific Nelson Urine Protein Urine Glucose (UA) Urine Ketones Urine Blood Urine Nitrite Ur Leukocyte Esterase Urine WBC (Auto) Urine RBC (Auto) 03/03/20 03/03/20 03/03/20 04:36 04:36 04:50 WBC 24.1 H RBC 3.16 L Hgb 9.1 L Hct 28.2 L MCV 89 MCH 28.8 MCHC 32.3 RDW 15.3 H Plt Count 232 Seg Neutrophils % Not Reportable Carbonic Acid 1.31 HCO3/H2CO3 Ratio 14:1 ABG pH 7.26 L ABG pCO2 43.5 ABG pO2 121.7 H ABG HCO3 19.2 L ABG O2 Saturation 97.9 ABG Base Excess -7.5 FiO2 40% Sodium 139.0 Potassium 4.2 Chloride 109 H Carbon Dioxide 19 L Anion Gap 11 BUN 12 Creatinine 0.98 Est GFR ( Amer) > 60 Glucose 161 H Calcium 7.9 L Ionized Calcium Yung Phosphorus 3.6 Magnesium 2.3 Urine Color Urine Appearance Urine pH Ur Specific Nelson Urine Protein Urine Glucose (UA) Urine Ketones Urine Blood Urine Nitrite Ur Leukocyte Esterase Urine WBC (Auto) Urine RBC (Auto) 03/03/20 03/03/20 03/03/20 04:50 06:30 06:50 WBC RBC Hgb Hct MCV MCH MCHC RDW Plt Count Seg Neutrophils % Carbonic Acid Cancelled 1.15 HCO3/H2CO3 Ratio Cancelled 18:1 ABG pH Cancelled 7.37 ABG pCO2 Cancelled 38.3 ABG pO2 Cancelled 100.9 H ABG HCO3 Cancelled 21.4 ABG O2 Saturation Cancelled 97.5 ABG Base Excess Cancelled -3.6 FiO2 Cancelled 40% Sodium Potassium Chloride Carbon Dioxide Anion Gap BUN Creatinine Est GFR ( Amer) Glucose Calcium Ionized Calcium Yung Phosphorus Magnesium Urine Color DARK YELLOW Urine Appearance TURBID Urine pH 5.0 Ur Specific Nelson 1.016 Urine Protein 30 H Urine Glucose (UA) 50 H Urine Ketones NEGATIVE Urine Blood LARGE H Urine Nitrite NEGATIVE Ur Leukocyte Esterase TRACE H Urine WBC (Auto) 49 Urine RBC (Auto) >182 03/01/20 09:50 Blood Blood Culture (PCR) - Final Streptococcus Species 03/01/20 03/01/20 03/01/20 06:26 06:26 06:26 Creatine Kinase 72 CK-MB (CK-2) 0.50 Troponin I 0.057 NT-Pro-B Natriuret Pep 45 03/02/20 03/02/20 03/03/20 07:51 19:03 04:36 Creatine Kinase 1370 H CK-MB (CK-2) Troponin I NT-Pro-B Natriuret Pep 2700 H 1470 H 03/03/20 03/03/20 04:36 04:36 Creatine Kinase 1568 H CK-MB (CK-2) Troponin I 0.069 NT-Pro-B Natriuret Pep Impressions: Chest/Abdomen CTA 03/01/20 00:00 IMPRESSION: 1. New development of acute pulmonary emboli in the distal right pulmonary artery, segmental and subsegmental branches bilaterally, slightly more so on the right, since the prior study dated 02/18/2020. No evidence for saddle pulmonary embolus. 2. Interval development of bilateral multifocal opacity/airspace disease in the lungs, slightly more extensive on the left. 3. Interval placement of endotracheal and nasogastric tubes. 4. Fatty liver and hepatomegaly. 5. The visualized gallbladder is distended. Head CT 03/01/20 06:32 IMPRESSION: No acute intracranial event. EVIDENCE OF ACUTE STROKE: NO. Chest X-Ray 03/02/20 07:26 IMPRESSION: NO SIGNIFICANT INTERVAL CHANGE. STABLE LIFE LINES. VAGUE AIRSPACE DISEASE IN THE LEFT LUNG. All labs, radiographs, diagnostic studies and EKGs were personally reviewed: Yes In addition, reports of radiographic and diagnostic studies were read: Yes Assessment and Plan - Diagnosis (1) Acute hypoxemic respiratory failure Is this a current diagnosis for this admission?: Yes Plan: Titrate vent settings based on ABG results. Chest x-ray in a.m. ABG in a.m. (2) Endotracheally intubated Is this a current diagnosis for this admission?: Yes (3) Acute pulmonary embolism Qualifiers: Pulmonary embolism type: other Acute cor pulmonale presence: without acute cor pulmonale Qualified Code(s): I26.99 - Other pulmonary embolism without acute cor pulmonale Is this a current diagnosis for this admission?: Yes Plan: Continue heparin infusion. (4) Seizure Is this a current diagnosis for this admission?: Yes Plan: Continue Keppra. EEG has not been completed due to refractory fever. However, with improvement in the patient's temperature curve today, EEG study is planned for this morning. (5) Lactic acidosis Is this a current diagnosis for this admission?: Yes Plan: Repeat lactate. (6) Cardiac arrest Is this a current diagnosis for this admission?: Yes (7) Leukocytosis Qualifiers: Leukocytosis type: unspecified Qualified Code(s): D72.829 - Elevated white blood cell count, unspecified Is this a current diagnosis for this admission?: Yes (8) Diabetes Qualifiers: Diabetes mellitus type: type 2 Diabetes mellitus care home insulin use: without intermodal dispatcher use Diabetes mellitus complication status: without complication Qualified Code(s): E11.9 - Type 2 diabetes mellitus without complications Is this a current diagnosis for this admission?: Yes (9) High anion gap metabolic acidosis Is this a current diagnosis for this admission?: Yes (10) Myoclonic jerking Is this a current diagnosis for this admission?: Yes (11) Pneumonia Qualifiers: Pneumonia type: due to unspecified organism Laterality: bilateral Lung location: unspecified part of lung Qualified Code(s): J18.9 - Pneumonia, unspecified organism Is this a current diagnosis for this admission?: Yes (12) Acute kidney injury Is this a current diagnosis for this admission?: Yes Plan: Resolved. (13) Normocytic anemia Is this a current diagnosis for this admission?: Yes (14) Fever Qualifiers: Fever type: due to other condition Qualified Code(s): R50.81 - Fever presenting with conditions classified elsewhere Is this a current diagnosis for this admission?: Yes Plan: Improved with IV Tylenol. (15) Elevated CK Is this a current diagnosis for this admission?: Yes Plan: May be related to seizure, muscle injury. Even rhabdomyolysis is doubtful at this point with improving renal function. Doubt neuroleptic malignant syndrome or malignant hyperthermia. Trend creatine kinase. Critical Time Critical Time (minutes): 60 Level of Care: ICU -: 1. The care of a critical patient is a dynamic process. This note is a retail customer service representative synopsis but static in nature. The timeframe for treatments given in order is not necessarily the actual time these treatments may have been done. 2. This patient requires critical care secondary to ongoing requirements for therapy not offered or safe outside the critical care environment. Transfer to a lower level of care will result in altered life or limb morbidity and mortality. 3. Multidisciplinary rounds completed. 4. ABCDE bundle addressed.
--- NOTE | 2020-03-03 16:54 | NEURO WORKBENCH EEG REPORT ---
EEG Report Patient: Milton Cancino ID: [id number] Referring Doctor: Moises Oh DOS: 03/03/2020 Medications: Albuterol, Porcine, Heparin, Pyxis, Keppra, Meropenem, Midazolam, Morphine, Protonix History This is a 54 year old female with a history of hypertension, asthma, pneumonia, GERD, breast cancer, fibromyalgia, left ulnar nerve surgery, left knee surgery, type 2 diabetes, depression, endometriosis, seizures with last in 2005, murmur, tachycardia, TBI, spinal fusion in 2005, hypercholesterolemia who was admitted in cardiac arrest. The patient is intubated, temperature 37.7. This EEG was requested for seizures and myoclonic jerks. EEG Interpretation This EEG was recorded in the comatose state. The background was characterized by suppression with periods of intermittent, low amplitude delta activity diffusely. These periods of delta occurred ~ every 3 to 10 seconds and lasted up to ~1 second in duration. There were no associated movements noted. Passive eye opening and closing was associated with no significant changes in the background but there was associated myogenic artifact. Photic stimulation resulted in no significant changes. There were no epileptiform abnormalities. The EKG showed a rhythm in the 120s with rare PVCs. There was artifact during the recording that impaired interpretation at times. EEG Classification * Suppression, burst-suppression * EKG tachycardia, PVCs EEG Impression This EEG is severely abnormal. The pattern is most consistent with a burst suppression pattern. This may be seen with encephalopathic processes including but not limited to medications (e.g. midazolam infusion), hypothermia, and anoxic injury. If clinically indicated, a further EEG without such medications may be considered. The EKG findings may require further investigation. INTERPRETING NEUROLOGIST: Mary Malave MD, FRCPC Board Certified in Neurology, with special qualification in Child Neurology, and in Clinical Neurophysiology [facility]
[2020-03-03] MEDS: HEPARIN SODIUM,PORCINE/D5W 25,000 UNIT/250 ML RTUINJ IV PRN (18:20)
[2020-03-03] MEDS: VANCOMYCIN HCL 1,500 MG in DEXTROSE 5%-WATER 250 ML IV SCH (19:54)
[2020-03-04] MEDS: NORMAL SALINE 1000 ML 1,000 ML IV PRN ×2 (01:30→18:42)
[2020-03-04] MEDS: ALBUTEROL SULFATE 0.083% NEB 2.5 MG/3 ML AMPUL NEB SCH ×4 (01:48→21:20)
[2020-03-04 05:35] LABS: ABSOLUTE BASOPHILS # (AUTO) 0.1 10^3/uL (0.0-0.2); ABSOLUTE EOSINOPHILS # (AUTO) 0.1 10^3/uL (0.0-0.6); ABSOLUTE LYMPHOCYTES (AUTO) 1.9 10^3/uL (0.5-4.7); ABSOLUTE MONOCYTES (AUTO) 1.2 10^3/uL (0.1-1.4); ABSOLUTE NEUT (AUTO) 14.9 10^3/uL (1.7-8.2); BASOPHILS % (AUTO) 0.5 % (0-2); EOSINOPHILS % (AUTO) 0.7 % (0-6); HEMATOCRIT 23.7 % (36.0-47.0); LYMPHOCYTES % (AUTO) 10.3 % (13-45); MEAN CORPUSCULAR HEMOGLOBIN 29.2 pg (27.0-33.4); MEAN CORPUSCULAR HGB CONC 33.1 g/dL (32.0-36.0); MEAN CORPUSCULAR VOLUME 88 fl (80-97); MONOCYTES % (AUTO) 6.7 % (3-13); PLATELET COUNT 211 10^3/uL (150-450); RED BLOOD COUNT 2.69 10^6/uL (3.72-5.28); RED CELL DISTRIBUTION WIDTH 15.5 % (11.5-14.0); SEGMENTED NEUTROPHILS % (AUTO) 81.8 % (42-78); TOTAL CELLS COUNTED % (AUTO) 100 %; WHITE BLOOD COUNT 18.1 10^3/uL (4.0-10.5)
[2020-03-04 05:39] LABS: ARTERIAL BLOOD BASE EXCESS -3.6 mmol/L; ARTERIAL BLOOD H2CO3 1.26 mmol/L (1.05-1.35); ARTERIAL BLOOD HCO3 21.9 mmol/L (20-24); ARTERIAL BLOOD O2 SATURATION 97.6 % (94-98); ARTERIAL BLOOD PH 7.34 (7.35-7.45); ARTERIAL BLOOD PO2 106.8 mmHg (80-100); ARTERIAL BLOOD TOTAL CO2 23.2 mmol/L (21-25)
[2020-03-04 05:40] LABS: ARTERIAL BLOOD FIO2 40%
[2020-03-04 05:42] LABS: HEMOGLOBIN 7.9 g/dL (12.0-15.5)
[2020-03-04 05:48] LABS: ANION GAP 7 (5-19); BLOOD UREA NITROGEN 7 mg/dL (7-20); CALCIUM 7.8 mg/dL (8.4-10.2); CARBON DIOXIDE 22 mmol/L (22-30); CHLORIDE 110 mmol/L (98-107); GLUCOSE 172 mg/dL (75-110); PHOSPHORUS 2.5 mg/dL (2.5-4.5); POTASSIUM 3.9 mmol/L (3.6-5.0)
[2020-03-04] MEDS: MEROPENEM 500 MG in NORMAL SALINE 50 ML IV SCH ×2 (06:12→15:00)
[2020-03-04] MEDS: INSULIN REG, HUMAN 100 UNIT/ML 3 ML VIAL (PYX) SUBCUT SCH ×3 (06:12→18:37)
--- NOTE | 2020-03-04 07:19 | RADIOLOGY REPORT (SQ) ---
ABDOMINAL RADIOGRAPH: 03/04/2020 6:17 AM CDT COMPARISON: None available TECHNIQUE: A single radiograph of the abdomen was obtained. HISTORY: 54-year old with abdominal distention. FINDINGS: Only the upper abdomen was included on this examination. The visualized bowel gas pattern is nonspecific and nonobstructive. No abnormal intra-abdominal calcifications are seen. There are no findings to suggest organomegaly. A nasogastric tube tip is seen overlying the right upper abdomen, likely at the proximal duodenum or pylorus. Calcified phlebolith are seen within the lower pelvis. There is a Jean catheter tip projecting of the midline lower pelvis. IMPRESSION: A nasogastric tube tip is seen overlying the right upper abdomen, likely at the proximal duodenum or pylorus.
[2020-03-04] MEDS: PANTOPRAZOLE SODIUM 40 MG VIAL IV SCH (10:21)
[2020-03-04] MEDS: LEVETIRACETAM 500 MG/NACL-ISO 500 MG/100 ML RTUPB IV SCH ×2 (10:21→21:40)
[2020-03-04] MEDS: POLYETHYLENE GLYCOL 3350 POWDER 17 GM/1 PACKET PO SCH (10:21)
[2020-03-04 10:56] LABS: HEMATOCRIT 23.2 % (36.0-47.0); MEAN CORPUSCULAR HEMOGLOBIN 28.6 pg (27.0-33.4); MEAN CORPUSCULAR HGB CONC 32.2 g/dL (32.0-36.0); MEAN CORPUSCULAR VOLUME 89 fl (80-97); PLATELET COUNT 208 10^3/uL (150-450); RED BLOOD COUNT 2.61 10^6/uL (3.72-5.28); RED CELL DISTRIBUTION WIDTH 15.4 % (11.5-14.0); WHITE BLOOD COUNT 14.7 10^3/uL (4.0-10.5)
[2020-03-04 11:12] LABS: HEMOGLOBIN 7.5 g/dL (12.0-15.5)
[2020-03-04] MEDS ORDERED: METHYLPREDNISOLONE INJ 125 MG/2 ML SDV IV ONE (14:30)
[2020-03-04] MEDS ORDERED: NORMAL SALINE 250 ML IV PRN ×2 (16:02)
--- NOTE | 2020-03-04 16:57 | PDOC CRITICAL CARE PROG REPORT ---
General Date:: 03/04/20 ICU Day:: 4 Ventilator Day:: 4 Hospital Day:: 4 Resuscitation Status: Full Code Events in the past 12 to 24 Hours:: 03/01: Admitted after PEA arrest at home. Unknown downtime. Intubated in the field. 03/02: CTA of the chest yesterday evening revealed acute pulmonary embolism along with bilateral multifocal airspace disease. The patient remains febrile. She is on a cooling blanket and getting Tylenol with some improvement in fever curve. On propofol for sedation. Off sedation, the patient is observed to have myoclonic jerks involving abdominal muscles and all 4 extremities. EEG technic roshni reports that recording is not feasible with persistent fever. Started on empiric meropenem/vancomycin with multiple known drug allergies (including penicillins and cephalosporins). No adverse events reported. Blood cultures are reporting 1 of 2 bottles with gram-positive cocci in chains, suspicious for contaminant. However, trach aspirate also isolated group C beta-hemolytic streptococci. 03/03: Fever has been much better controlled with IV Tylenol. Also, previously noted muscle rigidity has improved with changing sedation from propofol to Versed infusion. CK total 1370. Off pressors. Hemodynamically stable. No response to noxious stimuli. Spontaneous respirations intact. Daughter (Jessica) updated by phone this morning. 03/04: Fever controlled. Currently off Versed infusion. CK total [id number]. Nursing staff reports progressive swelling of the tongue overnight. This patient has an extensive list of drug intolerances (including multiple antibiotics). She is currently on meropenem/vancomycin. Hemodynamically stable. No response to noxious stimuli. Spontaneous respirations intact. EEG was performed in the interim: Burst suppression pattern was observed. Recommendations for repeat EEG off Versed infusion noted. Review of systems relevant to events:: Neurologic, respiratory, hematologic, endocrine Reason for ICU Addmission:: cardiac arrest - Medications: Medications reviewed and adjusted accordingly: Yes Physical Exam Vital Signs: Temp Pulse Resp BP Pulse Ox 99.9 F 139 H 19 149/83 H 100 03/04/20 05:27 03/04/20 01:48 03/04/20 06:13 03/04/20 06:13 03/04/20 06:12 Intake & Output 03/03/20 03/04/20 03/05/20 06:59 06:59 06:59 Intake Total 3079 3969 Output Total 1441 2325 Balance 804 1594 Weight 87.4 kg 88 kg Weight/Height Weight 88 kg Height 1.57 m General appearance: PRESENT: no acute distress, well-developed, well-nourished, other - Tongue appears swollen; however, there is no overt swelling of the. Very orbital or periocular tissues. Head exam: PRESENT: atraumatic, normocephalic Eye exam: PRESENT: conjunctiva pink, EOMI, PERRLA. ABSENT: scleral icterus Mouth exam: PRESENT: moist, tongue midline, other - Swollen tongue with loss of papillae. Mild swelling of the lips. Respiratory exam: PRESENT: rhonchi. ABSENT: rales Cardiovascular exam: PRESENT: RRR, tachycardia. ABSENT: diastolic murmur, rubs, systolic murmur GI/Abdominal exam: PRESENT: distended, normal bowel sounds, soft. ABSENT: guarding, mass, organolmegaly, rebound, tenderness Extremities exam: PRESENT: full ROM. ABSENT: calf tenderness, clubbing, pedal edema Musculoskeletal exam: PRESENT: normal inspection. ABSENT: deformity Neurological exam: PRESENT: altered, other - Facial symmetry. No response to noxious stimuli. Spontaneous respirations intact. Doll's eyes intact. Skin exam: PRESENT: dry, intact, warm. ABSENT: cyanosis, rash Tubes/Lines: PRESENT: Endotracheal Tube Laboratory/Radiographs Laboratory Results: 03/04/20 05:06 03/04/20 05:06 03/03/20 03/04/20 03/04/20 04:50 04:20 05:06 WBC RBC Hgb Hct MCV MCH MCHC RDW Plt Count Seg Neutrophils % Carbonic Acid 1.14 1.26 HCO3/H2CO3 Ratio 18:1 17:1 ABG pH 7.36 7.34 L ABG pCO2 37.9 42.0 ABG pO2 88.1 106.8 H ABG HCO3 21.1 21.9 ABG O2 Saturation 96.5 97.6 ABG Base Excess -3.9 -3.6 FiO2 40% 40% Sodium Potassium Chloride Carbon Dioxide Anion Gap BUN Creatinine Est GFR ( Amer) Glucose Lactic Acid 1.3 Calcium Phosphorus Magnesium 03/04/20 03/04/20 05:06 05:06 WBC 18.1 H RBC 2.69 L Hgb 7.9 L Hct 23.7 L MCV 88 MCH 29.2 MCHC 33.1 RDW 15.5 H Plt Count 211 Seg Neutrophils % 81.8 H Carbonic Acid HCO3/H2CO3 Ratio ABG pH ABG pCO2 ABG pO2 ABG HCO3 ABG O2 Saturation ABG Base Excess FiO2 Sodium 138.9 Potassium 3.9 Chloride 110 H Carbon Dioxide 22 Anion Gap 7 BUN 7 Creatinine 0.66 Est GFR ( Amer) > 60 Glucose 172 H Lactic Acid Calcium 7.8 L Phosphorus 2.5 Magnesium 2.3 03/01/20 09:50 Blood Blood Culture (PCR) - Final Streptococcus Species 03/01/20 17:08 Tracheal Aspirate Gram Stain - Final 03/01/20 17:08 Tracheal Aspirate Sputum Culture - Final Group C Beta Streptococcus Normal Allie Absent 03/01/20 03/01/20 03/01/20 06:26 06:26 06:26 Creatine Kinase 72 CK-MB (CK-2) 0.50 Troponin I 0.057 NT-Pro-B Natriuret Pep 45 03/02/20 03/02/20 03/03/20 07:51 19:03 04:36 Creatine Kinase 1370 H CK-MB (CK-2) Troponin I NT-Pro-B Natriuret Pep 2700 H 1470 H 03/03/20 03/03/20 03/03/20 04:36 04:36 12:34 Creatine Kinase 1568 H 1903 H CK-MB (CK-2) Troponin I 0.069 NT-Pro-B Natriuret Pep 03/03/20 20:00 Creatine Kinase 1302 H CK-MB (CK-2) Troponin I NT-Pro-B Natriuret Pep Impressions: Chest/Abdomen CTA 03/01/20 00:00 IMPRESSION: 1. New development of acute pulmonary emboli in the distal right pulmonary artery, segmental and subsegmental branches bilaterally, slightly more so on the right, since the prior study dated 02/18/2020. No evidence for saddle pulmonary embolus. 2. Interval development of bilateral multifocal opacity/airspace disease in the lungs, slightly more extensive on the left. 3. Interval placement of endotracheal and nasogastric tubes. 4. Fatty liver and hepatomegaly. 5. The visualized gallbladder is distended. Head CT 03/01/20 06:32 IMPRESSION: No acute intracranial event. EVIDENCE OF ACUTE STROKE: NO. Chest X-Ray 03/02/20 07:26 IMPRESSION: NO SIGNIFICANT INTERVAL CHANGE. STABLE LIFE LINES. VAGUE AIRSPACE DISEASE IN THE LEFT LUNG. KUB X-Ray 03/04/20 00:00 IMPRESSION: A nasogastric tube tip is seen overlying the right upper abdomen, likely at the proximal duodenum or pylorus. All labs, radiographs, diagnostic studies and EKGs were personally reviewed: Yes In addition, reports of radiographic and diagnostic studies were read: Yes Assessment and Plan - Diagnosis (1) Angioedema Is this a current diagnosis for this admission?: Yes Plan: Solu-Medrol 125 mg IV single dose. Transfuse 2 units FFP. Stop meropenem. (2) Acute hypoxemic respiratory failure Is this a current diagnosis for this admission?: Yes Plan: Titrate vent settings based on ABG results. Chest x-ray in a.m. ABG in a.m. (3) Acute pulmonary embolism Qualifiers: Pulmonary embolism type: other Acute cor pulmonale presence: without acute cor pulmonale Qualified Code(s): I26.99 - Other pulmonary embolism without acute cor pulmonale Is this a current diagnosis for this admission?: Yes Plan: Continue heparin infusion. (4) Anoxic encephalopathy Is this a current diagnosis for this admission?: Yes Plan: Frequent neurological assessments. (5) Myoclonic jerking Is this a current diagnosis for this admission?: Yes (6) Seizure Is this a current diagnosis for this admission?: Yes Plan: Continue Keppra. Hold Versed for now. We will plan on EEG on Friday. (7) Lactic acidosis Is this a current diagnosis for this admission?: Yes Plan: Repeat lactate. (8) Cardiac arrest Is this a current diagnosis for this admission?: Yes (9) Leukocytosis Qualifiers: Leukocytosis type: unspecified Qualified Code(s): D72.829 - Elevated white blood cell count, unspecified Is this a current diagnosis for this admission?: Yes (10) Diabetes Qualifiers: Diabetes mellitus type: type 2 Diabetes mellitus intermediate project manager insulin use: without intermediate project manager use Diabetes mellitus complication status: without complication Qualified Code(s): E11.9 - Type 2 diabetes mellitus without complications Is this a current diagnosis for this admission?: Yes (11) High anion gap metabolic acidosis Is this a current diagnosis for this admission?: Yes (12) Pneumonia Qualifiers: Pneumonia type: due to unspecified organism Laterality: bilateral Lung location: unspecified part of lung Qualified Code(s): J18.9 - Pneumonia, unspecified organism Is this a current diagnosis for this admission?: Yes Plan: Based on sensitivities, vancomycin should prove sufficient. In light of the patient's apparent adverse reaction to a recently administered medication, meropenem and vancomycin are both candidates. Review of her allergy list does include several antibiotics, including penicillins and cephalosporins. Will discontinue meropenem first. (13) Acute kidney injury Is this a current diagnosis for this admission?: Yes (14) Normocytic anemia Is this a current diagnosis for this admission?: Yes (15) Fever Qualifiers: Fever type: due to other condition Qualified Code(s): R50.81 - Fever presenting with conditions classified elsewhere Is this a current diagnosis for this admission?: Yes (16) Elevated CK Is this a current diagnosis for this admission?: Yes Critical Time Critical Time (minutes): 60 Level of Care: ICU -: 1. The care of a critical patient is a dynamic process. This note is a solar sales representative synopsis but static in nature. The timeframe for treatments given in order is not necessarily the actual time these treatments may have been done. 2. This patient requires critical care secondary to ongoing requirements for therapy not offered or safe outside the critical care environment. Transfer to a lower level of care will result in altered life or limb morbidity and mortality. 3. Multidisciplinary rounds completed. 4. ABCDE bundle addressed.
[2020-03-04] MEDS: MIDAZOLAM 2 MG/2 ML INJ ONE ×2 (19:27→19:48)
[2020-03-04] MEDS ORDERED: MIDAZOLAM 2 MG/2 ML INJ IV ONE (19:45)
[2020-03-04 20:05] LABS: VANCOMYCIN,TROUGH < 5.0 ug/mL (5.0-20.0)
[2020-03-04] MEDS: VANCOMYCIN HCL 1,500 MG in DEXTROSE 5%-WATER 250 ML IV SCH (20:11)
[2020-03-04] MEDS: ACETAMINOPHEN SOLN 325 MG/10.15 ML UDCUP NG PRN (20:12)
[2020-03-04] MEDS: HEPARIN SODIUM,PORCINE/D5W 25,000 UNIT/250 ML RTUINJ IV PRN (20:31)
[2020-03-04] MEDS: MIDAZOLAM HCL 50 MG/100 ML RTUINJ IV PRN (23:23)
[2020-03-05] MEDS: INSULIN REG, HUMAN 100 UNIT/ML 3 ML VIAL (PYX) SUBCUT SCH ×4 (00:20→20:17)
[2020-03-05] MEDS ORDERED: NOREPINEPHRINE BITARTRATE INJ/PF 4 MG/4 ML SDV IV ONE (01:13)
[2020-03-05] MEDS: NORMAL SALINE 1000 ML 1,000 ML IV PRN (02:17)
[2020-03-05] MEDS: ALBUTEROL SULFATE 0.083% NEB 2.5 MG/3 ML AMPUL NEB SCH ×4 (02:30→20:08)
[2020-03-05 05:18] LABS: HEMATOCRIT 23.3 % (36.0-47.0); MEAN CORPUSCULAR HEMOGLOBIN 29.1 pg (27.0-33.4); MEAN CORPUSCULAR HGB CONC 33.7 g/dL (32.0-36.0); MEAN CORPUSCULAR VOLUME 86 fl (80-97); PLATELET COUNT 238 10^3/uL (150-450); RED CELL DISTRIBUTION WIDTH 15.1 % (11.5-14.0); WHITE BLOOD COUNT 13.4 10^3/uL (4.0-10.5)
[2020-03-05 05:29] LABS: ANION GAP 9 (5-19); BLOOD UREA NITROGEN 10 mg/dL (7-20); CALCIUM 8.1 mg/dL (8.4-10.2); CARBON DIOXIDE 24 mmol/L (22-30); CHLORIDE 105 mmol/L (98-107); GLUCOSE 249 mg/dL (75-110); POTASSIUM 3.4 mmol/L (3.6-5.0)
[2020-03-05 05:33] LABS: ABSOLUTE LYMPHOCYTES# (MANUAL) 1.9 10^3/uL (0.5-4.7); ABSOLUTE MONOCYTES # (MANUAL) 0.7 10^3/uL (0.1-1.4); BASOPHILS % (MANUAL) 0 % (0-2); EOSINOPHILS % (MANUAL) 0 % (0-6); LYMPHOCYTES % (MANUAL) 14 % (13-45); MONOCYTES % (MANUAL) 5 % (3-13); SEGMENTED NEUTROPHILS % (MAN) 81 % (42-78); TOTAL CELLS COUNTED 100
[2020-03-05 05:34] LABS: ANISOCYTOSIS SLIGHT; PLATELET COMMENT ADEQUATE
[2020-03-05 05:35] LABS: HEMOGLOBIN 7.9 g/dL (12.0-15.5)
[2020-03-05 05:57] LABS: ARTERIAL BLOOD BASE EXCESS -0.2 mmol/L; ARTERIAL BLOOD FIO2 35%; ARTERIAL BLOOD H2CO3 1.07 mmol/L (1.05-1.35); ARTERIAL BLOOD HCO3 23.8 mmol/L (20-24); ARTERIAL BLOOD O2 SATURATION 97.1 % (94-98); ARTERIAL BLOOD PCO2 35.7 mmHg (35-45); ARTERIAL BLOOD PH 7.44 (7.35-7.45); ARTERIAL BLOOD PO2 88.4 mmHg (80-100); ARTERIAL BLOOD TOTAL CO2 24.9 mmol/L (21-25)
[2020-03-05] MEDS: MIDAZOLAM HCL 50 MG/100 ML RTUINJ IV PRN ×2 (06:07→16:39)
[2020-03-05] MEDS: HEPARIN SOD (PORCINE) 1,000 UNIT/ML 10 ML VIAL IV PRN ×2 (06:14→14:30)
[2020-03-05] MEDS: POLYETHYLENE GLYCOL 3350 POWDER 17 GM/1 PACKET PO SCH (09:20)
[2020-03-05] MEDS: PANTOPRAZOLE SODIUM 40 MG VIAL IV SCH (09:20)
[2020-03-05] MEDS: MORPHINE SULFATE 60 MG/60 ML RTUINJ IV PRN (09:20)
[2020-03-05] MEDS: LEVETIRACETAM 500 MG/NACL-ISO 500 MG/100 ML RTUPB IV SCH ×2 (09:21→21:05)
[2020-03-05] MEDS ORDERED: METHYLPREDNISOLONE INJ 125 MG/2 ML SDV IV ONE (09:43)
--- NOTE | 2020-03-05 10:20 | RADIOLOGY REPORT (SQ) ---
EXAM DESCRIPTION: CHEST SINGLE VIEW IMAGES COMPLETED DATE/TIME: 03/05/2020 10:07 am REASON FOR STUDY: acute resp failure COMPARISON: 03/02/2020 FINDINGS: One-view chest AP portable semi upright. Generally stable exam. Endotracheal and nasogastric tubes are appropriate. Epidural spine leads in place. Patchy left lung infiltrates persist. Cardiomegaly with mild vascular congestion as before. No pneumothorax. TECHNICAL DOCUMENTATION: JOB ID: [id number] Reading location - IP/workstation name: [email or web address]
[2020-03-05] MEDS: POTASSIUM CHLORIDE 20 MEQ PACKET PO SCH ×2 (11:40→14:40)
[2020-03-05] MEDS: FUROSEMIDE INJ/PF 40 MG/4 ML SDV IV SCH ×2 (11:40→15:39)
[2020-03-05] MEDS: VANCOMYCIN HCL 1,250 MG in DEXTROSE 5%-WATER 250 ML IV SCH ×2 (11:43→21:05)
[2020-03-05] MEDS ORDERED: POTASSIUM CHLORIDE 20 MEQ PACKET PO SCH (15:00)
[2020-03-05] MEDS: ACETAMINOPHEN SOLN 325 MG/10.15 ML UDCUP NG PRN (16:38)
[2020-03-05] MEDS ORDERED: FUROSEMIDE INJ/PF 40 MG/4 ML SDV IV ONE (20:00)
[2020-03-05] MEDS: HEPARIN SODIUM,PORCINE/D5W 25,000 UNIT/250 ML RTUINJ IV PRN (20:16)
[2020-03-06] MEDS: INSULIN REG, HUMAN 100 UNIT/ML 3 ML VIAL (PYX) SUBCUT SCH ×4 (00:14→18:39)
[2020-03-06] MEDS ORDERED: INSULIN GLARGINE,HUM.REC.ANLOG 1,000 UNIT/10 ML VIAL (PYX) SUBCUT ONE (00:45)
[2020-03-06] MEDS: ALBUTEROL SULFATE 0.083% NEB 2.5 MG/3 ML AMPUL NEB SCH ×4 (02:33→20:06)
[2020-03-06] MEDS: MORPHINE SULFATE 60 MG/60 ML RTUINJ IV PRN (04:29)
[2020-03-06 05:06] LABS: ARTERIAL BLOOD BASE EXCESS 4.1 mmol/L; ARTERIAL BLOOD H2CO3 1.24 mmol/L (1.05-1.35); ARTERIAL BLOOD HCO3 28.4 mmol/L (20-24); ARTERIAL BLOOD O2 SATURATION 96.9 % (94-98); ARTERIAL BLOOD PCO2 41.3 mmHg (35-45); ARTERIAL BLOOD PH 7.46 (7.35-7.45); ARTERIAL BLOOD PO2 85.8 mmHg (80-100); ARTERIAL BLOOD TOTAL CO2 29.7 mmol/L (21-25)
[2020-03-06 05:07] LABS: ARTERIAL BLOOD FIO2 35%
[2020-03-06] MEDS: MIDAZOLAM HCL 50 MG/100 ML RTUINJ IV PRN (05:09)
[2020-03-06 05:31] LABS: APPEARANCE,URINE SLIGHTLY-CLOUDY; BILIRUBIN,URINE NEGATIVE (NEGATIVE); COLOR,URINE YELLOW; GLUCOSE, URINE >=500 mg/dL (NEGATIVE); KETONES,URINE NEGATIVE (NEGATIVE); LEUKOCYTE ESTERASE,URINE SMALL (NEGATIVE); NITRITE,URINE NEGATIVE (NEGATIVE); PROTEIN,URINE 30 mg/dL (NEGATIVE); URINE SPECIFIC GRAVITY 1.024; UROBILINOGEN,URINE NEGATIVE mg/dL (<2.0)
[2020-03-06 06:04] LABS: ALBUMIN 3.4 g/dL (3.5-5.0); ALKALINE PHOSPHATASE 156 U/L (38-126); ANION GAP 5 (5-19); ASPARTATE AMINO TRANSFERASE 89 U/L (14-36); BILIRUBIN,DIRECT 0.1 mg/dL (0.0-0.4); BILIRUBIN,TOTAL 0.5 mg/dL (0.2-1.3); BLOOD UREA NITROGEN 19 mg/dL (7-20); CALCIUM 8.8 mg/dL (8.4-10.2); CARBON DIOXIDE 32 mmol/L (22-30); CHLORIDE 100 mmol/L (98-107); GLUCOSE 331 mg/dL (75-110); POTASSIUM 4.1 mmol/L (3.6-5.0); TOTAL PROTEIN 7.1 g/dL (6.3-8.2)
[2020-03-06] MEDS: HEPARIN SOD (PORCINE) 1,000 UNIT/ML 10 ML VIAL IV PRN (06:15)
[2020-03-06 06:51] LABS: HEMATOCRIT 24.9 % (36.0-47.0); HEMOGLOBIN 8.4 g/dL (12.0-15.5); MEAN CORPUSCULAR HEMOGLOBIN 29.3 pg (27.0-33.4); MEAN CORPUSCULAR HGB CONC 33.8 g/dL (32.0-36.0); MEAN CORPUSCULAR VOLUME 87 fl (80-97); PLATELET COUNT 332 10^3/uL (150-450); RED BLOOD COUNT 2.87 10^6/uL (3.72-5.28); RED CELL DISTRIBUTION WIDTH 14.9 % (11.5-14.0); WHITE BLOOD COUNT 16.6 10^3/uL (4.0-10.5)
[2020-03-06 06:55] LABS: ABSOLUTE LYMPHOCYTES# (MANUAL) 5.1 10^3/uL (0.5-4.7); ABSOLUTE MONOCYTES # (MANUAL) 1.7 10^3/uL (0.1-1.4); BASOPHILS % (MANUAL) 0 % (0-2); EOSINOPHILS % (MANUAL) 0 % (0-6); LYMPHOCYTES % (MANUAL) 30 % (13-45); MONOCYTES % (MANUAL) 10 % (3-13); NUCLEATED RED BLOOD CELLS 2 /100 WBC (0); SEGMENTED NEUTROPHILS % (MAN) 59 % (42-78); TOTAL CELLS COUNTED 100
[2020-03-06 06:58] LABS: ANISOCYTOSIS SLIGHT; TOXIC GRANULATION SLIGHT
[2020-03-06 06:59] LABS: PLATELET COMMENT ADEQUATE
[2020-03-06] MEDS: POLYETHYLENE GLYCOL 3350 POWDER 17 GM/1 PACKET PO SCH (11:09)
[2020-03-06] MEDS: VANCOMYCIN HCL 1,250 MG in DEXTROSE 5%-WATER 250 ML IV SCH ×2 (11:10→22:50)
[2020-03-06] MEDS: PANTOPRAZOLE SODIUM 40 MG VIAL IV SCH (11:10)
[2020-03-06] MEDS: LEVETIRACETAM 500 MG/NACL-ISO 500 MG/100 ML RTUPB IV SCH ×2 (11:10→21:51)
[2020-03-06] MEDS: INSULIN GLARGINE,HUM.REC.ANLOG 1,000 UNIT/10 ML VIAL SUBCUT SCH ×2 (11:16→21:51)
[2020-03-06] MEDS ORDERED: FENTANYL CITRATE INJ/PF 100 MCG/2 ML AMPUL IV PRN (12:07)
[2020-03-06] MEDS: DEXMEDETOMIDINE IN 0.9 % NACL 400 MCG/100 ML RTUPB IV PRN ×2 (12:31→22:10)
--- NOTE | 2020-03-06 13:43 | PDOC CRITICAL CARE PROG REPORT ---
General Date:: 03/06/20 ICU Day:: 5 Ventilator Day:: 5 Hospital Day:: 5 Resuscitation Status: Full Code Events in the past 12 to 24 Hours:: 03.06.2020: I assumed care of this patient after the excellent care provided by Dr. Oh. A synopsis of his evaluation over the last 5 days as noted below. Patient has not had any significant temperature elevation and her rigidity appears to be only with stimulus. She has been maintained on morphine and Versed drip and these have been adjudicated so as to discontinue antihistamine related effect of morphine. She is being transitioned to Precedex and will receive fentanyl as needed. Had lengthy discussion with power of commercial attorney, daughter Jessica Rosas. She discloses that the patient has not been taking her medications and is supposed to be on BiPAP at night. She had a significant amount of carbohydrates the night before she was found unresponsive. Extensive review of her medications shows that she has been on Neurontin, clonazepam, amitriptyline, buprenorphine in the form of Bel[place]uca, bupropion buspirone, Latuda, metformin, pramipexole Chronology of events prior to care: 03/05/2020: Fever returned and placed on a cooling blanket. Noted to have recurrence of spastic rigidity and abnormal movements (?myoclonus versus seizure). EEG was not available. Versed infusion was restarted. Patient was given Solu-Medrol and 2 units FFP for suspected angioedema involving the lips and tongue. Meropenem discontinued. No significant change in lip/tongue swelling. No Neurologic improvement in the interim, however, with Versed infusion held, the patient did start to show responses to noxious stimulus. 03/04/2020: Fever controlled. Off Versed continuos infusion. Total CK elevated at [id number]. Nurses reports progressive swelling of the tongue during the night. Patient noted to have extensive list of drug intolerances and/or allergies (including multiple antibiotics). Currently on meropenem/vancomycin. Hemodynamically stable. Unresponsive noxious stimuli. Has intact spontaneous respirations. EEG shows burst suppression pattern. Recommendations for repeat EEG off Versed infusion. 03/03/2020: Fever better controlled with IV Acetaminophen. Muscle rigidity has improved with changing sedation from propofol to Versed infusion. CK: 1370. Off vasopressors with improved hemodynamics. Unresponsive to any stimulus. Maintains spontaneous respirations. Daughter (Jessica) updated by phone this morning 03/02/2020: CTA of the chest revealed acute pulmonary embolism with bilateral multifocal airspace disease. The patient is febrile. Cooling blanket required and given Tylenol with some improvement in fever curve. On propofol sedation. Off sedation, observed myoclonic jerks involving abdominal muscles and all 4 extremities. EEG not feasible with persistent fever due to inability for glue to maintain. Started on empiric meropenem/vancomycin, notably with multiple known drug allergies (including penicillins and cephalosporins). No adverse events reported after first doses. Blood cultures reporting 1 of 2 bottles with gram-positive cocci in chains, questionable contaminant. Tracheal aspirate has group C beta-hemolytic streptococci. 03/01/2020: Admitted after PEA arrest at home. Intubated in ED after 2nd attempt. Unknown downtime. Intubated in the field. Patient reportedly ate a significant amount of carbohydrates prior to going to bed and was not feeling well. Review of systems relevant to events:: 03.06.2020: Currently off all vasopressor therapy. On morphine and Versed drip. Reason for ICU Addmission:: cardiac arrest - Medications: Medications reviewed and adjusted accordingly: Yes Vasopressors:: None Sedation:: Morphine and versed Physical Exam Vital Signs: Temp Pulse Resp BP Pulse Ox 100.2 F 104 H 12 120/65 97 03/06/20 08:00 03/06/20 10:00 03/06/20 11:30 03/06/20 11:14 03/06/20 11:30 Intake & Output 03/05/20 03/06/20 03/07/20 06:59 06:59 06:59 Intake Total 4374 2185 56 Output Total 2200 5875 125 Balance 2174 -3690 -69 Weight 89.4 kg 87.2 kg 87.2 kg Weight/Height Weight 87.2 kg Height 5 ft 2 in General appearance: PRESENT: no acute distress, morbidly obese Exam: Intubated ill-appearing nontoxic unresponsive 54-year-old black female Head exam: PRESENT: atraumatic, normocephalic Eye exam: PRESENT: conjunctiva pink, PERRLA. ABSENT: conjunctival injection, nystagmus, scleral icterus Mouth exam: PRESENT: moist, tongue midline, other - Tongue is extremely swollen nonerythematous Teeth exam: PRESENT: poor dentation Neck exam: ABSENT: carotid bruit, JVD, lymphadenopathy, meningismus, thyromegaly, tracheal deviation Respiratory exam: PRESENT: clear to auscultation gail, unlabored. ABSENT: accessory muscle use, rales, rhonchi, wheezes Cardiovascular exam: PRESENT: RRR. ABSENT: diastolic murmur, rubs, systolic murmur GI/Abdominal exam: PRESENT: normal bowel sounds, soft. ABSENT: ascites, distended, guarding, mass, organolmegaly, rebound, rigid, tenderness Rectal exam: PRESENT: deferred Gentrourinary exam: PRESENT: indwelling catheter Extremities exam: PRESENT: pedal edema. ABSENT: tenderness Musculoskeletal exam: ABSENT: deformity, dislocation Neurological exam: PRESENT: altered, other - [place] Coma Scale is 1-1T-1. She develops slight rigidity clonus with noxious stimulus. Comes tachycardic. Babinski's downgoing. Both feet are maintained in extension. No active seizures noted no nystagmus. There is no increase in DTRs. Focused psych exam: PRESENT: psychomotor agitation Skin exam: PRESENT: intact, normal color. ABSENT: cyanosis, erythema, pallor, petechiae Tubes/Lines: PRESENT: Endotracheal Tube, Other - Jean type urinary catheter, Laboratory/Radiographs Laboratory Results: 03/06/20 06:07 03/06/20 04:52 03/06/20 03/06/20 03/06/20 04:45 04:52 04:52 WBC Cancelled RBC Cancelled Hgb Cancelled Hct Cancelled MCV Cancelled MCH Cancelled MCHC Cancelled RDW Cancelled Plt Count Cancelled Seg Neutrophils % Cancelled Carbonic Acid 1.24 HCO3/H2CO3 Ratio 22:1 ABG pH 7.46 H ABG pCO2 41.3 ABG pO2 85.8 ABG HCO3 28.4 H ABG O2 Saturation 96.9 ABG Base Excess 4.1 FiO2 35% Sodium 137.3 Potassium 4.1 Chloride 100 Carbon Dioxide 32 H Anion Gap 5 BUN 19 Creatinine 0.76 Est GFR ( Amer) > 60 Glucose 331 H Calcium 8.8 Total Bilirubin 0.5 AST 89 H Alkaline Phosphatase 156 H Total Protein 7.1 Albumin 3.4 L Urine Color Urine Appearance Urine pH Ur Specific [place] Urine Protein Urine Glucose (UA) Urine Ketones Urine Blood Urine Nitrite Ur Leukocyte Esterase Urine WBC (Auto) Urine RBC (Auto) 03/06/20 03/06/20 05:17 06:07 WBC 16.6 H RBC 2.87 L Hgb 8.4 L Hct 24.9 L MCV 87 MCH 29.3 MCHC 33.8 RDW 14.9 H Plt Count 332 Seg Neutrophils % Not Reportable Carbonic Acid HCO3/H2CO3 Ratio ABG pH ABG pCO2 ABG pO2 ABG HCO3 ABG O2 Saturation ABG Base Excess FiO2 Sodium Potassium Chloride Carbon Dioxide Anion Gap BUN Creatinine Est GFR ( Amer) Glucose Calcium Total Bilirubin AST Alkaline Phosphatase Total Protein Albumin Urine Color YELLOW Urine Appearance SLIGHTLY-CLOUDY Urine pH 6.0 Ur Specific [place] 1.024 Urine Protein 30 H Urine Glucose (UA) >=500 H Urine Ketones NEGATIVE Urine Blood MODERATE H Urine Nitrite NEGATIVE Ur Leukocyte Esterase SMALL H Urine WBC (Auto) 8 Urine RBC (Auto) 38 03/01/20 06:26 Blood Blood Culture - Final NO GROWTH IN 5 DAYS 03/01/20 03/01/20 03/01/20 06:26 06:26 06:26 Creatine Kinase 72 CK-MB (CK-2) 0.50 Troponin I 0.057 NT-Pro-B Natriuret Pep 45 03/02/20 03/02/20 03/03/20 07:51 19:03 04:36 Creatine Kinase 1370 H CK-MB (CK-2) Troponin I NT-Pro-B Natriuret Pep 2700 H 1470 H 03/03/20 03/03/20 03/03/20 04:36 04:36 12:34 Creatine Kinase 1568 H 1903 H CK-MB (CK-2) Troponin I 0.069 NT-Pro-B Natriuret Pep 03/03/20 20:00 Creatine Kinase 1302 H CK-MB (CK-2) Troponin I NT-Pro-B Natriuret Pep Impressions: Chest/Abdomen CTA 03/01/20 00:00 IMPRESSION: 1. New development of acute pulmonary emboli in the distal right pulmonary artery, segmental and subsegmental branches bilaterally, slightly more so on the right, since the prior study dated 02/18/2020. No evidence for saddle pulmonary embolus. 2. Interval development of bilateral multifocal opacity/airspace disease in the lungs, slightly more extensive on the left. 3. Interval placement of endotracheal and nasogastric tubes. 4. Fatty liver and hepatomegaly. 5. The visualized gallbladder is distended. Head CT 03/01/20 06:32 IMPRESSION: No acute intracranial event. EVIDENCE OF ACUTE STROKE: NO. KUB X-Ray 03/04/20 00:00 IMPRESSION: A nasogastric tube tip is seen overlying the right upper abdomen, likely at the proximal duodenum or pylorus. All labs, radiographs, diagnostic studies and EKGs were personally reviewed: Yes In addition, reports of radiographic and diagnostic studies were read: Yes Assessment and Plan - Diagnosis (1) Serotonin withdrawal syndrome with complication Is this a current diagnosis for this admission?: Yes (2) Gabapentin adverse reaction Is this a current diagnosis for this admission?: Yes Plan: Related to abrupt withdrawal (3) Coma Qualifiers: Coma depth: Aide coma 3-8 Coma timing: in the field (EMT or ambulance) Qualified Code(s): R40.2431 - Aide coma scale score 3-8, in the field [EMT or ambulance] Is this a current diagnosis for this admission?: Yes (4) Acute hypoxemic respiratory failure Is this a current diagnosis for this admission?: Yes (5) Acute kidney injury Is this a current diagnosis for this admission?: Yes (6) Acute pulmonary embolism Qualifiers: Pulmonary embolism type: other Acute cor pulmonale presence: without acute cor pulmonale Qualified Code(s): I26.99 - Other pulmonary embolism without acute cor pulmonale Is this a current diagnosis for this admission?: Yes (7) Angioedema Qualifiers: Encounter type: subsequent encounter Qualified Code(s): T78.3XXD - Angioneurotic edema, subsequent encounter Is this a current diagnosis for this admission?: Yes (8) Anoxic encephalopathy Is this a current diagnosis for this admission?: Yes (9) Cardiac arrest Is this a current diagnosis for this admission?: Yes (10) Fever Qualifiers: Fever type: due to other condition Qualified Code(s): R50.81 - Fever presenting with conditions classified elsewhere Is this a current diagnosis for this admission?: Yes Plan: Related to serotonin withdrawal (11) Lactic acidosis Is this a current diagnosis for this admission?: Yes Plan: Improved (12) Leukocytosis Qualifiers: Leukocytosis type: unspecified Qualified Code(s): D72.829 - Elevated white blood cell count, unspecified Is this a current diagnosis for this admission?: Yes Plan: Related to steroids today,had been improving (13) Myoclonic jerking Is this a current diagnosis for this admission?: Yes (14) Pneumonia Qualifiers: Pneumonia type: aspiration pneumonia Aspiration pneumonia type: due to vomit Laterality: bilateral Lung location: unspecified part of lung Qualified Code(s): J69.0 - Pneumonitis due to inhalation of food and vomit Is this a current diagnosis for this admission?: Yes (15) Seizure Is this a current diagnosis for this admission?: Yes (16) Rhabdomyolysis Is this a current diagnosis for this admission?: Yes Plan Summary: Respiratory: Patient is unable to be liberated from the ventilator secondary to her acute neurological status and hypoxia related to aspiration. That being sa id we are weaning FiO2 and PEEP. Suitability for liberation from mechanical ventilation will be evaluated daily. Patient appears to have had segmental and subsegmental pulmonary emboli but this would not have resulted in this type of situation and may be as a result of prolonged immobilization and downtime. Continue heparin therapy Infectious: Microbiological reports show group C beta strep in both blood and sputum. Suggestive of aspiration pneumonitis or pneumonia. Chest x-ray is clearing. Patient's white count had been improving however she was placed on steroids for a swollen tongue leading to a slight elevation in her white blood cell count today. We will continue to monitor daily. To new antibiotics with vancomycin. She appears to have had a questionable reaction to meropenem. Cardiac: Patient's post cardiac arrest syndrome has improved and she is now off vasopressor therapy. As noted she did have a pulmonary embolism however there is no evidence to support right ventricular dysfunction however a formal echo is still pending. The pulmonary embolism notwithstanding, her presentation is more consistent with possible occult seizure having not taken her Neurontin and possible hypercarbic failure from not using BiPAP. Hematologic: No active hematologic issues. She did receive FFP for possible anaphylaxis and angioedema which caused heparin dosing changes. C1 esterase activity has been ordered Endocrine: Patient has type 2 diabetes with a hemoglobin A1c of 7.7. She had not been taking her medication and has been quite noncompliant with her diet regimen. It is noted that the night prior to her event she had a significant amount of carbohydrate intake. Continue to monitor and treat glucose supportively especially in light of steroid use. Renal: Patient's acute renal failure has improved. Continue to monitor supportively Metabolic: Follow CK. Patient did have rhabdomyolysis which appears to be improving. Continue to monitor electrolytes and support as needed. Lactic acidosis has improved. Alimentary: Tolerating tube feeds. Patient had transaminitis which appears to be related to muscle and not liver. Neurologic: Patient is in a comatose state. That being said she has been on Versed and morphine. I have discontinued morphine because of its histaminic effects. Will wean the Versed. My hypothesis is that the patient had been suffering from serotonin withdrawal and the possibility of Neurontin withdrawal which caused the muscle rigidity and fever. The possibility of seizure is also present. We will continue seizure medications and repeat EEG. Have transition to Precedex but will need to be vigilant to watch for the need for benzodiazepines given the above. We will also obtain CT of brain with contrast to rule out stroke and evaluate anoxia. She is unable to have an MRI secondary to an implanted device for pain. Sedation: Transitioning to Precedex and fentanyl. Monitor for increased muscle rigidity off benzodiazepines. Wean benzodiazepines over the next few hours. Lines/Tubes: Patient has poor peripheral IV access. Will need central access. Other: Critical Time Critical Time (minutes): 50 Level of Care: ICU Anticipated discharge: Acute Rehab Within: within 72 hours -: 1. The care of a critical patient is a dynamic process. This note is a business office representative synopsis but static in nature. The timeframe for treatments given in order is not necessarily the actual time these treatments may have been done. 2. This patient requires critical care secondary to ongoing requirements for therapy not offered or safe outside the critical care environment. Transfer to a lower level of care will result in altered life or limb morbidity and mortality. 3. Multidisciplinary rounds completed. 4. ABCDE bundle addressed. 5. Updated medical power of commercial attorney, daughter Jessica
[2020-03-06] MEDS ORDERED: NORMAL SALINE INJ/PF 0.9% 10 ML SDV IV PRN (14:55)
[2020-03-06] MEDS ORDERED: PHARMACY COMMUNICATION ORDER MC NR (15:00)
--- NOTE | 2020-03-06 15:34 | RADIOLOGY REPORT (SQ) ---
EXAM DESCRIPTION: CHEST SINGLE VIEW IMAGES COMPLETED DATE/TIME: 03/06/2020 3:20 pm REASON FOR STUDY: line placement COMPARISON: 03/05/2020 EXAM PARAMETERS: NUMBER OF VIEWS: One view. TECHNIQUE: Single frontal radiographic view of the chest acquired. RADIATION DOSE: NA LIMITATIONS: None. FINDINGS: LUNGS AND PLEURA: Patchy infiltrates in the left upper lobe appear to be improved. MEDIASTINUM AND HILAR STRUCTURES: No masses. Contour normal. HEART AND VASCULAR STRUCTURES: Heart normal in size. Normal vasculature. BONES: No acute findings. HARDWARE: Endotracheal tube has its tip 3 cm above the eric. An NG tube extends well inside the st omach. Neurostimulator electrodes. Left internal jugular catheter has its tip in the superior vena cava. OTHER: No other significant finding. IMPRESSION: Improved left upper lobe infiltrates. Line placement as described. TECHNICAL DOCUMENTATION: JOB ID: [id number] 2010 [employer]- All Rights Reserved Reading location - IP/workstation name: [email or web address]
[2020-03-06] MEDS: HEPARIN SODIUM,PORCINE/D5W 25,000 UNIT/250 ML RTUINJ IV PRN (15:51)
[2020-03-06] MEDS: DEXAMETHASONE SOD PHOSPHATE INJ 4 MG/1 ML VIAL IV SCH ×2 (15:51→21:51)
--- NOTE | 2020-03-06 16:18 | Operative Report ---
Bedside Procedure - History of Present Illness History of Present Illness: This 54-year-old -[place] female non-smoker presented to [facility] emergency department via EMS after PEA arrest. The patient's family called 911 after the children in the house were unable to awaken the patient this morning. EMS reported that the patient was in PEA arrest. She was intubated in the field. CPR performed. Unknown downtime but included 3 rounds of epinephrine. In the emergency department, the airway was changed out for an endotracheal tube. Initially, she required norepinephrine infusion for blood pressure support, which has already been weaned off. At the time of clinical examination, the patient is showing intermittent, rhythmic shaking movements that appear to predominantly involve the abdomen. She also does less frequently demonstrate jerking motions of the extremities. Per verbal report, the children observed that the patient had "white froth" emanating from the mouth. Discussion with the patient's daughter (Jessica) reveals that the patient is a known diabetic, who takes metformin for blood sugar control. She did "eat a lot of cake last night". She was believed to have been at her baseline at the time she turned into sleep. Indication for Procedure: Coma, poor venous access Date: 03/06/20 Provider: SHERIE HUANG - Central Line Left Internal jugular Time completed: 14:30 Consent obtained: Yes Central line pre-insertion: Sterile PPE donned, Chloraprep applied, Sterile drapes applied Central line lumen type: Triple Anesthetic type: 1% Lidocaine mL's of anesthesia: 4 Ultrasound guided: Yes CM at insertion site: 16 Line secured with sutures: Yes Central line post-insertion: Blood return from lumens, Biopatch applied, Sutured, Sterile dressing applied, Position confirmed w/ CXR - Tip at the SVC-RA junction, Other - Wires seen in left internal jugular on ultrasound. Number of attempts: 1 Complications: No Notes: 03/06/20 16:17 Ultrasound of right internal jugular showed a dilated internal jugular vein which was noncompressible.
--- NOTE | 2020-03-06 18:34 | RADIOLOGY REPORT (SQ) ---
EXAM DESCRIPTION: CTA HEAD IMAGES COMPLETED DATE/TIME: 03/06/2020 5:38 pm REASON FOR STUDY: stroke COMPARISON: None. TECHNIQUE: Post IV contrast scanning, thin section axial imaging through the brain to evaluate the a rterial structures. Source and MIP images are saved and reviewed on PACS. Advanced 3D imaging as volume-rendering, MIPs, SSD performed? yes All CT scanners at this facility use dose modulation, iterative reconstruction, and/or weight based d osing when appropriate to reduce radiation dose to as low as reasonably achievable (ALARA). [facility]: Dose Right [facility]: CareDose [facility]: Dose Right [facility]: Teradose 4D [facility]: iJoule CONTRAST TYPE AND DOSE: contrast/concentration: Isovue 350.00 mg/ml; Total Contrast Delivered: 70.0 ml; Total Saline Delivered: 75.0 ml 70 cc Omnipaque 350- low osmolar. RENAL FUNCTION: BUN 11 creatinine 1.3 LIMITATIONS: None. FINDINGS: PILOT POINT OF [place]: The anterior, middle, posterior cerebral arteries are all patent. No ev idence of aneurysm or focal stenosis. POSTERIOR CIRCULATION: The distal vertebral arteries are patent as is the basilar artery. No aneurysm . BRAIN: No gross enhancing lesions as visualized. No hemorrhage or contusion. No evidence of acute i nfarction. Normal hodge/ white differentiation. BONES: Intact as visualized. SINUSES: Mucoperiosteal changes seen in both maxillary sinuses and in the ethmoid air cells. Mucoper iosteal thickening is seen in the sphenoid sinuses. OTHER: No other significant finding. IMPRESSION: 1. No evidence of stenosis or aneurysm of the [place] of [place]. 2. No acute intracranial imaging findings. 3. Extensive sinus disease. TECHNICAL DOCUMENTATION: JOB ID: [id number] Quality ID # [id number]: Final reports with documentation of one or more dose reduction techniques (e.g., Au tomated exposure control, adjustment of the mA and/or kV according to patient size, use of iterative reconstruction technique) 2010 [employer]- All Rights Reserved Reading location - IP/workstation name: [email or web address]
--- NOTE | 2020-03-06 18:39 | RADIOLOGY REPORT (SQ) ---
EXAM DESCRIPTION: CTA NECK IMAGES COMPLETED DATE/TIME: 03/06/2020 5:39 pm REASON FOR STUDY: STROKE COMPARISON: None. TECHNIQUE: Axial dynamic scanning technique with dynamic contrast enhancement through the extra-gasoline truck crane operator nial carotid and vertebral arteries. Multiplanar reconstruction. 3-D MIPS and Volume-rendered imag es acquired at the workstation and saved to PACS. Images are reviewed in soft tissue, bone, lung w indows. All CT scanners at this facility use dose modulation, iterative reconstruction, and/or weight based d osing when appropriate to reduce radiation dose to as low as reasonably achievable (ALARA). [facility]: Dose Right [facility]: CareDose [facility]: Dose Right [facility]: Teradose 4D [facility]: [employer] CONTRAST TYPE AND DOSE: 70 cc Omnipaque 350- low osmolar. RENAL FUNCTION: BUN 11 creatinine 1.3 LIMITATIONS: None. FINDINGS: AORTIC ARCH: Normal three-vessel origin. Bilateral subclavian arteries are patent. No d issection. RIGHT CAROTIDS: Patent common, internal and external carotid arteries without suggestion of significa nt stenosis or irregular plaque. No dissection. RIGHT VERTEBRAL: Patent. No dissection. LEFT CAROTIDS: Patent common, internal and external carotid arteries without suggestion of significan t stenosis or irregular plaque. No dissection. LEFT VERTEBRAL: Patent. No dissection. OTHER: No other significant finding. OTHER: 3-D reconstructions confirm findings. IMPRESSION: NORMAL CTA OF THE EXTRA-CRANIAL CAROTID AND VERTEBRAL ARTERIES. COMMENT: Quality ID #[id number]: Measurements of distal internal carotid diameter were used as the denomina tor for stenosis measurement. TECHNICAL DOCUMENTATION: JOB ID: [id number] Quality ID # [id number]: Final reports with documentation of one or more dose reduction techniques (e.g., Au tomated exposure control, adjustment of the mA and/or kV according to patient size, use of iterative reconstruction technique) 2010 [employer]- All Rights Reserved Reading location - IP/workstation name: [email or web address]
[2020-03-06] MEDS: FAMOTIDINE 40 MG/5 ML SUSP 50 ML NG SCH (21:52)
[2020-03-06] MEDS ORDERED: FAMOTIDINE 40 MG/5 ML SUSP 50 ML PO SCH (22:00)
[2020-03-06 22:36] LABS: VANCOMYCIN,TROUGH 13.4 ug/mL (5.0-20.0)
[2020-03-07] MEDS: INSULIN REG, HUMAN 100 UNIT/ML 3 ML VIAL (PYX) SUBCUT SCH ×7 (00:08→23:35)
[2020-03-07] MEDS: ALBUTEROL SULFATE 0.083% NEB 2.5 MG/3 ML AMPUL NEB SCH ×4 (02:05→19:43)
[2020-03-07] MEDS: HEPARIN SODIUM,PORCINE/D5W 25,000 UNIT/250 ML RTUINJ IV PRN ×2 (04:49→20:57)
[2020-03-07 05:07] LABS: HEMATOCRIT 24.5 % (36.0-47.0); HEMOGLOBIN 8.1 g/dL (12.0-15.5); MEAN CORPUSCULAR HEMOGLOBIN 28.7 pg (27.0-33.4); MEAN CORPUSCULAR HGB CONC 33.2 g/dL (32.0-36.0); MEAN CORPUSCULAR VOLUME 87 fl (80-97); PLATELET COUNT 340 10^3/uL (150-450); RED BLOOD COUNT 2.83 10^6/uL (3.72-5.28); RED CELL DISTRIBUTION WIDTH 15.1 % (11.5-14.0); WHITE BLOOD COUNT 20.2 10^3/uL (4.0-10.5)
[2020-03-07 05:11] LABS: ARTERIAL BLOOD H2CO3 1.16 mmol/L (1.05-1.35); ARTERIAL BLOOD HCO3 29.5 mmol/L (20-24); ARTERIAL BLOOD O2 SATURATION 97.8 % (94-98); ARTERIAL BLOOD PCO2 38.4 mmHg (35-45); ARTERIAL BLOOD PO2 95.8 mmHg (80-100); ARTERIAL BLOOD TOTAL CO2 30.7 mmol/L (21-25)
[2020-03-07 05:17] LABS: ARTERIAL BLOOD FIO2 35%
[2020-03-07 05:44] LABS: ALBUMIN 3.3 g/dL (3.5-5.0); ALKALINE PHOSPHATASE 132 U/L (38-126); ANION GAP 8 (5-19); ASPARTATE AMINO TRANSFERASE 69 U/L (14-36); BILIRUBIN,TOTAL 0.3 mg/dL (0.2-1.3); BLOOD UREA NITROGEN 19 mg/dL (7-20); CALCIUM 8.8 mg/dL (8.4-10.2); CARBON DIOXIDE 30 mmol/L (22-30); CHLORIDE 98 mmol/L (98-107); CREATINE KINASE 239 U/L (30-135); GLUCOSE 271 mg/dL (75-110); PHOSPHORUS 3.1 mg/dL (2.5-4.5); POTASSIUM 3.9 mmol/L (3.6-5.0); TOTAL PROTEIN 6.5 g/dL (6.3-8.2)
[2020-03-07 05:50] LABS: ABSOLUTE LYMPHOCYTES# (MANUAL) 5.1 10^3/uL (0.5-4.7); ABSOLUTE MONOCYTES # (MANUAL) 2.4 10^3/uL (0.1-1.4); BAND NEUTROPHILS % (MANUAL) 1 % (3-5); BASOPHILS % (MANUAL) 0 % (0-2); EOSINOPHILS % (MANUAL) 0 % (0-6); LYMPHOCYTES % (MANUAL) 25 % (13-45); MONOCYTES % (MANUAL) 12 % (3-13); NUCLEATED RED BLOOD CELLS 3 /100 WBC (0); SEGMENTED NEUTROPHILS % (MAN) 62 % (42-78); TOTAL CELLS COUNTED 100
[2020-03-07] MEDS: DEXAMETHASONE SOD PHOSPHATE INJ 4 MG/1 ML VIAL IV SCH ×3 (05:50→21:09)
[2020-03-07 05:52] LABS: ANISOCYTOSIS 1+; OVALOCYTES 1+; PLATELET COMMENT ADEQUATE; POIKILOCYTOSIS 1+; TEAR DROP CELLS SLIGHT; TOXIC GRANULATION SLIGHT
[2020-03-07] MEDS: HEPARIN SOD (PORCINE) 1,000 UNIT/ML 10 ML VIAL IV PRN (05:54)
[2020-03-07] MEDS: DEXMEDETOMIDINE IN 0.9 % NACL 400 MCG/100 ML RTUPB IV PRN (05:59)
[2020-03-07] MEDS ORDERED: MIDAZOLAM 2 MG/2 ML INJ ONE (06:09)
[2020-03-07] MEDS ORDERED: MIDAZOLAM 2 MG/2 ML INJ IV ONE ×2 (06:09→16:25)
[2020-03-07] MEDS ORDERED: GABAPENTIN 100 MG CAPSULE NG ONE (07:00)
[2020-03-07] MEDS ORDERED: MIDAZOLAM HCL 50 MG/100 ML RTUINJ IV PRN (08:27)
[2020-03-07] MEDS ORDERED: WATER IV SCH (08:30)
[2020-03-07] MEDS ORDERED: TRIMETHOPRIM IV SCH (08:30)
[2020-03-07] MEDS ORDERED: DEXTROSE 5% IV SCH (08:30)
[2020-03-07] MEDS ORDERED: SULFAMETHOXAZOLE IV SCH (08:30)
--- NOTE | 2020-03-07 08:38 | RADIOLOGY REPORT (SQ) ---
EXAM DESCRIPTION: CHEST SINGLE VIEW IMAGES COMPLETED DATE/TIME: 03/07/2020 6:42 am REASON FOR STUDY: aspiration pneumonia COMPARISON: AP view of the chest from 03/06/2020. EXAM PARAMETERS: NUMBER OF VIEWS: One view. TECHNIQUE: An AP view of the chest was obtained. RADIATION DOSE: NA LIMITATIONS: None. FINDINGS: LUNGS AND PLEURA: Unchanged radiographic appearance of the lungs and pleura. MEDIASTINUM AND HILAR STRUCTURES: Stable mediastinal and hilar contours. HEART AND VASCULAR STRUCTURES: Stable cardiac silhouette. BONES: No acute findings. HARDWARE: The tip of the enteric tube projects 1 cm above the eric. The tip of the left IJ central venous catheter projects within the SVC. The tip of the enteric tube projects past the gastroesopha geal junction and outside the field of view of the radiograph. There are thoracic narrowed stimulato r leads in place. OTHER: No other finding. IMPRESSION: Unchanged radiographic appearance of the lungs and pleura. TECHNICAL DOCUMENTATION: JOB ID: [id number] 2010 [employer]- All Rights Reserved Reading location - IP/workstation name: [email or web address]
[2020-03-07] MEDS: VANCOMYCIN HCL 1,250 MG in DEXTROSE 5%-WATER 250 ML IV SCH ×2 (09:08→21:43)
[2020-03-07] MEDS: FAMOTIDINE 40 MG/5 ML SUSP 50 ML NG SCH ×2 (09:15→21:43)
[2020-03-07] MEDS: AZTREONAM 2 GM in DEXTROSE 5%-WATER 100 ML IV SCH ×3 (09:32→21:07)
[2020-03-07] MEDS: LEVETIRACETAM 500 MG/NACL-ISO 500 MG/100 ML RTUPB IV SCH (09:50)
[2020-03-07] MEDS ORDERED: POLYETHYLENE GLYCOL 3350 POWDER 17 GM/1 PACKET NG SCH (10:00)
[2020-03-07] MEDS ORDERED: ALBUTEROL SULFATE 0.083% NEB 2.5 MG/3 ML AMPUL NEB ONE (10:28)
[2020-03-07] MEDS: INSULIN GLARGINE,HUM.REC.ANLOG 1,000 UNIT/10 ML VIAL SUBCUT SCH ×2 (10:42→21:08)
[2020-03-07] MEDS: TRIMETHOPRIM IV SCH ×3 (11:37→23:27)
[2020-03-07] MEDS: WATER IV SCH ×3 (11:37→23:27)
[2020-03-07] MEDS: DEXTROSE 5% IV SCH ×3 (11:37→23:27)
[2020-03-07] MEDS: SULFAMETHOXAZOLE IV SCH ×3 (11:37→23:27)
[2020-03-07] MEDS: GABAPENTIN 100 MG CAPSULE NG SCH ×2 (13:39→17:04)
[2020-03-07] MEDS ORDERED: FENTANYL CITRATE INJ/PF 100 MCG/2 ML AMPUL IV ONE (16:26)
[2020-03-07] MEDS ORDERED: LEVETIRACETAM 1000 MG/NACL-ISO 1,000 MG/100 ML RTUPB IV SCH ×2 (16:30→18:00)
[2020-03-07] MEDS: LEVETIRACETAM 1000 MG/NACL-ISO 1,000 MG/100 ML RTUPB IV SCH ×2 (16:50→21:02)
--- NOTE | 2020-03-07 17:16 | PDOC CRITICAL CARE PROG REPORT ---
General Date:: 03/07/20 ICU Day:: 6 Ventilator Day:: 6 Hospital Day:: 6 Resuscitation Status: Full Code Medical Power of Structural Designer: DaughterJessica Events in the past 12 to 24 Hours:: 03.07.2020: Patient transitioned to Precedex of Versed and morphine drip. Noted to have downward gaze with nystagmus some rigidity without significant temperature elevation throughout the day. All responding to Versed and or fentanyl.. Started on Neurontin which she had been previously on and reinstituted Versed drip. No hemodynamic instability. Has not required cooling blanket. Glucose slightly higher especially with the Decadron. EEG ordered but lead maintenance technician unable to form EEG. "03.06.2020: I assumed care of this patient after the excellent care provided by Dr. Oh. A synopsis of his evaluation over the last 5 days as noted below. Patient has not had any significant temperature elevation and her rigidity appears to be only with stimulus. She has been maintained on morphine and Versed drip and these have been adjudicated so as to discontinue antihistamine related effect of morphine. She is being transitioned to Precedex and will receive fentanyl as needed. Had lengthy discussion with power of red leader, daughter Jessica Rosas. She discloses that the patient has not been taking her medications and is supposed to be on BiPAP at night. She had a significant amount of carbohydrates the night before she was found unresponsive. Extensive review of her medications shows that she has been on Neurontin, clonazepam, amitriptyline, buprenorphine in the form of Bel[place]uca, bupropion buspirone, Latuda, metformin, pramipexole" Chronology of events prior to care: 03/05/2020: Fever returned and placed on a cooling blanket. Noted to have recurrence of spastic rigidity and abnormal movements (?myoclonus versus seizure). EEG was not available. Versed infusion was restarted. Patient was given Solu-Medrol and 2 units FFP for suspected angioedema involving the lips and tongue. Meropenem discontinued. No significant change in lip/tongue swelling. No Neurologic improvement in the interim, however, with Versed infusion held, the patient did start to show responses to noxious stimulus. 03/04/2020: Fever controlled. Off Versed continuos infusion. Total CK elevated at [id number]. Nurses reports progressive swelling of the tongue during the night. Patient noted to have extensive list of drug intolerances and/or allergies (including multiple antibiotics). Currently on meropenem/vancomycin. Hemodynamically stable. Unresponsive noxious stimuli. Has intact spontaneous respirations. EEG shows burst suppression pattern. Recommendations for repeat EEG off Versed infusion. 03/03/2020: Fever better controlled with IV Acetaminophen. Muscle rigidity has improved with changing sedation from propofol to Versed infusion. CK: 1370. Off vasopressors with improved hemodynamics. Unresponsive to any stimulus. Maintains spontaneous respirations. Daughter (Jessica) updated by phone this morning 03/02/2020: CTA of the chest revealed acute pulmonary embolism with bilateral multifocal airspace disease. The patient is febrile. Cooling blanket required and given Tylenol with some improvement in fever curve. On propofol sedation. Off sedation, observed myoclonic jerks involving abdominal muscles and all 4 extremities. EEG not feasible with persistent fever due to inability for glue to maintain. Started on empiric meropenem/vancomycin, notably with multiple known drug allergies (including penicillins and cephalosporins). No adverse events reported after first doses. Blood cultures reporting 1 of 2 bottles with gram-positive cocci in chains, questionable contaminant. Tracheal aspirate has group C beta-hemolytic streptococci. 03/01/2020: Admitted after PEA arrest at home. Intubated in ED after 2nd attempt. Unknown downtime. Intubated in the field. Patient reportedly ate a significant amount of carbohydrates prior to going to bed and was not feeling well. Review of systems relevant to events:: 03.07.2020: Blood culture from March 05 positive for gram positive cocci. Tongue swelling has not diminished significantly. 03.06.2020: Currently off all vasopressor therapy. On morphine and Versed drip. Reason for ICU Addmission:: cardiac arrest - Medications: Medications reviewed and adjusted accordingly: Yes Vasopressors:: None Sedation:: Changed to Versed and PRN fentanyl. Precedex discontinued Physical Exam Vital Signs: Temp Pulse Resp BP Pulse Ox 99.9 F 107 H 21 H 150/72 H 98 03/07/20 08:00 03/07/20 08:00 03/07/20 08:00 03/07/20 08:00 03/07/20 08:00 Intake & Output 03/06/20 03/07/20 03/08/20 06:59 06:59 06:59 Intake Total 2185 1412 685 Output Total 5801 1210 175 Balance -3690 202 510 Weight 87.2 kg 86.4 kg Weight/Height Weight 86.4 kg Height 5 ft 2 in General appearance: PRESENT: morbidly obese Exam: Intubated short statured ill-appearing 54-year-old black female no active distress. She has ongoing nystagmus on exam and mild rigidity Head exam: PRESENT: atraumatic, normocephalic Eye exam: PRESENT: conjunctiva pink, nystagmus, PERRLA. ABSENT: conjunctival injection, scleral icterus Mouth exam: PRESENT: dry mucosa, tongue midline, other - Tongue is swollen nonischemic slightly dry. Neck exam: ABSENT: carotid bruit, JVD, lymphadenopathy, thyromegaly Respiratory exam: PRESENT: accessory muscle use, rhonchi, tachypnea. ABSENT: rales, unlabored, wheezes Cardiovascular exam: PRESENT: RRR, +S1, +S2. ABSENT: systolic murmur Vascular exam: PRESENT: normal capillary refill GI/Abdominal exam: PRESENT: normal bowel sounds, soft. ABSENT: distended, guarding, mass, organolmegaly, rebound, tenderness Rectal exam: PRESENT: deferred Gentrourinary exam: PRESENT: indwelling catheter Extremities exam: PRESENT: pedal edema, +1 edema Musculoskeletal exam: ABSENT: deformity, dislocation Neurological exam: PRESENT: altered, other - Sellers Coma Scale 3T. Four score: 5. Patient has generalized rigidity without clonus. Eyes are downgoing into the right with roving horizontal nystagmus. Laboratory/Radiographs Laboratory Results: 03/07/20 04:45 03/07/20 04:45 03/06/20 03/06/20 03/06/20 12:47 21:45 21:45 WBC RBC Hgb Hct MCV MCH MCHC RDW Plt Count Seg Neutrophils % Carbonic Acid HCO3/H2CO3 Ratio ABG pH ABG pCO2 ABG pO2 ABG HCO3 ABG O2 Saturation ABG Base Excess FiO2 Sodium Potassium Chloride Carbon Dioxide Anion Gap BUN Creatinine 0.79 Cancelled Est GFR ( Amer) > 60 Cancelled Est GFR (Non-Af Amer) Cancelled Glucose Calcium Phosphorus Magnesium Total Bilirubin AST Alkaline Phosphatase Ammonia < 8.7 L Total Protein Albumin 03/07/20 03/07/20 03/07/20 04:45 04:45 04:45 WBC 20.2 H RBC 2.83 L Hgb 8.1 L Hct 24.5 L MCV 87 MCH 28.7 MCHC 33.2 RDW 15.1 H Plt Count 340 Seg Neutrophils % Not Reportable Carbonic Acid 1.16 HCO3/H2CO3 Ratio 25:1 ABG pH 7.50 H ABG pCO2 38.4 ABG pO2 95.8 ABG HCO3 29.5 H ABG O2 Saturation 97.8 ABG Base Excess 6.0 FiO2 35% Sodium Potassium Chloride Carbon Dioxide Anion Gap BUN Creatinine Est GFR ( Amer) Est GFR (Non-Af Amer) Glucose Calcium Phosphorus Magnesium Total Bilirubin AST Alkaline Phosphatase Ammonia < 8.7 L Total Protein Albumin 03/07/20 04:45 WBC RBC Hgb Hct MCV MCH MCHC RDW Plt Count Seg Neutrophils % Carbonic Acid HCO3/H2CO3 Ratio ABG pH ABG pCO2 ABG pO2 ABG HCO3 ABG O2 Saturation ABG Base Excess FiO2 Sodium 136.3 L Potassium 3.9 Chloride 98 Carbon Dioxide 30 Anion Gap 8 BUN 19 Creatinine 0.81 Est GFR ( Amer) > 60 Est GFR (Non-Af Amer) Glucose 271 H Calcium 8.8 Phosphorus 3.1 Magnesium 2.6 H Total Bilirubin 0.3 AST 69 H Alkaline Phosphatase 132 H Ammonia Total Protein 6.5 Albumin 3.3 L 03/05/20 11:50 Blood Blood Culture (PCR) - Final 03/01/20 06:26 Blood Blood Culture - Final NO GROWTH IN 5 DAYS 03/01/20 03/01/20 03/01/20 06:26 06:26 06:26 Creatine Kinase 72 CK-MB (CK-2) 0.50 Troponin I 0.057 NT-Pro-B Natriuret Pep 45 03/02/20 03/02/20 03/03/20 07:51 19:03 04:36 Creatine Kinase 1370 H CK-MB (CK-2) Troponin I NT-Pro-B Natriuret Pep 2700 H 1470 H 03/03/20 03/03/20 03/03/20 04:36 04:36 12:34 Creatine Kinase 1568 H 1903 H CK-MB (CK-2) Troponin I 0.069 NT-Pro-B Natriuret Pep 03/03/20 03/06/20 03/07/20 20:00 12:47 04:45 Creatine Kinase 1302 H 284 H 239 H CK-MB (CK-2) Troponin I NT-Pro-B Natriuret Pep Impressions: Chest/Abdomen CTA 03/01/20 00:00 IMPRESSION: 1. New development of acute pulmonary emboli in the distal right pulmonary artery, segmental and subsegmental branches bilaterally, slightly more so on the right, since the prior study dated 02/18/2020. No evidence for saddle pulmonary embolus. 2. Interval development of bilateral multifocal opacity/airspace disease in the lungs, slightly more extensive on the left. 3. Interval placement of endotracheal and nasogastric tubes. 4. Fatty liver and hepatomegaly. 5. The visualized gallbladder is distended. Head CT 03/01/20 06:32 IMPRESSION: No acute intracranial event. EVIDENCE OF ACUTE STROKE: NO. KUB X-Ray 03/04/20 00:00 IMPRESSION: A nasogastric tube tip is seen overlying the right upper abdomen, likely at the proximal duodenum or pylorus. Head CTA 03/06/20 00:00 IMPRESSION: 1. No evidence of stenosis or aneurysm of the [place]. 2. No acute intracranial imaging findings. 3. Extensive sinus disease. Neck CTA 03/06/20 15:35 IMPRESSION: NORMAL CTA OF THE EXTRA-CRANIAL CAROTID AND VERTEBRAL ARTERIES. All labs, radiographs, diagnostic studies and EKGs were personally reviewed: Yes In addition, reports of radiographic and diagnostic studies were read: Yes Assessment and Plan - Diagnosis (1) Serotonin withdrawal syndrome with complication Is this a current diagnosis for this admission?: Yes (2) Gabapentin adverse reaction Is this a current diagnosis for this admission?: Yes Plan: Related to abrupt withdrawal (3) Coma Qualifiers: Coma depth: Sellers coma 3-8 Coma timing: in the field (EMT or ambulance) Qualified Code(s): R40.2431 - Aide coma scale score 3-8, in the field [EMT or ambulance] Is this a current diagnosis for this admission?: Yes (4) Acute hypoxemic respiratory failure Is this a current diagnosis for this admission?: Yes Plan: . (5) Acute kidney injury Is this a current diagnosis for this admission?: Yes Plan: Resolved. (6) Acute pulmonary embolism Qualifiers: Pulmonary embolism type: other Acute cor pulmonale presence: without acute cor pulmonale Qualified Code(s): I26.99 - Other pulmonary embolism without acute cor pulmonale Is this a current diagnosis for this admission?: Yes (7) Angioedema Qualifiers: Encounter type: subsequent encounter Qualified Code(s): T78.3XXD - An gioneurotic edema, subsequent encounter Is this a current diagnosis for this admission?: Yes (8) Anoxic encephalopathy Is this a current diagnosis for this admission?: Yes Plan: . (9) Cardiac arrest Is this a current diagnosis for this admission?: Yes (10) Fever Qualifiers: Fever type: due to other condition Qualified Code(s): R50.81 - Fever presenting with conditions classified elsewhere Is this a current diagnosis for this admission?: Yes Plan: Related to serotonin withdrawal (11) Lactic acidosis Is this a current diagnosis for this admission?: Yes Plan: Improved (12) Leukocytosis Qualifiers: Leukocytosis type: unspecified Qualified Code(s): D72.829 - Elevated white blood cell count, unspecified Is this a current diagnosis for this admission?: Yes Plan: Related to steroids today,had been improving (13) Myoclonic jerking Is this a current diagnosis for this admission?: Yes (14) Pneumonia Qualifiers: Pneumonia type: aspiration pneumonia Aspiration pneumonia type: due to vomit Laterality: bilateral Lung location: unspecified part of lung Qualified Code(s): J69.0 - Pneumonitis due to inhalation of food and vomit Is this a current diagnosis for this admission?: Yes (15) Seizure Is this a current diagnosis for this admission?: Yes (16) Rhabdomyolysis Is this a current diagnosis for this admission?: Yes Plan Summary: 03.07.2020: Respiratory: Patient's respiratory status has not worsened. We are unable to liberate her from mechanical ventilation secondary to the significant tongue swelling and her neurological status. This is day 6 for intubation and given her neurological dysfunction would advocate for early rather than late tracheostomy if the family would choose to do so. This of course may be somewhat difficult given the need for heparin. Infectious: Patient has gram-positive persistent in her bloodstream. We will continue to follow monitor. Have ordered echocardiogram and if negative for vegetations will need CORRY. I am concerned that this patient may have ULTRASOUND TECH infection given her circumstances. Although not extremely high on the differential given her state it may be beneficial to start her on empiric therapy for meningitis. She has significant allergies and we have transition to alternative regimens. Vancomycin dosing to support a trough level greater than 15 and the need to keep it close to 20. Given her requirement for heparin I am hard pressed to discontinue to obtain lumbar puncture. The risk of doing is far greater than discontinue it and then attempt to obtain LP. Have ordered procalcitonin but the latency and results does not allow for concurrent treatment changes. And appears to have had a reaction to meropenem however the possibility that the EDTA from the endotracheal tube and the Intubation process have contributed to the swelling of her tongue. We will again attempt to obtain COVID testing to assure that this is not present. Given her unusual presentation there is a possibility that her pulmonary embolism represents a subset of the different presentations of this disease. Have received test kit and will proceed. Given her status, will attempt to obtain from deep-tracheal/mini-BAL. Cardiac: Patient's hemodynamics and cardiac status has remained non-labile. Continue to monitor. Have ordered echocardiogram to rule out vegetation and she may need a CORRY. To new heparin for PE. I do not sense that this pulmonary embolism is the sole cause for her situation but certainly adds complexity and synergy to her pathology. With the addition of IV Bactrim which often contains a high amount of volume will need to be diligent for diuresis when necessary. Hematologic: Patient is on heparin for segmental and subsegmental PE. White count is elevated as well and have started broad-spectrum antibiotics in addition to vancomycin. Will encourage increase in trough level. Given the possible need for multiple procedures it may be best to place a filter in this patient. Although not generally recommended by the ACCP or the PERT consortium, she may fit the category for the need. Will discuss with family to determine their goals. Endocrine: Have started long-acting insulin and short-acting coverage. Continue to monitor and follow as steroids are adjudicated Renal: Patient had acute tubular necrosis and renal dysfunction which is now improved. Continue to monitor closely. Follow creatinine with the use of Bactrim. Metabolic: Continue to monitor patient's electrolytes and support as needed. Will hold on diuresis today. Alimentary: Transaminase levels have improved most likely related to rhabdomyolysis. Continue to monitor liver function on multiple medications. Neurologic: By far the biggest concern is the patient's neurological status. She has both anoxic encephalopathy and what appears to be either seizures from this or Neurontin withdrawal related seizures. Unfortunately I was unable to obtain an EEG today although ordered. We were attempting to place the patient in an isoelectric state or at least significant burst-suppression pattern. We need to suppress seizure and rigid activity. Although concerned about her coma status is paramount, more importantly seizure will add to her mortality if not controlled. She appears to have responded to Versed and given the rigidity for which she often has I am concerned that this may be serotonin withdrawal or serotonin induced. Because there are multiple complex reasons Versed would be the drug of choice at this point. Patient will need a continuous EEG and if we are unable to do this may be required to transfer her to an institution which ca n do this. She has also been on chronic pain meds and have given her fentanyl. They are using this intermittently but she may require this continuously. Sedation: Transitioning to Versed and as needed fentanyl. Lines/Tubes: Day 2 CVC Other: We will update family on patient's status. Concern for need for transfer due to the complex nature of her illness is of utmost in discussion. 03.06.2020: Respiratory: Patient is unable to be liberated from the ventilator secondary to her acute neurological status and hypoxia related to aspiration. That being said we are weaning FiO2 and PEEP. Suitability for liberation from mechanical ventilation will be evaluated daily. Patient appears to have had segmental and subsegmental pulmonary emboli but this would not have resulted in this type of situation and may be as a result of prolonged immobilization and downtime. Continue heparin therapy Infectious: Microbiological reports show group C beta strep in both blood and sputum. Suggestive of aspiration pneumonitis or pneumonia. Chest x-ray is clearing. Patient's white count had been improving however she was placed on steroids for a swollen tongue leading to a slight elevation in her white blood cell count today. We will continue to monitor daily. To new antibiotics with vancomycin. She appears to have had a questionable reaction to meropenem. Cardiac: Patient's post cardiac arrest syndrome has improved and she is now off vasopressor therapy. As noted she did have a pulmonary embolism however there is no evidence to support right ventricular dysfunction however a formal echo is still pending. The pulmonary embolism notwithstanding, her presentation is more consistent with possible occult seizure having not taken her Neurontin and poss ible hypercarbic failure from not using BiPAP. Hematologic: No active hematologic issues. She did receive FFP for possible anaphylaxis and angioedema which caused heparin dosing changes. C1 esterase activity has been ordered Endocrine: Patient has type 2 diabetes with a hemoglobin A1c of 7.7. She had not been taking her medication and has been quite noncompliant with her diet regimen. It is noted that the night prior to her event she had a significant amount of carbohydrate intake. Continue to monitor and treat glucose supportively especially in light of steroid use. Renal: Patient's acute renal failure has improved. Continue to monitor supportively Metabolic: Follow CK. Patient did have rhabdomyolysis which appears to be improving. Continue to monitor electrolytes and support as needed. Lactic acidosis has improved. Alimentary: Tolerating tube feeds. Patient had transaminitis which appears to be related to muscle and not liver. Neurologic: Patient is in a comatose state. That being said she has been on Versed and morphine. I have discontinued morphine because of its histaminic effects. Will wean the Versed. My hypothesis is that the patient had been suffering from serotonin withdrawal and the possibility of Neurontin withdrawal which caused the muscle rigidity and fever. The possibility of seizure is also present. We will continue seizure medications and repeat EEG. Have transition to Precedex but will need to be vigilant to watch for the need for remi odiazepines given the above. We will also obtain CT of brain with contrast to rule out stroke and evaluate anoxia. She is unable to have an MRI secondary to an implanted device for pain. Sedation: Transitioning to Precedex and fentanyl. Monitor for increased muscle rigidity off benzodiazepines. Wean benzodiazepines over the next few hours. Lines/Tubes: Patient has poor peripheral IV access. Will need central access. Other: Critical Time Critical Time (minutes): 80 Level of Care: ICU Anticipated discharge: [facility] Within: within 24 hours -: 1. The care of a critical patient is a dynamic process. This note is a provider relations representative synopsis but static in nature. The timeframe for treatments given in order is not necessarily the actual time these treatments may have been done. 2. This patient requires critical care secondary to ongoing requirements for therapy not offered or safe outside the critical care environment. Transfer to a lower level of care will result in altered life or limb morbidity and mortality. 3. Multidisciplinary rounds completed. 4. ABCDE bundle addressed.
--- NOTE | 2020-03-07 17:57 | RADIOLOGY REPORT (SQ) ---
EXAM DESCRIPTION: CHEST SINGLE VIEW IMAGES COMPLETED DATE/TIME: 03/07/2020 4:34 pm REASON FOR STUDY: ett TUBE PLACEMENT COMPARISON: Chest radiograph, same date 543 hours. EXAM PARAMETERS: NUMBER OF VIEWS: One view. TECHNIQUE: Single frontal radiographic view of the chest acquired. RADIATION DOSE: NA LIMITATIONS: None. FINDINGS: LUNGS AND PLEURA: Improved aeration in the left upper lobe. No pleural effusion or pneumo thorax. New consolidation. MEDIASTINUM AND HILAR STRUCTURES: No masses. Contour normal. HEART AND VASCULAR STRUCTURES: Heart normal in size. Normal vasculature. BONES: No acute findings. HARDWARE: Endotracheal tube has been retracted slightly, now within the mid trachea in good position. A left IJ central venous catheter with tip in the brachiocephalic confluence is unchanged. Esophag ogastric tube tip is below the GE junction. Spinal stimulator unchanged. OTHER: No other significant finding. IMPRESSION: Improved aeration in the left upper lobe. TECHNICAL DOCUMENTATION: JOB ID: [id number] 2010 [employer]- All Rights Reserved Reading location - IP/workstation name: [email or web address]
--- NOTE | 2020-03-07 19:44 | PDOC TRANSFER SUMMARY ---
General Admission Date/PCP: 03/01/20 08:30 RILEY MENDEZ Admission Date: 03/01/20 Transfer Date: 03/07/20 Accepting Facility: [facility] Resuscitation Status: Full Code - Transfer Diagnosis (1) Anoxic encephalopathy Is this a current diagnosis for this admission?: Yes (2) Coma Is this a current diagnosis for this admission?: Yes (3) Myoclonic jerking Is this a current diagnosis for this admission?: Yes (4) Seizure Is this a current diagnosis for this admission?: Yes (5) Gabapentin adverse reaction Is this a current diagnosis for this admission?: Yes (6) Acute hypoxemic respiratory failure Is this a current diagnosis for this admission?: Yes (7) Serotonin withdrawal syndrome with complication Is this a current diagnosis for this admission?: Yes (8) Acute pulmonary embolism Is this a current diagnosis for this admission?: Yes (9) Acute kidney injury Is this a current diagnosis for this admission?: Yes (10) Angioedema Is this a current diagnosis for this admission?: Yes (11) Cardiac arrest Is this a current diagnosis for this admission?: Yes (12) Fever Is this a current diagnosis for this admission?: Yes (13) Lactic acidosis Is this a current diagnosis for this admission?: Yes (14) Leukocytosis Is this a current diagnosis for this admission?: Yes (15) Pneumonia Is this a current diagnosis for this admission?: Yes (16) Rhabdomyolysis Is this a current diagnosis for this admission?: Yes - Transfer Medications Home Medications: Albuterol Sulfate [Proair Respiclick] 1 puff IH Q6HP PRN 04/10/19 Amitriptyline HCl [Elavil 100 mg Tablet] 100 mg PO QHS 04/10/19 Buspirone HCl [Buspar 15 mg Tablet] 15 mg PO Q8 04/10/19 Clonazepam [Klonopin 1 mg Tablet] 1 mg PO TIDP PRN 04/10/19 Hydrochlorothiazide [Hydrodiuril 25 mg Tablet] 25 mg PO QAM 04/10/19 Metformin HCl [Metformin HCl ER] 500 mg PO DAILY 04/10/19 Metoprolol Succinate [Toprol Xl] 50 mg PO Q12 04/10/19 Pramipexole Di-HCl [Pramipexole Dihydrochloride] 0.375 mg PO QHS 04/10/19 Albuterol Sulfate [Ventolin 0.083% Neb 2.5 mg/3 ml Ampul] 1 vial NEB Q8HP PRN 08/30/19 Gabapentin Enacarbil [Horizant] 600 mg PO BID 08/30/19 Atorvastatin Calcium [Lipitor 10 mg Tablet] 10 mg PO QHS 03/01/20 Buprenorphine HCl [Belbuca] 300 mcg SL BID 03/01/20 Bupropion HCl [Bupropion Xl] 300 mg PO DAILY 03/01/20 Diclofenac Sodium 75 mg PO BIDP PRN 03/01/20 Epinephrine [Epipen] 0.3 mg IM PRN PRN 03/01/20 Furosemide [Lasix 20 mg Tablet] 20 mg PO DAILY 03/01/20 Lurasidone HCl [Latuda] 80 mg PO DAILY 03/01/20 Prazosin HCl [Minipress] 2 mg PO QHS 03/01/20 Transfer Medications: Current Medications Acetaminophen (Tylenol Soln 325 Mg/10.15 Ml Udcup) 650 mg NG Q4HP PRN PRN Reason: FEVER >101 Stop: 03/31/20 12:22 Last Admin: 03/05/20 16:38 Dose: 650 mg Documented by: Albuterol (Ventolin 0.083% Neb 2.5 Mg/3 Ml Ampul) 2.5 mg NEB RTQ6 [facility] Stop: 03/31/20 13:59 Last Admin: 03/07/20 14:09 Dose: 2.5 mg Documented by: Dexamethasone Sodium Phosphate (Decadron Inj 4 Mg/Ml Vial) 4 mg IV Q8 [facility] Stop: 04/05/20 13:59 Last Admin: 03/07/20 13:39 Dose: 4 mg Documented by: Dextrose (Dextrose Inj 50% Syringe (25 Gm/50 Ml)) 12.5 gm IV PRN PRN; Protocol PRN Reason: FOR BG 50-69 IN ALERT PATIENT Stop: 03/31/20 09:23 Dextrose (Dextrose Inj 50% Syringe (25 Gm/50 Ml)) 25 gm IV PRN PRN; Protocol PRN Reason: PER PROTOCOL Stop: 03/31/20 09:23 Famotidine (Pepcid 40 Mg/5 Ml Susp) 20 mg NG Q12 [facility] Stop: 04/05/20 21:59 Last Admin: 03/07/20 09:15 Dose: 20 mg Documented by: Fentanyl Citrate (Sublimaze Inj/Pf 100 Mcg/2 Ml Ampule) 50 mcg IV Q4HP PRN PRN Reason: ANXIETY/AGITATION Stop: 03/13/20 12:06 Gabapentin (Neurontin 100 Mg Capsule) 200 mg NG TID [facility] Stop: 04/06/20 13:59 Last Admin: 03/07/20 17:04 Dose: 200 mg Documented by: Glucagon (Glucagen Inj 1 Mg Vial) 1 mg IM PRN PRN; Protocol PRN Reason: Evaluate for BG < 70 Stop: 03/31/20 09:23 Glucose (Glutose 40% Gel 15 Gm Tube) 30 gm PO PRN PRN; Protocol PRN Reason: FOR BG < 50 IN ALERT PATIENT Stop: 03/31/20 09:23 Glucose (Glutose 40% Gel 15 Gm Tube) 15 gm PO PRN PRN; Protocol PRN Reason: FOR BG 50-69 IN ALERT PATIENT Stop: 03/31/20 09:23 Heparin Sodium (Porcine) (Heparin Inj 1,000 Unit/Ml 10 Ml Vial) 0 - 15,000 unit IV .BOLUS PER PROTOCOL PRN; Protocol PRN Reason: RESPOND TO aPTT VALUES Stop: 03/31/20 19:29 Last Admin: 03/07/20 05:54 Dose: 3,200 units Documented by: Heparin Sodium/Dextrose (Heparin Rtu 25,000 Unit/250 Ml D5w Premix) 25,000 unit in 250 mls @ 0 mls/hr IV .CONTINUOUS PRN; Protocol PRN Reason: THIS MED IS NOT "PRN" Stop: 03/31/20 19:29 Last Titration: 03/07/20 05:55 Dose: 17.66 mls/hr, 17.66 mls/hr Documented by: Vancomycin HCl 1,250 mg/ (Dextrose) 250 mls @ 166.667 mls/hr IV Q12 [facility] Stop: 03/12/20 09:59 Last Infusion: 03/07/20 15:10 Dose: Infused Documented by: Aztreonam 2 gm/ Dextrose 100 mls @ 50 mls/hr IV Q6A [facility] Stop: 03/14/20 09:59 Last Admin: 03/07/20 15:00 Dose: 50 mls/hr Documented by: Midazolam HCl (Versed Rtu 50 Mg/100 Ml Premix Bag) 50 mg in 100 mls @ 0 mls/hr IV CONTINUOUS PRN; Protocol PRN Reason: THIS MED IS NOT "PRN" Stop: 03/14/20 08:26 Last Titration: 03/07/20 14:17 Dose: 3 mls/hr Documented by: Trimethoprim/Sulfamethoxazole (430 mg/ Dextrose) 776.875 mls @ 194.219 mls/hr IV Q6 [facility] Stop: 03/14/20 11:59 Last Infusion: 03/07/20 15:10 Dose: Infused Documented by: Levetiracetam (Keppra Rtu 1000 Mg/Nacl-Iso 100 Ml Premix) 1,000 mg in 100 mls @ 400 mls/hr IV Q12 [facility] Stop: 04/06/20 16:59 Last Admin: 03/07/20 16:50 Dose: 400 ml/hr, 400 mls/hr Documented by: Insulin Glargine (Lantus Insulin 100 Unit/1 Ml 10 Ml) 20 unit SUBCUT Q12 [facility] Stop: 04/06/20 09:59 Last Admin: 03/07/20 10:42 Dose: 20 unit Documented by: Insulin Human Regular (Humulin R (Pyxis) Insulin 100 Unit/Ml 3ml) 0 - 14 unit SUBCUT Q4A [facility]; Protocol Stop: 04/06/20 00:00 Last Admin: 03/07/20 15:06 Dose: 6 unit Documented by: Pharmacy Profile Note (Medication Communication Order) 1 each MC .NOTICE NR Stop: 04/05/20 14:59 Polyethylene Glycol (Miralax Powder 17 Gm/Packet) 17 gm NG DAILY [facility] Stop: 04/06/20 09:59 Last Admin: 03/07/20 09:10 Dose: 17 gm Documented by: Sodium Chloride (Saline Flush 2.5 Ml Monoject Prefil Syrin) 2.5 ml IV Q8 [facility] Stop: 03/31/20 13:59 Last Admin: 03/07/20 13:39 Dose: 2.5 ml Documented by: Sodium Chloride (Nacl 0.9% Inj/Pf 10 Ml Sdv) 10 ml IV .AFTER EACH USE PRN PRN Reason: AFTER EACH INTERMITTENT USE Stop: 04/05/20 14:54 - Allergies Allergies/Adverse Reactions: aspirin [Aspirin] Allergy (Severe, Verified 08/30/19 16:56) Anaphylaxis bee venom protein (honey bee) Allergy (Severe, Verified 08/30/19 16:56) Anaphylaxis cephalexin Allergy (Severe, Verified 08/30/19 16:56) Anaphylaxis ciprofloxacin [From Cipro] Allergy (Severe, Verified 08/30/19 16:56) Anaphylaxis doxycycline Allergy (Severe, Verified 08/30/19 16:56) Anaphylaxis fluoxetine Allergy (Severe, Verified 08/30/19 16:56) Hallucinations meloxicam [From Mobic] Allergy (Severe, Verified 08/30/19 16:56) Anaphylaxis penicillamine Allergy (Severe, Verified 08/30/19 16:56) Anaphylaxis tramadol Allergy (Severe, Verified 08/30/19 16:56) Anaphylaxis diclofenac Allergy (Intermediate, Verified 08/30/19 16:56) Hives NSAIDS (Non-Steroidal Anti-Inflamma [Nsaids] Allergy (Intermediate, Verified 08/30/19 16:56) VOMITING Sulfa (Sulfonamide Antibiotics) Allergy (Intermediate, Verified 08/30/19 16:56) VOMITING Penicillins Allergy (Unknown, Verified 08/30/19 16:56) wasp Allergy (Severe, Uncoded 08/30/19 16:56) Anaphylaxis - Diet/Activity Discharge Diet: Tube Feeding (Comments) Hospital Course Hospital Course: 54-year-old white female found unresponsive at home (please see HPI). Had supraglottic airway placed by EMS and then was intubated in the emergency room x2 secondary to inability to pass ET tube. Patient was hypoxic and no cause for her arrest could be made and a CT scan for PE was done the next day which was positive for segmental and subsegmental PE but no saddle embolus. Family stated that the patient had a significant carbohydrate load the night before her untimely decline and had asked someone to check on her because they felt that she was not feeling well. 2 to 3 days into her admission she noted to have abrupt fever with muscle rigidity. Started on morphine and Versed and the concern was seizures. Initial EEG showed a burst suppression pattern and the plan was for repeat EEG today. In the ensuing 2 days her fever has decreased without cooling blanket or oral antipyretics. She has had intermittent bouts of rigidity with increased respiratory rate and hypertension. A repeat CT with contrast was done yesterday to rule out vasculitis and bleeding and these were negative. She was noted to have significant tongue swelling with the addition of meropenem and this was discontinued. Tongue swelling has persisted and steroids were started. There was some diminution in the size today. Has gram-positive cocci in blood and this was also noted to be in the tracheal aspirate. It appears to be a group C beta Streptococcus species--sensitive to cefotaxime, Levaquin, vancomycin and ampicillin. Unfortunately she has significant allergies prohibi ting use of some medications. Given her neurological situation and evidence of sinusitis on CT scan we added broad-spectrum coverage to cover [employer] SAL[employer] infection as well. We are unable to form LP because of the heparin drip. In addition she has been on antibiotics for a number of days decreasing the ability to obtain legitimate specimens. Patient had continued intermittent rigidity and what appeared to be roving nystagmus consistent with nonconvulsive status. An EEG was pending however was not done secondary to the technicians unavailability. Given the need for possible isoelectric brain suppression or burst suppression and the concern for ongoing nonconvulsive status her Versed was increased to suppress activity. This was done somewhat blindly because of the inability to obtain a continuous or static EEG. Plan Summary: 03.07.2020: Respiratory: Patient's respiratory status has not worsened. We are unable to liberate her from mechanical ventilation secondary to the significant tongue swelling and her neurological status. This is day 6 for intubation and given her neurological dysfunction would advocate for early rather than late tracheostomy if the family would choose to do so. This of course may be somewhat difficult given the need for heparin. Infectious: Patient has gram-positive persistent in her bloodstream. We will continue to follow monitor. Have ordered echocardiogram and if negative for vegetations will need CORRY. 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 Although not extremely high on the differential given her state it may be beneficial to start her on empiric therapy for meningitis. She has significant allergies and we have transition to alternative regimens. Vancomycin dosing to support a trough level greater than 15 and the need to keep it close to 20. Given her requirement for heparin I am hard pressed to discontinue in order to obtain lumbar puncture. The risk of doing is far greater than holding it and then attempt to obtain LP. Have ordered procalcitonin but the latency and results does not allow for concurrent treatment changes. Appears to have had a reaction to meropenem however the possibility that the EDTA from the endotracheal tube and the Intubation process have contributed to the swelling of her tongue. We will again attempt to obtain COVID testing to assure that this is not present. Given her unusual presentation there is a possibility that her pulmonary embolism represents a subset of the different presentations of this disease. Have received test kit and will proceed. Notified that SARS to COVID test is negative I personally did the exam and test myself to assure appropriate retrieval. Cardiac: Patient's hemodynamics and cardiac status has remained non-labile. Continue to monitor. Have ordered echocardiogram to rule out vegetation and she may need a CORRY. Continue heparin for PE. I do not sense that this pulmonary embolism is the sole cause for her situation but certainly adds complexity and synergy to her pathology. With the addition of IV Bactrim which often contains a high amount of volume will need to be diligent for diuresis when necessary. Hematologic: Patient is on heparin for segmental and subsegmental PE. White count is elevated as well and have started broad-spectrum antibiotics in addition to vancomycin. Will encourage increase in trough level. Given the possible need for multiple procedures it may be best to place a filter in this patient. Although not generally recommended by the ACCP or the PERT consortium, she may fit the category for the need. Will discuss with family to determine their goals. Endocrine: Have started long-acting insulin and short-acting coverage. Continue to monitor and follow as steroids are adjudicated Renal: Patient had acute tubular necrosis and renal dysfunction which is now improved. Continue to monitor closely. Follow creatinine with the use of Bactrim. Metabolic: Continue to monitor patient's electrolytes and support as needed. Will hold on diuresis today. Alimentary: Transaminase levels have improved most likely related to rhabdomyolysis. Continue to monitor liver function on multiple medications. Neurologic: By far the biggest concern is the patient's neurological status. She has both anoxic encephalopathy and what appears to be either seizures from this or Neurontin withdrawal related seizures. Unfortunately I was unable to obtain an EEG today although ordered. We were attempting to place the patient in an isoelectric state or at least significant burst-suppression pattern. We need to suppress seizure and rigid activity. Although concerned about her coma status is paramount, more importantly seizure will add to her mortality if not controlled. She appears to have responded to Versed and given the rigidity for which she often has I am concerned that this may be serotonin withdrawal or serotonin induced. Because there are multiple complex reasons Versed would be the drug of choice at this point. Patient will need a continuous EEG and if we are unable to do this may be required to transfer her to an institution which can do this. She has also been on chronic pain meds and have given her fentanyl. They are using this intermittently but she may require this continuously. Sedation: Transitioning to Versed and as needed fentanyl. Lines/Tubes: Day 2 CVC Other: We will update family on patient's status. Concern for need for transfer due to the complex nature of her illness is of utmost in discussion. 03.06.2020: Respiratory: Patient is unable to be liberated from the ventilator secondary to her acute neurological status and hypoxia related to aspiration. That being said we are weaning FiO2 and PEEP. Suitability for liberation from mechanical ventilation will be evaluated daily. Patient appears to have had segmental and subsegmental pulmonary emboli but this would not have resulted in this type of situation and may be as a result of prolonged immobilization and downtime. Continue heparin therapy Infectious: Microbiological reports show group C beta strep in both blood and sputum. Suggestive of aspiration pneumonitis or pneumonia. Chest x-ray is clearing. Patient's white count had been improving however she was placed on steroids for a swollen tongue leading to a slight elevation in her white blood cell count today. We will continue to monitor daily. To new antibiotics with vancomycin. She appears to have had a questionable reaction to meropenem. Cardiac: Patient's post cardiac arrest syndrome has improved and she is now off vasopressor therapy. As noted she did have a pulmonary embolism however there is no evidence to support right ventricular dysfunction however a formal echo is still pending. The pulmonary embolism notwithstanding, her presentation is more consistent with possible occult seizure having not taken her Neurontin and possible hypercarbic failure from not using BiPAP. Hematologic: No active hematologic issues. She did receive FFP for possible anaphylaxis and angioedema which caused heparin dosing changes. C1 esterase activity has been ordered Endocrine: Patient has type 2 diabetes with a hemoglobin A1c of 7.7. She had not been taking her medication and has been quite noncompliant with her diet regimen. It is noted that the night prior to her event she had a significant amount of carbohydrate intake. Continue to monitor and treat glucose supportively especially in light of steroid use. Renal: Patient's acute renal failure has improved. Continue to monitor supportively Metabolic: Follow CK. Patient did have rhabdomyolysis which appears to be improving. Continue to monitor electrolytes and support as needed. Lactic a cidosis has improved. Alimentary: Tolerating tube feeds. Patient had transaminitis which appears to be related to muscle and not liver. Neurologic: Patient is in a comatose state. That being said she has been on Versed and morphine. I have discontinued morphine because of its histaminic effects. Will wean the Versed. My hypothesis is that the patient had been suffering from serotonin withdrawal and the possibility of Neurontin withdrawal which caused the muscle rigidity and fever. The possibility of seizure is also present. We will continue seizure medications and repeat EEG. Have transition to Precedex but will need to be vigilant to watch for the need for benzodiazepines given the above. We will also obtain CT of brain with contrast to rule out stroke and evaluate anoxia. She is unable to have an MRI secondary to an implanted device for pain. Sedation: Transitioning to Precedex and fentanyl. Monitor for increased muscle rigidity off benzodiazepines. Wean benzodiazepines over the next few hours. Lines/Tubes: Patient has poor peripheral IV access. Will need central access. Please see chronological objective and subjective information below: "03.07.2020: Patient transitioned to Precedex of Versed and morphine drip. Noted to have downward gaze with nystagmus some rigidity without significant temperature elevation throughout the day. All responding to Versed and or fentanyl.. Started on Neurontin which she had been previously on and reinstituted Versed drip. No hemodynamic instability. Has not required cooling blanket. Glucose slightly higher especially with the Decadron. EEG ordered but planetarium sky show technician unable to form EEG. "03.06.2020: I assumed care of this patient after the excellent care provided by Dr. Oh. A synopsis of his evaluation over the last 5 days as noted below. Patient has not had any significant temperature elevation and her rigidity appears to be only with stimulus. She has been maintained on morphine and Versed drip and these have been adjudicated so as to discontinue antihistamine related effect of morphine. She is being transitioned to Precedex and will receive fentanyl as needed. Had lengthy discussion with power of prosecuting attorney, daughter Jessica Rosas. She discloses that the patient has not been taking her medications and is supposed to be on BiPAP at night. She had a significant amount of carbohydrates the night before she was found unresponsive. Extensive review of her medications shows that she has been on Neurontin, clonazepam, amitriptyline, buprenorphine in the form of Belbuca, bupropion buspirone, Latuda, metformin, pramipexole" Chronology of events prior to care: 03/05/2020: Fever returned and placed on a cooling blanket. Noted to have recurrence of spastic rigidity and abnormal movements (?myoclonus versus seizure). EEG was not available. Versed infusion was restarted. Patient was given Solu-Medrol and 2 units FFP for suspected angioedema involving the lips and tongue. Meropenem discontinued. No significant change in lip/tongue swel ling. No Neurologic improvement in the interim, however, with Versed infusion held, the patient did start to show responses to noxious stimulus. 03/04/2020: Fever controlled. Off Versed continuos infusion. Total CK elevated at [id number]. Nurses reports progressive swelling of the tongue during the night. Patient noted to have extensive list of drug intolerances and/or allergies (including multiple antibiotics). Currently on meropenem/vancomycin. Hemodynamically stable. Unresponsive noxious stimuli. Has intact spontaneous respirations. EEG shows burst suppression pattern. Recommendations for repeat EEG off Versed infusion. 03/03/2020: Fever better controlled with IV Acetaminophen. Muscle rigidity has improved with changing sedation from propofol to Versed infusion. CK: 1370. Off vasopressors with improved hemodynamics. Unresponsive to any stimulus. Maintains spontaneous respirations. Daughter (Jessica) updated by phone this morning 03/02/2020: CTA of the chest revealed acute pulmonary embolism with bilateral multifocal airspace disease. The patient is febrile. Cooling blanket required and given Tylenol with some improvement in fever curve. On propofol sedation. Off sedation, observed myoclonic jerks involving abdominal muscles and all 4 extremities. EEG not feasible with persistent fever due to inability for glue to maintain. Started on empiric meropenem/vancomycin, notably with multiple known drug allergies (including penicillins and cephalosporins). No adverse events reported after first doses. Blood cultures reporting 1 of 2 bottles with gram-positive cocci in chains, questionable contaminant. Tracheal aspirate has group C beta-hemolytic streptococci. 03/01/2020: Admitted after PEA arrest at home. Intubated in ED after 2nd attempt. Unknown downtime. Intubated in the field. Patient reportedly ate a significant amount of carbohydrates prior to going to bed and was not feeling well. Review of systems relevant to events:: 03.07.2020: Blood culture from March 05 positive for gram positive cocci. Tongue swelling has not diminished significantly. 03.06.2020: Currently off all vasopressor therapy. On morphine and Versed drip. Reason for ICU Addmission:: cardiac arrest Physical Exam Vital Signs: Temp Pulse Resp BP Pulse Ox 100.6 F H 97 32 H 152/66 H 100 03/07/20 16:00 03/07/20 16:00 03/07/20 16:00 03/07/20 16:00 03/07/20 16:05 Intake & Output 03/06/20 03/07/20 03/08/20 06:59 06:59 06:59 Intake Total 2185 1412 2190.875 Output Total 5875 1210 500 Balance -3690 202 1690.875 Weight 87.2 kg 86.4 kg Exam: See today's progress note for further details Results Laboratory Results: 03/07/20 04:45 03/07/20 04:45 03/06/20 03/06/20 03/07/20 21:45 21:45 04:45 WBC RBC Hgb Hct MCV MCH MCHC RDW Plt Count Seg Neutrophils % Carbonic Acid HCO3/H2CO3 Ratio ABG pH ABG pCO2 ABG pO2 ABG HCO3 ABG O2 Saturation ABG Base Excess FiO2 Sodium Potassium Chloride Carbon Dioxide Anion Gap BUN Creatinine 0.79 Cancelled Est GFR ( Amer) > 60 Cancelled Est GFR (Non-Af Amer) Cancelled Glucose Calcium Phosphorus Magnesium Total Bilirubin AST Alkaline Phosphatase Ammonia < 8.7 L Total Protein Albumin 03/07/20 03/07/20 03/07/20 04:45 04:45 04:45 WBC 20.2 H RBC 2.83 L Hgb 8.1 L Hct 24.5 L MCV 87 MCH 28.7 MCHC 33.2 RDW 15.1 H Plt Count 340 Seg Neutrophils % Not Reportable Carbonic Acid 1.16 HCO3/H2CO3 Ratio 25:1 ABG pH 7.50 H ABG pCO2 38.4 ABG pO2 95.8 ABG HCO3 29.5 H ABG O2 Saturation 97.8 ABG Base Excess 6.0 FiO2 35% Sodium 136.3 L Potassium 3.9 Chloride 98 Carbon Dioxide 30 Anion Gap 8 BUN 19 Creatinine 0.81 Est GFR ( Amer) > 60 Est GFR (Non-Af Amer) Glucose 271 H Calcium 8.8 Phosphorus 3.1 Magnesium 2.6 H Total Bilirubin 0.3 AST 69 H Alkaline Phosphatase 132 H Ammonia Total Protein 6.5 Albumin 3.3 L 03/05/20 11:50 Blood Blood Culture (PCR) - Final 03/01/20 03/01/20 03/01/20 06:26 06:26 06:26 Creatine Kinase 72 CK-MB (CK-2) 0.50 Troponin I 0.057 NT-Pro-B Natriuret Pep 45 03/02/20 03/02/20 03/03/20 07:51 19:03 04:36 Creatine Kinase 1370 H CK-MB (CK-2) Troponin I NT-Pro-B Natriuret Pep 2700 H 1470 H 03/03/20 03/03/20 03/03/20 04:36 04:36 12:34 Creatine Kinase 1568 H 1903 H CK-MB (CK-2) Troponin I 0.069 NT-Pro-B Natriuret Pep 03/03/20 03/06/20 03/07/20 20:00 12:47 04:45 Creatine Kinase 1302 H 284 H 239 H CK-MB (CK-2) Troponin I NT-Pro-B Natriuret Pep Impressions: Chest/Abdomen CTA 03/01/20 00:00 IMPRESSION: 1. New development of acute pulmonary emboli in the distal right pulmonary artery, segmental and subsegmental branches bilaterally, slightly more so on the right, since the prior study dated 02/18/2020. No evidence for saddle pulmonary embolus. 2. Interval development of bilateral multifocal opacity/airspace disease in the lungs, slightly more extensive on the left. 3. Interval placement of endotracheal and nasogastric tubes. 4. Fatty liver and hepatomegaly. 5. The visualized gallbladder is distended. Head CT 03/01/20 06:32 IMPRESSION: No acute intracranial event. EVIDENCE OF ACUTE STROKE: NO. KUB X-Ray 03/04/20 00:00 IMPRESSION: A nasogastric tube tip is seen overlying the right upper abdomen, likely at the proximal duodenum or pylorus. Head CTA 03/06/20 00:00 IMPRESSION: 1. No evidence of stenosis or aneurysm of the hoh of [place]. 2. No acute intracranial imaging findings. 3. Extensive sinus disease. Neck CTA 03/06/20 15:35 IMPRESSION: NORMAL CTA OF THE EXTRA-CRANIAL CAROTID AND VERTEBRAL ARTERIES. Chest X-Ray 03/07/20 06:00 IMPRESSION: Unchanged radiographic appearance of the lungs and pleura. Status: Imported from PACS Plan Discharge Plan: Patient to be transferred to tertiary care center for continuous EEG monitoring and definitive resource management. Patient's medical power of prosecuting attorney is Jessica Rosas-[phone]. Her daughter has Cerebral Palsy with speech impediment. Time Spent: Greater than 30 Minutes
[2020-03-07] MEDS: FUROSEMIDE INJ/PF 20 MG/2 ML SDV IV SCH ×2 (20:45→21:09)
[2020-03-07 22:23] VITALS: BP 162/77
--- NOTE | 2020-03-07 23:12 | XCELERA REPORT ---
[address] [address] Transthoracic Echocardiogram Report Name: NATHAN BOJORQUEZ Age: 54 yrs Gender: Female : 1965 Patient Status: Inpatient Patient Location: ICU^605^A Study Date: 03/07/2020 07:51 AM Height: 62 in Weight: 192 lb BSA: 1.9 m2 Procedure: A two-dimensional transthoracic echocardiogram with color flow and Doppler was performed. The study was technically limited with all images being suboptimal in quality. Reason For Study: post cardiac arrest- History: post cardiac arrest-. Ordering Physician: SHERIE HUANG Performed By: Hortencia Umanzor Interpretation Summary The left ventricle is normal in size. There is normal left ventricular wall thickness. LV EF is 70% Left ventricular systolic function is normal. Doppler measurements suggest impaired left ventricular relaxation, which is associated with grade I/IV or mild diastolic dysfunction The left ventricular wall motion is normal. There is no thrombus. cannot assess ASD,VSD,or PFO. The right ventricle is not well visualized secondary to technical limitations Right atrium not well visualized secondary to technical limitations The left atrial size is normal. There is no evidence of mitral valve prolapse. There is no vegetation seen on the mitral valve. There is no mitral valve stenosis. There is no aortic valve stenosis There is no LVOT obstruction. No aortic regurgitation is present. There is no tricuspid stenosis. There is a trace amount of tricuspid regurgitation Tricuspid regurgitation jet envelope not well defined to measure RV systolic pressure accurately. There is no pulmonic valvular stenosis. There is a trace amount of pulmonic regurgitation The aortic root is not well visualized but is probably normal size. The inferior vena cava was not visualized There is no pericardial effusion. MMode/2D Measurements & Calculations RVDd: 1.9 cm LVIDd: 5.2 cm FS: 37.5 % Ao root diam: 2.5 cm IVSd: 0.99 cm LVIDs: 3.2 cm EDV(Teich): 128.3 ml Ao root area: 4.9 cm2 LVPWd: 1.0 cm ESV(Teich): 42.2 ml EF(Teich): 67.1 % Doppler Measurements & Calculations MV E max mata: MV dec slope: Ao V2 max: LV V1 max P.2 cm/sec 671.3 cm/sec2 229.8 cm/sec 9.4 mmHg MV A max mata: MV dec time: 0.18 secAo max PG: LV V1 max: 140.6 cm/sec 21.1 mmHg 153.3 cm/sec MV E/A: 0.87 PA V2 max: 142.5 cm/sec PA max P.1 mmHg Left Ventricle The left ventricle is normal in size. There is normal left ventricular wall thickness. LV EF is 70%. Left ventricular systolic function is normal. Doppler measurements suggest impaired left ventricular relaxation, which is associated with grade I/IV or mild diastolic dysfunction. The left ventricular wall motion is normal. There is no thrombus. cannot assess ASD,VSD,or PFO. Right Ventricle The right ventricle is not well visualized secondary to technical limitations. Atria Right atrium not well visualized secondary to technical limitations. The left atrial size is normal. Mitral Valve There is no evidence of mitral valve prolapse. There is no vegetation seen on the mitral valve. There is no mitral valve stenosis. Aortic Valve There is no aortic valve stenosis. There is no LVOT obstruction. No aortic regurgitation is present. Tricuspid Valve There is no tricuspid stenosis. There is a trace amount of tricuspid regurgitation. Tricuspid regurgitation jet envelope not well defined to measure RV systolic pressure accurately. Pulmonic Valve There is no pulmonic valvular stenosis. There is a trace amount of pulmonic regurgitation. Great Vessels The aortic root is not well visualized but is probably normal size. The inferior vena cava was not visualized. Effusions There is no pericardial effusion. : SHERIE HUANG Lakshmi
== END 2020-03-08 00:50 | disposition short-term general hospital (02) | DRG 207 ==
LOC: ER 06:11 → EH 08:30 → ICU 11:25
PROVIDERS: ADMIT Internal Medicine Critical Care Medicine; ATTEND Internal Medicine Critical Care Medicine
PROC: 0BH17EZ Insertion of Endotracheal Airway into Trachea, Via Natural or Artificial Opening (ICD-10-PCS; principal; 2020-03-01)
PROC: 5A1955Z Respiratory Ventilation, Greater than 96 Consecutive Hours (ICD-10-PCS; 2020-03-01)
PROC: 30233N1 Transfusion of Nonautologous Red Blood Cells into Peripheral Vein, Percutaneous Approach (ICD-10-PCS; 2020-03-03)
PROC: 02HV33Z Insertion of Infusion Device into Superior Vena Cava, Percutaneous Approach (ICD-10-PCS; 2020-03-06)
DX: I26.99 Other pulmonary embolism without acute cor pulmonale (principal); I46.9 Cardiac arrest, cause unspecified; J96.01 Acute respiratory failure with hypoxia; J18.9 Pneumonia, unspecified organism; N17.9 Acute kidney failure, unspecified; E87.2 Acidosis; G93.1 Anoxic brain damage, not elsewhere classified; M62.82 Rhabdomyolysis; F19.939 Other psychoactive substance use, unspecified with withdrawal, unspecified; G40.909 Epilepsy, unspecified, not intractable, without status epilepticus; E11.9 Type 2 diabetes mellitus without complications; Z79.84 Long term (current) use of oral hypoglycemic drugs; D64.9 Anemia, unspecified; D72.829 Elevated white blood cell count, unspecified; E78.5 Hyperlipidemia, unspecified; I10 Essential (primary) hypertension; M79.7 Fibromyalgia; R40.2431 Glasgow coma scale score 3-8, in the field [EMT or ambulance]; T78.3XXA Angioneurotic edema, initial encounter; T38.3X6A Underdosing of insulin and oral hypoglycemic [antidiabetic] drugs, initial encounter; I87.2 Venous insufficiency (chronic) (peripheral); Z20.828 Contact with and (suspected) exposure to other viral communicable diseases; J32.9 Chronic sinusitis, unspecified; T42.6X5A Adverse effect of other antiepileptic and sedative-hypnotic drugs, initial encounter; Z91.11 Patient's noncompliance with dietary regimen; Z88.8 Allergy status to other drugs, medicaments and biological substances; Z88.1 Allergy status to other antibiotic agents; Z91.030 Bee allergy status; Z88.0 Allergy status to penicillin; Z88.2 Allergy status to sulfonamides
CPT/HCPCS: 36415; 36430; 36600; 51702; 70450; 70496; 70498; 71045; 71275; 74018; 80048; 80053; 80202; 80307; 81001; 82010; 82140; 82330; 82550; 82553; 82565; 82728; 82803; 82962; 83036; 83605; 83690; 83735; 83874; 83880; 84100; 84443; 84484; 85025; 85610; 85730; 86160; 86161; 86850; 86900; 86901; 87040; 87070; 87077; 87150; 87186; 87205; 87635; 93005; 93010; 93306; 93312; 93325; 94002; 94003; 95819; 96365; 96366; 99291; 99292; C9113; J0131; J0330; J1100; J1644; J1815; J1940; J1953; J2185; J2250; J2270; J2704; J2930; J3010; J3370; J3475; J3480; J3490; J7030; J7040; J7060; P9017